=== PATIENT | male | born 1980 | race African-American/Black ===

== ENCOUNTER 2018-10-27 02:59 | Inpatient (IN) ==
--- NOTE | 2018-10-27 03:16 | PROVIDER DOCUMENTATION ---
HPI-General Adult - General Chief Complaint: Chest Pain Stated Complaint: SOB, CHEST PAIN, PRIVATE PART SWELLING Time Seen by Provider: 10/27/18 03:10 Source: patient, old records Allergies/Adverse Reactions: Patient Allergies Allergy/AdvReac Type Severity Reaction Status Date / Time No Known Allergies Allergy Verified 10/23/18 02:02 Home Medications: Home Medication List Medication Instructions Recorded Confirmed Last Taken Type Pantoprazole [Protonix] 40 mg PO DAILY@0700 11/16/16 10/23/18 Unknown History Carvedilol [Coreg] 25 mg PO BID 05/31/17 10/27/18 Unknown History Atorvastatin Calcium 40 mg PO DAILY 10/16/18 10/27/18 Unknown History Cholecalciferol (Vitamin D3) 5,000 unit PO DAILY 10/16/18 10/23/18 Unknown History [Vitamin D3] Gabapentin 300 mg PO BID 10/16/18 10/23/18 Unknown History Hydralazine HCl 100 mg PO TID 10/16/18 10/27/18 Unknown History Lubiprostone [Amitiza] 24 mcg PO BID 10/16/18 10/27/18 Unknown History Naloxegol Oxalate [Movantik] 25 mg PO DAILY 10/16/18 10/23/18 Unknown History Sodium Bicarbonate 650 mg PO BID 10/16/18 10/27/18 Unknown History Amlodipine [Norvasc] 10 mg PO DAILY #30 tab 10/20/18 10/23/18 Unknown Rx Sitagliptin [Januvia] 50 mg PO DAILY #30 tab 10/20/18 10/23/18 Unknown Rx Sodium Zirconium Cyclosilicate 10 gm PO DAILY #30 powd.pack 10/20/18 10/23/18 Unknown Rx [Lokelma] Escitalopram [Lexapro] 10 mg PO QAM #30 tab 10/26/18 10/27/18 Unknown Rx Insulin Humulin 70/30 [Humulin 15 unit SUBQ QHS #1 insuln.pen 10/26/18 10/23/18 Unknown Rx 70/30] Insulin Humulin 70/30 [Humulin 30 unit SUBQ DAILY #1 insuln.pen 10/26/18 10/23/18 Unknown Rx 70/30] Isosorbide Dinitrate 20 mg PO TID #90 tab 10/26/18 Unknown Rx Nicotine Patch [Nicoderm Patch] 21 mg TD DAILY #30 patch.td24 10/26/18 Unknown Rx Torsemide 20 mg PO DAILY #30 tab 10/26/18 10/27/18 Unknown Rx Minoxidil 1 tab PO DAILY 10/27/18 10/27/18 Unknown History Naloxegol Oxalate [Movantik] 1 tab PO DIRECTED 10/27/18 10/27/18 Unknown History Sitagliptin [Januvia] 1 tab PO DAILY 10/27/18 10/27/18 Unknown History - History of Present Illness -Gen Adult Nature of Presenting Problems: 38 y/o M presents to the ED complaining of dyspnea and chest pain. States this began earlier tonight and feels like his CHF. Reports he has been compliant with his meds but feels like he "has been swelling up". No cough no fever. Chest pain achiness in left chest. Review of Systems - Adult - REVIEW OF SYSTEMS - ADULT Constitutional: reports: no symptoms reported Eyes: reports: no symptoms reported Ears, Nose, Mouth & Throat: reports: no symptoms reported Cardiovascular: reports: chest pain, edema Respiratory: reports: shortness of breath. denies: cough Gastrointestinal: reports: no symptoms reported Genitourinary: reports: no symptoms reported Musculoskeletal: reports: no symptoms reported Integumentary: reports: no symptoms reported Neurological: reports: no symptoms reported Psychiatric: reports: no symptoms reported Endocrine: reports: no symptoms reported Hematologic/Lymphatic: reports: no symptoms reported Allergic/Immunologic: reports: no symptoms reported All Other Systems: Reviewed and Negative Past History - Adult - PAST MEDICAL HISTORY-ADULT Review of Records: reports: Old Records Reviewed, Nursing Assessment Review, Medications Reviewed, Social history reviewed & non-contributory. Major Childhood Illnesses: reports: denies history Cardiovascular: reports: HTN, hyperlipidemia Respiratory: reports: denies history Gastrointestinal: reports: denies history Obstetrical/Gynecological: reports: denies history Genitourinary: reports: denies history Musculoskeletal: reports: denies history Neurological: reports: Seizures/Epilepsy Endocrine/Immune: reports: Diabetes Other Conditions: reports: other (neropathy) - PRIOR SURGERIES/PROCEDURES Surgical/Procedure History: reports: appendectomy - IMMUNIZATION STATUS Childhood Immunizations: See Nurse Assessment Flu Vaccine: See Nurse Assessment - FAMILY HISTORY Family History: diabetes Physical Exam-General - PHYSICAL EXAM-ADULT Initial Vital Signs Reviewed: Yes - CONSTITUTIONAL General Appearance: appears well, alert, no apparent distress - EYES Eyes: PERRL/EOMI, pink conjunctivae - HEAD, EARS, NOSE, MOUTH & THROAT HENMT: normocephalic/atraumatic, moist mucous membranes, normal ENT inspection - NECK Neck: non-tender, full range of motion, supple - RESPIRATORY Respiratory: chest non-tender, lungs clear, normal breath sounds - CARDIOVASCULAR Cardiovascular: normal peripheral pulses, regular rate, rhythm, no JVD, other (marked BL pedal edema) - GASTROINTESTINAL (ABDOMEN) Abdominal Exam: normal bowel sounds, non tender, soft - MUSCULOSKELETAL Back Exam: normal inspection, no CVA tenderness, no vertebral tenderness Extremity: normal range of motion, non-tender, pedal edema, swelling, other (deep diabetic foot ulcer to right plantar great toe with moderate surrouding erythrema) - SKIN Integumentary: normal color, normal turgor, warm/dry - NEUROLOGIC Neurologic: grossly normal, no motor/sensory deficits - PSYCHIATRIC Psych/Mental Status: normal mood/affect, normal thought content, normal thought process, oriented x 3 Progress - PLAN OF CARE/RESULTS Progress/Plan/Lab Results: Vital Signs - 8 hr 10/27/18 03:08 Temperature 99 F Pulse Rate 113 H Respiratory Rate 14 Blood Pressure 162/86 O2 Sat by Pulse Oximetry 98 Orders Category Date Time Status EKG [EKG] Stat Ther 10/27/18 03:15 Ordered chest pain, dyspnea, and edema. Will further evaluate for causes including but not limited to chf exacerbation, acs, arrythmia, pna, ptx Result Diagrams: 10/27/18 03:09 10/27/18 03:09 - REASSESSMENT Reassessment #1 Status: improving (chest pain improved. Elevated bnp, troponin, and glucose with anemia likely due to noncomplaince and chf exacerbation. no signs of DKA. Troponin elevation within pt's baseline. Treated with NTG paste, lasix, insulin, vanco and zosyn and will admit. Discussed case with Dr. Lawrence, hospitalist, who requests pt be admitted to the floor and will see him there.) - EKG 1 Time of EKG reading by physician:: 03:05 EKG Read and Signed by:: Luz Logan EKG Interpretation (*Must complete 3 of following elements*): Abnormal (Sinus Rhythm, rate 118, t-waves inversions anteriorly and laterally unchanged from prior 10/19/18) Departure - Departure Date of Disposition Decision: 10/27/18 Time of Disposition Decision: 04:29 DIAGNOSIS: Troponin level elevated, Type 2 diabetes mellitus with hyperglycemia, with long-term current use of insulin CHF exacerbation Qualifiers: Heart failure type: unspecified Qualified Code(s): I50.9 - Heart failure, unspecified Diabetes Qualifiers: Diabetes mellitus type: type 2 Diabetes mellitus chcf insulin use: unspecified rodent exterminator insulin use status Diabetes mellitus complication status: with skin complications Diabetes mellitus complication detail: with foot ulcer Qualified Code(s): E11.621 - Type 2 diabetes mellitus with foot ulcer Diabetic foot ulcer Qualifiers: Diabetic foot ulcer location: toe Diabetes mellitus type: type 2 Laterality: right Non-pressure ulcer stage: unspecified non-pressure ulcer stage Qualified Code(s): E11.621 - Type 2 diabetes mellitus with foot ulcer Anemia Qualifiers: Anemia type: unspecified type Qualified Code(s): D64.9 - Anemia, unspecified Disposition: ADMITTED INPATIENT 09 Certified Medical Emergency: Emergent Condition: Fair - Critical Care Note This patient required my direct & personal management of CC.: No Attestation - Physician/ DUANE Attestation Patient care was provided by Advanced Practice Provider:: No The physician spent face to face time with patient:: Yes Advanced Practice Provider documentation review:: Supervising physician onsite and consulted in the evaluation and care of this patient. The physician did have a face to face encounter with the patient.
[2018-10-27] MEDS ORDERED: ASPIRIN PO ONE (03:27)
[2018-10-27] MEDS ORDERED: NITROGLYCERIN TOP ONE (03:27)
[2018-10-27 03:37] LABS: BASO# 0.06 X1000 (0.0-0.2); BASO% 0.3 % (0.0-0.8); EOS# 0.08 X1000 (0.0-0.7); EOS% 0.5 % (0.0-10.0); HEMATOCRIT 22.3 % (42.0-52.0); HEMOGLOBIN 7.5 g/dL (14.0-18.0); IMM GRAN# 0.05 X1000 (0.0-0.04); IMM GRAN% 0.3 % (0.0-0.5); LYMPH# 1.63 X1000 (1.2-3.4); LYMPH% 9.2 % (20.5-51.1); MCH 27.6 PG (27-31); MCHC 33.6 g/dL (33-37); MONO# 1.11 X1000 (0.11-0.59); MONO% 6.3 % (1.7-9.3); MPV 10.4 FL (7.4-10.4); NEUT% 83.4 % (42.2-75.2); PLT 376 X1000 (130-400); RBC 2.72 XMIL (4.7-6.1); RDW 19.5 % (11.5-14.5); WBC 17.73 X1000 (4.8-10.8)
[2018-10-27] MEDS ORDERED: LASIX ONE (04:20)
[2018-10-27] MEDS ORDERED: LASIX IV ONE (04:20)
[2018-10-27] MEDS ORDERED: MORPHINE IV ONE (04:26)
[2018-10-27] MEDS ORDERED: HUMULIN R IV ONE (04:26)
[2018-10-27] MEDS ORDERED: VANCOMYCIN 1 GM/NS 1 GM/250 ML IVPB IV ONE (04:28)
[2018-10-27] MEDS ORDERED: ZOSYN 4.5 GM in NS 100 ML IV ONE (04:28)
[2018-10-27 04:36] LABS: AGAP 13; BUN 62 mg/dL (8-22); CALCIUM 8.3 mg/dL (8.8-10.2); CHLORIDE 96 mmol/L (98-107); COSMO 297; CREATININE 2.7 mg/dL (0.7-1.2); POTASSIUM 5.8 mmol/L (3.5-5.1); SODIUM 131 mmol/L (136-145); TCO2 22 mmol/L (25-35)
[2018-10-27 04:43] LABS: GLUCOSE 408 mg/dL (70-104)
[2018-10-27] MEDS ORDERED: ZOFRAN IV PRN (04:57)
[2018-10-27 05:04] LABS: IRON SATURATION 13 %; TIBC 205 ug/dL; TOTAL IRON 26 ug/dL (53-167); UNBOUND IRON 179 ug/dL (112-346)
--- NOTE | 2018-10-27 06:02 | EKG Report ---
Test Performed on : 10/27/2018 03:04:46 AM Test Reason : cp Blood Pressure : / mmHG Vent. Rate : 118 BPM Atrial Rate : 118 BPM P-R Int : 146 ms QRS Dur : 082 ms QT Int : 328 ms P-R-T Axes : 051 050 233 degrees QTc Int : 459 ms Sinus tachycardia. Possible Left atrial enlargement ST & T wave abnormality, consider inferolateral ischemia Abnormal ECG When compared with ECG of 23-OCT-2018 12:09, (Unconfirmed) No significant change was found Unconfirmed Result
--- NOTE | 2018-10-27 07:17 | Diag Imaging Result Doc PS360 ---
EXAM: CHEST-1 VIEW INDICATION: dyspnea TECHNIQUE: One view COMPARISON: 10/23/2018 FINDINGS: There is a nodule at the left lower lung zone that has been stable for over 2 years and is assumed to represent a granuloma. Inspiration is suboptimal. The lungs are grossly clear, otherwise. There is no discrete pleural fluid collection or pneumothorax. There is stable cardiomegaly. IMPRESSION: Low lung volumes and cardiomegaly but no definite acute chest pathology by plain radiograph. Electronically signed by Murphy Stern 10/27/2018 7:15 AM
[2018-10-27 08:10] LABS: HEMATOCRIT 23.9 % (42.0-52.0); MCH 27.4 PG (27-31); MCHC 33.5 g/dL (33-37); MCV 81.8 FL (81-99); MPV 9.6 FL (7.4-10.4); RBC 2.92 XMIL (4.7-6.1); RDW 19.6 % (11.5-14.5); WBC 18.16 X1000 (4.8-10.8)
[2018-10-27 08:14] LABS: HEMOGLOBIN A1C 11.6 % (4.8-6.0)
[2018-10-27 08:29] LABS: ALBUMIN 3.7 g/dL (3.5-5.0); CALCIUM 8.6 mg/dL (8.8-10.2); CREATININE 2.6 mg/dL (0.7-1.2); MAGNESIUM 2.2 mg/dL (1.5-2.7); TOTAL BILIRUBIN 0.3 mg/dL (0.20-1.00); TOTAL PROTEIN 7.5 g/dL (6.3-8.3)
[2018-10-27 08:36] LABS: POTASSIUM 5.9 mmol/L (3.5-5.1)
[2018-10-27] MEDS: LASIX IV SCH ×2 (08:58→21:19)
[2018-10-27] MEDS ORDERED: LOKELMA POWDER PACKET PO SCH ×2 (09:45→12:45)
--- NOTE | 2018-10-27 10:16 | Diag Imaging Result Doc PS360 ---
EXAM: FOOT COMPLETE RIGHT 10/27/2018 HISTORY: pain, edema,redness TECHNIQUE: Right foot three views COMMENT: There is soft tissue swelling over the dorsum of the foot. There are calcifications present in the dorsalis pedis artery. There is no evidence of periosteal reaction or erosion fracture or dislocation. IMPRESSION: Advanced atherosclerosis. No evidence of acute bony disease. Electronically signed by Jeremy Guaman 10/27/2018 10:13 AM
[2018-10-27 10:26] LABS: URINE SOURCE CLEAN CATCH
[2018-10-27 10:40] LABS: UR AMPHETAMINES QUAL NONE DETECTED (NONE DETECT); UR BARBITUATES QUAL NONE DETECTED (NONE DETECT); UR BENZODIAZEPIN QUAL NONE DETECTED (NONE DETECT); UR CANNABINOIDS QUAL PRESUMPTIVE POSITIVE (NONE DETECT); UR COCAINE QUAL NONE DETECTED (NONE DETECT); UR METHADONE QUAL NONE DETECTED (NONE DETECT); UR METHAMPHETAMINE QUAL NONE DETECTED (NONE DETECT); UR OPIATES QUAL PRESUMPTIVE POSITIVE (NONE DETECT); UR OXYCODONE QUAL NONE DETECTED (NONE DETECT); UR PCP QUAL NONE DETECTED (NONE DETECT); UR PROPOXYPHENE QUAL NONE DETECTED (NONE DETECT); UR TCA QUAL NONE DETECTED (NONE DETECT)
[2018-10-27 10:43] LABS: BILIRUBIN URINE NEGATIVE (NEGATIVE); BLOOD URINE 1+ (NEGATIVE); CLARITY CLEAR (CLEAR); COLOR YELLOW; KETONE URINE NEGATIVE (NEGATIVE); LEUKOCYTES URINE NEGATIVE (NEGATIVE); NITRITE URINE NEGATIVE (NEGATIVE); PROTEIN URINE 2+(100 mg/dL) mg/dL (NEGATIVE); UROBILINOGEN URINE NORMAL
[2018-10-27 10:59] LABS: URINE BACTERIA NEGATIVE /HFP; URINE CAST NONE SEEN /LPF; URINE CRYSTAL NONE SEEN /HPF; URINE EPITHELIAL CELLS <10 /HPF (<10); URINE WBC <10 /HPF (<10); URINE YEAST NONE SEEN /HPF
[2018-10-27] MEDS: HUMALOG (PARKWAY) SUBQ SCH ×3 (11:41→21:27)
[2018-10-27] MEDS: LOKELMA POWDER PACKET PO SCH (11:49)
[2018-10-27] MEDS ORDERED: ATIVAN PO PRN (12:44)
[2018-10-27] MEDS ORDERED: NORCO-10 PO PRN (12:46)
[2018-10-27] MEDS: ISORDIL PO SCH ×2 (13:26→21:20)
[2018-10-27] MEDS: NICODERM PATCH TD SCH (13:26)
[2018-10-27] MEDS: JANUVIA PO SCH (13:27)
[2018-10-27] MEDS: AMITIZA PO SCH ×2 (13:27→21:26)
[2018-10-27] MEDS: APRESOLINE PO SCH ×2 (13:27→21:20)
[2018-10-27 15:00] LABS: CK INDEX 1.9 (0.0-2.5); CK-MB 7.73 ng/mL (0.0-5.0)
--- NOTE | 2018-10-27 15:58 | HISTORY AND PHYSICAL ---
CHIEF COMPLAINT: My legs are swelling. I am having chest pain. HISTORY OF PRESENT ILLNESS: This is a 38-year-old gentleman who presents to the emergency room complaining of chest pain, shortness of breath and lower extremity edema. Mr. Campoverde has a history of diabetes type 2, chronic kidney disease stage 3, chronic anemia, chronic hyperkalemia, and diabetic foot ulcer to his right lower extremity. Mr. Campoverde has been hospitalized 3 times since October 16. He was hospitalized October 16 through the , then October 23 to and then returns today all for the same symptoms. He has had complained of intermittent achy chest pain throughout this time as well as dyspnea, lower extremity edema. He has been repeatedly asked about compliance with his medications throughout this time. He at some time states that he is compliant, others he stated that he is not taking Lasix because it does not work for him in fact on his October 23 admission he asked to be changed to torsemide stating that helped his sister. He wanted to try it. It was noted that on discharge from [facility] on the , the patient did not take any Lasix at home, stating that he got confused with his discharge instructions. We asked about his diet. He states his made his diet and mainly consist of ham, bologna and turkey that he does not watch his salt intake and he has no intention of starting. In the emergency room. He was given IV Lasix, but since admission he has refused. He has not measured his urine as he was instructed so we are unsure of response to this. At the time of my exam, Mr. Campovrede has been down to his car twice this today to get things out of his car after being told multiple times he does not need to leave the floor. He denies any chest pain or any shortness of breath. He is cooperative. He is noted to have bilateral lower extremity edema from about midthigh down, although this has improved from my assessment on his admission October 23. PAST MEDICAL HISTORY: 1. Diabetes mellitus type 2. 2. Diastolic heart failure. 3. Chronic kidney disease stage 3. 4. Chronic anemia. 5. Chronic hyperkalemia. 6. Hypertension. 7. Diabetic foot ulcer, which was followed by Dr. Olivares [facility]. PAST SURGICAL HISTORY: 1. Appendectomy. 2. Tonsillectomy. 3. 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 SOCIAL HISTORY: He lives with family members. He smokes about a pack a day. He does use daily marijuana. He denies alcohol use. ALLERGIES: No known drug allergies. HOME MEDICATIONS: A list will be obtained by the nurse nursing staff once verified review restart as appropriate. REVIEW OF SYSTEMS: Discussed with patient with pertinent positives stated in the HPI. He denied any syncope or dizziness, any palpitations, a productive cough, any fevers or chills, night sweats, any nausea, vomiting, diarrhea, constipation, black or bloody vomitus or stools, any hematuria, dysuria, frequency, urgency. PHYSICAL EXAMINATION: GENERAL: This is a 38-year-old gentleman who is walking down the carroll. He is in no distress. VITAL SIGNS: Blood pressure 180/80 with a heart rate of 112, respirations are 18, temperature is 97.9 degrees oral with room air saturation 100%. HEENT: Head is normocephalic, atraumatic. Mucous membranes are moist. NECK: Supple with no JVD. CARDIOVASCULAR: Regular rate and rhythm. S1 and S2 appreciated. He has bilateral lower extremity edema from just his thighs down. Calves are nontender bilateral peripheral pulses palpable x4 extremities. PULMONARY: Breath sounds are diminished throughout. Chest rises and falls symmetric with respiration. Chest wall is nontender to palpation gastrointestinal. GASTROINTESTINAL: Abdomen is soft, nontender, nondistended with bowel sounds in all 4 quadrants. GENITOURINARY: No CVA or suprapubic tenderness. NEUROLOGIC: He is alert oriented x3. SKIN: Warm and dry. LABS: WBC is 18 with hemoglobin 8, hematocrit 23.9, and platelets of 377,000. Sodium is 131, potassium 5.9, BUN 61, creatinine 2.6, glucose of 500. Hemoglobin A1c is 11.6. Troponin is 0.119. Urinalysis is essentially negative. In reviewing the patient's labs, troponin has been elevated since October 23. It was 0.09 at 2:30 in the morning on that admission. It did peak at 0.123 on October 24. On arrival to the emergency room at 3 a.m. on the , troponin was 0.132. Repeat troponin at 6 a.m. is 0.119. Stat troponin is now pending. Chest x-ray revealed low lung volumes and cardiomegaly, but no definite acute chest pathology. ASSESSMENT AND PLAN: 1. Elevated troponin. The patient was evaluated by cardiology and he was seen yesterday before discharge. It was felt he was in diastolic failure with nephrotic syndrome. He will continue his medications as per cardiology recommendations yesterday. 2. Diastolic heart failure. We will continue with diuresis. Continue the medication regimen from cardiology prior to discharge yesterday. We will attempt to keep an intake and output although the patient has been refusing to measure his urine. 3. Nephrotic syndrome. We will consult Nephrology. 4. Chronic kidney disease stage 3. This is stable. 5. Hyperkalemia. Potassium is 5.9 today, but in review, the patient's baseline potassium has been 5.5 to 5.8 site for the last 2 years. We will continue pad potassium binder Lokelma 20 mg p.o. daily and trend labs daily. Of course will hold any JUAQUIN or ARB inhibitors. 6. Chronic foot ulcers. Wound Care will be consulted. 7. Diabetes mellitus. We will start pattern blood glucose with sliding scale insulin. We will restart the 70/30, 30 units in the morning and 15 units at night. 8. Hypertension. Aware. 9. Anxiety. We will continue Lexapro started by cardiology. Plan discussed with Dr Lawrence. Further treatments pending hospital course. Dictated by OSMAN Mckeon for Kaden Lawrence MD cc: OSMAN Mckeon MD [facility], [place]
[2018-10-27] MEDS: HUMULIN 70/30 (PARKWAY) SUBQ SCH (16:25)
--- NOTE | 2018-10-27 16:42 | HISTORY AND PHYSICAL ---
ADDENDUM REPORT: Patient seen and examined by myself. Full note dictated and discussed with nurse practitioner. The patient apparently was in [facility] yesterday and discharged. Unsure of what transpired, but certainly Mr. Campoverde's description that the nurse simply walked up to and asked "where the F have you been" seems suspect. He currently is complaining of pain in his left calf that he notes starts in his left foot and left calf and radiates through his hip up his side and all way down to his left fingers. Discussed with him that although that may be his perception it certainly seems to be out of the ordinary for what typically would happen with referred pain. The patient then notes this has been going on for several years. Discussed with him that it is highly unlikely that something has been going on for several years will change within a few days in a hospital setting. He does have congestive heart failure with dependent edema including scrotal edema. We will continue him in the hospital on Lasix. Discussed with him that it is not an option for him to disappear while he has an IV in his arm. In fact, I myself had to come to his room 3 different times before he could be found. He notes that he was walking around upstairs. This again is highly suspect as he was nowhere to be found in any hallway upstairs. It is possible that he went into an unoccupied room and shut the door so he could not be found although again that would be inappropriate. I did discuss with patient that Soma, Ativan and pain pills are a dangerous combination and is not a combination that I write or continue. We will stop the Soma. cc: Kaden Lawrence MD
[2018-10-27] MEDS ORDERED: SOMA PO PRN (18:10)
[2018-10-27] MEDS ORDERED: MOVANTIK PO ONE (20:26)
[2018-10-27] MEDS: SODIUM BICARBONATE PO SCH (21:20)
[2018-10-27] MEDS: NEURONTIN PO SCH (21:20)
[2018-10-27] MEDS: COREG PO SCH (21:20)
[2018-10-27] MEDS: PERCOCET-5 PO PRN (21:20)
[2018-10-28] MEDS: PERCOCET-5 PO PRN ×2 (04:05→12:05)
[2018-10-28] MEDS: SODIUM BICARBONATE PO SCH ×3 (04:06→20:20)
[2018-10-28] MEDS: PROTONIX PO SCH ×2 (04:06→06:09)
[2018-10-28] MEDS: APRESOLINE PO SCH ×3 (06:08→20:21)
[2018-10-28] MEDS: ISORDIL PO SCH ×3 (06:08→20:20)
[2018-10-28] MEDS: HUMALOG (PARKWAY) SUBQ SCH ×4 (06:09→20:21)
[2018-10-28 06:23] LABS: HEMATOCRIT 20.2 % (42.0-52.0); HEMOGLOBIN 6.8 g/dL (14.0-18.0); MCH 27.5 PG (27-31); MCHC 33.7 g/dL (33-37); MCV 81.8 FL (81-99); MPV 10.3 FL (7.4-10.4); RBC 2.47 XMIL (4.7-6.1); RDW 19.1 % (11.5-14.5); WBC 15.56 X1000 (4.8-10.8)
[2018-10-28 06:36] LABS: ALBUMIN 3.3 g/dL (3.5-5.0); CALCIUM 8.3 mg/dL (8.8-10.2); CREATININE 2.5 mg/dL (0.7-1.2); PHOSPHORUS 5.4 mg/dL (2.7-4.5); POTASSIUM 5.4 mmol/L (3.5-5.1)
[2018-10-28] MEDS: COREG PO SCH ×2 (10:29→20:19)
[2018-10-28] MEDS: JANUVIA PO SCH (10:30)
[2018-10-28] MEDS: LASIX IV SCH ×3 (10:30→20:43)
[2018-10-28] MEDS: LEXAPRO PO SCH (10:30)
[2018-10-28] MEDS: VITAMIN D PO SCH (10:31)
[2018-10-28] MEDS: NICODERM PATCH TD SCH ×2 (10:31→20:44)
[2018-10-28] MEDS: NEURONTIN PO SCH ×2 (10:31→20:19)
[2018-10-28] MEDS: AMITIZA PO SCH ×2 (10:31→20:19)
[2018-10-28] MEDS: HUMULIN 70/30 (PARKWAY) SUBQ SCH ×2 (10:31→15:22)
[2018-10-28] MEDS: LOKELMA POWDER PACKET PO SCH (10:32)
[2018-10-28] MEDS ORDERED: NS 500 ML IV ONE (11:26)
[2018-10-28] MEDS: SOMA PO PRN (15:17)
[2018-10-28 17:43] LABS: HEMATOCRIT 24.7 % (42.0-52.0); HEMOGLOBIN 8.4 g/dL (14.0-18.0); MCH 27.9 PG (27-31); MCV 82.1 FL (81-99); MPV 9.3 FL (7.4-10.4); RBC 3.01 XMIL (4.7-6.1); RDW 18.6 % (11.5-14.5); WBC 13.99 X1000 (4.8-10.8)
[2018-10-28 18:05] LABS: ALBUMIN 3.6 g/dL (3.5-5.0); CALCIUM 8.6 mg/dL (8.8-10.2); CREATININE 2.2 mg/dL (0.7-1.2); POTASSIUM 5.3 mmol/L (3.5-5.1); TOTAL BILIRUBIN 0.6 mg/dL (0.20-1.00); TOTAL PROTEIN 7.1 g/dL (6.3-8.3)
--- NOTE | 2018-10-28 19:01 | PROGRESS NOTE ---
DATE: 10/28/2018 SUBJECTIVE: The patient has a multitude of chronic complaints. He still complains that his left foot, left leg, left hip, left side and left hand hurt. He still complains of scrotal swelling. He actually does admit that his lower extremity swelling is slightly improved. OBJECTIVE: Vital signs reviewed. Temperature 97.9 degrees, pulse 100 to 111, BP elevated at 174/82.General: The patient again is asking to increase his Percocet and his Soma, and he would like the addition of something that starts with an A (ends up being Ativan). HEENT: Normocephalic. Neck supple. Cardiovascular: Regular rate. Chest clear, nonlabored. No crackles. No wheezing. Abdomen soft, obese. Extremities: He has 3+ edema, but actually slightly improved from yesterday's exam. Neurologic: No focal changes. ASSESSMENT: 1. Purposeful medical noncompliance. 2. Chronic tobacco abuse. As expected, the patient was extremely angry earlier and threatening to leave the hospital if we did not let him move rooms, because he needed a shower that had a working fan. Of course, the fan issue had nothing to do with his shower. Once he moved rooms, there was an extensive odor of cigarette smoke coming from his room, billowing up out into the carroll and into the neighboring room. When confronted, Mr. Campoverde became angry, was yelling in the carroll, yelling at staff, yelling at the network security officer. 3. Hyperkalemia. Again discussed with the patient that despite his knowledge of diuretics, Aldactone would be contraindicated with hyperkalemia. 4. Chronic renal failure, stable. 5. Congestive heart failure with anasarca, slightly improved. We will continue to follow. 6. Anger outbursts. 7. Chronic pain. 8. Chronic anxiety. PLAN: We will continue the patient in the hospital as long as he abides by the rules of not abusing staff nor smoking in his room. We will not start him on Aldactone. His blood pressures are elevated. We will use hydralazine. Given his hyperkalemia, we will stay away from JUAQUIN and ARB. Blood sugars have been stable. The patient is extremely noncompliant with his diet, frequently disappears from the floor and comes back with a bag of potato chips, presumably from the vending machine. Discussed with the patient that despite his opinion that he has vocalized multiple times of Dr. Corona, it would be up to Dr. Corona or his primary care outpatient of choice to continue him on narcotics, as I would not be writing any narcotics for him on discharge to include Soma, Ativan and Percocet. We will continue to follow. cc: Kaden Lawrence MD
[2018-10-28] MEDS ORDERED: LIPITOR PO SCH (21:00)
[2018-10-29] MEDS: PERCOCET-5 PO PRN (00:18)
[2018-10-29] MEDS: SOMA PO PRN (00:18)
[2018-10-29] MEDS: APRESOLINE PO SCH ×2 (06:20→13:16)
[2018-10-29] MEDS: PROTONIX PO SCH (06:20)
[2018-10-29] MEDS: ISORDIL PO SCH ×2 (06:20→13:16)
[2018-10-29] MEDS: HUMALOG (PARKWAY) SUBQ SCH ×2 (06:41→11:33)
[2018-10-29 06:52] LABS: HEMATOCRIT 22.1 % (42.0-52.0); HEMOGLOBIN 7.2 g/dL (14.0-18.0); MCH 26.9 PG (27-31); MCHC 32.6 g/dL (33-37); MCV 82.5 FL (81-99); MPV 10.1 FL (7.4-10.4); RBC 2.68 XMIL (4.7-6.1); RDW 18.7 % (11.5-14.5); WBC 13.91 X1000 (4.8-10.8)
[2018-10-29 07:31] LABS: ALBUMIN 3.1 g/dL (3.5-5.0); CALCIUM 8.1 mg/dL (8.8-10.2); CREATININE 2.1 mg/dL (0.7-1.2); PHOSPHORUS 4.9 mg/dL (2.7-4.5); POTASSIUM 5.2 mmol/L (3.5-5.1)
[2018-10-29 07:32] LABS: ALBUMIN 3.1 g/dL (3.5-5.0); CALCIUM 8.2 mg/dL (8.8-10.2); CREATININE 2.1 mg/dL (0.7-1.2); MAGNESIUM 2.2 mg/dL (1.5-2.7); POTASSIUM 5.2 mmol/L (3.5-5.1); TOTAL BILIRUBIN 0.3 mg/dL (0.20-1.00); TOTAL PROTEIN 5.7 g/dL (6.3-8.3)
[2018-10-29 08:02] VITALS: BP 166/75
[2018-10-29] MEDS: LEXAPRO PO SCH (11:13)
[2018-10-29] MEDS: AMITIZA PO SCH (11:13)
[2018-10-29] MEDS: LASIX IV SCH (11:13)
[2018-10-29] MEDS: NEURONTIN PO SCH (11:13)
[2018-10-29] MEDS: LOKELMA POWDER PACKET PO SCH (11:14)
[2018-10-29] MEDS: VITAMIN D PO SCH (11:14)
[2018-10-29] MEDS: SODIUM BICARBONATE PO SCH (11:14)
[2018-10-29] MEDS: JANUVIA PO SCH (11:14)
[2018-10-29] MEDS: COREG PO SCH (11:14)
[2018-10-29] MEDS: HUMULIN 70/30 (PARKWAY) SUBQ SCH (11:20)
[2018-10-29] MEDS: NICODERM PATCH TD SCH (11:45)
--- NOTE | 2018-10-29 16:04 | DISCHARGE SUMMARY ---
ADMISSION DATE: 10/27/2018 DISCHARGE DATE: 10/29/2018 DISCHARGE DIAGNOSES: 1. Medical noncompliance. 2. Dietary noncompliance. 3. Diastolic heart failure. 4. Anasarca. 5. Chronic hyperkalemia. 6. Chronic anemia. 7. Chronic kidney disease, stage 3. 8. Hypertension. 9. Diabetic foot ulceration. Followed by the [facility]. 10. Chronic tobacco abuse. The patient became irate when he was asked to not smoke in his room. 11. Frequent, sometime severe anger outbursts. CONSULTATIONS: None. PROCEDURES: None. BRIEF HOSPITAL COURSE: The patient is a 38-year-old gentleman who presented to the hospital complaining of his leg swelling. He was placed on IV Lasix. Oddly enough patient was recently admitted to [facility] because he stated that his Lasix was not working, although he was not taking it. While in the hospital this time, he had a visible decrease in the swelling of his abdomen and bilateral lower extremities while on Lasix, so it certainly would appear that Lasix does work. The patient does have hyperkalemia. Therefore, Aldactone is not an option. He was not started on an JUAQUIN or an ARB as well due to his hyperkalemia. This remained stable at 5.2 to 5.3. The patient continued to be noncompliant with his diet during the hospital stay. In fact, he would frequently disappear from the floor for an hour or more and would often come back with a bag of potato chips in his hand. The patient had consistently complained about the staff, stating that they frequently refused to bring him his medications, stating, "They told me they did not have time for this shit, and I needed to get over it." Discussed with patient that this is incredibly highly unlikely, as he is the only individual who has had that complaint. On each day discussed with Mr. Campoverde that I will not increase his pain medicine or his Soma. Will not give him Ativan if he is taking pain medication and Soma. Discussed with him that I will not on an outpatient basis write for his pain medications, his Soma, or his Ativan. The patient states that he had severe left calf pain that has been present for over a year that radiates to his left side and all way down his left hand. On discharge, patient is sleeping comfortably when I arrived into his room, and then immediately upon awakening and realizing as I was standing there, began grabbing his left calf and moaning. He is in no current respiratory distress. DISPOSITION: Patient will be discharged home. Discussed with him that he can go back to his torsemide, and he can take 2 a day. We did write him a prescription for Soma for 7 days and [place] for 7 days. Discussed that I will not write any more than this and that will give him week to get back in with Dr. Corona. I did personally discuss with him that, if he yells or cusses at the staff, I will cancel his prescription for these 2 items. His troponin was minimally elevated. I expect this is due to his chronic disease as well as his chronic renal failure. I attempted to discuss with him dietary restrictions; however, he appeared quite disinterested in this discourse. COORDINATION TIME: 45 minutes was spent in total care. cc: Kaden Lawrence MD
== END 2018-10-29 13:36 | disposition home or self-care (01) | DRG 291 ==
LOC: P.ED 02:59 → P.MEDSURG 06:25 → P.ICU 10-28 15:43 → P.MEDSURG 10-28 15:44
PROVIDERS: ATTEND Family Medicine
CPT/HCPCS: 36415; 36430; 71010; 71045; 73630; 80048; 80053; 80069; 80104; 80301; 80305; 81001; 82550; 82553; 82728; 82948; 83036; 83540; 83550; 83735; 83880; 84443; 84466; 84484; 85025; 85027; 86850; 86900; 86901; 86920; 87040; 87088; 93005; 94761; 96365; 96375; 99285; A9270; G0431; G0434; G0477; J1815; J1940; J2270; J2543; J7040; P9016; XXXXX

== ENCOUNTER 2018-11-04 23:18 | Observation (INO) ==
[2018-11-04] MEDS ORDERED: ASPIRIN PO ONE (23:30)
[2018-11-05 00:05] LABS: HEMATOCRIT 22.2 % (42.0-52.0); HEMOGLOBIN 7.3 g/dL (14.0-18.0); MCH 28.1 PG (27-31); MCHC 32.9 g/dL (33-37); MCV 85.4 FL (81-99); MONO% 5.5 % (1.7-9.3); MPV 9.2 FL (7.4-10.4); NEUT% 89.8 % (42.2-75.2); PLT 402 X1000 (130-400); RDW 18.7 % (11.5-14.5); WBC 16.43 X1000 (4.8-10.8)
--- NOTE | 2018-11-05 00:05 | PROVIDER DOCUMENTATION ---
This chart was entered by Ruby Hernandez Scribe, acting as scribe for Jimmy Bradley MD. HPI-General Adult - General Chief Complaint: Chest Pain Stated Complaint: SOB, CHEST PAIN Time Seen by Provider: 11/04/18 23:25 Source: patient Allergies/Adverse Reactions: Patient Allergies Allergy/AdvReac Type Severity Reaction Status Date / Time No Known Allergies Allergy Verified 10/23/18 02:02 Home Medications: Home Medication List Medication Instructions Recorded Confirmed Last Taken Type Pantoprazole [Protonix] 40 mg PO DAILY@0700 11/16/16 10/27/18 Unknown History Carvedilol [Coreg] 25 mg PO BID 05/31/17 10/27/18 Unknown History Atorvastatin Calcium 40 mg PO DAILY 10/16/18 10/27/18 Unknown History Cholecalciferol (Vitamin D3) 5,000 unit PO DAILY 10/16/18 10/27/18 Unknown History [Vitamin D3] Gabapentin 300 mg PO BID 10/16/18 10/27/18 Unknown History Hydralazine HCl 100 mg PO TID 10/16/18 10/27/18 Unknown History Lubiprostone [Amitiza] 24 mcg PO BID 10/16/18 10/27/18 Unknown History Naloxegol Oxalate [Movantik] 25 mg PO DAILY 10/16/18 10/27/18 Unknown History Sodium Bicarbonate 650 mg PO BID 10/16/18 10/27/18 Unknown History Sitagliptin [Januvia] 50 mg PO DAILY #30 tab 10/20/18 10/27/18 Unknown Rx Sodium Zirconium Cyclosilicate 10 gm PO DAILY #30 powd.pack 10/20/18 10/27/18 Unknown Rx [Lokelma] Escitalopram [Lexapro] 10 mg PO QAM #30 tab 10/26/18 10/27/18 Unknown Rx Insulin Humulin 70/30 [Humulin 15 unit SUBQ QHS #1 insuln.pen 10/26/18 10/27/18 Unknown Rx 70/30] Insulin Humulin 70/30 [Humulin 30 unit SUBQ DAILY #1 insuln.pen 10/26/18 10/27/18 Unknown Rx 70/30] Isosorbide Dinitrate 20 mg PO TID #90 tab 10/26/18 10/27/18 Unknown Rx Nicotine Patch [Nicoderm Patch] 21 mg TD DAILY #30 patch.td24 10/26/18 10/27/18 Unknown Rx Torsemide 20 mg PO DAILY #30 tab 10/26/18 10/27/18 Unknown Rx Carisoprodol [Soma] 350 mg PO BID PRN PRN #14 tab 10/29/18 Unknown Rx Oxycodone/APAP 5 mg/325 mg 1 ea PO BID PRN PRN #20 tab 10/29/18 Unknown Rx [Percocet-5] - History of Present Illness -Gen Adult Nature of Presenting Problems: Pt is 38/m presenting to ED w/ c/o SOB, CP and painful swollen feet. Pt sts that he has had those sx for the last 3 months and has been in and out of drs. but cannot figure out the base cause. pt does have CHF and diabetes as well as renal failur. Pt is everyday smoker. Pt is currently rx [place] 10 for pain. Location of Pain/Injury: reports: chest, lower extremity Pain Radiation: reports: no radiation Quality of Pain: reports: aching Severity: reports: moderate Onset/Duration: reports: gradual Timing: reports: still present Context/Activities at Onset: reports: none Modifying Factors: improves with: nothing Associated Symptoms: reports: chest pain, shortness of breath. denies: diaphoresis, fever/chills, nausea Similar Symptoms Previously?: Yes Recently seen or treated by another doctor?: Yes Review of Systems - Adult - REVIEW OF SYSTEMS - ADULT Constitutional: reports: no symptoms reported Eyes: reports: no symptoms reported Ears, Nose, Mouth & Throat: reports: no symptoms reported Cardiovascular: reports: chest pain Respiratory: reports: shortness of breath. denies: cough, wheezing Gastrointestinal: reports: no symptoms reported. denies: nausea, vomiting Genitourinary: reports: no symptoms reported Musculoskeletal: reports: no symptoms reported Integumentary: reports: no symptoms reported Neurological: reports: no symptoms reported. denies: dizziness/vertigo, headache/migraines Psychiatric: reports: no symptoms reported Endocrine: reports: no symptoms reported Hematologic/Lymphatic: reports: no symptoms reported Allergic/Immunologic: reports: no symptoms reported Past History - Adult - PAST MEDICAL HISTORY-ADULT Review of Records: reports: Old Records Reviewed, Nursing Assessment Review, Med ications Reviewed, Social history reviewed & non-contributory. Major Childhood Illnesses: reports: denies history Cardiovascular: reports: HTN, hyperlipidemia Respiratory: reports: denies history Gastrointestinal: reports: denies history Obstetrical/Gynecological: reports: denies history Genitourinary: reports: denies history Musculoskeletal: reports: denies history Neurological: reports: Seizures/Epilepsy Endocrine/Immune: reports: Diabetes Other Conditions: reports: other (neropathy) - PRIOR SURGERIES/PROCEDURES Surgical/Procedure History: reports: appendectomy - IMMUNIZATION STATUS Childhood Immunizations: See Nurse Assessment Flu Vaccine: See Nurse Assessment - FAMILY HISTORY Family History: diabetes - SOCIAL HISTORY Smoking: cigarettes Provider spent 3-5 mins advising pt. on dangers of tobacco.: Discussed manners to quit use, and f/u contacts for add'l counseling. Substance Use: none/never Alcohol Use Frequency: never Living Situation: family Physical Exam-General - PHYSICAL EXAM-ADULT Initial Vital Signs Reviewed: Yes - CONSTITUTIONAL General Appearance: appears well, alert, mild distress - EYES Eyes: PERRL/EOMI, pink conjunctivae - HEAD, EARS, NOSE, MOUTH & THROAT HENMT: normocephalic/atraumatic, moist mucous membranes, normal ENT inspection, TMs normal, pharynx normal - NECK Neck: non-tender, full range of motion, supple, normal inspection - RESPIRATORY Respiratory: lungs clear - CARDIOVASCULAR Cardiovascular: regular rate, rhythm - GASTROINTESTINAL (ABDOMEN) Abdominal Exam: normal bowel sounds, no pulsatile mass, distended, tenderness. negative: guarding, rebound - MUSCULOSKELETAL Back Exam: normal inspection Extremity: normal range of motion, normal gait, swelling, other (pt has diabetic sore to R large toe and bilaterally edema in feet) - SKIN Integumentary: normal color, warm/dry - NEUROLOGIC Neurologic: grossly normal - PSYCHIATRIC Psych/Mental Status: normal mood/affect, normal thought content, normal thought process, oriented x 3 Progress - PLAN OF CARE/RESULTS Progress/Plan/Lab Results: Vital Signs - 8 hr 11/04/18 23:22 Temperature 98.2 F Pulse Rate 97 H Respiratory Rate 20 Blood Pressure 183/84 O2 Sat by Pulse Oximetry 90 L Orders Category Date Time Status Cardiac Monitoring DIRECTED Care 11/04/18 23:29 Active FSBS/Accucheck Result NOW Care 11/04/18 23:50 Active ABDOMEN FLAT/UPRIGHT [RAD] Stat Exams 11/04/18 23:52 Ordered CHEST-PORTABLE [RAD] Stat Exams 11/04/18 23:29 Ordered BNP [PRO B-NATRIURETIC PEPTIDE] Stat Lab 11/04/18 23:50 Uncollected CBC WITH ELECTRONIC DIFF [HEME] Stat Lab 11/04/18 23:28 Ordered CK PROFILE [SP CHEM] Stat Lab 11/04/18 23:27 Ordered CMP [COMPREHENSIVE METABOLIC PANEL] [CHEM] Stat Lab 11/04/18 23:54 Ordered D-DIMER [COAG] Stat Lab 11/04/18 23:28 Ordered TROPONIN T Stat Lab 11/04/18 23:27 Ordered Aspirin Med 11/04/18 23:30 Discontinued 324 mg PO NOW ONE EKG [EKG] Stat Ther 11/04/18 23:27 Ordered Result Diagrams: 11/04/18 23:52 11/04/18 23:52 - EKG 1 Time of EKG reading by physician:: 23:25 EKG Read and Signed by:: Jimmy Bradley EKG Interpretation (*Must complete 3 of following elements*): Abnormal (normal sinus rhythm, possible left T wave abnormality, consider lateral ischemia. Abnormal ECG) Rate: 99 Rhythm: sinus [place]: normal QRS: normal MD Interval: normal Departure - Departure Date of Disposition Decision: 11/05/18 Time of Disposition Decision: 02:54 DIAGNOSIS: Elevated d-dimer, Renal insufficiency, Elevated troponin, Chronic anemia Chest pain Qualifiers: Chest pain type: unspecified Qualified Code(s): R07.9 - Chest pain, unspecified Leukocytosis Qualifiers: Leukocytosis type: unspecified Qualified Code(s): D72.829 - Elevated white blood cell count, unspecified Chronic pain Qualifiers: Chronic pain type: other chronic pain Qualified Code(s): G89.29 - Other chronic pain Diabetic foot ulcer Qualifiers: Diabetic foot ulcer location: unspecified part of foot Diabetes mellitus type: type 2 Laterality: right Non-pressure ulcer stage: unspecified non-pressure ulcer stage Qualified Code(s): E11.621 - Type 2 diabetes mellitus with foot ulcer; L97.519 - Non-pressure chronic ulcer of other part of right foot with unspecified severity Acute exacerbation of CHF (congestive heart failure) Qualifiers: Heart failure type: unspecified Qualified Code(s): I50.9 - Heart failure, unspecified Disposition: ADMITTED INPATIENT 09 Certified Medical Emergency: Emergent Condition: Stable Referrals and Follow-Ups: None,PCP [Primary Care Provider] - - Critical Care Note This patient required my direct & personal management of CC.: No Attestation - Physician/ DUANE Attestation Patient care was provided by Advanced Practice Provider:: No The physician spent face to face time with patient:: Yes Advanced Practice Provider documentation review:: Supervising physician onsite and consulted in the evaluation and care of this patient. The physician did have a face to face encounter with the patient. This chart was documented by the indicated scribe, (Ruby Hernandez, Gina) and accurately reflects the services I performed and decisions made by me, Jimmy Bradley MD, as attested by the provider's signature.
[2018-11-05 00:06] LABS: BASO# 0.02 X1000 (0.0-0.2); BASO% 0.1 % (0.0-0.8); EOS# 0.02 X1000 (0.0-0.7); EOS% 0.1 % (0.0-10.0); IMM GRAN# 0.08 X1000 (0.0-0.04); IMM GRAN% 0.5 % (0.0-0.5); LYMPH# 0.66 X1000 (1.2-3.4); NEUT# 14.75 X1000 (1.4-6.5)
[2018-11-05 00:31] LABS: POTASSIUM 5.3 mmol/L (3.5-5.1)
[2018-11-05 00:32] LABS: ALBUMIN 3.6 g/dL (3.5-5.0); CALCIUM 8.3 mg/dL (8.8-10.2); CREATININE 2.4 mg/dL (0.7-1.2); TOTAL BILIRUBIN 0.5 mg/dL (0.20-1.00); TOTAL PROTEIN 6.8 g/dL (6.3-8.3)
[2018-11-05 00:40] LABS: CK INDEX 1.7 (0.0-2.5); CK-MB 7.72 ng/mL (0.0-5.0)
[2018-11-05] MEDS ORDERED: LOVENOX SUBQ ONE (01:47)
[2018-11-05] MEDS ORDERED: ROCEPHIN 1 GM in NS 50 ML IV ONE (01:50)
[2018-11-05] MEDS ORDERED: LASIX IV ONE (01:55)
[2018-11-05] MEDS ORDERED: HUMULIN R IV ONE (02:14)
[2018-11-05] MEDS ORDERED: KAYEXALATE PO ONE (02:15)
[2018-11-05] MEDS ORDERED: HUMULIN R (PARKWAY) ONE (02:23)
[2018-11-05 02:45] LABS: BILIRUBIN URINE NEGATIVE (NEGATIVE); BLOOD URINE TRACE (NEGATIVE); CLARITY CLEAR (CLEAR); COLOR YELLOW; KETONE URINE NEGATIVE (NEGATIVE); LEUKOCYTES URINE NEGATIVE (NEGATIVE); NITRITE URINE NEGATIVE (NEGATIVE); SP GRAVITY URINE 1.015; UROBILINOGEN URINE NORMAL
[2018-11-05 02:50] LABS: URINE BACTERIA 2+ /HFP; URINE CAST NONE SEEN /LPF; URINE CRYSTAL NONE SEEN /HPF; URINE EPITHELIAL CELLS <10 /HPF (<10); URINE SOURCE CLEAN CATCH; URINE WBC <10 /HPF (<10); URINE YEAST NONE SEEN /HPF
[2018-11-05 02:51] LABS: URINE RBC <10 /HPF (<10)
--- NOTE | 2018-11-05 03:52 | EKG Report ---
Test Performed on : 11/04/2018 11:25:06 PM Test Reason : cp Blood Pressure : / mmHG Vent. Rate : 099 BPM Atrial Rate : 099 BPM P-R Int : 152 ms QRS Dur : 084 ms QT Int : 346 ms P-R-T Axes : 052 046 153 degrees QTc Int : 444 ms Normal sinus rhythm. Possible Left atrial enlargement T wave abnormality, consider lateral ischemia Abnormal ECG When compared with ECG of 27-OCT-2018 03:04, (Unconfirmed) T wave inversion no longer evident in Inferior leads Unconfirmed Result
[2018-11-05] MEDS ORDERED: MORPHINE IV PRN (05:50)
--- NOTE | 2018-11-05 05:53 | Diag Imaging Result Doc PS360 ---
EXAM: CT THORAX/ABD/PELVIS W/O CON HISTORY: chest pain,abdominal pain TECHNIQUE: 1. CT chest without contrast 2. CT abdomen and pelvis without contrast COMPARISON: CT abdomen and pelvis from 10/16/[address] chest from 05/03/2017 FINDINGS: Chest: Interval development of a small right-sided pleural effusion measuring 13 mm posteriorly and inferiorly in the midline. Trace left pleural fluid. Marked cardiomegaly. This has progressed since the prior exam. No thoracic aortic aneurysm. There is vascular distention. Stable left lower lobe lung nodule. Atelectasis in the right lower lobe. No enlarged lymph nodes. Abdomen and pelvis: There are small stones or sludge within the gallbladder similar to the prior study. No abnormality to the liver, spleen, or pancreas identified on this noncontrasted exam. Normal adrenal glands. Severe atherosclerosis. No aortic aneurysm. Questionable renal stones versus renal calcifications. The appearance is similar to the prior study. No hydronephrosis. No bowel obstruction. Urinary bladder is distended and is normal. Small amount of free fluid in the paracolic gutters and pelvis. Prominent body wall edema. IMPRESSION: Chest: Congestive failure with worsening cardiomegaly, small effusions, pulmonary edema. Abdomen and pelvis: 1. Cholelithiasis. No change. 2. Body wall edema 3. Severe atherosclerosis 4. A preliminary report was given at 2:40 AM This exam was performed using automated exposure control, adjustment of mA or kV according to patient size, and/or use of iterative reconstruction technique. Electronically signed by Malik Davis 11/05/2018 5:50 AM
[2018-11-05 05:56] LABS: CREATININE 2.4 mg/dL (0.7-1.2); POTASSIUM 4.7 mmol/L (3.5-5.1)
[2018-11-05] MEDS ORDERED: HUMULIN R (PARKWAY) SUBQ SCH (07:00)
[2018-11-05] MEDS ORDERED: LEXAPRO PO SCH (09:00)
[2018-11-05 09:18] LABS: BASO# 0.04 X1000 (0.0-0.2); BASO% 0.2 % (0.0-0.8); EOS# 0.16 X1000 (0.0-0.7); HEMATOCRIT 22.4 % (42.0-52.0); HEMOGLOBIN 7.4 g/dL (14.0-18.0); IMM GRAN# 0.05 X1000 (0.0-0.04); IMM GRAN% 0.3 % (0.0-0.5); LYMPH# 1.76 X1000 (1.2-3.4); LYMPH% 10.5 % (20.5-51.1); MCH 28.1 PG (27-31); MCV 85.2 FL (81-99); MONO# 1.03 X1000 (0.11-0.59); MONO% 6.2 % (1.7-9.3); MPV 9.2 FL (7.4-10.4); NEUT# 13.67 X1000 (1.4-6.5); NEUT% 81.8 % (42.2-75.2); PLT 437 X1000 (130-400); RBC 2.63 XMIL (4.7-6.1); RDW 18.9 % (11.5-14.5); WBC 16.71 X1000 (4.8-10.8)
[2018-11-05 09:26] LABS: HEMOGLOBIN A1C 9.8 % (4.8-6.0)
[2018-11-05] MEDS: AMITIZA PO SCH ×2 (10:06→21:01)
[2018-11-05] MEDS: MOVANTIK PO SCH (10:06)
[2018-11-05] MEDS: SODIUM BICARBONATE PO SCH ×2 (10:06→21:01)
[2018-11-05] MEDS: ISORDIL PO SCH ×3 (10:07→18:41)
[2018-11-05] MEDS: LEXAPRO PO SCH (10:07)
[2018-11-05] MEDS: COREG PO SCH ×2 (10:07→21:01)
[2018-11-05] MEDS: JANUVIA PO SCH (10:07)
[2018-11-05] MEDS: APRESOLINE PO SCH ×3 (10:07→18:41)
[2018-11-05] MEDS: NEURONTIN PO SCH ×2 (10:08→21:01)
[2018-11-05] MEDS: NICODERM PATCH TD SCH (10:08)
[2018-11-05] MEDS: VITAMIN D PO SCH (11:35)
[2018-11-05] MEDS: MORPHINE IV PRN ×3 (11:35→22:27)
--- NOTE | 2018-11-05 12:18 | HISTORY AND PHYSICAL ---
PRIMARY CARE PROVIDER: None. CHIEF COMPLAINT: Left-sided swelling. HISTORY OF PRESENT ILLNESS: Mr. Campoverde is a 38-year-old male, well known to our service, who had 3 admissions alone in the month of October secondary to medical and dietary noncompliance, diastolic heart failure, hyperkalemia, anemia, chronic kidney disease stage 3, hypertension, bilateral diabetic foot ulcerations followed by [facility], chronic tobacco abuse, as well as frequent sometimes severe anger outbursts, who reported back to the ED complaining of shortness of breath and chest pain. Workup in the ED revealed congestive heart failure exacerbation. He was admitted to [facility], initiated on IV diuretics, and continued on his home medications. He is already demanding that his diet be changed from diabetic to regular. Given his diabetic history, we will keep him on an ADA diet. He currently states that he is feeling better. He is breathing better. He is not on supplemental O2. He just complains of worsening left-sided edema. Upon examination, he does have bilateral lower extremity edema up to the knees. He appears to have a chronically elevated D-dimer as well as troponin secondary to his stage 3 kidney disease. We will recheck an echocardiogram, as well as set him up for another V/Q scan. Continue to trend his troponins. Again, he is currently chest pain- free. Will continue with further treatment and management. REVIEW OF SYSTEMS: A 12-point review of systems was complete and negative, except for those mentioned in the HPI. PAST MEDICAL HISTORY: 1. Noncompliance with diet. 2. Noncompliance with medications. 3. Diabetes mellitus type 2. 4. Diastolic heart failure. 5. Chronic kidney disease stage 3. 6. Chronic anemia. 7. Chronic hyperkalemia. 8. Hypertension. 9. Bilateral diabetic foot ulcers, which have been followed by Dr. Olivares and the [facility]. PAST SURGICAL HISTORY: 1. Appendectomy. 2. Tonsillectomy. 3. Amputation of the third digit on his right hand. SOCIAL HISTORY: He lives with family members. He smokes a pack a day, as well as daily marijuana and alcohol use. ALLERGIES: No known drug allergies. HOME MEDICATIONS: 1. Soma 350 mg p.o. b.i.d. p.r.n. pain. 2. [place] 10/325 one each p.o. t.i.d. p.r.n. 3. Humalog 70/30, 15 units subcutaneously at bedtime, 30 units subcutaneously daily. 4. lokelemia 10 grams p.o. daily. 5. Torsemide 20 mg p.o. daily. 6. Atorvastatin calcium 40 mg p.o. daily. 7. Coreg 25 mg p.o. b.i.d. 8. Vitamin D3, 5000 units p.o. daily. 9. Lexapro 10 mg p.o. every a.m. 10. Gabapentin 300 mg p.o. b.i.d. 11. Hydralazine 100 mg p.o. t.i.d. 12. Isosorbide dinitrate 20 mg p.o. b.i.d. 13. Amitiza 24 mcg p.o. b.i.d. 14. Movantik 25 mg p.o. daily. 15. NicoDerm patch 21 mg TD daily. 16. Protonix 40 mg p.o. daily. 17. Quetiapine fumarate 100 mg p.o. at bedtime. 18. Januvia 50 mg p.o. daily. 19. Sodium bicarbonate 650 mg p.o. b.i.d. PHYSICAL EXAMINATION: VITAL SIGNS: Temperature is 98.3 degrees, heart rate 107, respirations 20, blood pressure 187/80, O2 is 94% on room air. GENERAL: Mr. Campoverde is a 38-year-old male who is sitting up on the side of the bed in no acute distress. When answering questions, he will only whisper. He will not speak in a normal tone. HEENT: Atraumatic, normocephalic. PERRL. NECK: Supple. Trachea midline. CARDIOVASCULAR: S1, S2 appreciated. No murmurs, gallops, rubs noted. RESPIRATORY: Lung sounds are clear bilaterally. Bilateral lower base crackles. GASTROINTESTINAL: Abdomen was soft, nontender, nondistended. Positive bowel sounds x4 quadrants. NEUROLOGIC: The patient was awake, alert, would only whisper. SKIN: Warm, dry, and intact. He does have bilateral great toe diabetic ulcers, as well as one to the lateral aspect. LOWER EXTREMITIES: With 2+ to 3+ pitting edema up to the knee. DIAGNOSTIC DATA: Chest, abdomen, and pelvis CT: Cholelithiasis, body wall edema, severe atherosclerosis, congestive heart failure, worsening cardiomegaly, small pleural effusions, and pulmonary edema. LABORATORY DATA: White count 16, hemoglobin and hematocrit 7.4 and 22, platelet count 437,000. D- dimer 2.12. Sodium 135, potassium 4.7, BUN 53, creatinine 2.4, blood glucose 282. Hemoglobin A1c 9.8. Troponin, first 0.132, second 0.118. AST 58, ALT 81, alkaline phosphatase 159. CK 464. Urinalysis with 3+ glucose, 2+ bacteria, 3+ protein. ASSESSMENT AND PLAN: 1. Acute on chronic diastolic heart failure. ProBNP was greater than 15,000. Will continue with intravenous diuresis. Consult Cardiology. (Dr. Sims has spoken with Dr. Roy via phone) Recheck an echocardiogram. There is issue or question of noncompliance with medications. He states he was not sent home on any, and he reports that he has been taking his home medications. 2. Elevated troponins, probably secondary to chronic kidney disease. We will continue to trend. He is currently not complaining of any chest pain. 3. Chronic kidney disease stage 3, stable. 4. Hyperkalemia, now resolved. 5. Uncontrolled diabetes mellitus. Hemoglobin A1c was 9.8. Will continue on diabetic diet, even though the patient requests a regular diet, and continue on sliding scale with pattern blood sugars. 6. Chronic kidney disease stage 3, appears to be at baseline. 7. Chronic bilateral foot ulcers, not currently oozing. Will consult Wound Care if necessary. 8. Hypertension. Continue home medications. 9. Anxiety. Will continue Lexapro. 10. Proteinuria. Aware. 11. Transaminitis secondary to acute diastolic heart failure. Will continue to trend. 12. Medical noncompliance. 13. Diabetic noncompliance. 14. Dietary noncompliance. Further recommendation to follow physician evaluation, laboratory and diagnostic data. Dictated by OSMAN Ramirez for Darwin Sapp MD Addendum: Patient seen and examined by myself. Agree with OSMAN note. It reflects my assessment and plan. Patient is being admitted to hospital for acute on chronic diastolic heart failure. The reason is his medical non compliance and his history of dietary indiscretion. In any case will reinforce the importance of taking his medications properly and follow a diet. Here he requested a regular diet but was informed he will get diabetic diet because of his diabetes. For me it is complete clear he does not take care of himself properly. Will be aggressive with diuretics and blood pressure medications and will monitor patient closely. cc: Darwin Sapp MD MTDD
[2018-11-05] MEDS: LASIX IV SCH (14:05)
[2018-11-05] MEDS: HUMALOG (PARKWAY) SUBQ SCH ×2 (16:55→21:01)
--- NOTE | 2018-11-05 16:55 | CARDIOLOGY CONSULTATION ---
DATE: 11/05/2018 CHIEF COMPLAINT ON PRESENTATION: Swelling and shortness of breath. HISTORY OF PRESENT ILLNESS: Mr. Campoverde is a 38-year-old, black male with a history of diabetes, hypertension, and chronic kidney disease. He presents with complaints of shortness of breath as well as swelling. The patient has recently been admitted to the hospital on multiple occasions, most recent on October 27, prior to that on October 23, and prior to that on October 16. There is a question of compliance with him as he is discharged on high doses of antihypertensive medications and represents on many occasions with markedly elevated blood pressure. In addition, there is a question about compliance with his diuretics. The patient is not compliant with his diet as he has been seen on multiple occasions eating foods directly against his heart failure and diabetic type diets. He has no chest pain complaints. PAST MEDICAL HISTORY: Significant for: 1. Diabetes with complications including chronic kidney disease, neuropathy, and bilateral diabetic foot ulcers. 2. Diastolic heart failure. 3. Nephrotic syndrome. 4. Chronic kidney disease. 5. Hypertension. 6. History of chronic hyperkalemia. SOCIAL HISTORY: Smokes a pack a day as well as using daily marijuana. Uses alcohol as well. FAMILY HISTORY: Significant for hypertension. REVIEW OF SYSTEMS: A 10 system review of systems is negative except for those things mentioned in the HPI. PHYSICAL EXAMINATION: Vital Signs: He is afebrile, heart rate 96. His blood pressure most recently was 135/68. Notably, his admitting blood pressure was 183/84. Notably, he gets admitted and initiated on his medications, and his blood pressure subsequently becomes 135/68. Thus, the concern for compliance. His Is and Os are limited at this point. We have a number of continent voids not measured. General: He is in no acute distress. HEENT: Oropharynx is moist. He has poor dentition. His eye examination shows pink conjunctivae and white sclerae. Neck: Examination shows no obvious thyromegaly or thyroid tenderness. Cardiovascular: He sounds to be in a regular rate and rhythm. I do not hear any obvious murmurs. He has 1+ bilateral lower extremity edema and warm and well perfused extremities. His chest examination is clear bilaterally. He has no increased work of breathing. Abdomen: Soft, nontender, nondistended. He has no obvious organomegaly. Skin Examination: Warm and dry throughout without any rashes. Diabetic foot ulcers are wrapped. Neurological: He is moving all extremities well. He has no lateralizing deficits. PERTINENT DATA: His chest CT shows cholelithiasis, body wall edema, severe atherosclerosis noted. He had an EKG that demonstrates sinus rhythm, mild nonspecific ST-T changes. That was reviewed by me and appeared to be relatively consistent from his previous EKG earlier this month. Lab Data: His white count is 16.7, hematocrit is 22, his platelet count is 437,000. His sodium is 135, potassium is 4.7, BUN 53, creatinine is 2.4. His troponin has been elevated at 0.155 most recently. Notably, every troponin that he has had checked since October 23 has been elevated and fairly flat. His proBNP is 17,516. His urinalysis had a marked amount of protein. Notably, he had urinalyses performed previously demonstrating roughly 8 g of urine per a 24 hour period. ASSESSMENT: Mr. Campoverde is a 38-year-old, black male with a history of poorly controlled diabetes as well as hypertension. He has a significant prolonged history of noncompliance. In addition, he has a history of diastolic heart failure and nephrotic syndrome. I agree with continuing medications. Unfortunately, his issues with hyperkalemia limit the ability to use of JUAQUIN inhibitors or ARBs. I would continue on ISDN and hydralazine as you have, as well as the intravenous diuretics and the beta blockers. Could consider addition of amlodipine in the future if necessary. I would not repeat an echocardiogram at this time, given the fact that he most recently had an echocardiogram performed on October 16 that demonstrated an ejection fraction of 55%. He had moderate left ventricular hypertrophy, suggestion of possibly severe aortic regurgitation. We can likely get him set up for an outpatient transesophageal echocardiogram to further evaluate this. However, given the patient's issues with compliance, he may not be an ultimate surgical candidate because of this. Notably, the patient has had a repetitive history of belligerence to the hospital staff. Please contact us if we can be of further assistance. He has a followup appointment with Dr. Christopher already arranged for November 08 at 10:15. cc: Christophe Roy MD
[2018-11-05 18:51] LABS: UR AMPHETAMINES QUAL NONE DETECTED (NONE DETECT); UR BARBITUATES QUAL NONE DETECTED (NONE DETECT); UR BENZODIAZEPIN QUAL NONE DETECTED (NONE DETECT); UR CANNABINOIDS QUAL PRESUMPTIVE POSITIVE (NONE DETECT); UR COCAINE QUAL NONE DETECTED (NONE DETECT); UR METHADONE QUAL NONE DETECTED (NONE DETECT); UR METHAMPHETAMINE QUAL NONE DETECTED (NONE DETECT); UR OPIATES QUAL PRESUMPTIVE POSITIVE (NONE DETECT); UR OXYCODONE QUAL NONE DETECTED (NONE DETECT); UR PCP QUAL NONE DETECTED (NONE DETECT); UR PROPOXYPHENE QUAL NONE DETECTED (NONE DETECT); UR TCA QUAL NONE DETECTED (NONE DETECT)
[2018-11-05] MEDS: SEROQUEL PO SCH (21:01)
[2018-11-05] MEDS: LIPITOR PO SCH (21:01)
[2018-11-06] MEDS: LASIX IV SCH ×3 (02:21→22:21)
[2018-11-06] MEDS: MORPHINE IV PRN ×5 (02:21→22:19)
[2018-11-06] MEDS ORDERED: AYR NASAL SPRAY NAS PRN (02:23)
[2018-11-06] MEDS: PROTONIX PO SCH ×2 (05:47→13:44)
[2018-11-06] MEDS: HUMALOG (PARKWAY) SUBQ SCH ×4 (06:12→22:21)
[2018-11-06 06:38] LABS: BASO# 0.07 X1000 (0.0-0.2); BASO% 0.5 % (0.0-0.8); EOS# 0.25 X1000 (0.0-0.7); EOS% 1.6 % (0.0-10.0); HEMATOCRIT 20.1 % (42.0-52.0); HEMOGLOBIN 6.6 g/dL (14.0-18.0); IMM GRAN# 0.04 X1000 (0.0-0.04); IMM GRAN% 0.3 % (0.0-0.5); LYMPH# 2.23 X1000 (1.2-3.4); LYMPH% 14.5 % (20.5-51.1); MCH 28.1 PG (27-31); MCHC 32.8 g/dL (33-37); MCV 85.5 FL (81-99); MONO# 1.26 X1000 (0.11-0.59); MONO% 8.2 % (1.7-9.3); MPV 9.7 FL (7.4-10.4); NEUT# 11.49 X1000 (1.4-6.5); NEUT% 74.9 % (42.2-75.2); PLT 431 X1000 (130-400); RBC 2.35 XMIL (4.7-6.1); RDW 18.9 % (11.5-14.5); WBC 15.34 X1000 (4.8-10.8)
[2018-11-06 06:47] LABS: ALBUMIN 2.7 g/dL (3.5-5.0); CALCIUM 7.6 mg/dL (8.8-10.2); CREATININE 2.2 mg/dL (0.7-1.2); POTASSIUM 4.7 mmol/L (3.5-5.1); TOTAL BILIRUBIN 0.3 mg/dL (0.20-1.00)
[2018-11-06] MEDS ORDERED: NS 500 ML IV ONE (06:52)
[2018-11-06] MEDS ORDERED: BENADRYL PO ONE (06:52)
--- NOTE | 2018-11-06 08:18 | Diag Imaging Result Doc PS360 ---
EXAM: CHEST-PORTABLE HISTORY: chf TECHNIQUE: Single view of the chest was performed portably. COMPARISON: 10/27/2018 FINDINGS: There is cardiomegaly. The pulmonary vasculature is not congested. No infiltrates or effusions are appreciated. No pneumothorax. IMPRESSION: Cardiomegaly. No acute cardiopulmonary abnormality is identified. Electronically signed by Nazia Dao 11/06/2018 8:16 AM
[2018-11-06] MEDS ORDERED: NORCO-10 PO PRN (08:37)
[2018-11-06] MEDS: SOMA PO PRN ×2 (09:50→22:20)
[2018-11-06] MEDS: VITAMIN D PO SCH (09:51)
[2018-11-06] MEDS: LEXAPRO PO SCH (09:52)
[2018-11-06] MEDS: ISORDIL PO SCH ×3 (09:52→16:45)
[2018-11-06] MEDS: APRESOLINE PO SCH ×3 (09:53→16:45)
[2018-11-06] MEDS: AMITIZA PO SCH ×2 (09:53→22:20)
[2018-11-06] MEDS: COREG PO SCH ×2 (09:53→22:20)
[2018-11-06] MEDS: NEURONTIN PO SCH ×2 (09:54→22:20)
[2018-11-06] MEDS: JANUVIA PO SCH (09:55)
[2018-11-06] MEDS: MOVANTIK PO SCH (09:55)
[2018-11-06] MEDS: NICODERM PATCH TD SCH (09:55)
[2018-11-06] MEDS: SODIUM BICARBONATE PO SCH ×2 (09:56→22:20)
--- NOTE | 2018-11-06 10:29 | Diag Imaging Result Doc PS360 ---
EXAM: LUNG SCAN / VQ HISTORY: sob,elevated d-dimer TECHNIQUE: 41.2 mCi inhaled DTPA. 5.8 mCi technetium 99m M AA iv COMPARISON: None. FINDINGS: There is cardiomegaly. There is air trapping at the bases. No perfusion abnormalities to suggest acute pulmonary embolism. No V/Q mismatches. IMPRESSION: No evidence for acute pulmonary embolism. Electronically signed by Nazia Dao 11/06/2018 10:27 AM
--- NOTE | 2018-11-06 19:34 | PROGRESS NOTE ---
DATE: 11/06/2018 SUBJECTIVE: The patient today is calm. He has no new complaints, however, he is still asking me as an outpatient. States that Lasix does not work, although he is losing weight and having better output on Lasix. PHYSICAL EXAMINATION: Vital Signs: Reviewed. Temperature 98.4 degrees, pulse 83, respiratory rate 20, blood pressure 153/72. General: Patient is awake, alert. He is in no current respiratory distress. He is sitting on the side of the bed with his legs hanging over the edge. HEENT: Normocephalic. Neck: Supple. Cardiovascular: Regular rate. Chest: Clear. Abdomen: Soft. Extremities: Moves all extremities. Neurologic: No changes. ASSESSMENT: 1. Diastolic congestive heart failure. We do not have accurate I Os as patient refuses to allow this to be performed. 2. Chronic pain. 3. Chronic anxiety. 4. Others. PLAN: We will continue patient in the hospital. We will continue to follow. Further orders as needed. We will increase his Lasix to 80 IV twice daily. He is does have some anemia of chronic disease. Hemoglobin and hematocrit 6 and 20. We will type, cross and transfuse. cc: Kaden Lawrence MD MTDD
[2018-11-06] MEDS: LIPITOR PO SCH (22:20)
[2018-11-06] MEDS: SEROQUEL PO SCH (22:20)
[2018-11-07] MEDS: MORPHINE IV PRN (03:59)
[2018-11-07 06:02] LABS: HEMATOCRIT 26.5 % (42.0-52.0); HEMOGLOBIN 8.8 g/dL (14.0-18.0); MCH 28.2 PG (27-31); MCHC 33.2 g/dL (33-37); MCV 84.9 FL (81-99); MPV 9.9 FL (7.4-10.4); RBC 3.12 XMIL (4.7-6.1); RDW 17.7 % (11.5-14.5); WBC 16.19 X1000 (4.8-10.8)
[2018-11-07] MEDS: HUMALOG (PARKWAY) SUBQ SCH (06:07)
[2018-11-07] MEDS: PROTONIX PO SCH (06:08)
[2018-11-07 06:18] LABS: POTASSIUM 5.3 mmol/L (3.5-5.1)
[2018-11-07 06:19] LABS: ALBUMIN 2.9 g/dL (3.5-5.0); CALCIUM 7.9 mg/dL (8.8-10.2); CREATININE 2.2 mg/dL (0.7-1.2); TOTAL BILIRUBIN 0.2 mg/dL (0.20-1.00); TOTAL PROTEIN 6.4 g/dL (6.3-8.3)
[2018-11-07] MEDS ORDERED: HUMULIN 70/30 (PARKWAY) SUBQ SCH ×2 (07:30→16:00)
[2018-11-07 08:02] VITALS: BP 191/87
--- NOTE | 2018-11-07 17:13 | DISCHARGE SUMMARY ---
ADMISSION DATE: 11/05/2018 DISCHARGE DATE: 11/07/2018 CONSULTATIONS: Cardiology consult with Dr. Christophe Roy. PERTINENT PROCEDURES: 1. Chest, abdomen and pelvis. Congestive heart failure with worsening cardiomegaly, small pleural effusions, pulmonary edema, cholelithiasis, body wall edema, severe atherosclerosis. 2. V/Q scan. No evidence for PE. 3. Final chest x-ray showed no acute cardiopulmonary abnormality. DISCHARGE DIAGNOSES: 1. Acute on chronic diastolic congestive heart failure. We were unable to obtain accurate I Os as the patient refuses to allow this to be performed. The patient does feel like he has had some improvement with increase of IV Lasix. However, he feels that oral Lasix does not do him any good, and he wants to remain on torsemide, which we have increased from 20 daily to 40 b.i.d. We have instructed him that he will need to strictly follow up with Dr. Corona to follow his kidney function and electrolytes. He has also been educated to be compliant with his medications as well as dietary restrictions. However, this was not a problem in the past. 2. Chronic pain syndrome. Continue home medication. 3. Hypokalemia, resolved. 4. Uncontrolled diabetes mellitus. Hemoglobin A1c was 9.8. The patient will need to continue on diabetic diet. He continued to request a regular diet. He was once again educated on the importance of controlling his diabetes as well as following his diet. 5. Chronic kidney disease stage 3, at baseline. 6. Chronic bilateral foot ulcers, [facility] by [facility]. 7. Hypertension. Continue home medications. 8. Anxiety. Continue Lexapro. 9. Proteinuria. Aware. 10. Transaminitis secondary to acute diastolic heart failure. 11. Medical noncompliance. 12. Dietary noncompliance. 13. Diabetic noncompliance. 14. Anemia required blood transfusions, now stable. 15. Tobacco use and abuse. Patient has been educated on smoking cessation as well as the means to quit. HOSPITAL COURSE: Briefly, Mr. Campoverde is a 38-year-old male well known to our service, who had 3 admissions alone in the month of October secondary to medical and dietary noncompliance, diastolic heart failure, hyperkalemia, anemia of chronic disease, CKD stage III, hypertension, bilateral foot ulcerations followed by the wound clinic, chronic tobacco abuse, as well as frequent sometimes severe anger outbursts, who reported to the ED complaining of shortness of breath and chest pain. Workup in the ED revealed congestive heart failure exacerbation. He was admitted and initiated on IV diuretics, continued on his home medications. The patient was placed on a diabetic diet which angered him. He was wanting a regular diet. He continued to walk the halls off the floor, go to his vehicle throughout his admission. He was not wearing any O2. He did have some anemia for which he received 2 units of PRBCs. He was diuresed appropriately and will be discharged home to follow up with Dr. Corona. We have escalated his torsemide from 20 daily to 40 daily. VITAL SIGNS: At time of discharge, temperature is 98.5 degrees, heart rate 99, respirations 14, blood pressure 191/87. O2 is 99% on room air. His hemoglobin and hematocrit had gone from 6 and 20 to 8 and 26. Current creatinine level is stable at 2.2. HOME MEDICATIONS: 1. Seroquel 100 mg p.o. at bedtime. 2. Amitiza 24 mcg p.o. b.i.d. 3. Lipitor 40 mg p.o. at bedtime. 4. Gabapentin 300 mg p.o. b.i.d. 5. Hydralazine 100 mg p.o. t.i.d. 6. Kiester 10 one each p.o. t.i.d. p.r.n. 7. Movantik 25 mg p.o. daily. 8. Protonix 40 mg p.o. daily. 9. Sodium bicarbonate 650 mg p.o. b.i.d. 10. Calcium D3 5000 units p.o. daily. 11. Humulin 70/30, 15 units subcutaneous at bedtime. 12. Humulin 70/30, 30 units subcutaneous daily. 13. Isosorbide dinitrate 20 mg p.o. t.i.d. 14. Januvia 50 mg p.o. daily. 15. Lexapro 10 mg p.o. q.a.m. 16. Lokelma 10 g p.o. daily. 17. Nicotine patch 21 mg TD daily. 18. Torsemide 40 mg p.o. b.i.d. This was increased from 20 p.o. daily. FOLLOWUP: Mr. Campoverde is being discharged back home with self care. He is to take all medications as prescribed. He has been educated to follow his medical compliance, dietary compliance, as well as tobacco cessation and the means to quit. He will return to the ED or call 911 for any worsening of symptoms. Dictated by OSMAN Ramirez for Kaden Lawrence MD cc: MD Jesus Braun MD [facility]
--- NOTE | 2018-11-09 10:36 | DISCHARGE SUMMARY ---
ADMISSION DATE: 11/05/2018 DISCHARGE DATE: 11/07/2018 Patient seen and examined by me. Full note dictated by and discussed with nurse practitioner. Patient will be discharged home. He unfortunately is an extremely noncompliant individual who is very manipulative. He frequently states the staff has been yelling and cussing at him, which seems highly unlikely. He notes that he follows his diet, and he does not understand when he continues to swell, although he has a half-empty bag of potato chips in his room. He states that he did not eat them. He has been seen by the staff on multiple different occasions going downstairs. He refuses to not go downstairs. Then, he comes back with food from the vending machine that is not on his healthy heart diet. We unfortunately were unable to get accurate intakes and outputs on Mr. Campoverde, as he continued to refuse to allow this to happen. He has known stage 3 kidney disease with frequent hospitalizations due to noncompliance. He has bilateral about diabetic foot ulcers, but does not care for these at home. He has hyperkalemia, preventing JUAQUIN and ARB as well as Aldactone treatment. We admitted him to the hospital, placed him on high Lasix at 80 mg twice daily. His legs are visibly smaller, although he states they have not changed at all. On discharge, patient is awake, alert. He is in a stable but poor chronic health status. Interestingly, each day, including on discharge twice, Mr. Campoverde asked me to write Soma for him. This appears to not be a home medication, as he notes that he is not sure if Dr. Corona will write it. I discussed with him that do not write Soma, and as I had told him previously on each hospital day, I would not write Soma for him on discharge. That will be something he will need to ask his primary care if they will do for him. We will discharge him home. We will start him back on Demadex, increase the dose to 40 mg daily. He certainly may need to increase to twice daily. He refuses to take Lasix at home because he does not think this will work. He did have some anemia during the hospital stay and he had to be transfused. cc: Kaden Lawrence MD
== END 2018-11-07 09:02 | disposition home or self-care (01) ==
LOC: P.MEDSURG 23:18 → P.ED 23:18 → SUATTDRO 11-05 05:36
PROVIDERS: ATTEND Family Medicine

== ENCOUNTER 2018-11-09 02:18 | Inpatient (IN) ==
[2018-11-09] MEDS ORDERED: ASPIRIN ONE (03:32)
[2018-11-09] MEDS ORDERED: ASPIRIN PO ONE (03:34)
[2018-11-09 03:42] LABS: BASO# 0.07 X1000 (0.0-0.2); BASO% 0.4 % (0.0-0.8); EOS# 0.27 X1000 (0.0-0.7); EOS% 1.4 % (0.0-10.0); HEMOGLOBIN 8.9 g/dL (14.0-18.0); IMM GRAN# 0.07 X1000 (0.0-0.04); IMM GRAN% 0.4 % (0.0-0.5); LYMPH% 7.2 % (20.5-51.1); MCH 28.3 PG (27-31); MCV 85.7 FL (81-99); MONO# 1.36 X1000 (0.11-0.59); MPV 9.8 FL (7.4-10.4); NEUT# 16.39 X1000 (1.4-6.5); NEUT% 83.6 % (42.2-75.2); PLT 495 X1000 (130-400); RBC 3.15 XMIL (4.7-6.1); RDW 18.4 % (11.5-14.5); WBC 19.56 X1000 (4.8-10.8)
[2018-11-09 03:51] LABS: INR 0.97; PTT 37.1 Seconds (22.3-41.8)
[2018-11-09 03:58] LABS: ALB/GLOB RATIO 1.2; ALBUMIN 3.4 g/dL (3.5-5.0); CALCIUM 8.7 mg/dL (8.8-10.2); CREATININE 1.9 mg/dL (0.7-1.2); POTASSIUM 4.6 mmol/L (3.5-5.1); TOTAL BILIRUBIN 0.28 mg/dL (0.20-1.00); TOTAL PROTEIN 6.3 g/dL (6.3-8.3)
[2018-11-09] MEDS ORDERED: ZOFRAN IV ONE (04:27)
[2018-11-09] MEDS ORDERED: DILAUDID IV ONE (04:27)
--- NOTE | 2018-11-09 04:37 | PROVIDER DOCUMENTATION ---
HPI-Chest Pain - General Chief Complaint: Chest Pain Stated Complaint: CHEST PAIN/SOB/ HISTORY OF HEART PAROBLEMS Time Seen by Provider: 11/09/18 02:20 Source: patient Allergies/Adverse Reactions: Patient Allergies Allergy/AdvReac Type Severity Reaction Status Date / Time No Known Allergies Allergy Verified 10/23/18 02:02 Home Medications: Home Medication List Medication Instructions Recorded Confirmed Last Taken Type Pantoprazole [Protonix] 40 mg PO DAILY@0700 11/16/16 11/05/18 Unknown History Carvedilol [Coreg] 25 mg PO BID 05/31/17 11/05/18 Unknown History Atorvastatin Calcium 40 mg PO DAILY 10/16/18 11/05/18 Unknown History Cholecalciferol (Vitamin D3) 5,000 unit PO DAILY 10/16/18 11/05/18 Unknown History [Vitamin D3] Gabapentin 300 mg PO BID 10/16/18 11/05/18 Unknown History Hydralazine HCl 100 mg PO TID 10/16/18 11/05/18 Unknown History Lubiprostone [Amitiza] 24 mcg PO BID 10/16/18 11/05/18 Unknown History Naloxegol Oxalate [Movantik] 25 mg PO DAILY 10/16/18 11/05/18 Unknown History Sodium Bicarbonate 650 mg PO BID 10/16/18 11/05/18 Unknown History Sitagliptin [Januvia] 50 mg PO DAILY #30 tab 10/20/18 11/05/18 Unknown Rx Sodium Zirconium Cyclosilicate 10 gm PO DAILY #30 powd.pack 10/20/18 11/05/18 Unknown Rx [Lokelma] Escitalopram [Lexapro] 10 mg PO QAM #30 tab 10/26/18 11/05/18 Unknown Rx Insulin Humulin 70/30 [Humulin 15 unit SUBQ QHS #1 insuln.pen 10/26/18 11/05/18 Unknown Rx 70/30] Insulin Humulin 70/30 [Humulin 30 unit SUBQ DAILY #1 insuln.pen 10/26/18 11/05/18 Unknown Rx 70/30] Isosorbide Dinitrate 20 mg PO TID #90 tab 10/26/18 11/05/18 Unknown Rx Nicotine Patch [Nicoderm Patch] 21 mg TD DAILY #30 patch.td24 10/26/18 11/05/18 Unknown Rx Hydrocodone/Acetaminophen 1 ea PO TID PRN 11/05/18 11/05/18 Unknown History [Hydrocodone-Acetamin 10-325 mg] Quetiapine Fumarate 100 mg PO QHS 11/05/18 11/05/18 Unknown History Torsemide 40 mg PO BID #120 tab 11/07/18 Unknown Rx - History of Present Illness-CP Nature of Presenting Problem: 38 y/o BM c/o lt sided chest pain that is chronic for the past 3 months but wor sened tonight. Pt also has hx of CHF and has worsening edema to his legs and scrotum that he also states are both chronic. Location: reports: other (Lt sided chest pain) Chest Pain Radiation: reports: no radiation Quality of Pain: reports: aching, sharp Severity in ED: moderate Onset/Duration: last night Timing: still present Context/Activities at Onset: reports: light activity Modifying Factors: improves with: nothing Associated Symptoms: reports: nausea, shortness of breath Nitro Today/Relief: no nitro taken today Aspirin Treatment Today: no aspirin today Similar Symptoms Previously?: Yes Recently Seen Here or By Another Healthcare Provider: Yes (pt recently admitted for similar complaint here) Review of Systems - Adult - REVIEW OF SYSTEMS - ADULT Constitutional: reports: no symptoms reported, see HPI Eyes: reports: no symptoms reported, see HPI Ears, Nose, Mouth & Throat: reports: no symptoms reported, see HPI Cardiovascular: reports: see HPI, chest pain Respiratory: reports: see HPI, shortness of breath Gastrointestinal: reports: no symptoms reported, see HPI Genitourinary: reports: no symptoms reported, see HPI Musculoskeletal: reports: no symptoms reported, see HPI Integumentary: reports: no symptoms reported, see HPI Neurological: reports: no symptoms reported, see HPI Psychiatric: reports: no symptoms reported, see HPI Endocrine: reports: no symptoms reported, see HPI Hematologic/Lymphatic: reports: no symptoms reported, see HPI Allergic/Immunologic: reports: no symptoms reported, see HPI All Other Systems: Reviewed and Negative Past History - Adult - PAST MEDICAL HISTORY-ADULT Review of Records: reports: Nursing Assessment Review, Medications Reviewed, Social history reviewed & non-contributory. Major Childhood Illnesses: reports: denies history Cardiovascular: reports: HTN, hyperlipidemia Respiratory: reports: denies history Gastrointestinal: reports: denies history Obstetrical/Gynecological: reports: denies history Genitourinary: reports: denies history Musculoskeletal: reports: denies history Neurological: reports: Seizures/Epilepsy Endocrine/Immune: reports: Diabetes Other Conditions: reports: other (neropathy) - PRIOR SURGERIES/PROCEDURES Surgical/Procedure History: reports: appendectomy - IMMUNIZATION STATUS Childhood Immunizations: See Nurse Assessment Flu Vaccine: See Nurse Assessment - FAMILY HISTORY Family History: diabetes Physical Exam-General - PHYSICAL EXAM-ADULT Initial Vital Signs Reviewed: Yes - CONSTITUTIONAL General Appearance: alert, no apparent distress, mild distress - EYES Eyes: PERRL/EOMI - HEAD, EARS, NOSE, MOUTH & THROAT HENMT: normocephalic/atraumatic, moist mucous membranes - NECK Neck: non-tender, full range of motion, supple, normal inspection - RESPIRATORY Respiratory: chest non-tender, lungs clear, normal breath sounds, no pleuratic chest pain, no respiratory distress, no accessory muscle use - CARDIOVASCULAR Cardiovascular: normal peripheral pulses, no edema, no gallop, no JVD, no murmur , tachycardia - GASTROINTESTINAL (ABDOMEN) Abdominal Exam: normal bowel sounds, non tender, soft, no organomegaly, no pulsatile mass - LYMPHATIC Lymphatic: no adenopathy - MUSCULOSKELETAL Back Exam: normal inspection, no CVA tenderness, no vertebral tenderness Extremity: normal range of motion, normal gait, swelling (+3 BLE), other (ulcers to great toes) - SKIN Integumentary: normal color - NEUROLOGIC Neurologic: medical logistics specialist II-XII nml as tested, grossly normal, no motor/sensory deficits - PSYCHIATRIC Psych/Mental Status: normal mood/affect, normal thought content, normal thought process, oriented x 3 - HEART Score HEART Score: History: Moderately Suspicious HEART Score: ECG: Non-Specific Repolarization Disturbance/LBBB/PM HEART Score: Age: < or = 45 Years HEART Score: Risk Factors for Atherosclerotic Disease: > or = 3 Risk Factors or History of Atherosclerotic Disease HEART Score: Troponin: 1-3x Normal Limit Total HEART Score:: 5 Progress - PLAN OF CARE/RESULTS Progress/Plan/Lab Results: Vital Signs - 8 hr 11/09/18 02:33 11/09/18 02:58 11/09/18 03:00 Temperature 99.1 F Pulse Rate 102 H 103 H Respiratory Rate 20 Blood Pressure 203/134 176/108 O2 Sat by Pulse Oximetry 99 94 L 94 L 11/09/18 03:01 11/09/18 03:02 11/09/18 03:10 Temperature Pulse Rate 107 H 106 H 103 H Respiratory Rate Blood Pressure 203/134 O2 Sat by Pulse Oximetry 94 L 94 L 11/09/18 03:20 11/09/18 03:23 11/09/18 03:30 Temperature Pulse Rate 102 H 100 H 99 H Respiratory Rate Blood Pressure 178/88 O2 Sat by Pulse Oximetry 92 L 92 L 93 L 11/09/18 03:40 11/09/18 03:50 11/09/18 04:00 Temperature Pulse Rate 101 H 98 H 96 H Respiratory Rate Blood Pressure O2 Sat by Pulse Oximetry 92 L 90 L 93 L 11/09/18 04:02 Temperature Pulse Rate 96 H Respiratory Rate Blood Pressure 177/88 O2 Sat by Pulse Oximetry 89 L Laboratory Results - last 24 hr 11/09/18 11/09/18 11/09/18 02:50 02:50 02:50 WBC 19.56 H RBC 3.15 L Hgb 8.9 L Hct 27.0 L MCV 85.7 MCH 28.3 MCHC 33.0 RDW Std Deviation 18.4 H Plt Count 495 H MPV 9.8 Immature Gran % (Auto) 0.4 Neut % (Auto) 83.6 H Lymph % (Auto) 7.2 L Clay % (Auto) 7.0 Eos % (Auto) 1.4 Baso % (Auto) 0.4 Immature Gran # (Auto) 0.07 H Neut # (Auto) 16.39 H Lymph # (Auto) 1.40 Clay # (Auto) 1.36 H Eos # (Auto) 0.27 Baso # (Auto) 0.07 PT INR PTT (Actin FS) D-Dimer, Quantitative Sodium 133 L Potassium 4.6 Chloride 98 Carbon Dioxide 21 L Anion Gap 14 BUN 42 H Creatinine 1.9 H Estimated GFR/1.73 m2 48 BUN/Creatinine Ratio 22 Glucose 380 H Calculated Osmolality 292 Calcium 8.7 L Total Bilirubin 0.28 AST 23 ALT 27 Alkaline Phosphatase 126 H Troponin T [id number]-Ajssnfqjmxi Pept 70135 H Total Protein 6.3 Albumin 3.4 L Globulin 2.9 Albumin/Globulin Ratio 1.2 Plasma Lactate Urine Source Urine Color Urine Turbidity Urine pH Ur Specific [place] Urine Protein Ur Glucose (Stick) Ur Ketones (Stick) Urine Blood Urine Nitrite Urine Bilirubin Urobilinogen Dipstick Urine Leukocytes Urine WBC (Auto) Urine RBC (Auto) U Epithel Cells (Auto) Urine Bacteria (Auto) 11/09/18 11/09/18 11/09/18 02:50 02:50 02:50 WBC RBC Hgb Hct MCV MCH MCHC RDW Std Deviation Plt Count MPV Immature Gran % (Auto) Neut % (Auto) Lymph % (Auto) Clay % (Auto) Eos % (Auto) Baso % (Auto) Immature Gran # (Auto) Neut # (Auto) Lymph # (Auto) Clay # (Auto) Eos # (Auto) Baso # (Auto) PT 13.0 INR 0.97 PTT (Actin FS) 37.1 D-Dimer, Quantitative 2.08 H Sodium Potassium Chloride Carbon Dioxide Anion Gap BUN Creatinine Estimated GFR/1.73 m2 BUN/Creatinine Ratio Glucose Calculated Osmolality Calcium Total Bilirubin AST ALT Alkaline Phosphatase Troponin T 0.117 H Gka-[id number]-Ixdphcuidjm Pept Total Protein Albumin Globulin Albumin/Globulin Ratio Plasma Lactate Urine Source Urine Color Urine Turbidity Urine pH Ur Specific [place] Urine Protein Ur Glucose (Stick) Ur Ketones (Stick) Urine Blood Urine Nitrite Urine Bilirubin Urobilinogen Dipstick Urine Leukocytes Urine WBC (Auto) Urine RBC (Auto) U Epithel Cells (Auto) Urine Bacteria (Auto) 11/09/18 11/09/18 02:50 04:00 WBC RBC Hgb Hct MCV MCH MCHC RDW Std Deviation Plt Count MPV Immature Gran % (Auto) Neut % (Auto) Lymph % (Auto) Clay % (Auto) Eos % (Auto) Baso % (Auto) Immature Gran # (Auto) Neut # (Auto) Lymph # (Auto) Clay # (Auto) Eos # (Auto) Baso # (Auto) PT INR PTT (Actin FS) D-Dimer, Quantitative Sodium Potassium Chloride Carbon Dioxide Anion Gap BUN Creatinine Estimated GFR/1.73 m2 BUN/Creatinine Ratio Glucose Calculated Osmolality Calcium Total Bilirubin AST ALT Alkaline Phosphatase Troponin T Ujb-N-Iyntertpgie Pept Total Protein Albumin Globulin Albumin/Globulin Ratio Plasma Lactate 0.7 Urine Source CLEAN CATCH Urine Color STRAW Urine Turbidity CLEAR Urine pH 6.0 Ur Specific [place] 1.006 Urine Protein 200 A Ur Glucose (Stick) 300 A Ur Ketones (Stick) NEGATIVE Urine Blood TRACE A Urine Nitrite NEGATIVE Urine Bilirubin NEGATIVE Urobilinogen Dipstick NORMAL Urine Leukocytes NEGATIVE Urine WBC (Auto) <10 Urine RBC (Auto) <10 U Epithel Cells (Auto) <10 Urine Bacteria (Auto) NEGATIVE Orders Category Date Time Status CHEST-1 VIEW [RAD] Stat Exams 11/09/18 02:20 Completed BLOOD CULTURE [BLDCUL] Stat Lab 11/09/18 04:10 Results CBC WITH ELECTRONIC DIFF [HEME] Stat Lab 11/09/18 02:50 Completed COMPREHENSIVE METABOLIC PANEL [CHEM] Stat Lab 11/09/18 02:50 Completed D-DIMER [COAG] Stat Lab 11/09/18 02:50 Completed LACTATE, PLASMA [CHEM] Stat Lab 11/09/18 04:00 Completed PRO B-NATRIURETIC PEPTIDE Stat Lab 11/09/18 02:50 Completed PT [PROTIME WITH INR] [COAG] Stat Lab 11/09/18 02:50 Completed PTT [COAG] Stat Lab 11/09/18 02:50 Completed TROPONIN T Stat Lab 11/09/18 02:50 Completed UA [URINALYSIS W/POSS RFLX CULT] [URINALYSIS] Stat Lab 11/09/18 02:50 Completed 0.9% Sodium Chloride Inj [Ns] 1,000 ml Med 11/09/18 05:30 Active IV 125 mls/hr Aspirin Med 11/09/18 03:32 Discontinued 325 mg .ROUTE .STK-MED ONE Aspirin Med 11/09/18 03:34 Discontinued 325 mg PO NOW ONE Hydromorphone [Dilaudid] Med 11/09/18 04:27 Discontinued 1 mg IV NOW ONE Insulin Human Regular [Humulin R] Med 11/09/18 05:30 Discontinued 10 unit IV NOW ONE Ondansetron [Zofran] Med 11/09/18 04:27 Discontinued 4 mg IV NOW ONE EKG [EKG] Stat Ther 11/09/18 02:20 Draft Result Diagrams: 11/09/18 02:50 11/09/18 02:50 - EKG 1 Time of EKG reading by physician:: 02:37 EKG Read and Signed by:: Bakari Nieto EKG Interpretation (*Must complete 3 of following elements*): Abnormal Rate: 108 Rhythm: sinus tach QRS: normal ST Wave: non-specific ST changes Prior EKG Comparison: unchanged from prior - CONSULTS/PCP/HOSPITALIST Notification #1 *Consult/PCP/Hospitalist*: Dr Pond Time Discussed: 06:10 Consult Disposition: Will see in ED, Admit Departure - Departure Date of Disposition Decision: 11/09/18 Time of Disposition Decision: 06:10 DIAGNOSIS: Diabetes, HTN (hypertension), Acute exacerbation of CHF (congestive heart failure), Elevated troponin level, Leukocytosis, Renal insufficiency Disposition: ADMITTED INPATIENT 09 Certified Medical Emergency: Emergent Condition: Fair Referrals and Follow-Ups: Jesus Corona MD [Primary Care Provider] - - Critical Care Note This patient required my direct & personal management of CC.: No Attestation - Physician/ DUANE Attestation Patient care was provided by Advanced Practice Provider:: No The physician spent face to face time with patient:: Yes Advanced Practice Provider documentation review:: Supervising physician onsite and consulted in the evaluation and care of this patient. The physician did have a face to face encounter with the patient.
--- NOTE | 2018-11-09 04:45 | EKG Report ---
Test Performed on : 11/09/2018 02:37:24 AM Test Reason : cp Blood Pressure : / mmHG Vent. Rate : 108 BPM Atrial Rate : 108 BPM P-R Int : 140 ms QRS Dur : 092 ms QT Int : 342 ms P-R-T Axes : 069 061 155 degrees QTc Int : 458 ms Sinus tachycardia. Left ventricular hypertrophy with repolarization abnormality Abnormal ECG When compared with ECG of 04-NOV-2018 23:25, (Unconfirmed) No significant change was found Unconfirmed Result
[2018-11-09 05:28] LABS: URINE SOURCE CLEAN CATCH
[2018-11-09] MEDS ORDERED: HUMULIN R IV ONE (05:30)
[2018-11-09] MEDS ORDERED: NS 1,000 ML IV ONE (05:30)
[2018-11-09 05:36] LABS: BILIRUBIN URINE NEGATIVE (NEGATIVE); BLOOD URINE TRACE (NEGATIVE); COLOR STRAW; GLUCOSE URINE 300 mg/dL (NEGATIVE); KETONE URINE NEGATIVE (NEGATIVE); LEUKOCYTES URINE NEGATIVE (NEGATIVE); NITRITE URINE NEGATIVE (NEGATIVE); PROTEIN URINE 200 mg/dL (NEGATIVE); SP GRAVITY URINE 1.006; TURBIDITY URINE CLEAR (CLEAR); UROBILINOGEN URINE NORMAL (NORMAL)
[2018-11-09 05:38] LABS: UR EPITHELIAL CELLS <10 /HPF (<10); URINE BACTERIA NEGATIVE /HPF; URINE RBC <10 /HPF (<10); URINE WBC <10 /HPF (<10)
--- NOTE | 2018-11-09 06:10 | Diag Imaging Result Doc PS360 ---
EXAM: CHEST-1 VIEW HISTORY: cp TECHNIQUE: Chest single view COMPARISON: 11/06/2018. FINDINGS: The lungs are well expanded. The heart is mildly enlarged. The vessels are not distended. There are no infiltrates. No effusion identified. IMPRESSION: Mild cardiomegaly Electronically signed by Malik Davis 11/09/2018 6:07 AM
[2018-11-09 08:50] LABS: UR AMPHETAMINES QUAL NONE DETECTED (NONE DETECT); UR BARBITUATES QUAL NONE DETECTED (NONE DETECT); UR BENZODIAZEPIN QUAL NONE DETECTED (NONE DETECT); UR CANNABINOIDS QUAL PRESUMPTIVE POSITIVE (NONE DETECT); UR COCAINE QUAL NONE DETECTED (NONE DETECT); UR METHADONE QUAL NONE DETECTED (NONE DETECT); UR OPIATES QUAL NONE DETECTED (NONE DETECT); UR OXYCODONE QUAL PRESUMPTIVE POSITIVE (NONE DETECT); UR PCP QUAL NONE DETECTED (NONE DETECT)
[2018-11-09] MEDS ORDERED: NEURONTIN PO ONE (10:26)
[2018-11-09] MEDS ORDERED: NORCO-10 PO ONE (10:26)
[2018-11-09] MEDS ORDERED: NORVASC PO ONE (10:27)
[2018-11-09] MEDS ORDERED: ISORDIL PO ONE (10:27)
[2018-11-09 11:20] LABS: CK INDEX 1.4 (0.0-2.5); CK-MB 6.72 ng/mL (0.0-5.0)
[2018-11-09] MEDS ORDERED: ZOFRAN IV PRN (13:22)
[2018-11-09 14:14] LABS: BASO# 0.07 X1000 (0.0-0.2); BASO% 0.4 % (0.0-0.8); EOS# 0.22 X1000 (0.0-0.7); EOS% 1.2 % (0.0-10.0); HEMATOCRIT 25.9 % (42.0-52.0); HEMOGLOBIN 8.5 g/dL (14.0-18.0); LYMPH# 1.08 X1000 (1.2-3.4); LYMPH% 5.9 % (20.5-51.1); MCH 29.3 PG (27-31); MCHC 32.8 g/dL (33-37); MCV 89.3 FL (81-99); MONO# 1.02 X1000 (0.11-0.59); MONO% 5.5 % (1.7-9.3); MPV 9.3 FL (7.4-10.4); NEUT# 16.04 X1000 (1.4-6.5); PLT 441 X1000 (130-400); RDW 18.5 % (11.5-14.5); WBC 18.43 X1000 (4.8-10.8)
[2018-11-09 14:16] LABS: ALB/GLOB RATIO 0.9; ALBUMIN 3.1 g/dL (3.5-5.0); CALCIUM 8.4 mg/dL (8.8-10.2); CREATININE 1.9 mg/dL (0.7-1.2); POTASSIUM 4.9 mmol/L (3.5-5.1); TOTAL BILIRUBIN 0.34 mg/dL (0.20-1.00); TOTAL PROTEIN 6.5 g/dL (6.3-8.3)
[2018-11-09] MEDS: LASIX IV SCH (14:19)
[2018-11-09] MEDS ORDERED: NORCO-10 PO PRN (14:55)
[2018-11-09] MEDS ORDERED: ZOSYN 3.375 GM in NS 50 ML IV SCH (15:00)
[2018-11-09] MEDS ORDERED: VANCOMYCIN IV PER PHARMACY MISC SCH (15:00)
[2018-11-09] MEDS ORDERED: NICODERM PATCH TD SCH (15:30)
[2018-11-09] MEDS: HUMALOG SUBQ SCH ×3 (16:45→23:15)
[2018-11-09] MEDS ORDERED: APRESOLINE PO SCH (17:00)
[2018-11-09] MEDS ORDERED: ISORDIL PO SCH (17:00)
[2018-11-09] MEDS ORDERED: VANCOMYCIN 2,200 MG in NS 500 ML IV ONE (17:00)
[2018-11-09] MEDS: ISORDIL PO SCH (18:02)
[2018-11-09] MEDS: ZYVOX PO SCH (18:02)
[2018-11-09] MEDS: NORCO-10 PO SCH (18:03)
[2018-11-09 18:05] LABS: CK INDEX 1.6 (0.0-2.5); CK-MB 7.37 ng/mL (0.0-5.0)
--- NOTE | 2018-11-09 18:31 | HISTORY AND PHYSICAL ---
CHIEF COMPLAINT: Chest pain, lower extremity edema. HISTORY OF PRESENT ILLNESS: This is a 38-year-old male with a history of diabetes mellitus, chronic kidney disease stage 3, diastolic heart failure, and persistent ulcer to his right great toe. He presents to the emergency room as the ninth visit in 10 weeks. He is complaining of chest pain and shortness of breath, as well as lower extremity edema and sore on his right great toe. The patient states that the chest pain is chronic, that it has not changed and that has been present for about 2 years, but over the last 3 months it has not changed. It is intermittent. It is at the left side just below the clavicle. He describes it as a sharp pain that comes with light activity and lifting, pushing, pulling. It does resolve with sitting still. He also complains of an ulcer to the plantar side of his right great toe that has been present for quite some time. He has been evaluated in the hospital by the wound care nurses, although after a plan is set up in the past he has refused dressing changes and treatment, stating that it hurt. As a matter of fact, on his admission on 10/27, he at one time demanded that Dr. Olivares be called so that he could "cut whatever he needed to out of (his) toe so it wouldn't hurt." The patient has been noncompliant with wound care. He has not followed up on an outpatient basis. He does state that when he goes to see Dr. Corona, his primary care physician, he has not mentioned this to him as he "just don't think about when (he) is in the office." He denied any fevers or chills, any palpitations, any increasing shortness of breath or productive cough. PAST MEDICAL HISTORY: 1. Diabetes mellitus type 2. 2. Diastolic heart failure. 3. Chronic kidney disease stage 3. 4. Chronic anemia. 5. Chronic hyperkalemia. 6. Hypertension. 7. Diabetic foot ulcer, right great toe. 8. EF of 55%. PAST SURGICAL HISTORY: Appendectomy, tonsillectomy, amputation of the 3rd digit on his right hand. SOCIAL HISTORY: He smokes about a pack a day. He dips tobacco. He uses marijuana daily. He denies alcohol use. He is not forthcoming about where he lives at this time. ALLERGIES: No known drug allergies. HOME MEDICATIONS: A list will be obtained by the nursing staff, and once verified we will review and restart as appropriate. REVIEW OF SYSTEMS: Discussed with the patient, with pertinent positives stated in HPI. He denies any syncope, any dizziness, any increasing shortness of breath, productive cough, fever, chills, any night sweats, any nausea, vomiting, diarrhea, constipation, any black or bloody vomitus or stools, any hematuria, dysuria, frequency or urgency. PHYSICAL EXAMINATION: VITAL SIGNS: Blood pressure is 150/80 with a heart rate of 96, respirations are 20, temperature is 98.4 degrees with O2 saturations being 96% to 98% on room air. HEENT: Head is normocephalic, atraumatic. Mucous membranes are moist. NECK: Supple, with no JVD. Trachea is midline. CARDIOVASCULAR: Regular rate and rhythm. S1, S2 appreciated. No murmur. He does have bilateral lower extremity edema, pretibial and pedal. Calves are nontender bilaterally with peripheral pulses palpable x4 extremities. PULMONARY: Breath sounds are clear. No increased work of breathing noted. Chest rises and falls symmetric with respiration. GASTROINTESTINAL: Abdomen is soft, nontender, nondistended. Bowel sounds in all 4 quadrants. GENITOURINARY: He has no CVA nor suprapubic tenderness. NEUROLOGIC: He is alert and oriented x3. Cranial nerves 2-12 grossly intact. SKIN: Warm and dry. He does have an open ulcerated area to the plantar side of his right great toe, with a foul odor noted. LABORATORY DATA: WBC is 19.5 with hemoglobin 8.9, hematocrit 27, and platelets of 495,000. Sodium is 133, potassium 4.6, BUN 42, creatinine 1.9 with a glucose of 380. ProBNP is 10,568. Troponin is 0.117. Lactate is 0.7. Blood sugars are in the 330 to 380 range. Urinalysis is essentially negative. Urine drug screen is presumptive positive for oxycodone and cannabinoids. DIAGNOSTIC DATA: Chest x-ray reveals mild cardiomegaly with no infiltrates. ASSESSMENT AND PLAN: 1. Left-sided chest pain. This appears pleuritic in nature. Consistently it can be reproducible with palpation, as well with pushing and pulling. It does disappear when he sits still and takes shallow breaths. We will continue to trend his troponins. He will be placed on telemetry. We will get an electrocardiogram in the morning. 2. Hypertension. We will identify his home medications and continue these as appropriate. 3. Elevated troponin. This is chronic. The patient was evaluated by Cardiology as well as Nephrology on 10/24 and 10/26, and it was felt that the troponin was secondary to nephrotic syndrome. We will consult Dr. Cee. We will continue his home medications as were adjusted by Cardiology on his 10/2018 admit. 4. Diastolic heart failure. Continue with Lasix 40 mg intravenously q.12. We will attempt to monitor strict intake and output, but if the patient refuses we will have daily weights. 5. Chronic kidney disease stage 3. This is stable. 6. Hyperkalemia. Potassium is within normal limits. We will trend daily. Due to the patient's chronic hyperkalemia, he is not on an angiotensin-converting enzyme inhibitor or angiotensin receptor osiris. 7. Diabetes mellitus type 2. We will pattern blood glucose with sliding scale insulin. 8. For gastrointestinal prophylaxis we will use Protonix. Further treatments pending hospital course. Plan was discussed with Dr. Diane. Patient seen and examined by me face to face, all the laboratory, vitals signs and images were reviewed, patient came to the Emergency Department due to chest pain, which is reproducible, but he does have signs of fluid overload, and he also has a diabetic foot ulcer that looks infected, as per the patient he has been having some wound care, has lower extremity swelling 3+ and basically anasarca, some shortness of breath, we will start with diuretics, antibiotics, panculture, wound care, has heart failure, diastolic, and chronic kidney disease, I agree with the rest of the [employer]'s assessment and plan, Stefano Zuniga MD. Dictated by OSMAN Mckeon for Stefano Lanier MD cc: OSMAN Mckeon MD [facility]
[2018-11-09] MEDS ORDERED: NEURONTIN PO SCH (21:00)
[2018-11-09] MEDS ORDERED: COREG PO SCH (21:00)
[2018-11-09] MEDS ORDERED: SEROQUEL PO SCH (21:00)
[2018-11-09 23:09] LABS: CK INDEX 1.6 (0.0-2.5); CK-MB 7.39 ng/mL (0.0-5.0)
[2018-11-09] MEDS: SEROQUEL PO SCH (23:15)
[2018-11-09] MEDS: LIPITOR PO SCH (23:15)
[2018-11-09] MEDS: MORPHINE IV PRN (23:15)
[2018-11-09] MEDS: ZOSYN 2.25 GM in NS 50 ML IV SCH (23:16)
[2018-11-09] MEDS: NEURONTIN PO SCH (23:22)
[2018-11-10] MEDS: LASIX IV SCH ×2 (02:36→14:00)
[2018-11-10] MEDS: ZOSYN 2.25 GM in NS 50 ML IV SCH ×4 (02:40→21:04)
[2018-11-10] MEDS: MORPHINE IV PRN ×6 (02:46→21:01)
[2018-11-10] MEDS: ZYVOX PO SCH ×2 (03:22→16:08)
[2018-11-10] MEDS: HUMALOG SUBQ SCH ×4 (06:34→22:54)
[2018-11-10] MEDS: PROTONIX PO SCH (06:35)
[2018-11-10] MEDS ORDERED: PROTONIX PO SCH (07:00)
[2018-11-10 07:04] LABS: BASO# 0.06 X1000 (0.0-0.2); BASO% 0.4 % (0.0-0.8); EOS# 0.26 X1000 (0.0-0.7); EOS% 1.9 % (0.0-10.0); HEMATOCRIT 25.6 % (42.0-52.0); HEMOGLOBIN 8.4 g/dL (14.0-18.0); IMM GRAN# 0.02 X1000 (0.0-0.04); IMM GRAN% 0.1 % (0.0-0.5); LYMPH# 1.65 X1000 (1.2-3.4); LYMPH% 11.8 % (20.5-51.1); MCH 28.7 PG (27-31); MCHC 32.8 g/dL (33-37); MCV 87.4 FL (81-99); MONO# 0.95 X1000 (0.11-0.59); MONO% 6.8 % (1.7-9.3); MPV 9.2 FL (7.4-10.4); NEUT# 11.05 X1000 (1.4-6.5); PLT 421 X1000 (130-400); RBC 2.93 XMIL (4.7-6.1); RDW 18.2 % (11.5-14.5); WBC 13.99 X1000 (4.8-10.8)
--- NOTE | 2018-11-10 07:12 | EKG Report ---
Test Performed on : 11/10/2018 06:43:31 AM Test Reason : chest pain Blood Pressure : / mmHG Vent. Rate : 088 BPM Atrial Rate : 088 BPM P-R Int : 154 ms QRS Dur : 090 ms QT Int : 384 ms P-R-T Axes : 052 059 080 degrees QTc Int : 464 ms Normal sinus rhythm. Possible Left atrial enlargement Nonspecific T wave abnormality Prolonged QT Abnormal ECG When compared with ECG of 09-NOV-2018 02:37, (Unconfirmed) No significant change was found Confirmed by Fili Lake MD ([id number]) on 11/12/2018 9:32:52 PM
[2018-11-10 07:23] LABS: CALCIUM 8.4 mg/dL (8.8-10.2); CREATININE 2.4 mg/dL (0.7-1.2); POTASSIUM 5.5 mmol/L (3.5-5.1)
[2018-11-10] MEDS ORDERED: MOVANTIK PO SCH (09:00)
[2018-11-10] MEDS ORDERED: VITAMIN D PO SCH (09:00)
[2018-11-10] MEDS ORDERED: LIPITOR PO SCH (09:00)
[2018-11-10] MEDS ORDERED: NORVASC PO SCH (09:00)
[2018-11-10] MEDS ORDERED: LEXAPRO PO SCH (09:00)
[2018-11-10] MEDS: NORCO-10 PO SCH ×3 (09:58→16:09)
[2018-11-10] MEDS: NEURONTIN PO SCH ×2 (10:00→21:05)
[2018-11-10] MEDS: NORVASC PO SCH (10:00)
[2018-11-10] MEDS: JANUVIA PO SCH (10:01)
[2018-11-10] MEDS: LEXAPRO PO SCH (10:01)
[2018-11-10] MEDS: ISORDIL PO SCH ×3 (10:01→16:09)
--- NOTE | 2018-11-10 15:21 | PROGRESS NOTE ---
DATE: 11/10/2018 SUBJECTIVE: This patient is still complaining of lower extremity pain, especially at the level of the right big toe. He does have 2 to 3+ lower extremity edema. No clubbing. He has an ulcer on that toe and microbiology showed gram-positive cocci. He has been placed already on Zyvox. Possible MRSA. OBJECTIVE: Vital Signs: Temperature 97.7 degrees, pulse 93, respiratory rate 20, blood pressure 171/77, oxygen saturation 100% on room air. HEENT: Head normocephalic. No trauma. PERRLA. Neck: Supple. No JVD. No masses. Central trachea. Chest: Clear to auscultation. Some crepitus at the bases and rales. Abdomen: Soft, nontender, nondistended. No hepatosplenomegaly. Extremities: He does have an old ulcer at the level of the big toe with a positive culture that showed gram-positive cocci, it has a strong odor and is painful to palpation, lower extremity edema. Neurological: Alert and oriented x3. No focal deficits. LABORATORY DATA: WBC 13.9, hemoglobin 8.4, hematocrit 25.6, platelets 421,000. Sodium 135, potassium 5.5, chloride 102, bicarbonate 19, BUN 49, creatinine 2.4, glucose 284, calcium 8.4. ASSESSMENT AND PLAN: 1. Left-sided chest pain, it can be reproducible with palpation, probably is related to costochondritis. Troponins chronically elevated but stable. No new EKG changes. I do not think this patient has an acute coronary seen syndrome at this moment. He had recently a stress test done. 2. Hypertension. Continue with same management. 3. Elevated troponins. This is chronic. 4. Diastolic heart failure. Continue with Lasix IV twice a day. I instructed the patient to do in-and-outs and not throw away the urine. 5. Chronic kidney disease stage 3, stable. 6. Hyperkalemia. I will monitor for now. 7. Type 2 diabetes. Continue pattern of blood sugar and sliding scale insulin. 8. Gastrointestinal prophylaxis with Protonix. 9. Deep vein thrombosis prophylaxis. He will be placed on heparin twice a day, renally dosed. 10. Right foot ulcer at the level of the big toe plantar area with a positive culture that showed Methicillin-resistant Staphylococcus aureus. Continue with Zyvox. Continue with antibiotics. Wound Care on board. 11. Drug abuse. This patient has been tested positive for marijuana and oxycodone. cc: Stefano Lanier MD
[2018-11-10] MEDS ORDERED: VANCOMYCIN 1,600 MG in NS 250 ML IV SCH (17:00)
[2018-11-10] MEDS: HEPARIN SUBQ SCH (21:00)
[2018-11-10] MEDS: LIPITOR PO SCH (21:04)
[2018-11-10] MEDS: SEROQUEL PO SCH (21:05)
[2018-11-11] MEDS: MORPHINE IV PRN ×5 (01:21→19:38)
[2018-11-11] MEDS: LASIX IV SCH (01:21)
[2018-11-11] MEDS: ZOSYN 2.25 GM in NS 50 ML IV SCH ×2 (01:22→02:56)
[2018-11-11] MEDS: ZYVOX PO SCH ×3 (02:54→15:07)
[2018-11-11 06:29] LABS: BASO# 0.08 X1000 (0.0-0.2); BASO% 0.5 % (0.0-0.8); EOS# 0.34 X1000 (0.0-0.7); EOS% 2.3 % (0.0-10.0); HEMATOCRIT 25.3 % (42.0-52.0); HEMOGLOBIN 8.3 g/dL (14.0-18.0); IMM GRAN# 0.04 X1000 (0.0-0.04); IMM GRAN% 0.3 % (0.0-0.5); LYMPH# 1.71 X1000 (1.2-3.4); LYMPH% 11.7 % (20.5-51.1); MCH 28.7 PG (27-31); MCHC 32.8 g/dL (33-37); MCV 87.5 FL (81-99); MONO# 0.88 X1000 (0.11-0.59); MPV 9.5 FL (7.4-10.4); NEUT# 11.57 X1000 (1.4-6.5); NEUT% 79.2 % (42.2-75.2); PLT 442 X1000 (130-400); RBC 2.89 XMIL (4.7-6.1); RDW 18.2 % (11.5-14.5); WBC 14.62 X1000 (4.8-10.8)
[2018-11-11] MEDS: HUMALOG SUBQ SCH ×4 (06:55→21:38)
[2018-11-11] MEDS: PROTONIX PO SCH (06:56)
[2018-11-11 07:16] LABS: CALCIUM 8.1 mg/dL (8.8-10.2); CREATININE 2.1 mg/dL (0.7-1.2); POTASSIUM 5.7 mmol/L (3.5-5.1)
[2018-11-11] MEDS ORDERED: ALBUTEROL 0.5% INH CONC FOR HYPERKALEMIA INH ONE (09:01)
[2018-11-11] MEDS: NEURONTIN PO SCH ×2 (09:46→21:35)
[2018-11-11] MEDS: NORVASC PO SCH (09:47)
[2018-11-11] MEDS: JANUVIA PO SCH (09:47)
[2018-11-11] MEDS: HEPARIN SUBQ SCH ×2 (09:48→21:36)
[2018-11-11] MEDS: LEXAPRO PO SCH (09:49)
--- NOTE | 2018-11-11 09:57 | PROGRESS NOTE ---
DATE: 11/11/2018 SUBJECTIVE: This patient is sleepy, but arousable. He is still complaining of lower extremity pain, 2+ to 3+ lower extremity edema. His urine output is around 1.3 liters, even though he has been getting Lasix. BUN and creatinine at baseline. Glucose level increased, so we will put him back on his home medication, and also I will start this patient on Lokelma due to his hyperkalemia. OBJECTIVE: Vital Signs: Temperature 97.5 degrees, pulse 96, respiratory rate 20, blood pressure 171/77, oxygen saturation 100% on room air. HEENT: Head normocephalic, no trauma. PERRLA. Neck: Supple. No JVD. No masses. Central trachea. Chest: Clear to auscultation. Some crepitus at the bases and rales. Abdomen: Soft, nontender, nondistended. No hepatosplenomegaly. Extremities: He does have an ulcer at the level of the big toe with a positive culture that showed MRSA, painful to palpation plantar area, lower extremity edema 2+ to 3+. Neurological examination: Alert and oriented x3. At this moment he is sleepy, but arousable. LABORATORY: WBC 14.6, hemoglobin 8.3, hematocrit 25.3, platelets 442. Sodium 137, potassium 5.7, chloride 103, bicarbonate 20. BUN 47, creatinine 2.1, glucose 350, calcium 8.1. ASSESSMENT AND PLAN: 1. Left-sided chest pain, basically resolved, likely musculoskeletal type of pain. 2. Hypertension. I added carvedilol and hydralazine, which were listed on his home medications. 3. Elevated troponins, this is chronic. 4. Diastolic heart failure. Continue with the same management. He is getting intravenous Lasix twice a day. We will continue to monitor the ins and outs. 5. Chronic kidney disease stage III, stable. No changes at this moment. 6. Hyperkalemia. I will add Lokelma to his medications, and I will give him some albuterol, and he will receive insulin in the morning. 7. Type 2 diabetes. Continue pattern of blood sugar and sliding scale insulin. I added insulin to schedule to his medications. 8. Gastrointestinal prophylaxis with Protonix. 9. Deep vein thrombosis prophylaxis with heparin twice a day, renally dosed. 10. Right foot ulcer with the level of the big toe plantar area with a positive culture that showed methicillin-resistant Staphylococcus aureus. Continue with Zyvox and Wound Care. Probably I will get Infectious Disease Department to evaluate this patient. 11. Drug abuse. This patient has been tested positive for marijuana and oxycodone. He has been highly advised against drug use. I will continue with daily cessation education. cc: Stefano Lanier MD
[2018-11-11] MEDS: ISORDIL PO SCH ×3 (09:58→21:35)
[2018-11-11] MEDS: COREG PO SCH ×2 (09:58→21:36)
[2018-11-11] MEDS: APRESOLINE PO SCH ×3 (09:58→21:36)
[2018-11-11] MEDS: NORCO-10 PO SCH ×3 (10:00→21:36)
[2018-11-11] MEDS: NOVOLOG MIX 70/30 SUBQ SCH ×2 (10:12→18:12)
[2018-11-11] MEDS: AMITIZA PO SCH ×2 (10:13→21:35)
[2018-11-11] MEDS: SODIUM BICARBONATE PO SCH ×2 (10:16→21:36)
[2018-11-11] MEDS ORDERED: LOKELMA POWDER PACKET PO SCH (11:00)
[2018-11-11] MEDS ORDERED: APRESOLINE PO SCH (13:00)
[2018-11-11] MEDS ORDERED: INSULIN PEN NEEDLES ONE (13:40)
[2018-11-11] MEDS: LIPITOR PO SCH (21:36)
[2018-11-11] MEDS: SEROQUEL PO SCH (21:36)
[2018-11-12] MEDS: MORPHINE IV PRN ×5 (00:34→19:04)
[2018-11-12] MEDS: ZYVOX PO SCH ×2 (04:15→15:39)
[2018-11-12 06:35] LABS: BASO# 0.08 X1000 (0.0-0.2); BASO% 0.6 % (0.0-0.8); EOS# 0.32 X1000 (0.0-0.7); EOS% 2.3 % (0.0-10.0); HEMATOCRIT 25.9 % (42.0-52.0); HEMOGLOBIN 8.3 g/dL (14.0-18.0); IMM GRAN# 0.04 X1000 (0.0-0.04); IMM GRAN% 0.3 % (0.0-0.5); LYMPH# 1.84 X1000 (1.2-3.4); LYMPH% 13.5 % (20.5-51.1); MCH 28.3 PG (27-31); MCV 88.4 FL (81-99); MONO% 7.3 % (1.7-9.3); MPV 9.4 FL (7.4-10.4); NEUT# 10.39 X1000 (1.4-6.5); PLT 416 X1000 (130-400); RBC 2.93 XMIL (4.7-6.1); RDW 18.1 % (11.5-14.5); WBC 13.67 X1000 (4.8-10.8)
[2018-11-12 06:42] LABS: HEMOGLOBIN A1C 8.5 % (4.8-6.0)
[2018-11-12] MEDS: PROTONIX PO SCH (07:10)
[2018-11-12] MEDS: NOVOLOG MIX 70/30 SUBQ SCH ×2 (07:10→17:13)
[2018-11-12] MEDS: HUMALOG SUBQ SCH ×4 (07:11→21:14)
[2018-11-12 07:38] LABS: CALCIUM 8.5 mg/dL (8.8-10.2)
[2018-11-12 07:42] LABS: POTASSIUM 6.5 mmol/L (3.5-5.1)
[2018-11-12] MEDS ORDERED: ALBUTEROL 0.5% INH CONC FOR HYPERKALEMIA INH ONE ×2 (07:50→16:52)
[2018-11-12] MEDS ORDERED: CALCIUM GLUCONATE 4.65 MEQ in NS 50 ML IV ONE ×2 (07:50→16:44)
[2018-11-12] MEDS: NORCO-10 PO SCH ×3 (08:04→20:50)
[2018-11-12] MEDS: LASIX IV SCH ×2 (08:05→20:50)
[2018-11-12] MEDS: NORVASC PO SCH (08:12)
[2018-11-12] MEDS: ISORDIL PO SCH ×3 (08:12→20:55)
[2018-11-12] MEDS: JANUVIA PO SCH (08:12)
[2018-11-12] MEDS: SODIUM BICARBONATE PO SCH ×2 (08:13→20:54)
[2018-11-12] MEDS: AMITIZA PO SCH ×2 (08:13→20:55)
[2018-11-12] MEDS: COREG PO SCH ×2 (08:13→20:55)
[2018-11-12] MEDS: NEURONTIN PO SCH ×2 (08:13→20:55)
[2018-11-12] MEDS: APRESOLINE PO SCH ×3 (08:14→20:50)
[2018-11-12] MEDS: LEXAPRO PO SCH (08:14)
[2018-11-12] MEDS: HEPARIN SUBQ SCH ×2 (08:14→20:49)
[2018-11-12] MEDS: LOKELMA POWDER PACKET PO SCH ×2 (08:24→12:19)
[2018-11-12] MEDS: HUMULIN R IV ONE ×2 (09:01→17:05)
[2018-11-12] MEDS: D50W SYRINGE IV ONE ×2 (09:10→17:04)
--- NOTE | 2018-11-12 13:25 | PROGRESS NOTE ---
DATE: 11/12/2018 SUBJECTIVE: This patient is completely awake and oriented x3. He is still complaining of lower extremity pain especially on the right side. He has 2 to 3+ lower extremity edema. Adequate urine output. I have placed this patient back on Lasix. He had an episode of hypoglycemia, so I will decrease the dose of the 70/30. OBJECTIVE: Vital Signs: Temperature 97.7 degrees, pulse 89, respiratory rate 20, blood pressure 143/72, oxygen saturation 98 on room air. HEENT: Head normocephalic, no trauma. PERRLA. Neck: Supple. No JVD. No masses. Central trachea. Chest: Clear to auscultation. Some crepitus at the bases and rales. Abdomen: Soft, nontender, nondistended. No hepatosplenomegaly. Extremities: He does have an ulcer at the level of the big toe plantar area, positive culture that showed MRSA. Also, he has lower extremity edema 2 to 3+. Neurological: The patient is alert he is oriented x3. LABORATORY: WBC 13.6, hemoglobin 8.3, hematocrit 25.9, platelets 416,000. Sodium 136, potassium 6.5, chloride 106, bicarbonate 19, BUN 43, creatinine 20, glucose 267, calcium 8.5. ASSESSMENT AND PLAN: 1. Left-sided chest pain, basically resolved, likely musculoskeletal type of pain. 2. Hypertension continue with same management. 3. Elevated troponin, this is chronic. 4. Diastolic heart failure. Continue with same management, continue with IV Lasix twice a day. We will monitor in and outs. 5. Chronic kidney disease stage 3, stable. No changes at this moment. 6. Hyperkalemia. He has been treated today. I will continue with Lokelma, but I will increase the dose to 20 mg, which has been recommended before by nephrology department. 7. Type 2 diabetes. He had an episode of hypoglycemia. Will decrease the dose of the 70/30 in the morning from 30 units to 20, I will could continue to monitor this patient closely. 8. Gastrointestinal prophylaxis with Protonix. 9. Deep vein thrombosis prophylaxis with heparin twice a day due to his kidney dysfunction. 10. Right foot ulcer at the level of the toe, plantar area, positive culture that showed Methicillin resistant staphylococcus aureus. Hopefully tomorrow will discuss the case with Dr. Scales which is the infectious disease doctor to see how we can help this patient with antibiotics. 11. Drug abuse this patient has been tested positive for marijuana and oxycodone. He has been highly advised against drug use. I will continue with daily cessation education. cc: Stefano Lanier MD
[2018-11-12] MEDS: SOMA PO SCH ×2 (13:44→17:24)
[2018-11-12 15:03] LABS: CREATININE 2.6 mg/dL (0.7-1.2)
[2018-11-12] MEDS ORDERED: HUMULIN R IV ONE (16:39)
[2018-11-12] MEDS ORDERED: D50W SYRINGE IV ONE (16:42)
[2018-11-12] MEDS ORDERED: LOKELMA POWDER PACKET PO ONE (17:37)
[2018-11-12] MEDS: LIPITOR PO SCH (20:50)
[2018-11-12] MEDS: SEROQUEL PO SCH (20:55)
[2018-11-13] MEDS: MORPHINE IV PRN ×5 (00:20→23:12)
[2018-11-13] MEDS: SOMA PO SCH ×4 (00:20→21:19)
[2018-11-13] MEDS: ZYVOX PO SCH (03:25)
[2018-11-13 06:17] LABS: CALCIUM 8.9 mg/dL (8.8-10.2); CREATININE 2.7 mg/dL (0.7-1.2); POTASSIUM 5.9 mmol/L (3.5-5.1)
[2018-11-13 06:20] LABS: BASO# 0.07 X1000 (0.0-0.2); BASO% 0.5 % (0.0-0.8); EOS# 0.33 X1000 (0.0-0.7); EOS% 2.5 % (0.0-10.0); HEMATOCRIT 25.7 % (42.0-52.0); IMM GRAN# 0.02 X1000 (0.0-0.04); IMM GRAN% 0.1 % (0.0-0.5); LYMPH# 1.58 X1000 (1.2-3.4); LYMPH% 11.8 % (20.5-51.1); MCH 27.9 PG (27-31); MCHC 31.1 g/dL (33-37); MCV 89.5 FL (81-99); MONO# 1.06 X1000 (0.11-0.59); MONO% 7.9 % (1.7-9.3); MPV 9.6 FL (7.4-10.4); NEUT# 10.31 X1000 (1.4-6.5); NEUT% 77.2 % (42.2-75.2); PLT 424 X1000 (130-400); RBC 2.87 XMIL (4.7-6.1); RDW 18.1 % (11.5-14.5); WBC 13.37 X1000 (4.8-10.8)
[2018-11-13] MEDS: HUMALOG SUBQ SCH ×5 (06:38→21:29)
[2018-11-13] MEDS: PROTONIX PO SCH ×2 (06:42→06:44)
[2018-11-13] MEDS ORDERED: NOVOLOG MIX 70/30 SUBQ SCH (07:00)
[2018-11-13 08:56] LABS: HEMATOCRIT 25.6 % (42.0-52.0); MCH 28.1 PG (27-31); MCHC 31.3 g/dL (33-37); MCV 89.8 FL (81-99); MPV 9.4 FL (7.4-10.4); RBC 2.85 XMIL (4.7-6.1); RDW 18.2 % (11.5-14.5); WBC 13.58 X1000 (4.8-10.8)
[2018-11-13 09:29] LABS: ALBUMIN 3.1 g/dL (3.5-5.0); CALCIUM 8.8 mg/dL (8.8-10.2); PHOSPHORUS 6.7 mg/dL (2.7-4.5); POTASSIUM 6.2 mmol/L (3.5-5.1)
[2018-11-13] MEDS: NEURONTIN PO SCH ×2 (09:52→21:18)
[2018-11-13] MEDS: LASIX IV SCH ×2 (09:52→18:11)
[2018-11-13] MEDS: COREG PO SCH ×2 (09:52→21:18)
[2018-11-13] MEDS: SODIUM BICARBONATE PO SCH ×2 (09:52→21:18)
[2018-11-13] MEDS: ISORDIL PO SCH ×3 (09:54→21:17)
[2018-11-13] MEDS: APRESOLINE PO SCH ×3 (09:54→21:18)
[2018-11-13] MEDS: JANUVIA PO SCH (09:54)
[2018-11-13] MEDS: AMITIZA PO SCH ×2 (09:55→21:18)
[2018-11-13] MEDS: NORVASC PO SCH (09:55)
[2018-11-13] MEDS: NORCO-10 PO SCH ×4 (09:55→21:19)
[2018-11-13] MEDS: LEXAPRO PO SCH (09:55)
[2018-11-13] MEDS: HEPARIN SUBQ SCH ×2 (09:56→21:18)
--- NOTE | 2018-11-13 09:58 | Diag Imaging Result Doc PS360 ---
EXAM: US RENAL 2 (RETROPER) COMPLETE HISTORY: decreased renal function TECHNIQUE: Renal ultrasound COMPARISON: CT from 11/05/2018 FINDINGS: The right kidney measures 12.1 x 6.6 x 6.4 cm. Mild increased renal echotexture. No hydronephrosis. Small renal cyst. The stone seen on the recent CT are more difficult to identify on the ultrasound. The urinary bladder is moderately distended and appears normal. The left kidney measures 12.5 x 5.8 x 6.1 cm. Increased renal echotexture. No hydronephrosis. Small renal cyst. The stone seen on recent CT are difficult to appreciate on the ultrasound. IMPRESSION: Increased renal echotexture which can be seen with medical renal disease. Electronically signed by Malik Davis 11/13/2018 9:55 AM
[2018-11-13] MEDS ORDERED: HUMULIN R IV ONE (10:10)
[2018-11-13] MEDS ORDERED: D50W SYRINGE IV ONE (10:10)
[2018-11-13] MEDS ORDERED: CALCIUM GLUCONATE 4.65 MEQ in NS 50 ML IV ONE (10:10)
[2018-11-13] MEDS ORDERED: ALBUTEROL 0.5% INH CONC FOR HYPERKALEMIA INH ONE (10:11)
[2018-11-13] MEDS ORDERED: LOKELMA POWDER PACKET PO SCH ×2 (10:15→13:00)
[2018-11-13] MEDS ORDERED: LOKELMA POWDER PACKET PO ONE (10:30)
--- NOTE | 2018-11-13 11:02 | Diag Imaging Result Doc PS360 ---
EXAM: FOOT 2 VIEWS RIGHT HISTORY: R great toe osteomyelitis TECHNIQUE: Right foot two views. A complete series was not ordered. COMPARISON: 10/27/2018 FINDINGS: No fracture. No dislocation. No periosteal reaction. No bone erosions. IMPRESSION: No plain film evidence of osteomyelitis. An MRI is recommended if clinical suspicion persist. Electronically signed by Malik Davis 11/13/2018 11:00 AM
--- NOTE | 2018-11-13 11:48 | NEPHROLOGY CONSULTATION ---
DATE: 11/13/2018 REASON FOR ADMISSION: Lower extremity edema. REASON FOR CONSULTATION: Chronic kidney disease stage 3, hyperkalemia. CONSULTING PHYSICIAN: Dr. Diane. HISTORY OF PRESENT ILLNESS: This is a 38-year-old gentleman who we met earlier in the year secondary to acute on chronic kidney disease related to obstructive uropathy. The patient had treatment for that in October. He had a baseline creatinine of 1.5 to 2. He has not followed up with his appointments with us in the office. On this admission, he came into the hospital secondary to chest pain, shortness of breath, lower extremity edema, and worsening area on his right great toe. The patient apparently has had some significant noncompliance with treatment plan, and he is asking if he can be referred to Dr. [facility] [place]. When I see him, he is eating breakfast. He denies any nausea, vomiting. Denies any current shortness of breath. Just continues with lower extremity edema. His creatinine today glen to 2.7. PAST MEDICAL HISTORY: Chronic kidney disease stage 3 with a baseline creatinine of 1.5 to 2, diabetes type 2, diastolic heart failure, chronic anemia, chronic hyperkalemia on Lokelma, hypertension, diabetic foot ulcer, CHF with ejection fraction of 55%. PAST SURGICAL HISTORY: Appendectomy, tonsillectomy, amputation. FAMILY HISTORY: Noncontributory. SOCIAL HISTORY: Continues to smoke and use marijuana. Denies ETOH. ALLERGIES: No known drug allergies. HOME MEDICATIONS: Protonix, Coreg, vitamin D3, gabapentin, Amitiza, sodium bicarbonate, atorvastatin, hydralazine, Movantik, Lokelma, Januvia, Lexapro, NicoDerm, isosorbide, hydrocodone/acetaminophen, Klonopin, torsemide, amlodipine, and insulin. REVIEW OF SYSTEMS: Pertinent positives are noted above in the HPI. Primarily, lower extremity edema. PHYSICAL EXAMINATION: Vital Signs: Temperature 98.2 degrees, pulse 97, respiratory rate 18, blood pressure 160/91. Intake 1.8 L. Output 1.4 L urine voided. General: This is a chronically ill-appearing, middle-aged gentleman, sitting up on the side of the bed. He is awake and alert. He does not appear in acute distress. HEENT: Normocephalic, atraumatic. His oral mucosa is moist. Dentition poor. KEON. Conjunctivae pale. Neck: Supple. There is no JVD noted. Cardiovascular: Regular rate and rhythm. There is no murmur. Pulmonary: He is clear bilaterally. He has no increased work of breathing. Abdomen: Soft with positive bowel sounds. : Again, voiding. Extremities: He has 2+ lower extremity edema that extends up to the thighs. Integumentary: Skin is warm and dry. He has an ulcerated area to the right great toe. Dressing intact. Neurologic: Grossly nonfocal. LABORATORY DATA: WBC of 13.3, hemoglobin 8. Sodium 137, potassium 5.9, CO2 of 22, creatinine 2.7 (1.9). IMAGING: Renal ultrasound with no hydronephrosis. ASSESSMENT AND PLAN: 1. Acute on chronic kidney disease. He has had a modest increase in his creatinine overnight. He does not have indications for dialysis at this time. Continue to wait for his urine studies to come back. Further orders to follow. 2. Electrolytes and acid-base balance. He continues on Lokelma. CO2 is acceptable. 3. Fluid volume. He is on Lasix 40 mg every 12 hours. Marked volume overload. Titrate lasix. rg Dictated by OSMAN Mcbride for Victorino cOonnor MD Face to face encounter, data reviewed, discussed with Jeremy Arias on 11/13/18. I agree with the above assessment and plan of care. juan ramon cc: Victorino Oconnor MD [facility]
--- NOTE | 2018-11-13 11:55 | INFECTIOUS DISEASE CONSULT REP ---
DATE: 11/13/2018 CONCLUSION: The patient has an infected right great toe. A culture from the toe has grown methicillin-resistant Staph aureus. RECOMMENDATIONS: I have discontinued Zyvox, and placed the patient instead on doxycycline. I have ordered an x-ray of the right foot, and a triple phase bone scan of the right foot, and under each study, I put to rule out osteomyelitis of the right great toe. I have also put in a consult for Dr. Olivares, who sees the patient [facility]. PRESENT ILLNESS: The patient tells me that approximately 3 months ago, he developed progressive swelling of the right great toe, associated with a plantar wound in the toe. The patient has not had fever or chills, and he is not complaining of pain in the foot. LABORATORY DATA: Laboratory studies thus far show a CBC with a white count of 13,580, hemoglobin 8, and platelet count 422,000. Creatinine is 3. GFR is 28. The patient's culture from the foot grew methicillin-resistant Staph aureus. The patient's drug screen was positive for oxycodone and marijuana. Renal ultrasound showed medical renal disease. PAST MEDICAL HISTORY/REVIEW OF SYSTEMS: Eyes and Ears: He denies trouble hearing or seeing. Neck: No stiffness. Respiratory: The patient tells me that for the past 2 months, he has been short of breath. Cardiovascular: The patient, as mentioned above, has been short of breath in the past 2 months. He has also had, in the past 2 months, swelling of his legs and scrotum. GI: No nausea, vomiting, or diarrhea. : No dysuria or flank pain. Neurologic: No seizures. No loss of motor or sensory function. PREVIOUS HOSPITALIZATIONS AND OPERATIONS: The patient has had an appendectomy, and he told me he has had numerous skin cysts removed. MEDICAL DISEASES: Positive for diabetes mellitus, hypertension, end-stage renal disease, congestive heart failure, seizure disorder, hyperlipidemia, and gastroesophageal reflux disease. INFECTIOUS DISEASE HISTORY: Negative for pneumonia and UTI. FAMILY HISTORY: Positive for diabetes mellitus, hypertension, and congestive heart failure. SOCIAL HISTORY: [place] He is single. He lives alone. The patient has no pets at home. He is disabled. He smokes cigarettes. He does not drink alcoholic beverages or abuse drugs. DRUG ALLERGIES: The patient has no drug allergies. HOME MEDICATIONS: Include the following: Amlodipine, atorvastatin, Coreg, Lexapro, gabapentin, hydralazine, hydrocodone, insulin, Isordil, Amitiza, Movantik, nicotine patch, Protonix, quetiapine, Januvia, Lokelma, and torsemide. PHYSICAL EXAMINATION: Vital Signs: Temperature is 98.2 degrees, pulse 97, respirations 18, blood pressure is 160/91. The patient weighs 194 pounds. General: This is an obese, young male, who is in no acute distress. HEENT: He can hear my spoken words and see near objects. Neck: No meningismus. Lungs: Clear to auscultation. Cardiovascular: Heart rate is regular. Extremities: The patient has bilateral leg edema. The patient's right great toe is swollen. It has a plantar ulcer with some seropurulent drainage, but no odor. Neurologic: The patient is alert. He can move his extremities. There is no tremor. His sensation is intact to touch. His memory as regarding his medical history appears to be intact. Thank you for the consult. cc: Yasir Scales MD [facility]
[2018-11-13] MEDS: DOXYCYCLINE PO SCH (12:53)
--- NOTE | 2018-11-13 14:51 | PROGRESS NOTE ---
DATE: 11/13/2018 SUBJECTIVE: The patient seems to be feeling a little bit better. He is still complaining of lower extremity pain. He still has lower extremity edema. Positive balance. He is tolerating p.o. Infectious Disease Department and Nephrology Department has been consulted. OBJECTIVE: Vital Signs: Temperature 98.5, pulse 94, respiratory rate 18, blood pressure 150/72, oxygen saturation 93 on room air. HEENT: Head normocephalic, no trauma. PERRLA. Neck: Supple. No JVD. No masses. Central trachea. Chest: Clear to auscultation. Some crepitus at the bases and rales. Abdomen: Soft, nontender, nondistended. No hepatosplenomegaly. Extremities: He does have an ulcer at the level of the big toe plantar area, positive culture that showed MRSA. Also, lower extremity 2+ to 3+ edema. Neurological: Alert and oriented x3. No focal deficit. LABORATORY: WBC 13.5, hemoglobin 8, hematocrit 25.6, platelets 442,000. Sodium 137, potassium 6.2, chloride 106, bicarbonate 19, BUN 47, creatinine 3, glucose 146, calcium 9.8. ASSESSMENT AND PLAN: 1. Left-sided chest pain, resolved. 2. Hypertension, continue with same management. 3. Elevated troponin, this is chronic. 4. Diastolic heart failure with exacerbation. Continue with same management. He is on intravenous Lasix twice a day. Nephrology Department has been consulted due to his chronic kidney disease. 5. Chronic kidney disease stage 3. Continue with same management. Will follow the recommendations of Nephrology Department. 6. Hyperkalemia. He has been treated today again. It was 6.2. I will start this patient on Lokelma three times a day. 7. Type 2 diabetes. Continue with same treatment. 8. Gastroesophageal reflux disease. Continue with Protonix. 9. Deep vein thrombosis prophylaxis with heparin twice a day due to his kidney dysfunction. 10. Right foot ulcer at the level of the toe, plantar area with positive culture that showed Methicillin resistant staphylococcus aureus. Infectious Disease Department on board. Will continue to follow his recommendations. 11. Drug abuse. This patient has been tested positive for marijuana and oxycodone. He has been highly advised against drug use. I will continue with daily cessation education. cc: Stefano Lanier MD
--- NOTE | 2018-11-13 15:16 | Diag Imaging Result Doc PS360 ---
3 PHASE BONE SCAN - 11/13/2018 INDICATION: R great toe osteomyelitis TECHNIQUE: Three phase bone scan of the feet. 24.7 mCi of MDP was administered. COMPARISON: 06/02/2017, 11/13/2018 FINDINGS: There is report of suspected infection of the right great toe. There is normal perfusion of both feet. There is increased blood pool phase activity of the right great toe. There is only minimal delayed phase uptake at the right great toe. There is greater delayed phase activity throughout the mid tarsal joints bilaterally. There is also delayed phase uptake of the left great toe. IMPRESSION: Inflammation of the right great toe soft tissues. Abnormal uptake of the right great toe is equivocal, and not very likely to represent osteomyelitis. Electronically signed by Joseph Lawrence 11/13/2018 3:13 PM
[2018-11-13] MEDS: NOVOLOG MIX 70/30 SUBQ SCH (15:55)
[2018-11-13] MEDS ORDERED: SANTYL OINT TOP ONE (17:03)
--- NOTE | 2018-11-13 17:33 | GENERAL SURGERY PROGRESS NOTE ---
DATE: 11/13/2018 SUBJECTIVE: I was asked to see the patient today for evaluation of his right great toe ulcer, which I have been following for some time. The patient reports that he was having pain in his toe. He has not made it to [facility] for new diabetic shoes nor has he obtained the Medihoney gel that I prescribed to him. Imaging today, including a right foot x-ray and bone scan, do not demonstrate osteomyelitis of the great toe or foot. PHYSICAL EXAMINATION: Vital Signs: Temperature 97.9 degrees, pulse 86, respirations 16, blood pressure 138/72. General: He is alert oriented x4. No acute distress. Extremities: He has bilateral lower extremity edema, 2+ pitting. The right great toe has a plantar ulcer, which appears to be clean with some surrounding callus. There is no gross pus, erythema, or fluctuance. There is no exposed bone. DIAGNOSTIC STUDIES: White blood cell count 60263 potassium 6.2, BUN 47, creatinine 3.90. Imaging as described above in HPI. ASSESSMENT AND PLAN: 1. A 38-year-old male with diabetic foot ulcer, which is chronic and not significantly changed since I saw him in my office 2 weeks ago. I do not detect any acute infection on physical exam or on his imaging. 2. His original complaint when presenting to the ER included chest pain and lower extremity edema. He apparently is in heart failure, and worsening kidney disease. For his toe, I recommend Santyl ointment to be applied daily and elevating his feet. We will follow along. cc: Osmin Olivares MD
[2018-11-13] MEDS: LOKELMA POWDER PACKET PO SCH (18:10)
[2018-11-13] MEDS: LIPITOR PO SCH (21:18)
[2018-11-13] MEDS: SEROQUEL PO SCH (21:18)
[2018-11-14 00:21] LABS: URINE SOURCE CLEAN CATCH
[2018-11-14 00:44] LABS: BILIRUBIN URINE NEGATIVE (NEGATIVE); BLOOD URINE NEGATIVE (NEGATIVE); COLOR YELLOW; GLUCOSE URINE 70 mg/dL (NEGATIVE); KETONE URINE NEGATIVE (NEGATIVE); LEUKOCYTES URINE NEGATIVE (NEGATIVE); NITRITE URINE NEGATIVE (NEGATIVE); PROTEIN URINE 100 mg/dL (NEGATIVE); SP GRAVITY URINE 1.008; TURBIDITY URINE CLEAR (CLEAR); UROBILINOGEN URINE NORMAL (NORMAL)
[2018-11-14 00:45] LABS: UR EPITHELIAL CELLS <10 /HPF (<10); URINE BACTERIA NEGATIVE /HPF; URINE RBC <10 /HPF (<10); URINE WBC <10 /HPF (<10)
[2018-11-14] MEDS: DOXYCYCLINE PO SCH (02:29)
[2018-11-14 03:24] LABS: UR CREAT RANDOM 42.3 mg/dL (14-26)
[2018-11-14] MEDS: LASIX IV SCH (05:49)
[2018-11-14] MEDS: PROTONIX PO SCH ×2 (05:50→06:46)
[2018-11-14] MEDS: MORPHINE IV PRN ×2 (05:50→09:58)
[2018-11-14 06:21] LABS: HEMATOCRIT 24.9 % (42.0-52.0); HEMOGLOBIN 7.8 g/dL (14.0-18.0); MCH 28.6 PG (27-31); MCHC 31.3 g/dL (33-37); MCV 91.2 FL (81-99); MPV 9.3 FL (7.4-10.4); POTASSIUM 5.7 mmol/L (3.5-5.1); RBC 2.73 XMIL (4.7-6.1); RDW 17.7 % (11.5-14.5); WBC 12.94 X1000 (4.8-10.8)
[2018-11-14 06:22] LABS: ALBUMIN 3.1 g/dL (3.5-5.0); CALCIUM 8.7 mg/dL (8.8-10.2); CREATININE 2.8 mg/dL (0.7-1.2); PHOSPHORUS 6.5 mg/dL (2.7-4.5)
[2018-11-14] MEDS: HUMALOG SUBQ SCH (07:40)
[2018-11-14 07:50] VITALS: BP 166/75
[2018-11-14] MEDS: SODIUM BICARBONATE PO SCH (08:33)
[2018-11-14] MEDS: COREG PO SCH (08:33)
[2018-11-14] MEDS: NEURONTIN PO SCH (08:33)
[2018-11-14] MEDS: APRESOLINE PO SCH (08:33)
[2018-11-14] MEDS: JANUVIA PO SCH (08:33)
[2018-11-14] MEDS: AMITIZA PO SCH (08:33)
[2018-11-14] MEDS: LEXAPRO PO SCH (08:33)
[2018-11-14] MEDS: SOMA PO SCH (08:34)
[2018-11-14] MEDS: NORCO-10 PO SCH (08:34)
[2018-11-14] MEDS: HEPARIN SUBQ SCH (08:35)
[2018-11-14] MEDS ORDERED: SANTYL OINT TOP SCH (09:00)
--- NOTE | 2018-11-14 09:05 | NEPHROLOGY PROGRESS NOTE ---
DATE: 11/14/2018 SUBJECTIVE: Patient resting in bed. He is sweating profusely. He states that he has had night sweats for some time. OBJECTIVE: Vital Signs: Temperature 98.1 degrees, pulse 104, respiratory rate 20, blood pressure 160/61. Intake 820 mL; output 600 mL. General: This is a middle-aged gentleman resting in bed. He does not appear in acute distress, although he is quite diaphoretic. HEENT: Normocephalic, atraumatic. KEON. Neck: Supple without JVD. Cardiovascular: Regular rate and rhythm. He has no murmur. Pulmonary: He is clear bilaterally. He has no increased work of breathing. Abdomen: Soft, with positive bowel sounds. : Voiding. Extremities: With 2+ edema that extends up to the hips. Integumentary: Skin is warm and dry. LAB DATA: Hemoglobin 7.8, sodium 138, potassium 5.7, CO2 of 23, creatinine 2.8. ASSESSMENT AND PLAN: 1. Acute on chronic kidney disease. Renal function with no significant change overnight. We did increase his Lasix yesterday. He is making modest urine. Unclear if we are capturing all of his output as there are some voids that are not being measured. His weight on the standing scale is up 5 pounds from yesterday. We are placing him on a 1 L fluid restriction. We have discussed with him the importance of intake in relationship to his overall edema and improvement thereof. 2. Night sweats. The patient did have a chest x-ray. When he came into the hospital, there was no mention of abnormality found. We will defer to Primary for further workup. The patient states that his night sweats have been there for months. Dictated by OSMAN Mcbride for Victorino Oconnor MD Face to face encounter, data reviewed, discussed with Jeremy Arias on 11/14/18. I agree with the above assessment and plan of care. cc: Victorino Oconnor MD [facility]
--- NOTE | 2018-11-14 09:56 | PROGRESS NOTE ---
DATE: 11/14/2018 SUBJECTIVE: This is a 38-year-old male. He was sleeping sound, did not arouse even with examining his foot and listening to his lungs and his heart. He has a history of diabetes mellitus type 2, chronic kidney disease stage 3, diastolic heart failure, persistent ulcer in the right great toe. He came to the emergency room, was the ninth visit in 10 weeks, complaining of chest pain, shortness of breath, lower extremity edema, sore in his right great toe. He was having left-sided chest pain. PAST MEDICAL HISTORY: 1. Diabetes mellitus type 2. 2. Diastolic heart failure. 3. Chronic kidney disease stage 3. 4. Chronic anemia. 5. Chronic hyperkalemia. 6. Hypertension. 7. Diabetic foot ulcer, right great toe. 8. Ejection fraction 55%. PAST SURGICAL HISTORY: Status post appendectomy, tonsillectomy, amputation of the third digit on the right hand. OBJECTIVE: General: Today, he sleeping sound. Vital Signs: Temp 98.4 degrees, pulse 94, respirations 22, blood pressure 166/75. HEENT: Pupils are equal and round. Lungs: Clear in all lung alvarado. Cardiovascular: Regular rhythm and rate without murmur or S3. Abdomen: Soft. Skin: Warm and dry. Urine output is 1000 mL. ASSESSMENT AND PLAN: A 38-year-old with diabetic foot ulcer, chronic and not significantly changed. Dr. Olivares has seen him in the office 2 weeks ago. I do not detect any acute infection. Original complaint in the emergency room was chest pain and lower extremity edema. He has some diastolic dysfunction, underlying kidney disease. Dr. Oconnor, tmr teacher, is following acute on chronic kidney disease. Renal function with no significant change. We did increase his Lasix. Not sure that we are capturing all of his output. He apparently has lost about 5 pounds so far. I am placing him on a 1 liter fluid restriction. His serum creatinine is 2.8, came down from 3.0. Looks like he had 2.0 back on 11/12/2018. Creatinine came down to 2.0 two days ago, and it is back up to 2.[address] Scales is following infected right great toe. Culture is growing methicillin-resistant Staphylococcus aureus, so he is on Zyvox and doxycycline, and he is going to get an x-ray of the right foot and triple phase bone scan of the right foot to rule out osteoarthritis of the big toe. Bone scan showed inflammation in the right great toe. Soft tissue abnormal uptake of the right great toe is equivocal and not likely to represent osteomyelitis. His x-ray of his foot showed no plain film evidence of osteomyelitis. REVIEW OF ORDERS: He is on Lipitor 40 mg at bedtime, Seroquel 100 mg at bedtime, heparin 5000 units subcutaneously every 12 hours, Norvasc 10 mg a day, Soma 350 mg t.i.d., Coreg 25 mg b.i.d., doxycycline 100 mg p.o. every 12 hours, Lexapro 10 mg every a.m., Lasix 80 mg IV every 12 hours, Neurontin 300 mg b.i.d., Apresoline 100 mg p.o. which he is taking 3 times a day, and he is getting his [place] 10 mg which he is getting that 3 times a day as well. Blood sugars appear well controlled. He is getting 70/30 at 20 units daily, isosorbide dinitrate 20 mg p.o., I think that is 3 times a day, Amitiza 24 mcg p.o. b.i.d., Protonix 40 mg a day, Januvia 50 mg a day, sodium bicarbonate 650 mg p.o. b.i.d., calcium gluconate, he got one dose. cc: Rudi Fairchild MD
[2018-11-14] MEDS: NORVASC PO SCH (09:58)
[2018-11-14] MEDS: LOKELMA POWDER PACKET PO SCH (09:59)
[2018-11-14] MEDS: ISORDIL PO SCH (10:00)
--- NOTE | 2018-11-14 10:38 | DISCHARGE SUMMARY ---
ADMISSION DATE: 11/09/2018 DISCHARGE DATE: 11/14/2018 HISTORY OF PRESENT ILLNESS: This is a 38-year-old male with a history of diabetes mellitus type 2, chronic kidney disease stage 3, diastolic heart failure, persistent ulcer in his right great toe. Presented to the emergency room. This is the 9th visit in 10 weeks by report. He was complaining of chest pain, shortness of breath, as well as lower extremity edema, and a sore on the right great toe. The patient states that he has had chest pain and it is chronic. That has not changed and it has been present for 2 years but over the last 3 months, it has not changed. It is intermittent. It is on the right side just below his clavicle. Described as a sharp pain that comes from light activity, lifting, pushing, pulling. It does resolve with sitting still. He complains of an ulcer on the plantar side of his right great toe that has been present for quite some time. He has been evaluated in the hospital and by wound care, although after set up of a plan in the past, he refused dressing changes and treatment, stating that it hurt. As a matter of fact, admission on 10/27/2018, at that time demanded Dr. Olivares be called so that he could cut whatever needed to be cut out of his toe so it would not hurt. The patient has been noncompliant with wound care. He has not followed up with outpatient basis. He sees Dr. Corona as a primary care physician. PAST MEDICAL HISTORY: 1. Diabetes mellitus type 2. 2. Diastolic heart failure. 3. Chronic kidney disease stage 3. 4. Chronic anemia. 5. Chronic hyperkalemia. 6. Hypertension. 7. Diabetic foot ulcer on the right great toe. 8. Ejection fraction has been recorded 55%. ADMISSION DIAGNOSIS: Left-sided chest pain which is chronic, unchanged, appeared to be a little pleuritic in nature and felt to be musculoskeletal. HOSPITAL COURSE: Cardiology was consulted. They reported as well history of noncompliance. Put him back on his medications. They recounted that he was admitted in the hospital on multiple occasions, most recently October 27; prior to that, October 23 and then October 16. Question of his compliance at discharge. He is on high doses of antihypertensive medication and diuretics. He has a significant prolonged history of noncompliance. In addition, he has a history of diastolic heart failure, nephrotic syndrome. Continue his medication. His issues are with hyperkalemia so this limits his ability to use JUAQUIN inhibitors or ARBs. He will continue ISDN and hydralazine, and his diuretics and beta blockers. Could consider addition of amlodipine in the future and then plan to repeat an echocardiogram in the future as well. He had an echocardiogram October 16 that demonstrated an ejection fraction of 55%. He had moderate left ventricular hypertrophy suggested and possible severe aortic regurgitation. We can likely get him set up for outpatient transesophageal echocardiogram to further evaluate this. However, the patient has issues with compliance. He may not be a surgical candidate. The patient has repetitive history of belligerence to the hospital staff which was been reported. The patient's toe was evaluated. Nephrology saw him. He has acute on chronic kidney disease. He has had a modest increase in creatinine during this hospitalization. Continue to wait for urine studies to come back. His acid base balance looked acceptable and fluid balance looked acceptable. We will continue his Lasix, placing him on a 1 L fluid restriction. He has had some night sweats. Chest x-ray was unremarkable. Dr. Olivares has seen him as an outpatient and followed. No significant change since he saw him in the office. Bone scan and an x-ray did not reveal any osteoarthritis. We will continue to have him apply some Santyl to the wound and he wants to go home. DISCHARGE MEDICATIONS: Amlodipine 10 mg a day, Lipitor 40 mg a day, Soma 350 p.o. t.i.d., Coreg 25 mg b.i.d., doxycycline 100 mg p.o. b.i.d., Lexapro 10 mg p.o. q.a.m., Lasix which we will give him 80 mg and he will take p.o. twice a day, Neurontin 300 mg b.i.d., Apresoline 100 mg 3 times a day, NovoLog 70/30 with 15 units which I believe he gets that before dinner and then he gets 20 mg before breakfast, Isordil 20 mg 3 times a day, Amitiza 24 mcg b.i.d., Protonix 40 mg a day, Seroquel 100 mg at bedtime, Januvia 50 mg daily, sodium bicarbonate 650 mg b.i.d., and then he takes Lokelma powder 10 mg t.i.d. He will follow up with Dr. Olivares in the office. Encourage continued topical wound care, applying Santyl every day. cc: Rudi Fairchild MD
--- NOTE | 2018-11-14 10:51 | INFECTIOUS DISEASE PROGRESS NO ---
DATE: 11/14/2018 PRESENT ILLNESS: The patient has a methicillin-resistant Staph aureus infection of his right great toe. The x-ray does not show any evidence of osteomyelitis and the bone scan does not show any definite evidence of osteomyelitis either. I am not going to be able to do an MRI because the patient has renal failure. MEDICATIONS: The patient is getting doxycycline. Also, the patient is having local treatment of the wound. PHYSICAL EXAMINATION: Vital Signs: Temperature is 98.4 degrees, pulse 94, respirations 22, blood pressure 166/75. General: This is an obese, young male. He is in no acute distress. Head, eyes, ears, nose, and throat: He can hear my spoken words and see near objects. He does not have any white patches on his tongue. Neck: No pain with moving his neck. Lungs: Clear to auscultation. Cardiovascular: Heart rate is regular. Abdomen: Soft and nontender. Extremities: Patient has bilateral leg edema. The patient's right great toe is swollen and it has got a plantar ulcer that has beefy red tissue in it. Neurologic: Patient is alert. He can move his extremities. There is no tremor. LAB AND X-RAY: The x-ray of the patient's right foot shows no osteomyelitis and the bone scan does not show any definite osteomyelitis either. LAB AND RADIOLOGY: The patient's bone x-rays and the patient's bone scan is as mentioned above. [place] [address], hemoglobin 7.8, and platelet count 394,000. Creatinine is 2.8, GFR is 31. The patient's toe wound grew methicillin- resistant Staph aureus. ASSESSMENT AND PLAN: The patient will clean his wound with soap and water and then put Santyl in that and then dress his foot with a large Band-Aid. This is the instructions of treatment of the patient's ulcer on his right great toe. The patient also will be getting p.o. doxycycline. I have sent prescriptions for the doxycycline and the Santyl ointment to his pharmacy. The orders have been sent electronically to his pharmacy. Dr. Olivares also will be following up with the patient in the wound clinic. Dr. Olivares has seen the patient and he recommends putting on Santyl ointment. What I have ordered is for the patient to wash his toe with soap and water and dry it and then put Santyl ointment in the wound and then cover that with a large Band-Aid. I have given the patient an appointment to come back to my office in [address] Olivares also is going to be following the patient at the wound clinic. The patient also will be going home on doxycycline 100 mg p.o. every 12 hours in addition to the local care of the wound with Santyl and dressing change. Some of the side effects of doxycycline including rash, diarrhea and avoiding sunlight have been explained to the patient. He agrees with the treatment. COMORBIDITIES: He is diabetic. He also has end-stage renal disease and congestive heart failure. He often is noncompliant with his treatments. The patient also has hyperlipidemia. cc: Yasir Scales MD MTDD
--- NOTE | 2018-11-14 11:54 | Diag Imaging Result Doc PS360 ---
HIP 1 VIEW RIGHT - 11/14/2018 INDICATION: FALL ON RIGHT HIP TECHNIQUE: COMPARISON: None FINDINGS: A single limited view was performed. Portable technique was used and detail is somewhat poor. No obvious fracture or dislocation. IMPRESSION: No obvious fracture or dislocation. Electronically signed by Joseph Lawrence 11/14/2018 11:52 AM
--- NOTE | 2018-11-14 12:11 | Diag Imaging Result Doc PS360 ---
EXAM: SHOULDER 1 VIEW RIGHT 11/14/2018 HISTORY: fell TECHNIQUE: Right shoulder AP only COMMENT: There is no definite evidence of fracture or dislocation. There is some degenerative change in the acromioclavicular joint. IMPRESSION: No evidence of acute disease. Electronically signed by Jeremy Guaman 11/14/2018 12:09 PM
--- NOTE | 2018-11-14 12:11 | Diag Imaging Result Doc PS360 ---
EXAM: COCCYX/SACRUM 11/14/2018 HISTORY: fell TECHNIQUE: Coccyx and sacrum three views COMMENT: There is some degenerative change between the sacrum and the first coccygeal segment. There is no evidence of acute fracture or dislocation. IMPRESSION: No evidence of acute bony disease. Electronically signed by Jeremy Guaman 11/14/2018 12:08 PM
== END 2018-11-14 12:46 | disposition home or self-care (01) | DRG 291 ==
LOC: ED 02:18 → SUATTDRO 14:38 → 4N 14:38
PROVIDERS: ATTEND Emergency Medicine

== ENCOUNTER 2019-04-09 02:15 | Inpatient (IN) ==
--- NOTE | 2019-04-09 03:56 | EKG Report ---
Test Performed on : 04/09/2019 03:51:08 AM Test Reason : arm pain Blood Pressure : / mmHG Vent. Rate : 083 BPM Atrial Rate : 083 BPM P-R Int : 170 ms QRS Dur : 102 ms QT Int : 390 ms P-R-T Axes : 063 064 023 degrees QTc Int : 458 ms Normal sinus rhythm. Possible Left atrial enlargement Left ventricular hypertrophy Abnormal ECG When compared with ECG of 18-NOV-2018 23:51, Nonspecific T wave abnormality now evident in Inferior leads Nonspecific T wave abnormality no longer evident in Lateral leads Unconfirmed Result
[2019-04-09] MEDS ORDERED: TORADOL IM ONE (04:23)
--- NOTE | 2019-04-09 04:39 | PROVIDER DOCUMENTATION ---
HPI-General Adult - General Chief Complaint: Generalized Pain Stated Complaint: PAIN/LEFT SIDE Time Seen by Provider: 04/09/19 02:34 Source: patient Allergies/Adverse Reactions: Patient Allergies Allergy/AdvReac Type Severity Reaction Status Date / Time No Known Allergies Allergy Verified 12/07/18 20:12 Home Medications: Home Medication List Medication Instructions Recorded Confirmed Last Taken Type Cholecalciferol (Vitamin D3) 5,000 unit PO DAILY 10/16/18 11/09/18 11/08/18 History [Vitamin D3] Gabapentin 300 mg PO BID 10/16/18 11/09/18 11/08/18 History Lubiprostone [Amitiza] 24 mcg PO BID 10/16/18 11/09/18 11/08/18 History Sodium Bicarbonate 650 mg PO BID 10/16/18 11/09/18 11/08/18 History Sitagliptin [Januvia] 50 mg PO DAILY #30 tab 10/20/18 11/09/18 11/08/18 Rx Escitalopram [Lexapro] 10 mg PO QAM #30 tab 10/26/18 11/09/18 11/08/18 Rx Hydrocodone/Acetaminophen 1 ea PO TID 11/05/18 11/09/18 Unknown History [Hydrocodone-Acetamin 10-325 mg] Quetiapine Fumarate 100 mg PO QHS 11/05/18 11/09/18 11/08/18 History Amlodipine Besylate 10 mg PO DAILY #30 tab 11/14/18 Unknown Rx Atorvastatin Calcium 40 mg PO HS #30 tab 11/14/18 Unknown Rx Carvedilol [Coreg] 25 mg PO BID #60 tab 11/14/18 Unknown Rx Collagenase Clostridium Oint 1 applicatn TOP DAILY #3 oint 11/14/18 Unknown Rx [Santyl Oint] Furosemide [Lasix] 80 mg PO BID 30 Days #60 tab 11/14/18 Unknown Rx Hydralazine HCl 100 mg PO TID #90 tab 11/14/18 Unknown Rx Insulin Humulin 70/30 [Humulin 20 unit SUBQ AC #1 insuln.pen 11/14/18 Unknown R x 70/30] Isosorbide Dinitrate 20 mg PO TID #90 tab 11/14/18 Unknown Rx Doxycycline 100 mg PO BID #14 tab 12/07/18 Unknown Rx Ibuprofen [Motrin] 800 mg PO Q8H PRN PRN #20 tab 12/07/18 Unknown Rx - History of Present Illness -Gen Adult Nature of Presenting Problems: Patient is a 38 year old black male with history of elevated troponins/d-dimer , and chronic anemia who presents with agitation and 10/10 left sided pain for past 3 days. Patient is uncooperative to questioning and continually swearing at staff. Review of Systems - Adult - REVIEW OF SYSTEMS - ADULT Constitutional: reports: no symptoms reported Eyes: reports: no symptoms reported Ears, Nose, Mouth & Throat: reports: no symptoms reported Cardiovascular: reports: see HPI Respiratory: reports: no symptoms reported Gastrointestinal: reports: no symptoms reported Genitourinary: reports: no symptoms reported Musculoskeletal: reports: see HPI (left arm and leg from tip to his left toe to his left hand) Integumentary: reports: no symptoms reported Neurological: reports: no symptoms reported Psychiatric: reports: anxiety Past History - Adult - PAST MEDICAL HISTORY-ADULT Review of Records: reports: Old Records Reviewed, Nursing Assessment Review, Medications Reviewed, Social history reviewed & non-contributory. Major Childhood Illnesses: reports: denies history Cardiovascular: reports: HTN, hyperlipidemia Respiratory: reports: denies history Gastrointestinal: reports: denies history Obstetrical/Gynecological: reports: denies history Genitourinary: reports: denies history Musculoskeletal: reports: denies history Neurological: reports: Seizures/Epilepsy Psychiatric: reports: denies history Endocrine/Immune: reports: Diabetes Other Conditions: reports: other (neuropathy) - PRIOR SURGERIES/PROCEDURES Surgical/Procedure History: reports: appendectomy - IMMUNIZATION STATUS Childhood Immunizations: See Nurse Assessment Flu Vaccine: See Nurse Assessment - FAMILY HISTORY Family History: diabetes - SOCIAL HISTORY Smoking: other (refuses to answer) Substance Use: other (refuses to answer) Living Situation: other (refuses to answer) Physical Exam-General - CONSTITUTIONAL General Appearance: alert, other (agitated,nondiaphoretic) - EYES Eyes: other (clear) - HEAD, EARS, NOSE, MOUTH & THROAT HENMT: moist mucous membranes, normal ENT inspection - NECK Neck: supple - RESPIRATORY Respiratory: lungs clear - CARDIOVASCULAR Cardiovascular: regular rate, rhythm - GASTROINTESTINAL (ABDOMEN) Abdominal Exam: non tender, soft - MUSCULOSKELETAL Back Exam: normal inspection Extremity: tenderness (left leg and arm without deformities, no homans or cords) - SKIN Integumentary: normal color, normal turgor - NEUROLOGIC Neurologic: grossly normal - PSYCHIATRIC Psych/Mental Status: anxious Progress - PLAN OF CARE/RESULTS Progress/Plan/Lab Results: Vital Signs - 8 hr 04/09/19 03:16 Pulse Rate 87 Respiratory Rate 18 Blood Pressure 159/81 O2 Sat by Pulse Oximetry 99 Orders Category Date Time Status Cardiac Monitoring DIRECTED Care 04/09/19 02:34 Active Saline Loc NOW Care 04/09/19 04:03 Active CBC WITH ELECTRONIC DIFF [HEME] Stat Lab 04/09/19 04:02 Ordered CK PROFILE [SP CHEM] Stat Lab 04/09/19 04:03 Ordered CMP [COMPREHENSIVE METABOLIC PANEL] [CHEM] Stat Lab 04/09/19 04:30 Ordered D-DIMER [COAG] Stat Lab 04/09/19 04:02 Ordered TROPONIN T Stat Lab 04/09/19 04:03 Ordered Ketorolac [Toradol] Med 04/09/19 04:23 Discontinued 60 mg IM NOW ONE EKG [EKG] Stat Ther 04/09/19 03:36 Draft Result Diagrams: 04/09/19 04:37 04/09/19 16:18 - REASSESSMENT Reassessment #1 Time Reassessed: 05:25 Status: unchanged Reassessment Comment: patient is agitated threatening to shoot staff, calling physician a queer - EKG 1 Time of EKG reading by physician:: 03:52 EKG Read and Signed by:: Jimmy Bradley Rate: 83 Rhythm: NSR QRS: LVH Comments: no STEMI 2 Time of EKG reading by physician:: 05:28 EKG Read and Signed by:: Jimmy Bradley Rate: 87 Rhythm: NSR [place]: normal QRS: LVH Comments: no STEMI - XRAY 1 XRAY Study: Chest XRAY Interpretation: cardiomegaly, NAD - CONSULTS/PCP/HOSPITALIST Notification #1 *Consult/PCP/Hospitalist*: Dr Perez Time Discussed: 08:59 Consult Disposition: Admit (ageed to admit patient and he will consult Dr Oden) - CHANGE OF SHIFT REPORT (ED Provider) 1 Report Given and Care Transferred to:: Dr. Dia Time of Transfer: 07:00 Items Pending: Labs, Ultrasound Results, Physician Consult/Arrival (transfer to ICU at [facility]) Departure - Departure Date of Disposition Decision: 04/09/19 Time of Disposition Decision: 08:59 DIAGNOSIS: Hyperkalemia, Elevated d-dimer, Left-sided chest pain, Left leg pain, Left arm pain Uncontrolled diabetes mellitus Qualifiers: Diabetes mellitus type: type 2 Glycemic state: with hyperglycemia Qualified Code(s): E11.65 - Type 2 diabetes mellitus with hyperglycemia Disposition: ADMITTED INPATIENT 09 Certified Medical Emergency: Emergent Condition: Stable - Critical Care Note This patient required my direct & personal management of CC.: Yes Total Time (mins): 185 Critical Care Statement: This patient required my direct personal management to treat or rule out processes, the absence of which, could potentiallly result in sudden, clinically significant life or limb threatening deterioration. Attestation - Physician/ DUANE Attestation Patient care was provided by Advanced Practice Provider:: No The physician spent face to face time with patient:: Yes Advanced Practice Provider documentation review:: Supervising physician onsite and consulted in the evaluation and care of this patient. The physician did have a face to face encounter with the patient.
[2019-04-09 04:51] LABS: BASO# 0.04 X1000 (0.0-0.2)
[2019-04-09 04:52] LABS: BASO% 0.3 % (0.0-0.8); EOS# 0.12 X1000 (0.0-0.7); EOS% 0.8 % (0.0-10.0); HEMATOCRIT 22.5 % (42.0-52.0); HEMOGLOBIN 7.1 g/dL (14.0-18.0); IMM GRAN# 0.02 X1000 (0.0-0.04); IMM GRAN% 0.1 % (0.0-0.5); LYMPH# 1.39 X1000 (1.2-3.4); LYMPH% 9.2 % (20.5-51.1); MCH 24.1 PG (27-31); MCHC 31.6 g/dL (33-37); MCV 76.3 FL (81-99); MONO# 0.74 X1000 (0.11-0.59); MONO% 4.9 % (1.7-9.3); MPV 9.5 FL (7.4-10.4); NEUT# 12.85 X1000 (1.4-6.5); NEUT% 84.7 % (42.2-75.2); PLT 401 X1000 (130-400); RBC 2.95 XMIL (4.7-6.1); RDW 19.9 % (11.5-14.5); WBC 15.16 X1000 (4.8-10.8)
[2019-04-09] MEDS ORDERED: ASPIRIN PO ONE ×2 (05:13→05:14)
[2019-04-09] MEDS ORDERED: MORPHINE IV ONE (05:26)
[2019-04-09 05:47] LABS: ALBUMIN 3.1 g/dL (3.5-5.0); CALCIUM 8.3 mg/dL (8.8-10.2); POTASSIUM 7.6 mmol/L (3.5-5.1); TOTAL BILIRUBIN 0.2 mg/dL (0.20-1.00); TOTAL PROTEIN 6.7 g/dL (6.3-8.3)
[2019-04-09] MEDS ORDERED: HUMULIN R IV ONE (05:47)
[2019-04-09] MEDS ORDERED: SODIUM BICARBONATE 8.4% IV PUSH ONE ×3 (05:48→17:15)
[2019-04-09] MEDS ORDERED: CALCIUM CHLORIDE 1 GM in NS 100 ML IV ONE (05:48)
[2019-04-09] MEDS ORDERED: NS 1,000 ML IV ONE (05:49)
[2019-04-09 06:02] LABS: CK-MB 9.33 ng/mL (0.0-5.0)
[2019-04-09] MEDS ORDERED: ZOSYN 3.375 GM in NS 50 ML IV ONE (06:05)
[2019-04-09 07:16] LABS: CALCIUM 8.9 mg/dL (8.8-10.2); POTASSIUM 5.3 mmol/L (3.5-5.1)
--- NOTE | 2019-04-09 07:39 | Diag Imaging Result Doc PS360 ---
EXAM: CHEST-1 VIEW HISTORY: left cp TECHNIQUE: Single view COMPARISON: 12/07/2018 FINDINGS: The lungs are well expanded. The heart is enlarged. The vessels are not distended. There are mild increased interstitial markings in the lung bases. No effusion identified. IMPRESSION: Cardiomegaly. Scarring versus tiny infiltrates in the lung bases. Electronically signed by Malik Davis 04/09/2019 7:36 AM
--- NOTE | 2019-04-09 08:33 | EKG Report ---
Test Performed on : 04/09/2019 05:27:36 AM Test Reason : ER Blood Pressure : / mmHG Vent. Rate : 087 BPM Atrial Rate : 087 BPM P-R Int : 164 ms QRS Dur : 100 ms QT Int : 388 ms P-R-T Axes : 060 042 034 degrees QTc Int : 466 ms Normal sinus rhythm. Voltage criteria for left ventricular hypertrophy Abnormal ECG When compared with ECG of 09-APR-2019 03:51, (Unconfirmed) No significant change was found Unconfirmed Result
--- NOTE | 2019-04-09 08:41 | Vascular Study Report ---
EXAM: Venous U/S Left Leg HISTORY: leg pain, elevated d-dimer TECHNIQUE: Arita scale, color Doppler, and duplex evaluation was performed. Standard protocol. COMPARISON: None. FINDINGS: The deep veins of the left lower extremity demonstrate appropriate compressibility and augmentation. No intraluminal thrombus is visualized. There is no evidence for DVT. The superficial veins appear patent. IMPRESSION: No evidence for deep venous thrombosis left lower extremity. Electronically signed by Nazia Dao 04/09/2019 8:39 AM
--- NOTE | 2019-04-09 08:43 | Vascular Study Report ---
EXAM: Venous U/S Left Arm HISTORY: left arm pain, elevated d-dimer TECHNIQUE: Routine FINDINGS: EXAM: Venous U/S Left Arm HISTORY: left arm pain, elevated d-dimer TECHNIQUE: Arita scale, color Doppler, and duplex evaluation was performed. Standard protocol. COMPARISON: None. FINDINGS: The deep veins of the left upper extremity demonstrate appropriate compressibility and augmentation. No intraluminal thrombus is visualized. There is no evidence for DVT. The superficial veins appear patent. IMPRESSION: No evidence for deep venous thrombosis left lower extremity. Electronically signed by Nazia Dao 04/09/2019 8:41 AM
[2019-04-09 08:54] LABS: UR AMPHETAMINES QUAL NONE DETECTED (NONE DETECT); UR BARBITUATES QUAL NONE DETECTED (NONE DETECT)
[2019-04-09 08:55] LABS: UR BENZODIAZEPIN QUAL NONE DETECTED (NONE DETECT); UR CANNABINOIDS QUAL PRESUMPTIVE POSITIVE (NONE DETECT); UR COCAINE QUAL NONE DETECTED (NONE DETECT); UR METHADONE QUAL NONE DETECTED (NONE DETECT); UR METHAMPHETAMINE QUAL NONE DETECTED (NONE DETECT); UR OPIATES QUAL PRESUMPTIVE POSITIVE (NONE DETECT); UR OXYCODONE QUAL NONE DETECTED (NONE DETECT); UR PCP QUAL NONE DETECTED (NONE DETECT); UR PROPOXYPHENE QUAL NONE DETECTED (NONE DETECT); UR TCA QUAL NONE DETECTED (NONE DETECT)
[2019-04-09] MEDS: MORPHINE IV ONE ×2 (09:02→09:15)
[2019-04-09 10:48] LABS: ALBUMIN 3.2 g/dL (3.5-5.0); CALCIUM 9.3 mg/dL (8.8-10.2); CREATININE 1.9 mg/dL (0.7-1.2); PHOSPHORUS 3.9 mg/dL (2.7-4.5); POTASSIUM 6.2 mmol/L (3.5-5.1)
[2019-04-09] MEDS ORDERED: LOKELMA POWDER PACKET PO SCH (11:15)
[2019-04-09] MEDS: LOKELMA POWDER PACKET PO SCH ×2 (11:30→21:23)
[2019-04-09] MEDS ORDERED: ZOFRAN IV PRN (13:38)
[2019-04-09] MEDS: HUMALOG (PARKWAY) SUBQ SCH ×2 (16:31→22:05)
[2019-04-09] MEDS: APRESOLINE PO SCH ×2 (16:31→21:22)
[2019-04-09] MEDS ORDERED: BENADRYL IV ONE (16:51)
[2019-04-09] MEDS ORDERED: LASIX IV ONE (16:51)
[2019-04-09] MEDS ORDERED: NS 500 ML IV ONE (16:51)
[2019-04-09 16:52] LABS: ALBUMIN 3.2 g/dL (3.5-5.0); CALCIUM 8.6 mg/dL (8.8-10.2); CREATININE 1.9 mg/dL (0.7-1.2); PHOSPHORUS 4.3 mg/dL (2.7-4.5)
[2019-04-09 16:55] LABS: POTASSIUM 6.7 mmol/L (3.5-5.1)
[2019-04-09] MEDS ORDERED: CALCIUM GLUCONATE 2 GM in NS 100 ML IV ONE (16:56)
[2019-04-09] MEDS ORDERED: HUMULIN R (PARKWAY) IV ONE (16:56)
[2019-04-09] MEDS ORDERED: D50W SYRINGE IV ONE (16:56)
[2019-04-09] MEDS ORDERED: ALBUTEROL 0.5% INH CONC FOR HYPERKALEMIA INH ONE (16:59)
--- NOTE | 2019-04-09 17:03 | EKG Report ---
Test Performed on : 04/09/2019 5:01:10 PM Test Reason : CP, elevated ddimer Blood Pressure : / mmHG Vent. Rate : 088 BPM Atrial Rate : 088 BPM P-R Int : 166 ms QRS Dur : 082 ms QT Int : 380 ms P-R-T Axes : 059 052 038 degrees QTc Int : 459 ms Sinus rhythm. with premature atrial complexes. Possible Left atrial enlargement Borderline ECG When compared with ECG of 09-APR-2019 05:27, (Unconfirmed) premature atrial complexes. are now present Confirmed by Nikolas Allen MD ([id number]) on 04/12/2019 1:46:57 AM
[2019-04-09] MEDS: NORCO-10 PO PRN (17:52)
[2019-04-09] MEDS: SOMA PO SCH (17:52)
[2019-04-09] MEDS: SEROQUEL PO SCH (21:22)
--- NOTE | 2019-04-09 21:42 | HISTORY AND PHYSICAL ---
CHIEF COMPLAINT: Pain from his left fingertips down the left side of his body to his left toes. HISTORY OF PRESENT ILLNESS: This is a 38-year-old gentleman with a prior history of diabetes mellitus type 2, diastolic heart failure, chronic kidney disease stage 3, who presents to the emergency room complaining of pain that starts in his left fingertips runs up his arm, down his left side and goes down to his left toes. He states the pain is on his complete left side front and back, that if you draw a line straight down his body, the pain is on the left of the line. He has no pain on the right of the line. He states that this pain started 3 days ago. Everything makes it worse. The only thing that makes it better is more pain medicine. He would answer no further questions. He began to scream, holler and cursing at myself and the staff saying "I just need you to give me more pain medicine and quit bothering me with all that other shit." PAST MEDICAL HISTORY: Per the chart: 1. Diabetes mellitus type 2 with noncompliance. 2. Diastolic heart failure with an ejection fraction of 55% in October. 3. Medical noncompliance. 4. Chronic kidney disease stage 3. 5. Chronic anemia. 6. Chronic hyperkalemia. 7. Hypertension. 8. Chronic elevated troponins. 9. Chronically elevated D-dimer. PAST SURGICAL HISTORY: Appendectomy, tonsillectomy and amputation of 3rd digit on his right hand. SOCIAL HISTORY: He smokes about a pack a day. He dips tobacco. He uses marijuana daily. He denies alcohol use. He denies illicit drug use. He is not forthcoming about where he lives at this time. ALLERGIES: No known drug allergies. HOME MEDICATIONS: The patient states that he only takes his pain medicine, which is Verona. He will discuss no further medicines. We are attempting to find a pharmacy and get a list of his medicines. REVIEW OF SYSTEMS: Unable to obtain as the patient refuses to answer questions to myself nor did he answer questions to Dr. Perez nor the ER physician. FAMILY HISTORY: Positive for diabetes and hypertension. PHYSICAL EXAMINATION: VITAL SIGNS: Blood pressure is 170/94 with a heart rate of 80, respirations are 18, temperature is 97.6 degrees with room air saturations 98% to 99%. HEENT: Head is normocephalic, atraumatic. Mucous membranes are moist. NECK: Supple with trachea midline. No JVD. CARDIOVASCULAR: Regular rate and rhythm. S1 and S2 appreciated. He does have bilateral lower extremity edema pretibial and pedal. He will not allow pulses to be checked at this time. PULMONARY: Breath sounds are clear with no increased work of breathing noted. Chest rises and falls symmetric with respiration. GASTROINTESTINAL: Abdomen is soft, nondistended with bowel sounds in all 4 quadrants. NEUROLOGIC: He is alert and oriented. He is agitated, screaming and cursing at the staff. SKIN: Warm and dry. LABORATORY DATA: WBC is 15.1 with hemoglobin 7.1, hematocrit 22.5, and platelets 401,000. Sodium is 146, potassium 7.6, BUN 31, creatinine 2 with a glucose of 619. Troponin is 0.140. CPK is 960. Urine drug screen is presumptive positive for opiates and cannabinoids. IMAGIN. Chest x-ray reveals scarring versus tiny infiltrates in the lung bases. 2. Upper extremity Doppler left arm reveals no evidence for deep vein thrombosis. 3. Venous Doppler left leg reveals no evidence for deep venous thrombosis or lower extremity edema. 4. EKG reveals sinus rhythm at a rate of 88. ASSESSMENT: 1. Left-sided pain. 2. Leukocytosis. 3. Anemia. 4. Hyperkalemia. 5. Chronic kidney disease stage 3. 6. Hyperglycemia. 7. Elevated liver function tests. 8. Rhabdomyolysis. 9. Elevated troponin which is chronic. 10. Cannabinoid use and abuse. PLAN: The patient will be admitted to the hospital. He will be placed on telemetry with pattern blood glucose and sliding scale insulin. We will check strict input and output. He will be typed and crossed, and we will transfuse 1 unit of packed cells and then reassess. We will give Lasix with the transfusion. He will be placed on a diabetic diet. Potassium was treated in the emergency room loops with repeat potassium returning at 5.3. We will start Lokelma 100 mg p.o. q.8 hours. Recheck a potassium now and then in about 6 hours. We will trend his troponins as well as total CPK. We will consult Dr. Oconnor as well as Dr. Cee. We will check a CBC, a renal profile, a total CK in the morning. I reviewed his discharge medications from his 11/04/2018 admission. We will restart Soma 3 times a day as well as [place] and Seroquel at night as the patient is highly agitated, cursing and screaming at the staff. The patient was examined and plan was discussed with Dr. Perez. Further treatments pending hospital course. Dictated by OSMAN cMkeon for Turner Perez MD cc: OSMAN Mckeon MD
[2019-04-09] MEDS ORDERED: HALDOL IV PRN (21:56)
[2019-04-10] MEDS: SOMA PO SCH ×4 (02:14→22:26)
[2019-04-10] MEDS: APRESOLINE PO SCH ×3 (05:17→21:23)
[2019-04-10] MEDS: NORCO-10 PO PRN ×2 (05:18→12:41)
[2019-04-10] MEDS: LOKELMA POWDER PACKET PO SCH ×5 (05:52→18:31)
[2019-04-10] MEDS ORDERED: D50W SYRINGE IV ONE (06:20)
[2019-04-10] MEDS ORDERED: ALBUTEROL NEB INH ONE (06:20)
[2019-04-10] MEDS ORDERED: HUMULIN R (PARKWAY) IV ONE (06:20)
[2019-04-10] MEDS ORDERED: SOMA PO PRN (06:32)
[2019-04-10] MEDS ORDERED: ALBUTEROL 0.5% INH CONC FOR HYPERKALEMIA ONE (06:42)
[2019-04-10 07:07] LABS: HEMATOCRIT 26.4 % (42.0-52.0); HEMOGLOBIN 8.6 g/dL (14.0-18.0); MCH 24.8 PG (27-31); MCHC 32.6 g/dL (33-37); MCV 76.1 FL (81-99); MPV 10.6 FL (7.4-10.4); RBC 3.47 XMIL (4.7-6.1); RDW 19.6 % (11.5-14.5); WBC 16.83 X1000 (4.8-10.8)
[2019-04-10 07:23] LABS: ALBUMIN 2.7 g/dL (3.5-5.0); CALCIUM 8.6 mg/dL (8.8-10.2); PHOSPHORUS 4.5 mg/dL (2.7-4.5)
[2019-04-10 07:24] LABS: POTASSIUM 6.5 mmol/L (3.5-5.1)
[2019-04-10] MEDS: NORCO-10 PO SCH ×3 (08:02→21:24)
[2019-04-10] MEDS: ISORDIL PO SCH ×3 (08:02→21:24)
[2019-04-10] MEDS: LASIX PO SCH ×2 (08:02→21:24)
[2019-04-10] MEDS: HUMALOG (PARKWAY) SUBQ SCH ×4 (08:03→22:00)
[2019-04-10] MEDS: NEURONTIN PO SCH ×2 (08:03→21:24)
[2019-04-10] MEDS: HUMULIN 70/30 (PARKWAY) SUBQ SCH ×4 (09:25→17:31)
--- NOTE | 2019-04-10 13:32 | NEPHROLOGY CONSULTATION ---
DATE: 04/10/2019 REASON FOR CONSULTATION: Chronic kidney disease and hyperkalemia. HISTORY OF PRESENT ILLNESS: Mr. Campoverde is a 38-year-old, man. We have followed him in the past for diabetic nephropathy but it has been approximately 1 year since he was last seen in the office. He is at his baseline creatinine. He came to the hospital because of excruciating left-sided pain. He states at all his muscles and joints on the left side of his body are hurting but states that the left calf is probably the worst. He denies any falls, any loss of consciousness, any protracted immobilization. He does have ulcers on the feet. No shortness of breath. Chest discomfort. No nausea or vomiting. No specific abdominal pain. No melena. He relates that he has overall been constipated. and has had no bowel movement in the last 48 hours. No chills or fever, sweats or night sweats. PAST MEDICAL HISTORY: As above. He also has hypertension, diastolic heart failure. History of hyperkalemia. HOME MEDICATIONS: Include gabapentin, hydrocodone, isosorbide, Soma, insulin. ALLERGIES: None. SOCIAL HISTORY: Ongoing tobacco use and daily marijuana use. Uses narcotics. FAMILY HISTORY: Otherwise noncontributory. REVIEW OF SYSTEMS: Noncontributory. PHYSICAL EXAMINATION: Vital Signs: Blood pressure 180/82, heart rate 99, respirations 14, afebrile. General: He is a chronically ill-appearing, middle-aged man lying on his right side. Skin: Warm and dry. He has 2 dry ulcers on the plantar surface of the left foot. HEENT: Pupils are round conjunctivae are pink. Oropharynx not examined. Neck: Neck veins are not distended. Heart: Regular with S4. Lungs: Equal. No crackles or wheezes. Abdomen: Soft, nontender. Bowel sounds are present. Extremities: No edema, clubbing or cyanosis. He does have diffuse tenderness primarily in muscle beds on the left side. Joints are not swollen or warm. Some tenderness with articulation on the left side. Neurologic: Grossly nonfocal. IMPRESSION: 1. Chronic kidney disease. He is at his historical baseline. No further evaluation required at this time. 2. Hyperkalemia. I agree with Lokelma. I will give a dose of albuterol and insulin this morning and increase his Lokelma dose to 4 times a day until his potassium is controlled. 3. He does have anemia and so I will screen for gastrointestinal bleeding with Hemoccult stools. 4. CK was 900 so it may be that his myalgias and hyperkalemia related to a modest case of rhabdomyolysis. If this is true, he has not suffered any acute kidney injury. 5. Continue supportive care. cc: Victorino Oconnor MD
[2019-04-10 14:33] LABS: URINE SOURCE CLEAN CATCH
[2019-04-10 14:42] LABS: BILIRUBIN URINE NEGATIVE (NEGATIVE); BLOOD URINE NEGATIVE (NEGATIVE); COLOR STRAW; GLUCOSE URINE 1000 mg/dL (NEGATIVE); KETONE URINE NEGATIVE (NEGATIVE); LEUKOCYTES URINE NEGATIVE (NEGATIVE); NITRITE URINE NEGATIVE (NEGATIVE); PH URINE 6.5; PROTEIN URINE 200 mg/dL (NEGATIVE); TURBIDITY URINE CLEAR (CLEAR); UROBILINOGEN URINE NORMAL (NORMAL)
[2019-04-10 14:43] LABS: UR EPITHELIAL CELLS <10 /HPF (<10); URINE BACTERIA NEGATIVE /HPF; URINE RBC <10 /HPF (<10); URINE WBC <10 /HPF (<10)
[2019-04-10 15:23] LABS: UR CREAT RANDOM 30.1 mg/dL (14-26); UR PROT RANDOM 230.1 mg/dL
--- NOTE | 2019-04-10 21:02 | PROGRESS NOTE ---
DATE: 04/10/2019 SUBJECTIVE: Patient notes that he feels like crap. States his calf hurts. It has been hurting for 3 to 4 days. States that he accidentally unhooked his IV yesterday while he was getting a blood transfusion. PHYSICAL EXAM: Vital Signs: Temperature 97.9, pulse 99, BP 210/92 to 150/82. General: The patient is a most unpleasant male who unfortunately seems to somewhat enjoy yelling and threatening the staff. He does this quite frequently, as he had done on this last hospitalization. Staff has been instructed to not enter his room by themselves. HEENT: Normocephalic. Neck: Supple. Cardiovascular: Regular rate . Chest: Clear and nonlabored. Abdomen: Soft, nondistended. Extremities: He is noted to move all extremities. Oddly enough, his left calf pain which is extremely severe to the point that he has to yell and cuss at the staff did not seem to affect his ability to walk down the carroll by himself without any assistance. ASSESSMENT: 1. Anemia. Unsure how much of the blood transfusion he actually was able to get. I did discuss with that patient that it seems quite unusual that never once have I ever had another patient accidentally disconnect his IV while getting a blood transfusion to go to the restroom, and allow the blood to poor into the floor without intentionally calling the nurse to tell them what had happened. 2. Left calf pain. 3. Chronic kidney disease. 4. Hyperkalemia. 5. Hyponatremia. 6. Leukocytosis. 7. Intentional noncompliance. 8. Intentional aggression. 9. Chronic cannabinoid use. PLAN: We are going to continue him in the hospital. Dr. Oconnor is seeing him regarding his elevated potassium. Hopefully, this time Mr. Campoverde will be more compliant, although in the past, it has been our experience that after cussing at the staff for 3 or 4 days, he typically loses interest and leaves AMA. We are going to continue to follow. Hopefully, he will allow us to recheck his labs in the morning. cc: Kaden Lawrence MD
[2019-04-10] MEDS: SEROQUEL PO SCH (21:24)
[2019-04-11] MEDS: LOKELMA POWDER PACKET PO SCH ×2 (01:36→05:59)
--- NOTE | 2019-04-11 02:02 | CARDIOLOGY CONSULTATION ---
DATE: 04/10/2019 REQUESTING PHYSICIAN: The hospitalist. REASON FOR CONSULTATION: Positive troponin. 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 HISTORY: Mr. Campoverde presented to the emergency room at this time with complaints of left-sided pain that has been getting increasingly worse over the course of the past few weeks. The patient said that his pain has been going on really for over a year. The pain involves the entire left side of his body, he points mostly to his left lower extremity; however, he also has pain in the left upper extremity and in the entire left side of his trunk and abdomen. His pain is precipitated simply by touching him. This is a hyperpathia type of situation. In addition, they did the usual blood work, at the time of presentation, that showed that his CPK was elevated at 960 and gradually has decreased to 567. His troponins were also elevated at 0.140 and 0.150. His 12-lead EKG shows sinus rhythm with left atrial enlargement, premature atrial complexes and diffuse ST, T repolarization abnormality, probably with LVH. His initial chest x-ray shows cardiomegaly with tiny infiltrate in the lung base. PAST MEDICAL HISTORY: Really very extensive. He has diabetes mellitus for many years with end- organ damage. He has chronic kidney disease with persistent hyperkalemia. 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 I believe he has already been found to have nephrotic syndrome. His albumin level is 2.7 g%. He has had chronic iron deficiency anemia, hypertension, vitamin B12 deficiency. He has been diagnosed with sleep apnea also. PAST SURGICAL HISTORY: Includes appendectomy, tonsillectomy, finger surgery. He has a diabetic foot ulcer. On previous hospital admissions, we have been consulted because of elevation of troponins, which have been attributed mostly to his chronic kidney disease. He took a myocardial perfusion stress test at the time of admission in October, which showed a fixed defect, more than likely secondary to attenuation artifact. A myocardial perfusion stress test was done on 10/20/2018 that showed ejection fraction 43% with a low-grade fixed defect in the left ventricular apex, suggesting attenuation artifact. Echo done in October 2018 showed ejection fraction of 55% with moderate concentric LVH and markedly enlarged left atrium with questionable aortic dilatation, possibly of significant degree. FAMILY HISTORY: Positive for diabetes mellitus. SOCIAL HISTORY: He has been a smoker. ALLERGIES: Negative. HOME MEDICINES: At this time include insulin, Humulin 70/30, 25 units 3 times a day, hydrocodone- acetaminophen 3 times a day, gabapentin 300 twice a day, Soma 1 tablet twice a day, isosorbide dinitrate 20 mg 3 times a day. REVIEW OF SYSTEMS: Positive for the aforementioned chronic pain syndrome. PHYSICAL EXAM: General: The patient is tearful. Vital signs: His blood pressure 194/93, temperature 98.1 degrees, pulse 120, respirations 20. General Appearance: He is awake, alert, in no distress. He is slender, body mass index is 22.8. Chest: Clear to auscultation and percussion. Heart: Sounds regular and rhythmic. I do not hear a gallop or murmur. Abdomen: Shows no hepatomegaly. Extremities: Showed decreased pulses. No edema. Neurological: He has hyperpathia in the entire left side of his body, including the upper extremity, the left side of the thorax, abdomen and the left leg. Normal patch which on the right side does not elicit any discomfort; on the left side is interpreted as pain. Strength appears to be slightly decreased in the left lower extremity. BLOOD WORK: Sodium is 129, potassium 6.5, BUN 37, creatinine 2.0. Hemoglobin 8.6, white cell count 16,830. IMPRESSION: 1. Patient who presented to the hospital with pain in the entire left side of his body. 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 2. Chronic kidney dysfunction with renal acidosis, hyperkalemia, nephrotic syndrome. 3. Long-term insulin-dependent diabetes mellitus. 4. Coronary atherosclerosis of mild degree noted on CT of the chest. 5. Tobacco user. 6. Chronic anemia, iron deficiency. 7. Chronic elevation of troponin level, likely indicator of elevated filling pressures of the heart with CAD and chronic kidney disease. RECOMMENDATION: 1. At this time, I will suggest to obtain a brain MRI to define this patient's mid brain a little better, looking for lesions consistent with lacunar strokes. I will request an evaluation by a neurologist. He may be able to offer some kind of specific therapy for this condition. 2. Regarding the elevation of troponin. This has been noted for the past 4 months, since his admission in October, and probably represents chronic kidney disease with hypertension and a chronic state of elevation of the filling pressures of the heart. 3. At this point in time, I do not see any benefit in pursuing a follow-up myocardial perfusion stress test or invasive cardiac evaluation, particularly given his tenuous renal function. We will be glad to follow him at the office down the road. He normally sees Dr. Cee and his last office visit with Dr. Cee was 06/19/2018. cc: Vinod Tran MD [facility]
[2019-04-11] MEDS: NORCO-10 PO PRN (03:19)
[2019-04-11] MEDS: SOMA PO SCH (05:13)
[2019-04-11] MEDS: APRESOLINE PO SCH (05:13)
[2019-04-11 05:29] LABS: HEMATOCRIT 29.6 % (42.0-52.0); HEMOGLOBIN 9.2 g/dL (14.0-18.0); MCHC 31.1 g/dL (33-37); MCV 77.3 FL (81-99); MPV 10.2 FL (7.4-10.4); RBC 3.83 XMIL (4.7-6.1); RDW 20.4 % (11.5-14.5); WBC 19.61 X1000 (4.8-10.8)
[2019-04-11 06:17] LABS: AGAP 13; ALBUMIN 2.9 g/dL (3.5-5.0); ALKALINE PHOSPHATASE 191 U/L (32-122); BUN 43 mg/dL (8-22); CALCIUM 8.7 mg/dL (8.8-10.2); CHLORIDE 103 mmol/L (98-107); COSMO 294; CREATININE 2.2 mg/dL (0.7-1.2); ESTIMATED GFR 33; GLUCOSE 272 mg/dL (70-104); GOT 24 U/L (10-34); GPT 34 U/L (10-44); MAGNESIUM 2.1 mg/dL (1.5-2.7); POTASSIUM 5.1 mmol/L (3.5-5.1); SODIUM 137 mmol/L (136-145); TCO2 21 mmol/L (25-35); TOTAL BILIRUBIN < 0.15 mg/dL (0.20-1.00); TOTAL PROTEIN 7.3 g/dL (6.3-8.3)
[2019-04-11 06:44] VITALS: BP 177/69
[2019-04-11] MEDS: HUMALOG (PARKWAY) SUBQ SCH (07:17)
[2019-04-11] MEDS ORDERED: NORVASC PO SCH (09:00)
--- NOTE | 2019-04-12 08:31 | DISCHARGE SUMMARY ---
ADMISSION DATE: 04/09/2019 DISCHARGE DATE: 04/11/2019 DISCHARGE DIAGNOSES: 1. Hyperkalemia, resolved. 2. Leukocytosis, stable. 3. Hyponatremia, resolved. 4. Chronic kidney injury. 5. Diabetes with poor home control. 6. Hypertension with poor home control. 7. Chronic kidney disease stage 3. 8. Rhabdomyolysis, resolved. 9. Chronic cannabinoid use. 10. Chronic opiate use. 11. Chronically elevated troponin, to be followed up by Cardiology. 12. Left-sided pain. There was some question by the case management social worker that may have been confused, thinking that Mr. Campoverde needed an emergent MRI for a thalamic stroke. Actually, Mr. Campoverde has been complaining of this left-sided weakness, pain, numbness at least back through 10/24/2015, for which he had an MRI that was completely negative. Therefore, it would be unlikely that anything would have changed to cause the same numbness, pain, and weakness that he has had for 3-1/2 years. Therefore, this is obviously an outpatient diagnosis and can be followed up outpatient. He has also had lumbar spine MRIs. He has had upper extremity CT, cervical spine CT, arterial studies of his lower extremities, CTs of his lumbar spine as well in 08/2018. Again, it would be unlikely that a repeat MRI would find any new pathology. CONSULTATIONS: Cardiology, Nephrology due to his hyperkalemia. BRIEF HOSPITAL COURSE: The patient is a 38-year-old male who presented to the hospital again with pain from his left fingertips down to his left side and his left toes, stating that the only thing that makes it better is more pain medication. I personally dealt with Mr. Campoverde back in October for the same symptoms. Multiple times, on multiple different occasions, he told me that [place] and Soma would fix his left-sided pain, although he needed Soma 3 times a day, and [place] 4 to 5 times a day. The patient continues to smoke cigarettes as well as marijuana. We again discussed with him the perils of doing such. Upon evaluation, he was noted to have anemia at 7 and 22. As noted, the patient was given a transfusion, although he intentionally unhooked his IV, and allowed the blood to pool on the floor. He refused to call for assistance, and this was found upon routine check of him. He was also noted to have hyponatremia, which thankfully on discharge is better at 137, hyperkalemia at 6.7 (after treatment, it is currently better at 5.1), creatinine is stable at 2.2. He does have a chronically elevated troponin, and that has not really changed. On discharge, Mr. Campoverde's blood pressure is mildly elevated at 177. We did add [place] to his current regimen of hydralazine and Lasix. We will not use JUAQUIN or ARB due to his frequently elevated potassiums. DISPOSITION: The patient will be discharged home today. On multiple occasions throughout this hospitalization, as well as previous, documented multiple times by multiple different individuals, Mr. Campoverde has threatened several of the staff members. Again today, he threatened one of the nurses, stating "you don't want none of this shit." This frightened the nurse, and she left the room crying. Upon my entering the room to discuss with Mr. Campoverde that this is not an option, that we do not threaten people, he told me to "get the fuck out of here." I discussed with Mr. Campoverde just as I did previously that we will not write his [place] nor his Soma on discharge. At that point, Mr. Campoverde came towards me in a threatening manner, certainly making me prepare myself in a defensive posture for a physical confrontation. I discussed with Mr. Campoverde that this is not an option, that security was on the way, and he would be discharged. I discussed with Mr. Campoverde that Dr. Tran is a case management social worker, not a neurologist, and Dr. Tran may have been mislead, thinking that this left-sided pain was new onset, and did not realize that it had been going on since at least since 10/2015 as noted above, at which time he had a negative MRI. He has had negative CTs of his lumbar spine, cervical spine, and multiple previous workups. I discussed that he does not need further workup in the hospital regarding pain that started at least in 2016. States he can follow up outpatient with his primary care, and they can readdress an MRI as an outpatient versus a neurological referral. Discussed again, as noted above with Mr. Campoverde, that threatening staff, threatening myself, threatening security guards is not an option and will not be tolerated. Several staff members have felt physically threatened and felt fearful for their safety if they entered his room. Thankfully, Mr. Capmoverde is currently medically safe, stable, and can be discharged home with further outpatient workup. TIME SPENT: 45 minutes was spent in total care. cc: Kaden Lawrence MD
--- NOTE | 2019-04-12 12:12 | NEPHROLOGY PROGRESS NOTE ---
DATE: 04/11/2019 HISTORY OF PRESENT ILLNESS: Mr. Campoverde is lying in bed on his right side. Asleep but arousable. Still continues to complain of ongoing pain in the left leg, flank and arm. No shortness of breath. OBJECTIVE: Vital Signs: Blood pressure 177/69, heart rate 113, respirations 20. Afebrile. General: No obvious distress. Skin: Warm and dry. Neck: Neck veins are not distended. Trachea is midline. Heart: Regular with S4. Lungs: Equal. No crackles. Abdomen: Soft, minimally tender. Bowel sounds are present. Extremities: No edema, clubbing or cyanosis. IMPRESSION: 1. Hyperkalemia improved with Lokelma. Stool Hemoccult has not been collected. Okay for discharge on low potassium diet. 2. Metabolic acidosis. Improved. 3. Chronic kidney disease stage 3B. Stable. cc: Victorino Oconnor MD
== END 2019-04-11 08:30 | disposition home or self-care (01) | DRG 92 ==
LOC: P.ED 02:15 → P.MEDSURG 12:23 → SUATTDRO 12:23
PROVIDERS: ATTEND Family Medicine

== ENCOUNTER 2019-04-16 18:26 | Inpatient (IN) ==
--- NOTE | 2019-04-16 18:48 | PROVIDER DOCUMENTATION ---
HPI-Chest Pain - General Stated Complaint: CHEST PAIN / BODY ACHE Time Seen by Provider: 04/16/19 18:40 Source: patient Allergies/Adverse Reactions: Patient Allergies Allergy/AdvReac Type Severity Reaction Status Date / Time No Known Allergies Allergy Verified 04/22/19 06:16 Home Medications: Home Medication List Medication Instructions Recorded Confirmed Last Taken Type Gabapentin 300 mg PO BID 10/16/18 04/21/19 11/08/18 History Isosorbide Dinitrate 20 mg PO TID #90 tab 11/14/18 04/21/19 Unknown Rx Carisoprodol [Soma] 1 tab PO BID PRN PRN 04/09/19 04/21/19 Unknown History Hydralazine [Apresoline] 100 mg PO Q8HR #90 tab 04/11/19 04/21/19 Unknown Rx Hydrocodone/APAP 10 mg/325 mg 1 ea PO Q8H PRN PRN tab 04/11/19 04/21/19 Unknown Rx [[place]-10] Quetiapine Fumarate [Seroquel] 100 mg PO QHS 04/17/19 04/21/19 Unknown History Carvedilol [Coreg] 12.5 mg PO BID #120 tab 04/19/19 04/21/19 Unknown Rx Hydrochlorothiazide 25 mg PO DAILY #120 tab 04/19/19 04/21/19 Unknown Rx Insulin Humulin 70/30 [Humulin 50 unit SUBQ QAM #1 insuln.pen 04/19/19 04/21/19 Unknown Rx 70/30] Insulin NPH Hum/Reg Insulin Hm 40 unit SQ QPM #1 insuln.pen 04/19/19 04/21/19 U nknown Rx [Humulin 70/30 Kwikpen] Sodium Bicarbonate 1,300 mg PO BID #120 tab 04/19/19 04/21/19 Unknown Rx Torsemide 20 mg PO DAILY #60 tab 04/19/19 04/21/19 Unknown Rx - History of Present Illness-CP Nature of Presenting Problem: 38 YO M pmh for HTN presents with acute onset of substernal non radiating CP x 2 days. With associated left calf pain and nausea. 10/10 on pain scale. Denies vomiting or blurry vision or having this type of CP before. on follow up, pt has been rude to the staff and not wanting his blood to be drawn. He was seen 6 days ago at [place] for the same symptoms. Location: reports: substernal Chest Pain Radiation: reports: no radiation Quality of Pain: reports: pressure, sharp Severity in ED: moderate Onset/Duration: 2 days ago Timing: still present, intermittent Context/Activities at Onset: reports: none Modifying Factors: improves with: nothing Associated Symptoms: reports: denies symptoms Nitro Today/Relief: no nitro taken today Aspirin Treatment Today: no aspirin today Prior Chest Pain/Cardiac Workup: reports: no prior chest pain Similar Symptoms Previously?: No Recently Seen Here or By Another Healthcare Provider: No Review of Systems - Adult - REVIEW OF SYSTEMS - ADULT Constitutional: denies: chills, fever Eyes: reports: no symptoms reported. denies: blurred vision, double vision Ears, Nose, Mouth & Throat: reports: no symptoms reported Cardiovascular: reports: see HPI, chest pain. denies: palpitations Respiratory: denies: cough Gastrointestinal: reports: abdominal pain, nausea. denies: vomiting Genitourinary: reports: no symptoms reported Musculoskeletal: reports: muscle aches (left calf pain) Integumentary: reports: no symptoms reported Neurological: reports: no symptoms reported. denies: numbness, syncope Psychiatric: reports: no symptoms reported Endocrine: reports: no symptoms reported Hematologic/Lymphatic: reports: no symptoms reported Past History - Adult - PAST MEDICAL HISTORY-ADULT Review of Records: reports: Old Records Reviewed Major Childhood Illnesses: reports: denies history Cardiovascular: reports: HTN, hyperlipidemia Respiratory: reports: denies history Gastrointestinal: reports: denies history Obstetrical/Gynecological: reports: denies history Genitourinary: reports: denies history Musculoskeletal: reports: denies history Neurological: reports: Seizures/Epilepsy Psychiatric: reports: denies history Endocrine/Immune: reports: Diabetes Other Conditions: reports: other (neuropathy) - PRIOR SURGERIES/PROCEDURES Surgical/Procedure History: reports: appendectomy - IMMUNIZATION STATUS Childhood Immunizations: See Nurse Assessment Flu Vaccine: See Nurse Assessment - FAMILY HISTORY Family History: diabetes - SOCIAL HISTORY Smoking: cigarettes Substance Use: denies Living Situation: alone Physical Exam-General - PHYSICAL EXAM-ADULT Initial Vital Signs Reviewed: Yes - CONSTITUTIONAL General Appearance: alert, no apparent distress, moderate distress (from pain) - EYES Eyes: PERRL/EOMI, pink conjunctivae - HEAD, EARS, NOSE, MOUTH & THROAT HENMT: normocephalic/atraumatic, other (dry mucous membranes) - NECK Neck: full range of motion, supple - RESPIRATORY Respiratory: chest non-tender, lungs clear, normal breath sounds, no pleuratic chest pain, no respiratory distress, no accessory muscle use - CARDIOVASCULAR Cardiovascular: tachycardia - GASTROINTESTINAL (ABDOMEN) Abdominal Exam: soft, tenderness (LLQ) - MUSCULOSKELETAL Back Exam: no CVA tenderness Extremity: normal inspection, calf tenderness, pedal edema, swelling, tenderness (left calf tenderness) - SKIN Integumentary: normal color, normal turgor, other (ulcer to great toes b/l) - NEUROLOGIC Neurologic: grossly normal - PSYCHIATRIC Psych/Mental Status: normal mood/affect, oriented x 3 Progress - PLAN OF CARE/RESULTS Progress/Plan/Lab Results: Orders Category Date Time Status Admit - [facility] Routine AdmDCTranf 04/17/19 03:14 Active Cardiac Monitoring DIRECTED Care 04/16/19 18:41 Completed Nursing- Obtain EKG ONCE Care 04/16/19 18:41 Completed Vital Signs Order Q 4-HR ASSESS Care 04/17/19 03:14 Completed Z-Document. for Tele Applied ORDERED Care 04/17/19 03:14 Completed Diabetic Diet Diet 04/17/19 03:15 Completed CHEST-2 VIEWS [RAD] Stat Exams 04/16/19 18:40 Completed A1C HGB W EST AVG GLUCOSE [CHEM] Stat Lab 04/17/19 03:03 Completed BASIC METABOLIC PANEL [CHEM] Timed Lab 04/17/19 05:25 Completed BLOOD CULTURE [BLDCUL] Stat Lab 04/17/19 01:43 Results CBC WITH DIFF [HEME] Routine Lab 04/17/19 05:25 Completed CBC WITH ELECTRONIC DIFF [HEME] Stat Lab 04/16/19 22:50 Completed CK PROFILE [SP CHEM] Timed Lab 04/17/19 05:25 Completed COMPREHENSIVE METABOLIC PANEL [CHEM] Stat Lab 04/16/19 22:50 Completed D-DIMER [COAG] Stat Lab 04/16/19 22:50 Completed INFLUENZA SCREEN A/B Stat Lab 04/16/19 22:50 Completed LACTATE, PLASMA [CHEM] Stat Lab 04/17/19 01:39 Completed PRO B-NATRIURETIC PEPTIDE Stat Lab 04/16/19 22:50 Completed PROTIME WITH INR [COAG] Stat Lab 04/16/19 22:50 Completed PTT [COAG] Stat Lab 04/16/19 22:50 Completed TROPONIN T HIGH SENSITIVITY Stat Lab 04/16/19 22:50 Completed TROPONIN T HIGH SENSITIVITY Timed Lab 04/17/19 05:25 Completed TSH Stat Lab 04/16/19 22:50 Completed URINALYSIS W/POSS RFLX CULT [URINALYSIS] Stat Lab 04/16/19 22:50 Completed URINE DRUG SCREEN Stat Lab 04/16/19 22:50 Completed Albuterol 0.5% INH Conc [Albuterol 0.5% INH Conc For Med 04/17/19 00:26 Discontinued Hyperkalemia] 25 mg INH NOW ONE Calcium Gluconate Med 04/17/19 00:35 Discontinued 1 gm IV PUSH NOW ONE Furosemide [Lasix] Med 04/17/19 02:06 Discontinued 40 mg IV NOW ONE Insulin Human Regular [Humulin R] Med 04/17/19 01:29 Discontinued 10 unit IV NOW ONE Insulin Lispro [Humalog] Med 04/17/19 00:25 Discontinued 10 units IV NOW ONE Linezolid 600 mg/D5w [Zyvox 600 mg/D5w] Med 04/17/19 01:15 Discontinued 600 mg in 300 ml IV Q12H Morphine Med 04/17/19 00:20 Discontinued 4 mg IV NOW ONE Piperacillin/Tazobactam [Zosyn] 2.25 gm Med 04/17/19 02:00 Discontinued 0.9% Sodium Chloride Inj [Ns] 50 ml IV Q6H Vancomycin 1 gm/Ns Med 04/17/19 00:36 Discontinued 1 gm in 250 ml IV NOW Aerosol Treatments Routine Oth 04/17/19 00:26 Completed Aerosol Treatments Stat Oth 04/17/19 00:26 Completed Oxygen Device Routine Oth 04/17/19 03:14 Completed Telemetry [OM.EQ] Routine Oth 04/17/19 03:14 Active EKG [EKG] Stat Ther 04/16/19 18:40 Draft Transfer/Admit Order [TRANSFER] Routine Transfer 04/17/19 01:51 Completed admitting for CHF exacerbation, hyperglycemia, renal insufficiency, hyperkalemia and diabetic ulcers. Result Diagrams: 04/19/19 06:03 04/19/19 06:03 - REASSESSMENT Reassessment #1 Time Reassessed: 22:48 Status: unchanged (pt would not allow for blood to be drawn. just got blood drawn now.) - EKG 2 Time of EKG reading by physician:: 18:45 EKG Read and Signed by:: Paulette Howell EKG Interpretation (*Must complete 3 of following elements*): Abnormal Rate: 104 Rhythm: sinus tach [place]: normal QRS: other (left atrial enlargement) CA Interval: normal ST Wave: normal - CONSULTS/PCP/HOSPITALIST Notification #1 *Consult/PCP/Hospitalist*: Dr. Arceo Time Discussed: 00:42 Consult Disposition: Will see in ED, Admit Departure - Departure Date of Disposition Decision: 04/17/19 Time of Disposition Decision: 00:19 DIAGNOSIS: CHF exacerbation, Chronic pain, Renal insufficiency, Left leg pain, Diabetic foot ulcers, Elevated troponin level Disposition: ADMITTED INPATIENT 09 Certified Medical Emergency: Emergent Condition: Stable - Critical Care Note This patient required my direct & personal management of CC.: No Attestation - Physician/ DUANE Attestation Patient care was provided by Advanced Practice Provider:: No The physician spent face to face time with patient:: Yes Advanced Practice Provider documentation review:: Supervising physician onsite and consulted in the evaluation and care of this patient. The physician did have a face to face encounter with the patient.
--- NOTE | 2019-04-16 19:41 | Diag Imaging Result Doc PS360 ---
CHEST-2 VIEWS - 04/16/2019 INDICATION: CP COMPARISON: 04/09/2019 FINDINGS: Stable cardiomegaly. There is mild pulmonary vascular congestion. There is some trace pulmonary edema in the costophrenic angle similar to prior. No large pleural effusion. IMPRESSION: Cardiomegaly. Trace pulmonary edema in the lung bases. Electronically signed by Joseph Lawrence 04/16/2019 7:39 PM
[2019-04-16 23:00] LABS: URINE SOURCE CLEAN CATCH
[2019-04-16 23:12] LABS: BILIRUBIN URINE NEGATIVE (NEGATIVE); BLOOD URINE SMALL (NEGATIVE); COLOR YELLOW; GLUCOSE URINE >1000 mg/dL (NEGATIVE); KETONE URINE NEGATIVE (NEGATIVE); LEUKOCYTES URINE NEGATIVE (NEGATIVE); NITRITE URINE NEGATIVE (NEGATIVE); PH URINE 6.5; PROTEIN URINE 300 mg/dL (NEGATIVE); SP GRAVITY URINE 1.018; TURBIDITY URINE CLEAR (CLEAR); UR EPITHELIAL CELLS <10 /HPF (<10); URINE BACTERIA NEGATIVE /HPF; URINE RBC 20-40 /HPF (<10); URINE WBC <10 /HPF (<10); UROBILINOGEN URINE NORMAL (NORMAL)
[2019-04-16 23:30] LABS: INR 1.08; PROTIME 14.2 Seconds (11.0-16.0)
[2019-04-16 23:31] LABS: PTT 42.5 Seconds (22.3-41.8)
[2019-04-16 23:40] LABS: BASO# 0.09 X1000 (0.0-0.2); BASO% 0.4 % (0.0-0.8); EOS# 0.02 X1000 (0.0-0.7); EOS% 0.1 % (0.0-10.0); HEMATOCRIT 25.8 % (42.0-52.0); HEMOGLOBIN 8.1 g/dL (14.0-18.0); IMM GRAN# 0.07 X1000 (0.0-0.04); IMM GRAN% 0.3 % (0.0-0.5); LYMPH# 1.46 X1000 (1.2-3.4); LYMPH% 6.7 % (20.5-51.1); MCH 25.2 PG (27-31); MCHC 31.4 g/dL (33-37); MCV 80.1 FL (81-99); MONO# 1.08 X1000 (0.11-0.59); MONO% 4.9 % (1.7-9.3); MPV 10.1 FL (7.4-10.4); NEUT# 19.11 X1000 (1.4-6.5); NEUT% 87.6 % (42.2-75.2); PLT 473 X1000 (130-400); RBC 3.22 XMIL (4.7-6.1); RDW 20.8 % (11.5-14.5); WBC 21.83 X1000 (4.8-10.8)
[2019-04-16 23:49] LABS: UR AMPHETAMINES QUAL NONE DETECTED (NONE DETECT); UR BARBITUATES QUAL NONE DETECTED (NONE DETECT); UR BENZODIAZEPIN QUAL NONE DETECTED (NONE DETECT); UR CANNABINOIDS QUAL PRESUMPTIVE POSITIVE (NONE DETECT); UR COCAINE QUAL NONE DETECTED (NONE DETECT); UR METHADONE QUAL NONE DETECTED (NONE DETECT); UR OPIATES QUAL PRESUMPTIVE POSITIVE (NONE DETECT); UR OXYCODONE QUAL NONE DETECTED (NONE DETECT); UR PCP QUAL NONE DETECTED (NONE DETECT)
[2019-04-17] MEDS ORDERED: MORPHINE IV ONE (00:20)
[2019-04-17 00:24] LABS: ALB/GLOB RATIO 0.8; ALBUMIN 2.8 g/dL (3.5-5.0); CALCIUM 8.4 mg/dL (8.8-10.2); CREATININE 2.4 mg/dL (0.7-1.2); TOTAL BILIRUBIN 0.3 mg/dL (0.20-1.00); TOTAL PROTEIN 6.3 g/dL (6.3-8.3)
[2019-04-17] MEDS ORDERED: HUMALOG IV ONE (00:25)
[2019-04-17] MEDS ORDERED: ALBUTEROL 0.5% INH CONC FOR HYPERKALEMIA INH ONE (00:26)
[2019-04-17] MEDS ORDERED: CALCIUM GLUCONATE IV PUSH ONE (00:35)
[2019-04-17] MEDS ORDERED: VANCOMYCIN 1 GM/NS 1 GM/250 ML IVPB IV ONE (00:36)
[2019-04-17 00:47] LABS: POTASSIUM 6.6 mmol/L (3.5-5.1)
[2019-04-17] MEDS ORDERED: HUMULIN R IV ONE (01:29)
[2019-04-17] MEDS: ZYVOX 600 MG/D5W 600 MG/300 ML IVPB IV SCH ×2 (02:05→13:28)
[2019-04-17] MEDS ORDERED: LASIX IV ONE (02:06)
[2019-04-17 03:49] LABS: HEMOGLOBIN A1C 14.3 % (4.8-6.0)
[2019-04-17] MEDS ORDERED: ZOFRAN IV PRN (04:22)
[2019-04-17] MEDS ORDERED: TYLENOL PO PRN (04:22)
[2019-04-17] MEDS ORDERED: NICODERM PATCH TD PRN (04:22)
[2019-04-17] MEDS: MORPHINE IV PRN ×5 (04:48→22:23)
--- NOTE | 2019-04-17 04:49 | EKG Report ---
Test Performed on : 04/16/2019 6:39:38 PM Test Reason : CHF,CP,Hyperkalemia Blood Pressure : / mmHG Vent. Rate : 104 BPM Atrial Rate : 104 BPM P-R Int : 152 ms QRS Dur : 080 ms QT Int : 342 ms P-R-T Axes : 056 061 053 degrees QTc Int : 449 ms Sinus tachycardia. Possible Left atrial enlargement Borderline ECG When compared with ECG of 09-APR-2019 17:01, premature atrial complexes. are no longer present Unconfirmed Result
[2019-04-17] MEDS: ZOSYN 2.25 GM in NS 50 ML IV SCH ×4 (04:54→21:46)
[2019-04-17 06:07] LABS: BASO# 0.08 X1000 (0.0-0.2); BASO% 0.4 % (0.0-0.8); EOS# 0.06 X1000 (0.0-0.7); EOS% 0.3 % (0.0-10.0); HEMATOCRIT 25.9 % (42.0-52.0); IMM GRAN# 0.13 X1000 (0.0-0.04); IMM GRAN% 0.6 % (0.0-0.5); LYMPH# 1.88 X1000 (1.2-3.4); LYMPH% 8.7 % (20.5-51.1); MCH 24.8 PG (27-31); MCHC 30.9 g/dL (33-37); MCV 80.2 FL (81-99); MONO# 1.53 X1000 (0.11-0.59); MONO% 7.1 % (1.7-9.3); MPV 10.3 FL (7.4-10.4); NEUT# 17.87 X1000 (1.4-6.5); NEUT% 82.9 % (42.2-75.2); PLT 503 X1000 (130-400); RBC 3.23 XMIL (4.7-6.1); RDW 20.8 % (11.5-14.5); WBC 21.55 X1000 (4.8-10.8)
[2019-04-17 06:36] LABS: CALCIUM 9.2 mg/dL (8.8-10.2); CREATININE 2.4 mg/dL (0.7-1.2); POTASSIUM 5.9 mmol/L (3.5-5.1)
[2019-04-17] MEDS ORDERED: HUMULIN R SUBQ ONE (06:49)
[2019-04-17] MEDS ORDERED: HUMULIN R SUBQ SCH (07:00)
[2019-04-17 07:03] LABS: CK-MB 6.46 ng/mL (0.0-5.0)
--- NOTE | 2019-04-17 07:19 | EKG Report ---
Test Performed on : 04/17/2019 07:06:21 AM Test Reason : CHF,CP,Hyperkalemia Blood Pressure : / mmHG Vent. Rate : 098 BPM Atrial Rate : 098 BPM P-R Int : 150 ms QRS Dur : 086 ms QT Int : 356 ms P-R-T Axes : 064 075 000 degrees QTc Int : 454 ms Normal sinus rhythm. Nonspecific ST abnormality Abnormal ECG When compared with ECG of 16-APR-2019 18:39, (Unconfirmed) Inverted T waves have replaced nonspecific T wave abnormality in Inferior leads Confirmed by Dwight AMOS, Shaun Otoole ([id number]) on 04/17/2019 6:15:30 PM
[2019-04-17 07:26] LABS: LYMPHS 4 % (21-51); MONO 2 % (1-9); SEGS 94 % (42-75)
--- NOTE | 2019-04-17 07:27 | Diag Imaging Result Doc PS360 ---
KUB ABDOMEN - 04/17/2019 INDICATION: Abdominal Pain COMPARISON: 10/27/2015 FINDINGS: There is a nonobstructive bowel gas pattern. No free air or abdominal calcifications. There are stable surgical clips projecting over the right lower quadrant. There is extensive calcified vascular disease of arteries in the pelvis and femoral canals. IMPRESSION: No acute disease. Electronically signed by Joseph Lawrence 04/17/2019 7:24 AM
[2019-04-17] MEDS ORDERED: KAYEXALATE PO ONE (07:34)
[2019-04-17 08:41] LABS: CK-MB 6.7 ng/mL (0.0-5.0)
[2019-04-17] MEDS: ISORDIL PO SCH ×3 (08:51→21:45)
[2019-04-17] MEDS: NORVASC PO SCH (08:51)
[2019-04-17] MEDS: NEURONTIN PO SCH ×2 (08:52→21:45)
[2019-04-17] MEDS: LANTUS INSULIN SUBQ SCH ×2 (08:52→21:52)
[2019-04-17] MEDS: HEPARIN SUBQ SCH ×2 (08:52→21:45)
--- NOTE | 2019-04-17 09:58 | Diag Imaging Result Doc PS360 ---
EXAM: LOWER LEG-LEFT HISTORY: LLE Pain/Swelling/Tenderness TECHNIQUE: Four views COMPARISON: None. FINDINGS: No fracture. No dislocation. No other bony abnormality. Prominent atherosclerosis. IMPRESSION: No bony abnormality. Electronically signed by Malik Davis 04/17/2019 9:55 AM
--- NOTE | 2019-04-17 10:09 | Diag Imaging Result Doc PS360 ---
FOOT COMPLETE LEFT - 04/17/2019 INDICATION: Left great toe wound TECHNIQUE: Three views COMPARISON: 05/30/2017 FINDINGS: There is minimal change in the deformity at the head of the proximal phalanx of the great toe. There is soft tissue swelling with a penetrating ulcer at the lateral plantar forefoot, lateral to the fifth metatarsal head. No bony erosions. There is severe vascular calcification indicating severe vascular disease. There is diffuse pedal edema. IMPRESSION: Soft tissue swelling with a penetrating ulcer at the undersurface of the forefoot at the fifth metacarpal head. No bony erosions. Electronically signed by Joseph Lawrence 04/17/2019 10:07 AM
--- NOTE | 2019-04-17 10:10 | Diag Imaging Result Doc PS360 ---
FOOT COMPLETE RIGHT - 04/17/2019 INDICATION: Right great toe wound TECHNIQUE: Three views COMPARISON: 02/08/2019 FINDINGS: There is severe pedal edema. There is significant vascular calcification of all the arteries of the ankle and foot. No soft tissue gas. No fractures or bony erosions. IMPRESSION: Nonspecific findings. Electronically signed by Joseph Lawrence 04/17/2019 10:08 AM
[2019-04-17] MEDS: HUMALOG SUBQ SCH ×3 (13:35→21:46)
[2019-04-17] MEDS: APRESOLINE PO SCH ×2 (13:36→21:45)
[2019-04-17] MEDS: HYDROCHLOROTHIAZIDE PO SCH (13:36)
--- NOTE | 2019-04-17 15:08 | GENERAL SURGERY CONSULTATION ---
DATE: 04/17/2019 REQUESTING PHYSICIAN: Hospitalist. REASON FOR CONSULTATION: Bilateral lower extremity wounds. HISTORY OF PRESENT ILLNESS: A 38-year-old gentleman with poorly-controlled diabetes, diastolic heart failure, chronic kidney disease, who has had issues with chest pain, but I had been seeing him previously for wounds on his right leg. He is poorly compliant as far as shoes and shoe inserts, but he had been doing his wound care instructions with Vashe wet-to-dry. We are mostly dealing with a right great toe plantar surface wound, which looks like it has improved, but he has developed new wounds on his left leg. I was asked to weigh an opinion. PAST MEDICAL HISTORY: Includes: 1. Diabetes mellitus type 2. 2. Diastolic heart failure with ejection fraction of 55%. 3. Medical noncompliance. 4. Chronic kidney disease. 5. Chronic anemia. 6. Chronic hyperkalemia. 7. Hypertension. 8. Chronically elevated troponins. 9. Chronically elevated D-dimer. PAST SURGICAL HISTORY: Appendectomy, tonsillectomy, amputation of previous digit. SOCIAL HISTORY: Current smoker. ALLERGIES: None. HOME MEDICATIONS: Reviewed and MAR reviewed. REVIEW OF SYSTEMS: A full 14 systems were reviewed and negative, except as specified in the HPI. FAMILY HISTORY: Reviewed with the patient and noncontributory. PHYSICAL EXAMINATION: Vital Signs: The patient is currently afebrile. His vital signs are stable. General: No acute distress. Resting. male. Looks stated age. HEENT: Normocephalic, atraumatic. Pupils equal, round, reactive to light. Mucous membranes moist. Oropharynx benign. Neck: Supple. Trachea midline. Cardiovascular: Regular rate and rhythm. Lungs: Grossly clear. Abdomen: Soft, nontender, nondistended. Extremities: Wound noted to the plantar aspect of the right foot at the great toe overall appears to be healing from when I previously saw it. New wounds noted to the lateral aspect of the left foot and on the great toe. These have good granulation tissue noted with beefy, red tissue. Vascular: All extremities perfused. Neurologic: Grossly intact, although somewhat decreased to the foot. Skin: Wounds as noted above. LABORATORY DATA: White blood cell count is 21. Remainder of labs were reviewed. ASSESSMENT AND PLAN: A 38-year-old gentleman with diabetic foot ulcers to bilateral lower extremities. Diabetic lower extremity foot ulcers. At this time, will continue local wound care with Vashe wet- to-dry. Will try to avoid any kind of surgical intervention, but will continue to monitor him. I do not think these wounds are contributing to his leukocytosis. Will follow. cc: Bo Holm MD
[2019-04-17] MEDS ORDERED: LASIX IV SCH (15:30)
--- NOTE | 2019-04-17 16:17 | Diag Imaging Result Doc PS360 ---
EXAM: MRI BRAIN W/O CONTRAST 04/17/2019 HISTORY: stroke TECHNIQUE: T1 sagittal, axial, axial T2, FLAIR, DWI and coronal gradient echo. COMMENT: The current study is compared with the previous examination of 10/24/2015. There is no evidence of mass effect, bleed, or abnormal extra-axial fluid collection. There is no evidence of restricted diffusion. There has been no significant change in the appearance of the brain since the previous study. IMPRESSION: No evidence of acute intracranial disease. Electronically signed by Jeremy Guaman 04/17/2019 4:15 PM
--- NOTE | 2019-04-17 19:11 | PROVIDER PROGRESS NOTE ---
Progress Note Chief complaint: My lower back is hurting, like I can feel my heartbeat in my kidneys. HPI: Mr. Campoverde is a 38-year-old -German male with a past medical history of diabetic nephropathy, hypertension, diastolic heart failure, and chronic hyperkalemia. He has a three day history of left-sided pain that starts in his back flank area and extends down to his left extremity. He describes the pain as stabbing in nature and also voices feelings of full pulsation in his kidneys. He denies shortness of breath, chest pain, nausea and vomiting, change in urine production, hematuria, or decrease in appetite. He was admitted in the hospital on 04/09/2019 with the same symptoms where he was treated for Hyperkalemia and diabetic nephropathy. No chills, fever, or night sweats. His admitting WBC count is 21.83, hemoglobin 8.1, potassium 6.6, and creatinine 2.4 which is historical baseline. Past medical history: chronic kidney disease stage III, diabetes mellitus type two with non-compliance, diastolic heart failure with ejection fraction 55%, chronic anemia, chronic hyperkalemia, hypertension, chronic elevated troponin, and chronically elevated D/timer. Past surgical history: appendectomy, tonsillectomy, and amputation of the third digit on his right hand. Social history: he smokes a pack a day and uses marijuana daily. He denies alcohol or illicit drug use. He lives at home. Allergies: no known drug allergies. Home medications: Amlodipine, Soma, gabapentin, hydralazine, [place] 10, insulin 70/30, isosorbide dinitrate. Review of systems: all pertinent positives listed in the above HPI. Physical exam: temperature 97.5, pulse 64, respirations 11, blood-pressure 98/57, 02 sat 92% on room air. General: -German male sitting up in bed in no acute distress HEENT: normocephalic, atraumatic, pupils equal and reactive. Mucous membranes are moist. Neck: Supple, JVD appreciated with no hepatojugular reflux Cardiovascular: S1S2, tachycardia rate and rhythm. Gallop appreciated. No murmur. Respiratory: lungs clear to auscultation anteriorly Abdomen: soft,nondistended, tender on left upper and lower quadrants. Bowel sounds active. : non inspected Extremities: 2+ pitting to BLE with tenderness to left lower extremity. Posterior Right great toe has a quarter size open area. Neurological: alert and oriented to person, place, and time. Labs: WBC 21.55, hemoglobin 8.0, hematocrit 25.9, platelet count 503, sodium 129, potassium 5.9, chloride 100, carbon dioxide 16, BUN 45, creatinine 2.4, glucose 512, creatine kinase 340, troponin T1 71. Imaging: chest x-ray impression cardiomegaly with Trace pulmonary edema in the lower lung bases, KUB impression no acute disease, complete right foot impression There are significant vascular calcification of the arteries. Left great toe wound impression soft tissue swelling with the penetrating also at the undersurface of the forefoot and the fifth metacarpal. Assessment and Plan: Chronic kidney disease. [id number] from diabetic nephropathy. He is at his baseline Creatinine. He has had recent renal imaging. rg Blood pressure. In target. Anemia. In goal. Fluid Volume. Expanded. Start HCTZ 25mg Hyperkalemia. Start lokelma and add low potassium diet. Non anion gap acidosis. Type IV RTA. Start sodium bicarbonate 1300mg BID. rg
[2019-04-17] MEDS: LOKELMA POWDER PACKET PO SCH (19:19)
[2019-04-17] MEDS: SODIUM BICARBONATE PO SCH (21:45)
[2019-04-17] MEDS: SEROQUEL PO SCH (21:45)
[2019-04-18] MEDS: ZOSYN 2.25 GM in NS 50 ML IV SCH ×5 (01:26→21:33)
[2019-04-18] MEDS: ZYVOX 600 MG/D5W 600 MG/300 ML IVPB IV SCH ×3 (01:26→12:44)
[2019-04-18] MEDS: LOKELMA POWDER PACKET PO SCH ×5 (01:28→22:27)
[2019-04-18] MEDS: MORPHINE IV PRN ×3 (02:51→11:51)
[2019-04-18] MEDS: APRESOLINE PO SCH ×4 (04:44→21:19)
[2019-04-18] MEDS: HUMALOG SUBQ SCH ×4 (06:22→21:40)
[2019-04-18 06:42] LABS: BASO% 0.5 % (0.0-0.8); EOS# 0.42 X1000 (0.0-0.7); HEMOGLOBIN 8.2 g/dL (14.0-18.0); IMM GRAN# 0.14 X1000 (0.0-0.04); IMM GRAN% 0.7 % (0.0-0.5); LYMPH# 2.09 X1000 (1.2-3.4); LYMPH% 10.1 % (20.5-51.1); MCH 25.2 PG (27-31); MCHC 31.5 g/dL (33-37); MCV 79.8 FL (81-99); MONO# 1.41 X1000 (0.11-0.59); MONO% 6.8 % (1.7-9.3); MPV 9.8 FL (7.4-10.4); NEUT# 16.48 X1000 (1.4-6.5); NEUT% 79.9 % (42.2-75.2); PLT 544 X1000 (130-400); RBC 3.26 XMIL (4.7-6.1); WBC 20.64 X1000 (4.8-10.8)
[2019-04-18 06:44] LABS: ALBUMIN 2.2 g/dL (3.5-5.0); CALCIUM 8.2 mg/dL (8.8-10.2); CREATININE 2.3 mg/dL (0.7-1.2); PHOSPHORUS 4.8 mg/dL (2.7-4.5)
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
[2019-04-18] MEDS: HEPARIN SUBQ SCH ×3 (07:41→21:20)
[2019-04-18] MEDS: HYDROCHLOROTHIAZIDE PO SCH ×2 (07:42→08:00)
[2019-04-18] MEDS: ISORDIL PO SCH ×4 (07:42→21:21)
[2019-04-18] MEDS: NORVASC PO SCH ×2 (07:42→08:00)
[2019-04-18] MEDS: NEURONTIN PO SCH ×3 (07:42→21:23)
[2019-04-18] MEDS: SODIUM BICARBONATE PO SCH ×3 (07:42→21:20)
[2019-04-18] MEDS: LANTUS INSULIN SUBQ SCH ×3 (07:46→21:34)
[2019-04-18] MEDS: LASIX IV SCH ×2 (08:07→21:20)
--- NOTE | 2019-04-18 10:26 | PROGRESS NOTE ---
DATE: 04/18/2019 SUBJECTIVE: This patient is sitting on the bed. He is complaining of left-sided numbness and weakness and also abdominal pain, mostly on the left side as well. He is tolerating p.o. and apparently yesterday he was agitated and he was refusing some treatment and trying to eat whatever he wanted. He seems to be a little bit more cooperative today. I did not see this patient yesterday. This patient has diabetes and it looks like he has been having problems for a very long time. His hemoglobin A1c is really high at 14.3. His blood sugar initially was around 472 with hyperkalemia at 6.6. Today the potassium level is 5 and the glucose level is better but still elevated at 270. He has a positive urine toxicology with cannabinoids and opiates. As per the patient he takes his medications as prescribed at home, which I doubt. Apparently his primary care doctor stopped insulin 70/30 and put him on Januvia as a single a agent, which I doubt. On the other hand, he has a diastolic heart failure with an ejection fraction of 55% on an echocardiogram done on October 2018, history of medical noncompliance, CKD, already evaluated by Nephrology Department, chronic anemia, chronic hyperkalemia, hypertension, chronic elevation of the troponin and chronic chronically elevated D-dimer, gastroparesis. PHYSICAL EXAMINATION: Temperature 98.9 degrees, pulse 107, respiratory rate 16, blood pressure 186/91, oxygen saturation 100% on room air. HEENT: Head normocephalic no new trauma PERRLA. Neck supple, some JVD central trachea. Chest: Decreased breath sounds globally with prolonged expiratory phase. Some crepitus at the bases. Cardiovascular: RRR. Extremities: 2 to 3+ pitting edema at the level of the lower extremities, no clubbing, no cyanosis. 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 I feel his strength is equal bilaterally. I do not see any facial deviation. In the lower extremities probably he has some weakness on the left side but I am not quite sure. LABORATORY: WBC 20.6, hemoglobin 8.2, hematocrit 26, platelets 544,000. Sodium 132, potassium 5, chloride 103, bicarbonate 19, BUN 40, creatinine 2.3, glucose 271, calcium 8.2, phosphorus 4.8, albumin 2.2. ASSESSMENT AND PLAN: 1. Chronic kidney disease with hyperkalemia, this is better, continue with same management. Nephrology Department already evaluated this patient. We will continue with Lasix IV. 2. The patient is complaining of left-sided weakness and numbness. I do believe he has severe peripheral neuropathy and this can be related to that. MRI has been done and did not show any acute problem. Neurology Department has been consulted. Let us see what they recommend. 3. Congestive heart failure. He has been apparently always having fluid overload, and he is complaining of some orthopnea as well, continue with Lasix for now. 4. Hyperkalemia, resolved. 5. Uncontrolled diabetes. Hemoglobin A1c is 14.3. He denies being noncompliant with his medications, but when I asked him what kind of medications he see on he names medication that they are not even listed on his home medications, apparently most of then are have been changed a few days ago by his primary care doctor. I will continue with same management for now. Blood sugar seems to be a little bit better. 6. Diabetic foot ulcers, followed by Dr. Holm. Continue antibiotics. 7. Leukocytosis, this is chronic. Continue with antibiotics. I do not see any strong source of infection. 8. Generalized pain, mostly left lower extremity pain, continue to monitor. This patient has severe peripheral neuropathy. 9. Agitation. He seems to be a bit better today. We will monitor. 10. Severe peripheral neuropathy, continue with gabapentin. 11. Hypertension. I do not think this patient is taking his medications as prescribed. Continue with Norvasc, hydralazine, isosorbide dinitrate as well. 12. Tobacco abuse. This patient has been highly advised against tobacco use. I will continue with daily cessation education. 13. Chronic anemia, likely due to chronic disease. Aware. 14. I am not sure why this patient's leukocyte count is elevated but it has been chronically elevated. He has some wounds at the level of the lower extremities. Dr. Holm already evaluated this patient and he states that he does not believe the elevation of the leukocyte count is related to this, I had a large conversation with this patient about medical noncompliance. I do not think he is taking his medications as prescribed since he does not even know what kind of medication is he on. We will continue to monitor. I do believe this patient can be discharged in the next 24 to 48 hours with p.o. treatment and follow up with his primary care doctor. cc: Stefano Lanier MD
--- NOTE | 2019-04-18 16:10 | PROVIDER PROGRESS NOTE ---
Progress Note Subjective: Voices feeling swollen. Objective: temperature 97.8, pulse 101, respirations 8, blood pressure 161/72, 02 sat 100% on room air General: -[place] male sitting up in bed in no acute distress HEENT: normocephalic, atraumatic, pupils equal and reactive. Mucous membranes are moist. Neck: Supple, JVD appreciated with no hepatojugular reflux Cardiovascular: S1S2, tachycardia rate and rhythm. Gallop appreciated. No murmur. Respiratory: lungs clear to auscultation anteriorly Abdomen: soft, protuberance, nontender. Bowel sounds present. : non inspected Extremities: 2+ pitting to BLE with tenderness to left lower extremity. Posterior Right great toe has a quarter size open area. Neurological: alert and oriented to person, place, and time. Labs: WBC 20.64, hemoglobin 8.2, hematocrit 26.0, platelet count 544, sodium 132, potassium 5.0, chloride 103, carbon dioxide 19, BUN 40, creatinine 2.3, intake 761, output 800 with 3 unmeasured voids. Impression: Chronic kidney disease 3b-4 secondary to diabetic nephropathy. Creatinine stable and at baseline. Adequate urine output. Continue to monitor. Blood pressure. Slightly above target. Adding a diuretic and will observe. Anemia. Low, does not meet transfusion criteria. Fluid Volume. Expanded. Add lasix 40mg q12. Non anion gap acidosis, type IV RTA. Improved. Electrolytes. Stable. Remains on lokelma. Medication review. Morphine, encourage taper of gabapentin.
[2019-04-18] MEDS: DILAUDID IV PRN ×2 (16:11→21:30)
[2019-04-18] MEDS: SEROQUEL PO SCH (21:21)
[2019-04-19] MEDS: ZOSYN 2.25 GM in NS 50 ML IV SCH ×2 (02:32→08:23)
[2019-04-19] MEDS: ZYVOX 600 MG/D5W 600 MG/300 ML IVPB IV SCH (02:32)
[2019-04-19] MEDS: DILAUDID IV PRN ×2 (02:38→08:50)
[2019-04-19] MEDS: APRESOLINE PO SCH (04:48)
[2019-04-19] MEDS: HUMALOG SUBQ SCH ×2 (06:05→12:20)
[2019-04-19 07:14] LABS: BASO# 0.11 X1000 (0.0-0.2); BASO% 0.5 % (0.0-0.8); EOS# 0.32 X1000 (0.0-0.7); EOS% 1.6 % (0.0-10.0); HEMATOCRIT 26.6 % (42.0-52.0); HEMOGLOBIN 8.2 g/dL (14.0-18.0); IMM GRAN# 0.19 X1000 (0.0-0.04); IMM GRAN% 0.9 % (0.0-0.5); LYMPH# 2.16 X1000 (1.2-3.4); LYMPH% 10.8 % (20.5-51.1); MCHC 30.8 g/dL (33-37); MCV 81.1 FL (81-99); MPV 9.9 FL (7.4-10.4); NEUT# 15.67 X1000 (1.4-6.5); NEUT% 78.2 % (42.2-75.2); PLT 627 X1000 (130-400); RBC 3.28 XMIL (4.7-6.1); WBC 20.05 X1000 (4.8-10.8)
[2019-04-19 07:36] LABS: ALBUMIN 2.5 g/dL (3.5-5.0); CALCIUM 8.4 mg/dL (8.8-10.2); CREATININE 2.8 mg/dL (0.7-1.2); POTASSIUM 5.3 mmol/L (3.5-5.1)
[2019-04-19 07:56] LABS: LYMPHS 14 % (21-51); MONO 4 % (1-9); SEGS 82 % (42-75)
[2019-04-19 08:02] VITALS: BP 156/76
[2019-04-19] MEDS: LANTUS INSULIN SUBQ SCH (08:22)
[2019-04-19] MEDS: LOKELMA POWDER PACKET PO SCH (08:24)
[2019-04-19] MEDS: SODIUM BICARBONATE PO SCH (08:25)
[2019-04-19] MEDS: NEURONTIN PO SCH (08:25)
[2019-04-19] MEDS: LASIX IV SCH (08:26)
[2019-04-19] MEDS: NORVASC PO SCH (08:26)
[2019-04-19] MEDS: HYDROCHLOROTHIAZIDE PO SCH (08:26)
[2019-04-19] MEDS: ISORDIL PO SCH (08:26)
[2019-04-19] MEDS: HEPARIN SUBQ SCH (08:26)
--- NOTE | 2019-04-19 10:47 | GENERAL SURGERY PROGRESS NOTE ---
DATE: 04/19/2019 Reviewed his wound. They overall look relatively stable. No active drainage. No signs of infection at this point. Will continue local wound care, and I will continue to follow and check periodically. cc: Bo Holm MD
--- NOTE | 2019-04-19 15:22 | CONSULTATION ---
DATE OF CONSULTATION: 04/19/2019 Mr. Campoverde is [id number] and he reports having some weakness on the left side of his body for the last few years. He initially reported sudden onset and later said onset was gradual. He reports that the symptoms have been present since the onset but have fluctuated significantly, some days much more prominent than others. He believes this interferes with gait but he does not report falls. He has not lost bowel or bladder control. He has not noticed vision disturbance, trouble chewing or swallowing. He is not aware of significant head or neck injury just before the onset of these symptoms. He has never had a diagnosed stroke. I believe he had seizures in childhood with no clear history of adulthood seizure. He has longstanding diabetes mellitus. He has had blood sugars in the 600s, down to the 100s, back to 500s and then back down to 100s over the last 10 days. Sodium has ranged from 128 initially to 131 recently over the last 10 days. BUN has been stable in the 30s-40s. WBC count is 20,000. Brain MRI without contrast shows nothing remarkable, minimal periventricular micro ischemic change, no significant changes compared to the 2016 scan. Home medications which might have [employer]ER[employer]ER effect include hydrocodone, carisoprodol, gabapentin, and quetiapine. His urine drug screen was positive for opiates and cannabis but negative for barbiturates which should be present with carisoprodol taken as directed. PHYSICAL EXAMINATION: On exam, he is awake and alert when vigorously stimulated and engaged in conversation. When not vigorously engaged in conversation, he seems quickly asleep and snoring. Speech is not dysarthric. Language function is intact. I did not test his cognitive function thoroughly. He is oriented. Head and neck are unremarkable. The remainder of the exam was limited by his inattention and possibly by his intentional inconsistent effort and intent to mislead. He regarded objects in his left visual field but did not count fingers in the left field. He counted fingers in the right field consistently. He reports diminished pinprick appreciation over the left side of his body including the foot, leg, trunk, hand, arm, neck, face, and scalp. He demonstrated good power when testing the right limbs. On testing the left limbs, he demonstrated good power when distracted but when testing a limb muscle individually, there was not consistent effort. He did well on [id number] testing bilaterally but was more slow and deliberate with the left. I do not find consistent limb tone asymmetry Plantar response is silent bilaterally. Reflexes are absent at the ankles bilaterally. I did not test his gait. IMPRESSION: 1. Subjective left-sided weakness over a period of 2 years. I do not find a definite explanation. The pattern of weakness reported is not typical of neurologic disease. 2. He does have some evidence of peripheral neuropathy, presumed diabetic neuropathy. This would not account for his complaint. 3. He has risk factors for cerebrovascular ischemic problems including diabetes mellitus and hypertension. He has had elevated triglycerides recorded in this computer system. Last total cholesterol a year ago was 122. He smokes cigarettes. I encouraged him to be aggressive with management of his blood sugar and blood pressure and to quit smoking. 4. Likely sleep apnea. I don't know if this has been addressed in the past. I do not have any urgent suggestion for workup from a Neurology standpoint. Since this has been going on for 2 years, I do not think we have to do anything urgently. I will be glad to see him in the office and consider EMG study electively. Thanks for asking Neurology to see Mr. Campoverde. cc: MD MARIO ALBERTO Arenas III
[2019-04-19] MEDS ORDERED: COREG PO SCH (21:00)
--- NOTE | 2019-04-20 19:28 | DISCHARGE SUMMARY ---
ADMISSION DATE: 04/17/2019 DISCHARGE DATE: 04/19/2019 CONSULTATION DURING THIS ADMISSION: 1. Nephrology was consulted. Patient was seen by Dr. Oconnor. 2. Surgery was also consulted. Patient was seen by Dr. Holm. 3. Neurology was consulted. Patient was seen by Dr. Borjas. INVASIVE PROCEDURES DONE DURING THIS ADMISSION: None. IMAGING STUDIES OF SIGNIFICANCE: 1. Chest x-ray initially showed cardiomegaly, trace pulmonary edema in the lung bases. 2. KUB showed no acute disease. 3. X-ray of the left foot showed penetrating ulcer at the undersurface of the forefoot at the 5th metacarpal head. No bony lesions. 4. The right lower extremity x-ray showed nonspecific findings, showed no fractures and no bony erosions. 5. Repeat lower extremity x-ray on the left showed no abnormality. 6. An MRI of the brain showed no evidence of acute intracranial disease. ADMISSION DIAGNOSES: 1. Acute on chronic kidney disease with hyperkalemia. 2. Congestive heart failure. 3. Hyperkalemia. 4. Diabetic foot wounds. 5. Left lower extremity pain. DIAGNOSES AT THE TIME OF DISCHARGE: 1. Fluid overload, most likely due to a combination of chronic kidney disease and congestive heart failure. 2. Chronic kidney disease 3B to 4 secondary to diabetic nephropathy. 3. Anemia due to chronic illness. 4. Subjective left-sided weakness over a period of 2 years. This was, however, not elicited on physical exams. MRI was completely negative. The patient was evaluated by Neurology. 5. Peripheral diabetic neuropathy. 6. Suspected obstructive sleep apnea. 7. Uncontrolled diabetes mellitus with presenting A1c of 14.3, most likely due to noncompliance. 8. Hypertension. 9. Chronic diabetic foot ulcers. Patient has been evaluated by surgery as well as Wound Care, and at this point, I do not think the wound is infected. They have advised to continue with local wound care. DISCHARGE MEDICATIONS: 1. Gabapentin 300 b.i.d. 2. Isordil 20 mg 3 times per day. 3. Insulin 70/30, 50 units in the morning and 40 units in the evening. 4. Hydralazine 100 mg p.o. q.8. 5. Quetiapine 100 mg p.o. at bedtime. 6. Hydrochlorothiazide 25 mg p.o. daily. 7. Sodium bicarbonate. 8. Carvedilol 12.5 b.i.d. 9. Torsemide 20 mg p.o. daily. PRESENTING COMPLAINT: Chest pain, left-sided weakness, extremity swelling. HISTORY OF PRESENTING COMPLAINT: Mr. Campoverde, a 38-year-old gentleman who had been discharged from [facility] recently, presented because symptoms were getting worse. He said he was having lower extremity edema, shortness of breath. On admission, he was evaluated, and a chest x-ray did show cardiomegaly and pulmonary edema. He was also found to be in volume overload. He was admitted to the medical floor to the [facility] for further medical care. HOSPITAL COURSE: Mr. Campoverde was admitted, was started on IV diuretic therapy and multiple providers were consulted including Nephrology, Cardiology, Surgery and Wound Care. During the hospital cause, Mr. Campoverde continues to make adequate urine output. He was tolerating about 100% of his meals, and he was progressively getting better from medical standpoint. His presenting potassium was 6.6. This was acutely treated. It came down to 5.0, and this morning it was 5.3. Mr. Campoverde's blood pressure has also been remarkably controlled. On presentation, it was 200/93. This morning it is 156/76. Mr. Campoverde also had an MRI because of subjective left lower extremity weakness; however, this was not elicited on physical exams. Neurology was consulted. He was seen by Dr. Borjas, who recommended to follow up with him on outpatient because of suspicion of severe peripheral neuropathy. This morning I have evaluated Mr. Campoverde. I think he is medically stable. Obviously, he still needs more care, which he needs to do most of it on his own. He seems to be remarkably noncompliant. His A1c was 14.3. I went over his medication, and we sustained a very lengthy conversation about compliance with medication and the need to follow up with his appointment with his outpatient providers. Mr. Campoverde unfortunately during his hospital stay had multiple confrontations with the nurses. Security had to be called on multiple occasions because he was very verbally abusive to the staff, which he has been advised against. I have advised Mr. Campoverde to follow up with Dr. Oconnor, Dr. Christopher and his primary care doctor, Dr. Corona. All the discharge instructions have been discussed with him, and he voiced understanding. Time spent for discharge is 38 minutes. cc: MD Tre Garcia MD Reginald D. Gladish, MD Eston G. Norwood III, MD Moses Awoniyi, MD MTDD
== END 2019-04-19 12:30 | disposition home or self-care (01) | DRG 291 ==
LOC: ED 18:26 → SUATTDRO 04-17 04:14 → 2N 04-17 04:14
PROVIDERS: ATTEND Internal Medicine

== ENCOUNTER 2019-04-21 19:41 | Inpatient (IN) ==
--- NOTE | 2019-04-21 20:24 | Diag Imaging Result Doc PS360 ---
EXAM: CHEST-2 VIEWS 04/21/2019 HISTORY: COUGH TECHNIQUE: PA and lateral chest COMMENT: There is cardiomegaly. There is some ill-defined opacity in the lung bases and increased interstitial markings. Compared to 04/16/2019 this is worse. IMPRESSION: Cardiomegaly and pulmonary edema. Electronically signed by Jeremy Guaman 04/21/2019 8:21 PM
[2019-04-21 21:57] LABS: BASO# 0.09 X1000 (0.0-0.2); BASO% 0.4 % (0.0-0.8); EOS# 0.28 X1000 (0.0-0.7); EOS% 1.2 % (0.0-10.0); HEMATOCRIT 24.2 % (42.0-52.0); HEMOGLOBIN 7.4 g/dL (14.0-18.0); IMM GRAN# 0.13 X1000 (0.0-0.04); IMM GRAN% 0.6 % (0.0-0.5); LYMPH# 1.48 X1000 (1.2-3.4); LYMPH% 6.3 % (20.5-51.1); MCH 24.7 PG (27-31); MCHC 30.6 g/dL (33-37); MCV 80.7 FL (81-99); MONO# 1.45 X1000 (0.11-0.59); MONO% 6.2 % (1.7-9.3); MPV 9.5 FL (7.4-10.4); NEUT# 20.05 X1000 (1.4-6.5); NEUT% 85.3 % (42.2-75.2); PLT 626 X1000 (130-400); RDW 21.1 % (11.5-14.5); WBC 23.48 X1000 (4.8-10.8)
[2019-04-21] MEDS ORDERED: ZOFRAN IV ONE (22:06)
[2019-04-21] MEDS ORDERED: LASIX IV ONE (22:06)
[2019-04-21] MEDS ORDERED: DILAUDID IV ONE (22:06)
[2019-04-21 22:09] LABS: INR 0.92; PROTIME 12.5 Seconds (11.0-16.0); PTT 29.3 Seconds (22.3-41.8)
[2019-04-21 22:32] LABS: ALB/GLOB RATIO 0.8; ALBUMIN 2.7 g/dL (3.5-5.0); CREATININE 2.2 mg/dL (0.7-1.2); TOTAL BILIRUBIN 0.15 mg/dL (0.20-1.00); TOTAL PROTEIN 6.3 g/dL (6.3-8.3)
[2019-04-21 22:52] LABS: CK INDEX 2.1 (0.0-2.5); CK-MB 8.62 ng/mL (0.0-5.0)
[2019-04-22 00:10] LABS: URINE SOURCE CLEAN CATCH
[2019-04-22 00:46] LABS: BILIRUBIN URINE NEGATIVE (NEGATIVE); BLOOD URINE TRACE (NEGATIVE); COLOR YELLOW; GLUCOSE URINE 500 mg/dL (NEGATIVE); KETONE URINE NEGATIVE (NEGATIVE); LEUKOCYTES URINE NEGATIVE (NEGATIVE); NITRITE URINE NEGATIVE (NEGATIVE); PH URINE 6.5; PROTEIN URINE 300 mg/dL (NEGATIVE); SP GRAVITY URINE 1.009; TURBIDITY URINE CLEAR (CLEAR); UR EPITHELIAL CELLS <10 /HPF (<10); URINE BACTERIA NEGATIVE /HPF; URINE RBC <10 /HPF (<10); URINE WBC <10 /HPF (<10); UROBILINOGEN URINE NORMAL (NORMAL)
[2019-04-22] MEDS ORDERED: CLINDAMYCIN IM ONE (01:20)
[2019-04-22] MEDS ORDERED: CLINDAMYCIN IV ONE (02:33)
[2019-04-22] MEDS ORDERED: CLINDAMYCIN 600 MG/D5W 600 MG/50 ML IVPB IV ONE (03:00)
[2019-04-22] MEDS ORDERED: KAYEXALATE PO ONE (03:10)
[2019-04-22] MEDS ORDERED: HUMULIN R IV ONE (03:10)
--- NOTE | 2019-04-22 03:16 | PROVIDER DOCUMENTATION ---
This chart was entered by Andie Stephens Scribe, acting as scribe for Bakari Nieto MD. HPI-General Adult - General Chief Complaint: SEPSIS ALERT - D Stated Complaint: SWELLING, FEET PAIN Time Seen by Provider: 04/21/19 21:12 Source: patient Allergies/Adverse Reactions: Patient Allergies Allergy/AdvReac Type Severity Reaction Status Date / Time No Known Allergies Allergy Verified 04/17/19 03:27 Home Medications: Home Medication List Medication Instructions Recorded Confirmed Last Taken Type Gabapentin 300 mg PO BID 10/16/18 04/21/19 11/08/18 History Isosorbide Dinitrate 20 mg PO TID #90 tab 11/14/18 04/21/19 Unknown Rx Carisoprodol [Soma] 1 tab PO BID PRN PRN 04/09/19 04/21/19 Unknown History Hydralazine [Apresoline] 100 mg PO Q8HR #90 tab 04/11/19 04/21/19 Unknown Rx Hydrocodone/APAP 10 mg/325 mg 1 ea PO Q8H PRN PRN tab 04/11/19 04/21/19 Unknown Rx [[place]-10] Quetiapine Fumarate [Seroquel] 100 mg PO QHS 04/17/19 04/21/19 Unknown History Carvedilol [Coreg] 12.5 mg PO BID #120 tab 04/19/19 04/21/19 Unknown Rx Hydrochlorothiazide 25 mg PO DAILY #120 tab 04/19/19 04/21/19 Unknown Rx Insulin Humulin 70/30 [Humulin 50 unit SUBQ QAM #1 insuln.pen 04/19/19 04/21/19 Unknown Rx 70/30] Insulin NPH Hum/Reg Insulin Hm 40 unit SQ QPM #1 insuln.pen 04/19/19 04/21/19 Unknown Rx [Humulin 70/30 Kwikpen] Sodium Bicarbonate 1,300 mg PO BID #120 tab 04/19/19 04/21/19 Unknown Rx Torsemide 20 mg PO DAILY #60 tab 04/19/19 04/21/19 Unknown Rx - History of Present Illness -Gen Adult Nature of Presenting Problems: pt is a 38 yr old male presenting with increased pain and edema to bilateral feet/lower legs. pt admitted for same 4 days ago, discharged 2 days ago. pt reports swelling and pain are worse. Location of Pain/Injury: reports: lower extremity (bilateral), feet (bilateral) Quality of Pain: reports: throbbing, tightness Severity: reports: severe Onset/Duration: reports: gradual Timing: reports: getting worse Context/Activities at Onset: reports: light activity Modifying Factors: improves with: movement (worsens pain) Associated Symptoms: reports: joint pain, trouble walking, other (edema). denies: chest pain, fever/chills, shortness of breath, sensory/motor loss Similar Symptoms Previously?: Yes Recently seen or treated by another doctor?: Yes Review of Systems - Adult - REVIEW OF SYSTEMS - ADULT Constitutional: reports: fatique. denies: fever Eyes: reports: no symptoms reported Ears, Nose, Mouth & Throat: reports: no symptoms reported Cardiovascular: reports: edema. denies: chest pain, palpitations, syncope Respiratory: denies: cough, shortness of breath Gastrointestinal: denies: abdominal pain, nausea, vomiting Genitourinary: reports: no symptoms reported Musculoskeletal: reports: no symptoms reported Integumentary: reports: no symptoms reported Neurological: denies: dizziness/vertigo, headache/migraines, syncope Psychiatric: reports: no symptoms reported Endocrine: reports: no symptoms reported Hematologic/Lymphatic: reports: no symptoms reported Allergic/Immunologic: reports: no symptoms reported All Other Systems: Reviewed and Negative Past History - Adult - PAST MEDICAL HISTORY-ADULT Review of Records: reports: Old Records Reviewed, Nursing Assessment Review, Medications Reviewed, Social history reviewed & non-contributory. Major Childhood Illnesses: reports: denies history Cardiovascular: reports: HTN, hyperlipidemia Respiratory: reports: denies history Gastrointestinal: reports: denies history Obstetrical/Gynecological: reports: denies history Genitourinary: reports: denies history Musculoskeletal: reports: denies history Neurological: reports: Seizures/Epilepsy Psychiatric: reports: denies history Endocrine/Immune: reports: Diabetes Other Conditions: reports: other (neuropathy) - PRIOR SURGERIES/PROCEDURES Surgical/Procedure History: reports: appendectomy - IMMUNIZATION STATUS Childhood Immunizations: See Nurse Assessment Flu Vaccine: See Nurse Assessment - FAMILY HISTORY Family History: diabetes - SOCIAL HISTORY Smoking: cigarettes Provider spent 3-5 mins advising pt. on dangers of tobacco.: Discussed manners to quit use, and f/u contacts for add'l counseling. Substance Use: denies Physical Exam-General - PHYSICAL EXAM-ADULT Initial Vital Signs Reviewed: Yes - CONSTITUTIONAL General Appearance: alert, no apparent distress, other (pt is very disrespectful, beligerent, verbally abusive, cursing at staff, screaming demands from his room.) - EYES Eyes: PERRL/EOMI - HEAD, EARS, NOSE, MOUTH & THROAT HENMT: normocephalic/atraumatic, moist mucous membranes, normal ENT inspection - NECK Neck: non-tender, full range of motion, supple, normal inspection - RESPIRATORY Respiratory: chest non-tender, lungs clear, normal breath sounds, no respiratory distress, no accessory muscle use - CARDIOVASCULAR Cardiovascular: normal peripheral pulses, tachycardia - GASTROINTESTINAL (ABDOMEN) Abdominal Exam: normal bowel sounds, non tender, soft - LYMPHATIC Lymphatic: no adenopathy - MUSCULOSKELETAL Extremity: pedal edema (bilateral lower legs), slow capillary refill, tenderness (bilateral feet/lower legs) - SKIN Integumentary: other (multiple diabetic ulcers bilateral feet, ulcerations plantar surface base of bilateral breat toes and ulcerations to left distal metacarpal) - NEUROLOGIC Neurologic: grossly normal, no motor/sensory deficits Progress - PLAN OF CARE/RESULTS Progress/Plan/Lab Results: Vital Signs - 8 hr 04/21/19 19:50 Temperature 98.8 F Pulse Rate 105 H Respiratory Rate 20 Blood Pressure 155/75 O2 Sat by Pulse Oximetry 96 Laboratory Results - last 24 hr 04/21/19 21:35 WBC 23.48 H RBC 3.00 L Hgb 7.4 L Hct 24.2 L MCV 80.7 L MCH 24.7 L MCHC 30.6 L RDW Std Deviation 21.1 H Plt Count 626 H MPV 9.5 Immature Gran % (Auto) 0.6 H Neut % (Auto) 85.3 H Lymph % (Auto) 6.3 L Lanier % (Auto) 6.2 Eos % (Auto) 1.2 Baso % (Auto) 0.4 Immature Gran # (Auto) 0.13 H Neut # (Auto) 20.05 H Lymph # (Auto) 1.48 Lanier # (Auto) 1.45 H Eos # (Auto) 0.28 Baso # (Auto) 0.09 Orders Category Date Time Status Cardiac Monitoring DIRECTED Care 04/21/19 21:55 Active IV Insertion ORDERED Care 04/21/19 21:55 Active Notify MD of + Sepsis Screen NOW Care 04/21/19 21:55 Active Notify Physician As Ordered Care 04/21/19 21:55 Active Saline Loc DIRECTED Care 04/21/19 19:54 Active NPO Diet 04/21/19 19:54 Active CHEST-2 VIEWS [RAD] Stat Exams 04/21/19 19:54 Completed AMYLASE [CHEM] Stat Lab 04/21/19 21:35 Received BLOOD CULTURE [BLDCUL] Stat Lab 04/21/19 21:35 Ordered CBC WITH ELECTRONIC DIFF [HEME] Stat Lab 04/21/19 21:35 Completed CK PROFILE [SP CHEM] Stat Lab 04/21/19 21:35 Received COMPREHENSIVE METABOLIC PANEL [CHEM] Stat Lab 04/21/19 21:35 Received LACTATE, PLASMA [CHEM] Q3H Lab 04/21/19 21:35 Received LACTATE, PLASMA [CHEM] Q3H Lab 04/22/19 01:00 Uncollected LACTATE, PLASMA [CHEM] Q3H Lab 04/22/19 04:00 Uncollected LIPASE [CHEM] Stat Lab 04/21/19 21:35 Received PROTIME WITH INR [COAG] Stat Lab 04/21/19 21:35 Received PTT [COAG] Stat Lab 04/21/19 21:35 Received ROUTINE CULTURE [RM] Stat Lab 04/21/19 21:55 Uncollected TROPONIN T HIGH SENSITIVITY Stat Lab 04/21/19 21:35 Received URINALYSIS W/POSS RFLX CULT [URINALYSIS] Stat Lab 04/21/19 19:54 Uncollected Oxygen Device Stat Oth 04/21/19 21:55 Active Result Diagrams: 04/21/19 21:35 04/21/19 21:35 - XRAY 1 XRAY Study: Chest Impression: Abnormal ( Signed EXAM: CHEST-2 VIEWS 04/21/2019 HISTORY: COUGH TECHNIQUE: PA and lateral chest COMMENT: There is cardiomegaly. There is some ill-defined opacity in the lung bases and increased interstitial markings. Compared to 04/16/2019 this is worse. IMPRESSION: Cardiomegaly and pulmonary edema. Electronically signed by Jeremy Guaman 04/21/2019 8:21 PM 04/21/192020 Interpreting Physician: Jeremy Guaman MD Dictated Date/Time: 04/21/192020 cc: Bakari Nieto MD; Jesus Corona MD) Departure - Departure Date of Disposition Decision: 04/22/19 Time of Disposition Decision: 03:07 DIAGNOSIS: CHF (congestive heart failure), HTN (hypertension), Diabetic foot ulcer, Elevated troponin level, Leukocytosis, Uncontrolled diabetes mellitus, Hyperkalemia, Anemia Disposition: ADMITTED INPATIENT 09 Certified Medical Emergency: Emergent Condition: Fair Referrals and Follow-Ups: Jesus Corona MD [Primary Care Provider] - - Critical Care Note This patient required my direct & personal management of CC.: No Attestation - Physician/ DUANE Attestation Patient care was provided by Advanced Practice Provider:: No The physician spent face to face time with patient:: Yes Advanced Practice Provider documentation review:: Supervising physician onsite and consulted in the evaluation and care of this patient. The physician did have a face to face encounter with the patient. This chart was documented by the indicated scribe, (Andie Stephens Scribe) and accurately reflects the services I performed and decisions made by me, Bakari Nieto MD, as attested by the provider's signature.
[2019-04-22] MEDS ORDERED: DILAUDID IV ONE (03:29)
[2019-04-22] MEDS: ZOSYN 3.375 GM in NS 50 ML IV SCH ×3 (06:00→21:59)
[2019-04-22] MEDS ORDERED: APRESOLINE PO SCH ×3 (06:15→08:00)
[2019-04-22] MEDS ORDERED: SOMA PO PRN (06:15)
[2019-04-22] MEDS ORDERED: SODIUM BICARBONATE 8.4% IV PUSH ONE (07:53)
[2019-04-22] MEDS ORDERED: CALCIUM CHLORIDE 2 GM in NS 100 ML IV ONE (07:53)
[2019-04-22] MEDS ORDERED: D50W SYRINGE IV ONE (07:54)
[2019-04-22] MEDS: HUMULIN R SUBQ SCH ×4 (08:21→21:59)
[2019-04-22] MEDS: MORPHINE IV PRN ×4 (08:22→20:29)
[2019-04-22] MEDS: APRESOLINE PO SCH ×2 (08:33→16:10)
--- NOTE | 2019-04-22 08:43 | HISTORY AND PHYSICAL ---
CHIEF COMPLAINT: Bilateral leg swelling. HISTORY OF PRESENT ILLNESS: Mr. Rishi Campoverde is a 38-year-old male who has a history of multiple medical conditions including diabetes mellitus, congestive heart failure, medical noncompliance, chronic kidney disease, anemia, chronic hyperkalemia, hypertension. He presents to the hospital because of bilateral leg swelling. He also describes having shortness of breath. At the time of presentation, x-ray of the chest showed evidence of cardiomegaly with evidence of pulmonary edema. His troponin levels were found to be elevated. Potassium level was found to be 6 and BUN/creatinine was found to be 36/2.2. The patient will be admitted now to the floor for further management. Also of note, his white count is about 23.48 thousand. PAST MEDICAL HISTORY: Notable for type 2 diabetes mellitus, diastolic heart failure, chronic kidney disease, anemia, hyperkalemia, hypertension, elevated troponins, gastroparesis. PAST SURGICAL HISTORY: Appendectomy, tonsillectomy, amputation of both digits on the right hand. SOCIAL HISTORY: The patient smokes cigarettes. The patient has a history of denial of indigestion of alcohol or drug use. FAMILY HISTORY: Positive for hypertension as well as diabetes. ALLERGIES: No known drug allergies. MEDICATIONS: Include the following: Gabapentin 300 mg p.o. twice a day, isosorbide dinitrate 20 mg p.o. 3 times a day, Soma 1 tablet twice a day p.r.n., hydralazine 100 mg p.o. q.8 hours, [place] 10/325 q.8 hours p.r.n., Seroquel 100 mg p.o. at bedtime, Coreg 25 mg p.o. twice a day, hydrochlorothiazide 25 mg p.o. daily, Humulin 70/30 with 50 units in the a.m. and 40 units in the p.m., sodium bicarb as directed, torsemide 20 mg p.o. daily. REVIEW OF SYSTEMS: Constitutional: No fever. MANAGER SURGERY: Has headaches. Eyes: No blurred vision. ENT: Some hearing loss in the left ear. Cardiovascular: He has chest pain. Respiratory: He has cough. GI: No nausea or vomiting. : No dysuria. Musculoskeletal: Has an ulcer on both feet. Hematology: No bleeding problems. Psychiatry: Has anxiety and depression. Endocrine: He has diabetes. No thyroid disease. PHYSICAL EXAMINATION: VITAL SIGNS: Temperature 98.8 degrees, pulse 105, respiratory rate is 20, blood pressure 155/75, oxygen saturation 96%. HEENT: Atraumatic, normocephalic. Eyes anicteric. Extraocular movements intact. No oral lesions noted. NECK: No lymphadenopathy or thyromegaly. CARDIOVASCULAR SYSTEM: S1, S2. RESPIRATORY SYSTEM: Has evidence of good air entry bilaterally. ABDOMEN: Soft, nontender. No masses felt. EXTREMITIES: Has 2 to 3+ edema in both lower extremities. Has ulcers on the plantar aspects of both feet. On the left foot, has an ulcer on the lateral aspect of the left foot just inferior to the left little toe. On the right foot, ulcer on the plantar aspect of the right great toe. CENTRAL NERVOUS SYSTEM: No obvious focal deficits noted. LABS: WBC 20.48, hematocrit is 24.2, with a platelet count of 626,000. Sodium 133, potassium 6.0, chloride is 103, bicarb is 18, BUN is 36, creatinine is 2.2. Troponin is 1.54. X-ray of the chest shows evidence of cardiomegaly with pulmonary edema. ASSESSMENT AND PLAN: 1. Acute diastolic heart failure. Maintain patient on diuretics. Monitor intakes and outputs as well as daily weights. 2. Elevated troponin. Place patient on telemetry. Follow up on serial cardiac enzymes. Consult with cardiology. 3. Diabetic foot ulcer. Obtain wound culture as well as blood cultures. Place patient on empiric antibiotics. Obtain MRI of both feet. 4. Diabetes mellitus. Maintain patient on sliding scale insulin. Monitor blood sugar levels. Check hemoglobin A1c level. Place patient on diabetic diet. 5. Hyperkalemia. Corrected using a combination of sodium bicarbonate and calcium gluconate as well as insulin with glucose and we will give a dose of Kayexalate. 6. Chronic kidney disease. Follow up on renal function. Avoid nephrotoxic agents. Consult with nephrology. 7. Hypertension. Optimize blood pressure control. 8. Leukocytosis, most likely secondary to infective process. Source of infection likely infected diabetic foot ulcers. Follow up on white count. Maintain patient on antibiotics. 9. Anemia. Check iron studies, B12, and folate level. 10. Deep vein thrombosis prophylaxis. Heparin. 11. Gastrointestinal prophylaxis. Proton pump inhibitor. cc: Eloy Arceo MD [facility]
[2019-04-22] MEDS ORDERED: DEMADEX PO SCH (09:00)
--- NOTE | 2019-04-22 09:45 | PROGRESS NOTE ---
DATE: 04/22/2019 SUBJECTIVE: Mr. Campoverde was admitted last night. He has been having trouble with his feet, both feet, both on the plantar aspects, the right arm at the first metatarsal pad and the left towards the 5th metatarsal pad. It looks like he had callus and he has kind of a full-thickness ulceration 2 to 3 cm. PAST MEDICAL HISTORY: 1. Diabetes mellitus type 2. 2. Been told he had diastolic congestive heart failure with a normal ejection fraction. 3. Chronic kidney disease. 4. Anemia. 5. Hyperkalemia. 6. Hypertension. 7. Elevated troponins. 8. Gastroparesis. SURGICAL HISTORY: He is status post appendectomy. He is status post tonsillectomy. 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 SOCIAL HISTORY: The patient smokes cigarettes. He does not drink any alcohol. No illicit drugs reported. He reports that his feet have been swollen. He has peripheral neuropathy. He does not have any feeling in his feet. He has noted the ulcers seem to be getting worse and that is why he came in the hospital. We did get wound cultures from the 1st digit of the right foot and lateral surface of the left foot. PHYSICAL EXAMINATION: Today, he is sitting up in the bed, eating breakfast. Remains afebrile, temperature 98.4 degrees, pulse 102, respirations 18, blood pressure 196/95. His last 3 blood pressures were 155/75, 200/102, 196/95. Pupils are equal and round. Lungs are clear in all lung alvarado. Cardiovascular Examination: Regular rhythm and rate without murmur or S3. Abdomen is soft. Skin is warm and dry. LABORATORY DATA: Blood sugar 227. White blood cell count is 23,480, hematocrit is 24, hemoglobin is 7.4, with an MCV of 80, platelet count 626,000. Sodium 133, potassium 6.0, chloride 103, bicarb was 18, BUN 36, creatinine 2.2. Troponin was 138. He has denied any chest pain. Urinalysis unremarkable. His chest x-ray on presentation, cardiomegaly and some pulmonary edema, some ill-defined opacity in lung bases, and increased interstitial markings, suspect pulmonary venous hypertension. ASSESSMENT AND PLAN: 1. Diabetic foot ulcers on both feet with underlying peripheral neuropathy from diabetes mellitus. We will check his sugars and try to get them under control. Topical care. General surgery I believe was consulted and see if it needs any debridement. 2. He has swelling in the lower extremities. This may be all from congestive heart failure with normal ejection fraction or diastolic dysfunction and chronic venous insufficiency. Looking back at his last echocardiogram, I do not think we have done when here in a while. He did have extremity venous study done back in early part of this month. There was no evidence for deep venous thrombosis in the left lower extremity at that time. He had a myocardial perfusion scan on 10/20/2018. The left ventricle was dilated. No evidence of ischemia. At that time, ejection fraction was about 43%. He had an echocardiogram in October of 2018. Moderate concentric left ventricular hypertrophy. Left ventricular systolic function at the lower limits of normal. I suspect a significant degree of aortic regurgitation. Suspect he has both diastolic and systolic dysfunction on the echocardiogram. We will try and diurese some fluid down. He takes torsemide 20 mg by mouth daily. He is on antibiotic. He was started on clindamycin and I may change this to Zyvox. We will give him a combination of Zyvox and ceftriaxone for right now. Note, he had some hyperkalemia on presentation and leukocytosis noted so we will repeat his electrolytes and follow those closely. cc: Rudi Fairchild MD
[2019-04-22] MEDS: ISORDIL PO SCH ×3 (10:08→21:58)
[2019-04-22] MEDS: SODIUM BICARBONATE PO SCH ×2 (10:08→21:58)
[2019-04-22] MEDS: ZYVOX PO SCH ×2 (10:08→21:59)
[2019-04-22] MEDS: NEURONTIN PO SCH (10:08)
[2019-04-22] MEDS: COREG PO SCH ×2 (10:09→21:58)
[2019-04-22] MEDS: HEPARIN SUBQ SCH ×2 (10:09→21:59)
[2019-04-22] MEDS: LASIX IV SCH ×2 (10:11→21:59)
[2019-04-22] MEDS ORDERED: ULTRAM PO PRN (12:41)
[2019-04-22] MEDS: LOKELMA POWDER PACKET PO SCH ×3 (13:13→17:54)
[2019-04-22] MEDS: NORCO-10 PO PRN ×3 (13:23→23:51)
--- NOTE | 2019-04-22 15:23 | GENERAL SURGERY CONSULTATION ---
DATE: 04/22/2019 REASON FOR CONSULTATION: Diabetic foot wound. HISTORY OF PRESENT ILLNESS: This is a 38-year-old gentleman with significant medical noncompliance. He has chronic kidney disease, poorly controlled hypertension and diabetes, tobacco use, and chronic foot wounds. He came to the emergency department for unclear reasons, mainly manifestations of these other medical issues. He was found to have electrolyte derangement with hyperkalemia, hyperglycemia, and diabetic foot ulceration. I was consulted for this. He denies any vascular procedures. Says they have been there for several weeks. Denies any fevers. MEDICAL HISTORY: As noted in his HPI with addition of diastolic heart failure, hyperkalemia, and gastroparesis. SURGICAL HISTORY: He has had an appendectomy, tonsillectomy, finger amputations bile bilaterally, but no vascular procedures. SOCIAL HISTORY: He does smoke. Denies any alcohol or drugs. FAMILY HISTORY: Hypertension and diabetes. REVIEW OF SYSTEMS: A 10-point review of systems was performed and was negative, otherwise as mentioned HPI. MEDICATION LIST: Reviewed. PHYSICAL EXAMINATION: Vital Signs: He is afebrile. Tachycardic in the low 100s. Blood pressures are consistently high 100s or even 200s. Oxygen saturation 97%. General: He is alert. In no acute distress. HEENT: No scleral icterus or cervical masses. Cardiovascular: Sinus tachycardia. Pulmonary: No increased work of breathing. Abdomen: Soft, nontender, nondistended. Integument: Warm and dry. Psychiatric: Appropriate affect. Neurologic: No gross deficits other than diminished sensation in his feet. Peripheral Vascular: His feet are warm. He has 2+ edema bilaterally. Musculoskeletal: There are plantar ulcers, one on the first metatarsal, one on the right and on the left fifth metatarsal. Lymphatic: No cervical adenopathy. LABORATORY DATA: White count 23, hematocrit 24, platelets 626,000. Creatinine is 2.2. Potassium was 6, down to 5.3. Glucose has been as high as 316. Lactate is normal. Lipase normal. Urinalysis was reviewed. IMAGING: He has not had x-rays of his feet. ASSESSMENT AND PLAN: This is a 38-year-old gentleman with diabetic foot ulcerations, multiple other medical issues. Ulcers are relatively clean. There is some fibrinous tissue. I do not see any purulence. I do not see exposed bone or necrosis. I am going to order him Santyl to the wound. I agree with the plan for MRI and plain film x-rays to rule out foreign body and bony changes. He will need offloading. Multiple factors against us as far as wound healing, but will start with local wound care. cc: Jory Jackson MD
[2019-04-22] MEDS: SEROQUEL PO SCH (21:59)
[2019-04-23] MEDS: APRESOLINE PO SCH ×3 (00:24→16:43)
[2019-04-23] MEDS: MORPHINE IV PRN ×6 (00:36→23:31)
[2019-04-23] MEDS: ZOSYN 3.375 GM in NS 50 ML IV SCH (04:57)
[2019-04-23] MEDS: PRILOSEC PO SCH ×2 (04:58→09:21)
[2019-04-23] MEDS: HUMULIN R SUBQ SCH ×4 (07:11→22:29)
[2019-04-23 08:13] LABS: IRON SATURATION 19 %; TIBC 170 ug/dL; TOTAL IRON 33 ug/dL (53-167); UNBOUND IRON 137 ug/dL (112-346)
[2019-04-23 08:14] LABS: ALBUMIN 2.4 g/dL (3.5-5.0); CALCIUM 8.5 mg/dL (8.8-10.2); CREATININE 2.7 mg/dL (0.7-1.2); PHOSPHORUS 5.6 mg/dL (2.7-4.5); POTASSIUM 5.9 mmol/L (3.5-5.1)
--- NOTE | 2019-04-23 08:46 | PROGRESS NOTE ---
DATE: 04/23/2019 SUBJECTIVE: Mr. Campoverde was sent down for CAT scan. He had requested more pain medicine yesterday evening so I let him stay on the morphine, and put him back on his [place]. He states that he takes a [place] 3 times a day. His doctor gives that to him. I asked about the pain. It is just a burning pain sometimes in his arm, and he is he is concerned about his swelling in his legs. He has he has some pedal edema in both legs that goes up to the thigh and 2 diabetic foot ulcers, which we are going to look at, clean and debride possibly. He has remained afebrile. Temperature 97,, and blood pressure 159/78. On nurse's notes, he has been pretty rude and disrespectful to the employees, and they have cautioned that they are going to call Security. Yesterday, he became very agitated and irate. He came out of his room in the hallway screaming "get my nurse right away now my medicine is due". I did come and talk to him. He I think had a better evening. General Surgery has evaluated, diabetic foot ulcerations. Multiple medical issues. Ulcers were relatively clean. There was some fibrinous tissue. I did not see any purulence. No sinus or exposed bony necrosis. We are going to order some Santal. I think he is getting an MRI this morning and plain films to rule out foreign body or bony changes. REVIEW OF ORDERS: He is on Seroquel 100 mg at bedtime, Zyvox 600 mg p.o. q.12, Coreg 12.5 mg p.o. b.i.d., and on Zosyn 3.375 g IV q.8. LABORATORY: White count on was 23,480, hematocrit 24, hemoglobin 7.4, and platelet count 626,000. Sodium 136, potassium 5.9, chloride 105, BUN 39, and creatinine 2.7. His creatinine was 2.2 when he came in so I think he has some chronic kidney disease. PAST MEDICAL HISTORY: Inclusive for diabetes mellitus type 2, diastolic heart failure, chronic kidney disease, anemia, hyperkalemia, hypertension, elevated troponins, and gastroparesis. We are following his sugars, and they are above, all close to 300. We will start him on some 70/30 Humulin. We will start with 8 units before breakfast and before supper. cc: MD MARIO ALBERTO Armendariz
[2019-04-23 08:51] LABS: FERRITIN 61 ng/mL (30-400)
[2019-04-23] MEDS: SODIUM BICARBONATE PO SCH ×2 (09:19→20:29)
[2019-04-23] MEDS: HEPARIN SUBQ SCH ×2 (09:20→20:29)
[2019-04-23] MEDS: NEURONTIN PO SCH ×3 (09:20→20:53)
[2019-04-23] MEDS: ZYVOX PO SCH ×2 (09:20→20:30)
[2019-04-23] MEDS: LASIX IV SCH ×2 (09:20→20:30)
[2019-04-23] MEDS: COREG PO SCH ×2 (09:21→20:30)
[2019-04-23] MEDS: ISORDIL PO SCH ×3 (09:21→20:30)
[2019-04-23] MEDS: SANTYL OINT TOP SCH (09:32)
[2019-04-23] MEDS: NORCO-10 PO PRN ×3 (11:07→20:53)
--- NOTE | 2019-04-23 11:12 | Diag Imaging Result Doc PS360 ---
EXAM: MRI LOW EXTREMITY W/O CON-LEFT INDICATION: r/o osteomyelitis left foot TECHNIQUE: COMPARISON: None. FINDINGS: There is soft tissue edema and ulceration at the lateral aspect of the foot overlying the fifth metatarsal and fifth proximal phalanx. There is questionable very slight increased signal associated with the proximal phalanx of the fifth toe on the sagittal STIR image. This probably represents mild or early osteomyelitis. No other osseous marrow edema is identified. There are extensive degenerative changes at the IP joint of the great toe. There is a small amount of joint fluid at the first MTP joint. The ligamentous and tendinous structures of the foot are grossly intact. IMPRESSION: Soft tissue edema and ulceration at the lateral aspect of the foot with questionable very subtle increased signal associated with the proximal phalanx of the fifth toe that probably represents mild or early osteomyelitis. Electronically signed by Murphy Stern 04/23/2019 11:09 AM
--- NOTE | 2019-04-23 11:17 | Diag Imaging Result Doc PS360 ---
EXAM: MRI LOW EXTREMITY W/O CON-RIGHT INDICATION: r/o osteomyelitis right foot TECHNIQUE: COMPARISON: None. FINDINGS: There is increased osseous marrow signal associated with the distal phalanx of the great toe on the sagittal STIR sequence suggesting osteomyelitis. No other abnormal marrow signal is appreciated. There is extensive soft tissue edema at the dorsum of the foot. The visualized tendinous and ligamentous structures of the foot are grossly intact. IMPRESSION: 1.Increased signal associated with the distal phalanx of the great toe indicating marrow edema and suggesting osteomyelitis. 2.Marked soft tissue edema at the dorsum of the foot. Electronically signed by Murphy Stern 04/23/2019 11:14 AM
--- NOTE | 2019-04-23 12:07 | NEPHROLOGY CONSULTATION ---
DATE: 04/23/2019 REASON FOR ADMISSION: Increased bilateral lower leg swelling with weakness and pain. REASON FOR CONSULTATION: Chronic kidney disease. CONSULTING PHYSICIAN: Dr. Arceo. HISTORY OF PRESENT ILLNESS: Mr. Campoverde is a 38-year-old male, who has been seen by our services on his previous admission on for chronic kidney disease and hyperkalemia. The patient is followed for diabetic nephropathy for approximately 1 year. Last seen in our office, his baseline creatinine is approximately 1.9 to 2.3. The patient presented to [facility] Emergency Department for bilateral lower extremity pain, increased swelling. He describes some increased work of breathing. At the time of presentation, chest x-ray showed evidence of cardiomegaly with evidence of pulmonary edema. Troponin levels were slightly elevated. His potassium was found to be 6, BUN of 36 with a creatinine of 2.2. The patient had a history of noncompliance with nonhealing diabetic foot ulcers in the past. At this time he denies any chest pain, no increased work of breathing, positive lower extremity swelling, positive pain to bilateral feet. No nausea, vomiting, no diarrhea. No fever or chills. PAST MEDICAL HISTORY: Diabetes mellitus type 2, diastolic heart failure, chronic kidney disease, anemia, hyperkalemia, hypertension, elevated troponins, gastroparesis, nonhealing diabetic foot wounds. Also noted for medical noncompliance. PAST SURGICAL HISTORY: Appendectomy, tonsillectomy, amputation of both digits on the right hand, with debridement of left foot. SOCIAL HISTORY: Patient denies cigarettes or illicit drug use, though it is noted he smokes cigarettes, which is ongoing, also with use of marijuana. Denial of ingestion of alcohol. FAMILY HISTORY: Positive for hypertension and diabetes. ALLERGIES: Listed as no known drug allergies. MEDICATIONS: Gabapentin, isosorbide, Soma, hydralazine, [place], Seroquel, Coreg, triamterene/hydrochlorothiazide, Humulin 70/30, sodium bicarbonate, and torsemide. He also receives [place]. PRIMARY CARE PHYSICIAN: Dr. Corona. REVIEW OF SYSTEMS: Review of systems times 10 with pertinent positives listed above in the HPI. PHYSICAL EXAMINATION: The patient's most recent vital signs: Temperature 98.6 degrees, blood pressure 159/78, heart rate 97, respirations 20. He is currently on room air. His last recorded saturation is 94% he has had 1480 in. He has not been recording any void. General: This is a 38- year-old male. He is resting quietly in bed. He appears chronically ill. He is in mild distress secondary to foot pain. HEENT: Normocephalic, atraumatic. Conjunctiva is pale. He has KEON. Mucous membranes are dry. Neck: Supple. Trachea midline. No evidence of JVD. Cardiovascular: Regular rate and rhythm. He has no murmur or gallop. Lungs: Clear to auscultation anteriorly. Equal excursion. Abdomen: Soft, nontender. Positive bowel sounds. Genitourinary: Not inspected. Requesting strict intake/output. Extremities: Has 2+ to 3+ lower extremity edema with ulcer on the plantar aspect of both feet. Ulcer also noted to his right great toe. Dressing is noted to the left foot. No drainage present. No odor present. Neurological: He is alert and oriented x3. Able to assist with exam. LABORATORY DATA: Sodium 136, potassium 5.9, chloride 105, CO2 20. BUN 39, creatinine 2.7, glucose 344. His anion gap is 11, his calcium is 8.5, phosphorus 5.6, albumin 2.4. Previous hemoglobin is 7.4. He has a total iron saturation of 19% with a ferritin of 61, a folate of 6.5. CULTURES: The patient had blood cultures, which are currently negative. Cultures of his left foot showing gram-positive cocci; right foot is still currently pending. ASSESSMENT AND PLAN: 1. Chronic kidney disease stage IV. Patient's BUN and creatinine are slightly elevated; BUN of 39 with a creatinine of 2.7. We have no adequate urine output. We will place him on a strict intake/output. We will continue to monitor and check urine electrolytes and a renal ultrasound. 2. Electrolytes. Patient has a potassium of 5.9. We will order 1 dose of Lokelma if this has not been addressed. Follow up with labs in the morning. 3. Electrolytes and acid-base balance. This is acceptable. 4. Anemia. This is low, but stable with iron deficiency present. We will defer to the primary care team for monitoring. No indications for transfusion. 5. Diabetic non healing wounds to bilateral feet. This is now being followed by Dr. Jackson and the primary care. The patient currently remains on Zyvox and Zosyn. We will renally dose his Zosyn today. I would like to thank you for allowing us to follow with this patient. Dictated by OSMAN Loyd for Victorino Oconnor MD cc: OSMAN Loyd MD [facility]
--- NOTE | 2019-04-23 13:40 | Diag Imaging Result Doc PS360 ---
US RENAL 2 (RETROPER) COMPLETE - 04/23/2019 INDICATION: decreased renal function TECHNIQUE: COMPARISON: 11/13/2018 FINDINGS: The background renal echotexture is somewhat hyperechoic bilaterally consistent with chronic medical renal disease. This appears grossly stable from prior. Renal sizes are normal. The right kidney measures 11.7 x 5.8 x 6.4 cm. The left kidney measures 11.6 x 4.9 x 5.4 cm. Cortex measures 13 mm on the right and 16 mm on the left. There is a 1 cm right renal cyst. There are a few scattered small left renal cysts measuring from 2.4 cm down to 6 mm. IMPRESSION: Bilateral hyperechoic kidneys compatible with chronic medical renal disease. Benign bilateral renal cysts. No acute abnormality. Electronically signed by Joseph Lawrence 04/23/2019 1:38 PM
[2019-04-23] MEDS: ZOSYN 2.25 GM in NS 50 ML IV SCH ×2 (13:58→20:30)
[2019-04-23] MEDS: LOKELMA POWDER PACKET PO SCH ×2 (13:59→15:59)
[2019-04-23] MEDS: SEROQUEL PO SCH (20:30)
--- NOTE | 2019-04-23 21:06 | GENERAL SURGERY PROGRESS NOTE ---
DATE: 04/23/2019 SUBJECTIVE: Overall about the same. No fevers. No tachycardia. Remains very hypertensive. Says his feet hurt. PHYSICAL EXAMINATION: His dressings are clean on his feet and toes appear well-perfused. There is bilateral edema. Potassium remains high at 5.9, creatinine is 2.7, glucose is high at 476. Hemoglobin A1c was 14. I reviewed his MRI, so MRI of the right foot shows signal of the distal phalanx of the great toe, suggesting osteomyelitis. It does show edema. In the left foot, there is soft tissue edema and ulceration of the lateral aspect of the foot. Subtle changes of the proximal phalanx of the 5th toe, probably represents early osteomyelitis. ASSESSMENT AND PLAN: This gentleman has multiple medical issues, noncompliance. He appears to have osteomyelitis related to the superficial ulceration of bilateral toes. I do not see purulence or necrosis. There is some fibrinous tissue. I think it would be reasonable to treat with long-term antibiotics and local wound care while we regulate his other medical issues. Very grim prognosis for healing of these wounds given his noncompliance and multiple medical issues, but will continue Santyl lavage. cc: Jory Jackson MD
[2019-04-23] MEDS: SOMA PO PRN (22:29)
[2019-04-24] MEDS: SANTYL OINT TOP SCH ×3 (01:26→12:27)
[2019-04-24] MEDS: APRESOLINE PO SCH ×3 (01:44→16:04)
[2019-04-24] MEDS: HUMULIN R SUBQ SCH ×5 (01:45→21:48)
[2019-04-24] MEDS: MORPHINE IV PRN ×5 (03:39→21:38)
[2019-04-24] MEDS: ZOSYN 2.25 GM in NS 50 ML IV SCH ×2 (05:43→12:26)
[2019-04-24] MEDS: PRILOSEC PO SCH ×2 (05:44→07:51)
[2019-04-24] MEDS ORDERED: INSULIN PEN NEEDLES ONE (05:47)
[2019-04-24] MEDS: NORCO-10 PO PRN ×4 (06:06→20:12)
[2019-04-24] MEDS: HUMULIN 70/30 SUBQ SCH (07:03)
[2019-04-24 07:22] LABS: HEMATOCRIT 21.2 % (42.0-52.0); HEMOGLOBIN 6.5 g/dL (14.0-18.0); MCH 25.6 PG (27-31); MCHC 30.7 g/dL (33-37); MCV 83.5 FL (81-99); MPV 9.2 FL (7.4-10.4); RBC 2.54 XMIL (4.7-6.1); RDW 21.1 % (11.5-14.5); WBC 17.26 X1000 (4.8-10.8)
[2019-04-24 07:43] LABS: ALBUMIN 2.5 g/dL (3.5-5.0); CALCIUM 8.3 mg/dL (8.8-10.2); CREATININE 2.9 mg/dL (0.7-1.2); PHOSPHORUS 5.7 mg/dL (2.7-4.5); POTASSIUM 5.7 mmol/L (3.5-5.1)
[2019-04-24] MEDS ORDERED: PNEUMOVAX 23 IM ONE (07:50)
[2019-04-24] MEDS ORDERED: FLU VACCINE IM ONE (07:51)
[2019-04-24] MEDS: LASIX IV SCH ×2 (08:25→10:05)
[2019-04-24] MEDS: ZYVOX PO SCH ×2 (10:03→20:11)
[2019-04-24] MEDS: COREG PO SCH ×2 (10:03→20:11)
[2019-04-24] MEDS: NEURONTIN PO SCH ×2 (10:03→20:10)
[2019-04-24] MEDS: HEPARIN SUBQ SCH ×2 (10:03→20:12)
[2019-04-24] MEDS: SODIUM BICARBONATE PO SCH ×2 (10:03→20:11)
[2019-04-24] MEDS: ISORDIL PO SCH ×3 (10:04→20:11)
[2019-04-24 11:26] LABS: UR CREAT RANDOM 36.7 mg/dL (14-26); UR PROT RANDOM 325.3 mg/dL
[2019-04-24] MEDS: LOKELMA POWDER PACKET PO SCH (12:26)
--- NOTE | 2019-04-24 13:17 | NEPHROLOGY PROGRESS NOTE ---
DATE: 04/24/2019 SUBJECTIVE: Mr. Campoverde is resting in bed. He is sitting at the foot of the bed with his feet elevated on pillows towards the head of the bed. He states that he is swelling. He is uncomfortable. He states that he has been getting up walking out of his room to smoke. He has also been getting up to go to the bathroom to void into the toilet non recorded. The patient states that he would like more medication to help with his swelling to his lower extremities. VITAL SIGNS: Temperature 98 degrees, blood pressure 180/87, heart rate 100, and respirations 19. He is on room air. Last recorded saturation 99%. He has had 1680 in. He has had 200+ out void with requested to keep strict I's and O's. LABORATORY DATA: Sodium 132, potassium 5.7, chloride 101, CO2 19, BUN 47, creatinine 2.9, and glucose 232. His anion gap is 12, calcium 8.3 phosphorus 5.7, and albumin 2.5. White count 17.26, hemoglobin 6.5, hematocrit 21.2, and platelet count 560,000. Left foot is showing gram positive cocci, Staphylococcus epidermis. Right foot has now also grown out gram-positive cocci. Culture pending. His A1c this morning is 14. OBJECTIVE: This is a 38-year-old male. He is sitting up in bed at the foot of the bed. Complains of discomfort secondary to lower extremity swelling.Skin: Warm and dry. HEENT: Normocephalic, atraumatic. Conjunctiva is pale and pink. He has KEON. Mucous membranes are dry. Neck: Supple. Trachea midline. He has no evidence of JVD. Cardiovascular: Regular rate and rhythm. No murmur or gallop that are appreciated. Lungs: Clear to auscultation bilaterally. Equal excursion on room air. Abdomen: Slightly distended more towards the hip region nonpitting. Genitourinary: Not inspected. Encourage patient to keep strict I's and O's with urinal even in the bathroom. Extremities: Continues with 1 to 2+ lower extremity edema. Left foot remains in a dressing. Right foot has an open wound on the right great toe. Neurological: Patient is alert and oriented x3. ASSESSMENT AND PLAN: 1. Chronic kidney disease stage 4. Patient's BUN and creatinine continue to rise with BUN of 47 with a creatinine of 2.9. We have requested patient to keep strict I's and O's. They did do a bladder scan secondary to low urine output documented. It had less than 140 mL after voiding this morning. No indications for intervention. 2. Electrolytes and acid-base balance. The patient had elevated potassium yesterday of 5.9. He responded to Lokelma, we will give 1 more dose today for potassium of 5.7. Continue to monitor. This may also be secondary to wounds. We will continue to monitor on a daily basis. 3. Acid-base balance is acceptable. Anion gap is close to 12. The patient continues to receive sodium bicarbonate. 4. Anemia. Hemoglobin down to 6.5. We will defer to the primary care team for transfusion. 5. Septicemia. The patient has white cell count of 17.26. He remains on Zyvox and Zosyn both renally dosed. 6. I would like to thank you for allowing us to follow with this patient. On my arrival he is crying uncontrollably stating that he was told by the physicians that he has kidney failure and 'infection in my bone in both feet', and that dialysis won't help. I encouraged him to think of their as designed to be motivational in controlling his diabetes, BP and smoking cessation. I will adjust his diuretics to HCTZ and torsemide per his request. rg Dictated by OSMAN Loyd for Victorino Oconnor MD Face to face encounter, data reviewed, discussed with Inessa Malin on 04/24/19. I agree with the above assessment and plan of care. juan ramon cc: OSMAN Loyd MD [facility]
[2019-04-24] MEDS: SOMA PO PRN ×2 (14:04→21:39)
[2019-04-24] MEDS ORDERED: NS 500 ML IV ONE (15:10)
--- NOTE | 2019-04-24 16:12 | PROGRESS NOTE ---
DATE: 04/24/2019 SUBJECTIVE: Today Mr. Campoverde refers to have some pains, especially on the left side. He is also extremely concerned about the fact that he is extremely volume overloaded. OBJECTIVELY: Current vitals: Blood pressure is 135/68, pulse of 93, respiration is 18, temperature 98.4 degrees. The patient is saturating 100% on room air.General: Mr. Campoverde is a 38-year-old gentleman. He is in bed, no distress. HEENT: Mucosa is pink and moist. Anicteric. Acyanotic. Neck: Supple. There is jugular venous distention. Chest: Air entry bilaterally with a few crackles in the posterior lung alvarado. Cardiovascular: Regular rate and rhythm. GI: Abdomen remarkably distended. There is a lot of subcutaneous edema on the abdominal wall anteriorly and laterally. Extremities: About 4+ pedal edema including the scrotum and the penis. The patient has ulceration to below the 1st big toe on the right and laterally to the 5th toe and the 3rd toe is on the left. PARTNER: The patient is awake, alert and oriented. I's and O's: Urine output has been 750. LABORATORY DATA: WBC 17.26, hemoglobin is 6.5, platelet count of 530,000. Chemistry is also reviewed. Potassium is down to 5.7, creatinine is 2.9. Folate is low. IMAGING STUDIES: Showed a chest x-ray, cardiomegaly and pulmonary edema. The lower extremity MRI on the right shows marrow edema suggestive of osteomyelitis on the distal phalanx on the right big toe. The left suggests probable mild or early osteomyelitis of the 5th phalanx. Ultrasound shows a bilateral hyperechoic kidneys compatible with medical renal disease. ASSESSMENT/PLAN: 1. Fluid overload presumably combination of progressively worsening renal failure and diastolic heart failure. 2. Chronic kidney disease stage IIIB to IV complicated with electrolyte abnormality including mild hyperkalemia and non gap metabolic acidosis. The patient is being seen by nephrology. 3. Uncontrolled diabetes mellitus with presenting A1c of 14.0. The patient is on insulin regimen. 4. Folate deficiency. This will be replaced. 5. Right big toe distal phalanx osteomyelitis and possible osteomyelitis on the 5th on the left. The patient is on antimicrobial therapy. Surgery is on board. The culture from both feet is showing an Methicillin resistant staphylococcus aureus. 6. Normocytic anemia with underlying iron deficiency. The patient hemoglobin is down to 6.5. We will give him a unit of packed red blood cell transfusion today. cc: Joe Monroe MD MTDD
[2019-04-24] MEDS: SEROQUEL PO SCH (20:11)
[2019-04-24] MEDS ORDERED: DEMADEX PO SCH (21:00)
[2019-04-25] MEDS: ZOSYN 2.25 GM in NS 50 ML IV SCH ×4 (00:16→22:28)
[2019-04-25] MEDS: APRESOLINE PO SCH ×3 (00:20→15:45)
[2019-04-25] MEDS: MORPHINE IV PRN ×6 (01:36→22:21)
[2019-04-25] MEDS: SANTYL OINT TOP SCH ×2 (04:00→10:33)
[2019-04-25] MEDS: HUMULIN R SUBQ SCH ×2 (06:34→10:33)
[2019-04-25] MEDS: HUMULIN 70/30 SUBQ SCH ×2 (06:34→10:51)
[2019-04-25] MEDS: PRILOSEC PO SCH (06:35)
[2019-04-25 07:03] LABS: HEMATOCRIT 24.8 % (42.0-52.0); HEMOGLOBIN 7.7 g/dL (14.0-18.0); MCH 26.4 PG (27-31); MCV 84.9 FL (81-99); MPV 9.4 FL (7.4-10.4); RBC 2.92 XMIL (4.7-6.1); RDW 20.6 % (11.5-14.5); WBC 15.8 X1000 (4.8-10.8)
[2019-04-25 07:52] LABS: ALBUMIN 2.6 g/dL (3.5-5.0); CALCIUM 8.5 mg/dL (8.8-10.2); CREATININE 2.8 mg/dL (0.7-1.2); PHOSPHORUS 5.5 mg/dL (2.7-4.5); POTASSIUM 5.6 mmol/L (3.5-5.1)
[2019-04-25] MEDS ORDERED: LASIX IV SCH (08:00)
[2019-04-25] MEDS: SODIUM BICARBONATE PO SCH ×2 (08:48→22:28)
[2019-04-25] MEDS: LASIX 200 MG in NS 25 ML IV SCH ×2 (08:48→22:25)
[2019-04-25] MEDS: SOMA PO PRN ×2 (08:49→22:24)
[2019-04-25] MEDS: HEPARIN SUBQ SCH ×2 (08:49→22:29)
[2019-04-25] MEDS: NORCO-10 PO PRN ×2 (08:49→15:46)
[2019-04-25] MEDS: HYDROCHLOROTHIAZIDE PO SCH (08:49)
[2019-04-25] MEDS: NEURONTIN PO SCH ×2 (08:50→22:24)
[2019-04-25] MEDS: ISORDIL PO SCH ×3 (08:50→22:29)
[2019-04-25] MEDS: ZYVOX PO SCH ×2 (08:50→22:28)
[2019-04-25] MEDS: COREG PO SCH ×2 (08:50→22:29)
[2019-04-25] MEDS: ALBUMIN 25% IV SCH (10:27)
[2019-04-25] MEDS ORDERED: INSULIN PEN NEEDLES ONE (10:40)
--- NOTE | 2019-04-25 14:23 | PROVIDER PROGRESS NOTE ---
Progress Note Subjective: He voices feeling full of fluid and is inquiring about sticking a needle in him to drain the fluid. Objective: temperature 98.6, pulse 114, respirations 18, blood pressure 201/87, 02 sat 97% on room air. General: -[place] male lying in bed in no acute distress HEENT: normocephalic, atraumatic, pupils equal and reactive. Mucous membranes are moist. Neck: Supple, 8cm JVD appreciated with no Hepatojugular reflux. Cardiovascular: S1S2, tachycardia rate and rhythm. Gallop appreciated. No murmur. Respiratory: lungs clear to auscultation anteriorly Abdomen: soft, distended, nontender. Bowel sounds present. : non inspected Extremities:3+ pitting to BLE with tenderness. Edema extends up to his axilla regions. Neurological: alert and oriented to person, place, and time. Labs: WBC 15.8, hemoglobin 7.7, hematocrit 24.8, platelet count 523, sodium 133, potassium 5.6, chloride 104, carbon dioxide 19, BUN 47, creatinine 2.8, phosphorus 5.5, albumin 2.6. Intake 780, output 2170. Impression: Chronic kidney disease stage 4. Creatinine and BUN stable today at 2.8 and 47. We will attempt 200mg IV lasix q12 hours, albumin x 3, and hydrochlorothiazide in attempt to diurese him. We may have to discuss urgent renal replacement therapy if we can not manage his fluid with medications. Blood pressure. Above target, this is most likely due to fluid volume overload. Medications adjusted. Anemia. Low, stable. He had a unit of PRBCs transfused yesterday. Fluid Volume. Expanded. Lasix and albumin ordered. Acid base balance. Stable. Electrolytes. Potassium 5.6. Lasix in place. Medication review. No change.
--- NOTE | 2019-04-25 18:14 | PROGRESS NOTE ---
DATE: 04/25/2019 SUBJECTIVE: This morning Mr. Campoverde refers to be doing well. He continues to have pains everywhere and continued to be remarkably swollen. Medications have been up titrated by Nephrology. Staff continue to remark that his eating from the cafeteria. OBJECTIVE: Vital signs: Blood pressure is 151/68, pulse of 98, respiration is 18, temperature is 98.4 degrees. The patient is saturating 100% on room air. General: Mr. Campoverde is a 38-year- old gentleman. He is in bed. He is not in any cardiopulmonary distress. HEENT: Mucosa is pink and moist. Anicteric. Acyanotic. Neck: There is positive JVD. Chest: Air entry is bilaterally reduced. There are crackles in the posterior lung alvarado. Cardiovascular: Regular rate and rhythm. There is questionable S3. GI: Abdomen is soft. It is remarkably distended. There is a lot of subcutaneous tissue both on the abdominal wall and the lateral abdominal wall. Extremities: About 4+ pedal edema including the scrotum and the penis. There is an ulceration below the first big toe on the right and the 5th and 3rd toes on the left. LICENSED SALES ASSISTANT: Patient is awake, alert, and oriented. INTAKE AND OUTPUT: Urine output was 2170. The patient is currently positive balance of 2049. LABORATORY DATA: Has also been reviewed. He is normocytic anemic with a hemoglobin of 7.7. That is improvement from yesterday. His chemistry is also reviewed, potassium is 5.6, creatinine is 2.8, glucose was 451 early this morning. It is down to 137. IMAGING: No recent imaging studies. MEDICATIONS: Have been reviewed. Patient has been started on albumin. He is also on 200 mg of Lasix every 12 hours, hydrochlorothiazide 25 mg daily. These are all changes that were done today by Nephrology. ASSESSMENT: 1. Fluid overload most likely due to combination of progressively worsening renal function and diastolic heart failure. The patient has been started on high dose of Lasix therapy. We will continue to follow. 2. Chronic kidney disease stage 3B to 4, complicated with hyperkalemia and mild non gap metabolic acidosis. 3. Severe uncontrolled diabetes mellitus. Presenting A1c of 14. The patient is on insulin regimen. I am told he is really not very compliant. Even in the hospital, he keeps going out and getting meals from the cafeteria. 4. Folate deficiency. Patient is on replacement. 5. Right big toe distal phalanx osteomyelitis and possible osteomyelitis on the left 5th toe. The patient is on antimicrobial therapy. Surgery is on board. Culture showing methicillin- resistant Staphylococcus aureus. 6. Normocytic anemia with underlying iron deficiency. Patient was transfused a unit of packed red blood cells. He might eventually need also iron infusion for replacement. We will, however, wait for his fluid overload to improve as well as his osteomyelitis. cc: Joe Monroe MD MTDD
[2019-04-25] MEDS ORDERED: HUMULIN 70/30 SUBQ SCH (21:00)
[2019-04-25] MEDS: SEROQUEL PO SCH (22:29)
[2019-04-26] MEDS: SANTYL OINT TOP SCH ×2 (00:25→09:53)
[2019-04-26] MEDS: HUMULIN R SUBQ SCH ×2 (00:25→06:57)
[2019-04-26] MEDS: APRESOLINE PO SCH ×2 (03:44→09:51)
[2019-04-26] MEDS: ZOSYN 2.25 GM in NS 50 ML IV SCH (04:24)
[2019-04-26] MEDS: MORPHINE IV PRN ×2 (04:24→09:13)
[2019-04-26] MEDS: NORCO-10 PO PRN (05:06)
[2019-04-26] MEDS: PRILOSEC PO SCH (06:57)
[2019-04-26 07:37] LABS: HEMOGLOBIN 6.7 g/dL (14.0-18.0); MCH 25.7 PG (27-31); MCHC 30.5 g/dL (33-37); MCV 84.3 FL (81-99); MPV 9.2 FL (7.4-10.4); RBC 2.61 XMIL (4.7-6.1); RDW 21.1 % (11.5-14.5); WBC 15.64 X1000 (4.8-10.8)
[2019-04-26 08:02] LABS: ALBUMIN 2.8 g/dL (3.5-5.0); CALCIUM 8.5 mg/dL (8.8-10.2); CREATININE 3.1 mg/dL (0.7-1.2); PHOSPHORUS 5.7 mg/dL (2.7-4.5); POTASSIUM 5.5 mmol/L (3.5-5.1)
[2019-04-26] MEDS ORDERED: NS 500 ML IV ONE (08:32)
[2019-04-26 08:51] LABS: RETIC% 3.08 % (0.8-2.1); RETIC-HE 29.4 PG (28.2-36.6)
[2019-04-26] MEDS ORDERED: LOKELMA POWDER PACKET PO SCH (09:00)
[2019-04-26] MEDS: ZYVOX PO SCH (09:50)
[2019-04-26] MEDS: HEPARIN SUBQ SCH (09:50)
[2019-04-26] MEDS: COREG PO SCH (09:50)
[2019-04-26] MEDS: SODIUM BICARBONATE PO SCH (09:51)
[2019-04-26] MEDS: SOMA PO PRN (09:52)
[2019-04-26] MEDS: LASIX 200 MG in NS 25 ML IV SCH (09:52)
[2019-04-26] MEDS: NEURONTIN PO SCH (09:52)
[2019-04-26] MEDS: HUMULIN 70/30 SUBQ SCH (09:52)
[2019-04-26] MEDS: HYDROCHLOROTHIAZIDE PO SCH (09:52)
[2019-04-26] MEDS: ISORDIL PO SCH (09:52)
[2019-04-26] MEDS: ALBUMIN 25% IV SCH (09:53)
[2019-04-26] MEDS ORDERED: MIRALAX PO SCH (10:15)
[2019-04-26 11:10] VITALS: BP 181/81
--- NOTE | 2019-04-26 16:17 | GASTROENTEROLOGY CONSULTATION ---
DATE: 04/26/2019 REASON FOR CONSULTATION: Severe anemia with fecal occult blood positive. HISTORY OF PRESENT ILLNESS: Mr. Campoverde is a 38-year-old male with the history of diabetes, congestive heart failure, noncompliance, chronic kidney disease, anemia, chronic hyperkalemia, hypertension. The patient presented to the hospital on Tuesday complaining of pain in the left side of his lower extremities and edema in his lower extremities. The patient complained of nausea but denied any vomiting. He also mentioned that a week before he noticed that his stools were dark and tarry. Complained of shortness of breath and chest pain rating it 10/10 with shooting pain. The patient has been in and out of the hospital many times. Patient was last discharged on 04/19. The patient is back in the hospital on 04/21/2019. The patient's chest x-ray on 04/21 had shown cardiomegaly and pulmonary edema. His lower extremity MRI on 04/21 showed soft tissue edema and ulcerations at the lateral aspects of the foot with questionable very subtle increase signal associated to the proximal phalanx of the 5th toe that probably represents mildly early osteomyelitis. The patient's renal ultrasound on 04/23 had shown bilateral hyperechoic kidney compatible with chronic medical renal disease, benign bilaterally renal cyst. No acute abnormality. The patient's hemoglobin on admission was 7.4 and 24.2. Today it is 6.7 and 22.0. The patient has so far received 1 unit of blood. PAST MEDICAL HISTORY: Diabetes type 2, diastolic heart failure, nonhealing diabetic foot wound, seizures, kidney disease, anemia, hyperkalemia, hypertension, elevated troponins, gastroparesis. PAST SURGICAL HISTORY: Appendectomy, tonsillectomy, amputation of both digits on the 3rd finger of the right hand, debridement of the left foot. FAMILY HISTORY: Positive for hypertension and diabetes. ALLERGIES: No known drug allergies. SOCIAL HISTORY: The patient is single, has 1 kid. He smokes 1 pack of cigarettes a day. He has denied having any alcohol or illicit drug use. HOME MEDICATIONS: Neurontin 300 mg twice a day. Isosorbide dinitrate to 20 mg 3 times a day. Soma 1 tablet 350 mg twice a day as needed. Hydralazine 100 mg p.o. every 8 hours. Hydrocodone/acetaminophen 10/325 mg 1 tablet every 8 hours as needed. Seroquel 100 mg p.o. at bedtime. Humulin 70/30 40 units subcutaneous p.m.. Hydrochlorothiazide 25 mg p.o. daily. Sodium bicarbonate 1300 mg p.o. twice a day. Coreg 12.5 mg p.o. twice a day. Torsemide 20 mg p.o. daily. Humulin 70/30, 50 units subcutaneous at a.m. REVIEW OF SYSTEM: As per HPI. Otherwise, 12 point review of system is negative. PHYSICAL EXAMINATION: Vital Signs: Temperature 97.6 degrees, pulse 103, respirations 18, blood pressure 181/81, oxygen saturation 98% on room air. The patient's weight is 202 pounds. BMI is 30.8 kg/m2. General: He is alert, oriented x3, in no acute distress. HEENT: Pale conjunctivae, no icterus. Neck: Supple. Lungs: Clear to auscultation. Cardiovascular: The patient is tachycardic. Abdomen: Soft, nontender, nondistended. Active bowel sounds heard in all 4 quadrants. Extremities: No clubbing no cyanosis. 2+ pitting edema in the lower extremities and ulcer on the left foot and right foot. Neurological: Alert x3. Nonfocal. Cranial nerves 2-12 grossly intact. LABORATORY DATA: WBC is 15.64, RBC 2.61, hemoglobin 6.7, hematocrit 22.0, platelet count is 495,000. Sodium 138, potassium 5.5, chloride 107 carbon dioxide 20, anion gap 10, BUN 50, creatinine 3.1, glucose 207, calcium 8.5, phosphorus 5.7, albumin is 2.8. Urinalysis on 04/22 had shown protein of 300, glucose of 500 and trace amount of blood. The patient's stool for occult blood was positive. Wound culture showed Staphylococcus epidermidis 1+ and Staphylococcus aureus, 1+. IMPRESSION AND PLAN: Anemia Positive Hemoccult Leukocytosis CKD Diabetes type II Abdominal pain PLAN: Mr. Campoverde is a 38-year-old male with a history of diabetes, congestive heart failure, hypertension, chronic kidney disease. GI has been consulted for his for his anemia. Patient's hemoglobin today 6.7 and 22.0. We had plans to do an EGD for him, but as per the nursing staff, the patient has argued with the physician and the nurses, cussing and being ill with every staff on the floor, demanding to be discharged. He was discharged, escorted by the c 13 catapult operator and security chief museum via wheelchair in a private vehicle. This plan was discussed with Dr. Oseguera. Thank you for your consult. Please call us for any further questions or concerns. Dictated by OSMAN Mattson for Bartolo Oseguera MD cc: Bartolo Oseguera MD I have seen and examined the patient myself and I agree with the above plan of care. Please call us with any further questions or concerns. MARIO ALBERTO
--- NOTE | 2019-04-26 19:28 | NEPHROLOGY PROGRESS NOTE ---
DATE: 04/26/2019 TIME SEEN: 0750. SUBJECTIVE: Mr. Campoverde is sitting on the side of the bed. He is eating his breakfast. States that he is trying to do better with his fluid intake, though he does state that he feels that he has gained another 20 pounds since his admission per bed weight. VITAL SIGNS: Temperature 98.4 degrees, blood pressure 156/80, heart rate 104, respirations 18. He is on room air. Last recorded saturation 98%. He has had 720 in and 1775 out to void. LABORATORY DATA: Sodium is 138, potassium is 5.5, chloride 107, CO2 21, BUN 50, creatinine 3.1, glucose is 207. His anion gap is 10, calcium 8.5, phosphorus 5.7, albumin 2.8. Previous white count 15.3 with a hemoglobin of 7.7. PHYSICAL EXAMINATION: General: This is a 38-year-old male. He is sitting on the side of the bed. He appears chronically ill in no acute distress. Skin: Warm and dry. HEENT: Normocephalic, atraumatic. Conjunctivae are pale. He has KEON. Mucous membranes are dry. Neck: Supple. Trachea midline. He has no evidence of JVD in the upright position. Cardiovascular: He is regular rate and rhythm. He has a positive gallop. No murmur. Lungs: Clear to auscultation bilaterally. Equal excursion. He is on room air. Abdomen: Slightly distended. Positive bowel sounds. Genitourinary: Not inspected. Extremities: Patient has 3+ pitting edema from the lower extremities up into the mid hip, abdominal region, up into his axilla area. We have placed him on a 1 L fluid restriction. Neurological: Alert and oriented x3. ASSESSMENT AND PLAN: 1. Chronic kidney disease stage 4. Marginal response to diuretics. I discussed possible need for LITERARY WRITER. 2. Electrolytes and acid-base balance: Mild hyperkalemia. This is acceptable. We will continue to monitor. May need further doses of Lokelma. 3. Anemia. Patient's hemoglobin is 7.7. Remains stable. 4. Diabetic feet with methicillin-resistant Staphylococcus aureus. Continues on vancomycin. He is tolerating this well. This is renally dosed. 5. Fluid volume overload. Again, we are diuresing patient with high-dose Lasix, albumin and hydrochlorothiazide. We will re-evaluate on a daily basis. I would like to thank you for allowing us to follow with this patient. Dictated by OSMAN Loyd for Victorino Oconnor MD Face to face encounter, data reviewed, discussed with with Inessa Malin on 04/26/19. I agree with the above assessment and plan of care. cc: OSMAN Loyd MD [facility]
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
== END 2019-04-26 14:20 | disposition home or self-care (01) | DRG 291 ==
LOC: ED 19:41 → EDIPHOLD 04-22 05:20 → SUATTDRO 04-22 05:20 → 4N 04-22 07:49
PROVIDERS: ATTEND Internal Medicine

== ENCOUNTER 2019-04-28 11:07 | Inpatient (IN) ==
[2019-04-28 12:34] LABS: ALLEN TEST NO; BLOOD TYPE ARTERIAL; HCO3-(ACT) 18.6 mmoll (20.0-26.0); METHB 0.6 % (0.0-1.5); O2(CT) 9.3 mL/dL (15.0-23.0); PCO2(98.6) 36 mmHg (35-45); PO2(98.6) 61 mmHg (60-100); SAMPLE BLOOD; SAO2 93.1 % (95.0-100.0); THB 7.5 g/dL (11.5-17.4)
[2019-04-28 12:37] LABS: O2HB 87.3 % (95.0-99.0)
[2019-04-28 12:38] LABS: MODALITY CANNULA
[2019-04-28 12:45] LABS: ACETONE SERUM NEGATIVE (NEGATIVE)
--- NOTE | 2019-04-28 12:49 | Diag Imaging Result Doc PS360 ---
CHEST-PORTABLE - 04/28/2019 INDICATION: ABD PAIN COMPARISON: 04/21/2019 FINDINGS: Stable cardiomegaly and pulmonary vascular congestion. Stable ill-defined hazy infiltrates/pulmonary edema in the lung bases. No large pleural effusion. IMPRESSION: Cardiomegaly and pulmonary edema. Electronically signed by Joseph Lawrence 04/28/2019 12:47 PM
[2019-04-28 12:53] LABS: ESTIMATED GFR 25
[2019-04-28 12:58] LABS: AGAP 12; ALB/GLOB RATIO 1.1; ALBUMIN 3.4 g/dL (3.5-5.0); ALKALINE PHOSPHATASE 278 U/L (32-122); BUN 62 mg/dL (8-22); CALCIUM 9.1 mg/dL (8.8-10.2); CHLORIDE 101 mmol/L (98-107); COSMO 287; CREATININE 3.3 mg/dL (0.7-1.2); GLUCOSE 225 mg/dL (70-104); GOT 29 U/L (10-34); GPT 37 U/L (10-44); POTASSIUM 5.9 mmol/L (3.5-5.1); SODIUM 131 mmol/L (136-145); TCO2 18 mmol/L (25-35); TOTAL BILIRUBIN 0.36 mg/dL (0.20-1.00); TOTAL PROTEIN 6.6 g/dL (6.3-8.3)
--- NOTE | 2019-04-28 13:14 | Diag Imaging Result Doc PS360 ---
CT ABDOMEN/PELVIS W/O CONTRAST - 04/28/2019 INDICATION: ABD DISTENTION, L ABP TENDER/PAIN COMPARISON: 11/05/2018 FINDINGS: There is cardiomegaly, interstitial pulmonary edema, and trace pleural effusions. There is extremely severe, diffuse body wall edema. There is a small amount of ascites. No evidence of free air. No other obvious abnormality. IMPRESSION: Congestive heart failure. Severe body wall edema. Small amount of ascites. This exam was performed using automated exposure control, adjustment of mA or kV according to patient size, and/or use of iterative reconstruction technique Electronically signed by Joseph Lawrence 04/28/2019 1:12 PM
[2019-04-28] MEDS ORDERED: ZOFRAN IV ONE (13:19)
[2019-04-28] MEDS ORDERED: MORPHINE IV ONE (13:19)
[2019-04-28] MEDS ORDERED: ASPIRIN PO ONE (13:21)
[2019-04-28] MEDS ORDERED: LASIX IV ONE (13:21)
--- NOTE | 2019-04-28 13:59 | EKG Report ---
Test Performed on : 04/28/2019 11:27:25 AM Test Reason : ABD PAIN Blood Pressure : / mmHG Vent. Rate : 106 BPM Atrial Rate : 106 BPM P-R Int : 156 ms QRS Dur : 080 ms QT Int : 338 ms P-R-T Axes : 056 070 039 degrees QTc Int : 448 ms Sinus tachycardia. Otherwise normal ECG When compared with ECG of 17-APR-2019 07:06, No significant change was found Unconfirmed Result
[2019-04-28 15:21] LABS: URINE SOURCE CLEAN CATCH
[2019-04-28 15:27] LABS: BILIRUBIN URINE NEGATIVE (NEGATIVE); BLOOD URINE SMALL (NEGATIVE); COLOR YELLOW; GLUCOSE URINE 300 mg/dL (NEGATIVE); KETONE URINE NEGATIVE (NEGATIVE); LEUKOCYTES URINE NEGATIVE (NEGATIVE); NITRITE URINE NEGATIVE (NEGATIVE); PH URINE 6.5; PROTEIN URINE 600 mg/dL (NEGATIVE); SP GRAVITY URINE 1.016; TURBIDITY URINE CLEAR (CLEAR); UR EPITHELIAL CELLS <10 /HPF (<10); URINE BACTERIA NEGATIVE /HPF; URINE WBC <10 /HPF (<10); UROBILINOGEN URINE NORMAL (NORMAL)
[2019-04-28 15:38] LABS: UR AMPHETAMINES QUAL NONE DETECTED (NONE DETECT); UR BARBITUATES QUAL NONE DETECTED (NONE DETECT); UR BENZODIAZEPIN QUAL NONE DETECTED (NONE DETECT); UR CANNABINOIDS QUAL PRESUMPTIVE POSITIVE (NONE DETECT); UR COCAINE QUAL NONE DETECTED (NONE DETECT); UR METHADONE QUAL NONE DETECTED (NONE DETECT); UR OPIATES QUAL PRESUMPTIVE POSITIVE (NONE DETECT); UR OXYCODONE QUAL NONE DETECTED (NONE DETECT); UR PCP QUAL NONE DETECTED (NONE DETECT)
--- NOTE | 2019-04-28 16:03 | PROVIDER DOCUMENTATION ---
This chart was entered by Catarina Stern Scribe, acting as scribe for Soy Mcfarlane MD. HPI-General Adult - General Chief Complaint: Edema Stated Complaint: SWELLING, SOB SIDE PAIN Time Seen by Provider: 04/28/19 11:40 Source: patient, RN/MD Allergies/Adverse Reactions: Patient Allergies Allergy/AdvReac Type Severity Reaction Status Date / Time No Known Allergies Allergy Verified 04/28/19 12:21 Home Medications: Home Medication List Medication Instructions Recorded Confirmed Last Taken Type Gabapentin 300 mg PO BID 10/16/18 04/28/19 11/08/18 History Isosorbide Dinitrate 20 mg PO TID #90 tab 11/14/18 04/28/19 Unknown Rx Hydralazine [Apresoline] 100 mg PO Q8HR #90 tab 04/11/19 04/28/19 Unknown Rx Hydrocodone/APAP 10 mg/325 mg 1 ea PO Q8H PRN PRN tab 04/11/19 04/28/19 Unknown Rx [[facility]-10] Quetiapine Fumarate [Seroquel] 100 mg PO QHS 04/17/19 04/28/19 Unknown History Carvedilol [Coreg] 12.5 mg PO BID #120 tab 04/19/19 04/28/19 Unknown Rx Hydrochlorothiazide 25 mg PO DAILY #120 tab 04/19/19 04/28/19 Unknown Rx Insulin Humulin 70/30 [Humulin 50 unit SUBQ QAM #1 insuln.pen 04/19/19 04/28/19 Unknown Rx 70/30] Insulin NPH Hum/Reg Insulin Hm 40 unit SQ QPM #1 insuln.pen 04/19/19 04/28/19 Unknown Rx [Humulin 70/30 Kwikpen] Sodium Bicarbonate 1,300 mg PO BID #120 tab 04/19/19 04/28/19 Unknown Rx Torsemide 20 mg PO DAILY #60 tab 04/19/19 04/28/19 Unknown Rx Ferrous Sulfate 325 mg PO BID #120 tab 04/26/19 04/28/19 Unknown Rx Linezolid [Zyvox] 600 mg PO Q12HR #14 tab 04/26/19 04/28/19 Unknown Rx Omeprazole [Prilosec] 20 mg PO BID #60 cap 04/26/19 04/28/19 Unknown Rx Polyethylene Glycol 3350 [Miralax] 17 gm PO BID #60 powder, packet 04/26/19 04/28/19 Unknown Rx Sodium Zirconium Powder Pkt 10 gm PO DAILY #30 packet 04/26/19 04/28/19 Unknown Rx [Lokelma Powder Packet] - History of Present Illness -Gen Adult Nature of Presenting Problems: pt is a 38 yobm c/o edema, low back, fatigue, chills, weakness, n/v, and abd pain worse on left side upoin waking this am. pt has hx of dm, htn and is noncompliant to taking fluid pill and insulin, sts is unsure what to take but is complaint to taking htn rx. pt was d/c last wk from hospital. pt has not checked fsbs. pt had BM normal relief captain. rn sts pt is an IV drug user. Dr. Rose is pt's pcp. Location of Pain/Injury: reports: abdomen, back Pain Radiation: reports: no radiation Severity: reports: mild Onset/Duration: reports: this morning Timing: reports: still present Context/Activities at Onset: reports: none Modifying Factors: improves with: nothing Associated Symptoms: reports: back/neck pain, fatigue, fever/chills (chills), nausea, vomiting, weakness, other (abd pain, edema) Recently seen or treated by another doctor?: Yes (d/c last week ) Review of Systems - Adult - REVIEW OF SYSTEMS - ADULT Constitutional: reports: see HPI, chills, fatique. denies: fever, night sweats Eyes: reports: no symptoms reported Ears, Nose, Mouth & Throat: reports: no symptoms reported Cardiovascular: reports: see HPI, edema. denies: heart murmur, irregular heart rate, orthopnea Respiratory: reports: no symptoms reported Gastrointestinal: reports: see HPI, abdominal pain, nausea, vomiting. denies: diarrhea, difficulty swallowing, rectal bleeding Genitourinary: reports: no symptoms reported Musculoskeletal: reports: see HPI, back pain, muscle weakness. denies: frequent leg cramps, joint pain Integumentary: reports: no symptoms reported Neurological: reports: no symptoms reported Psychiatric: reports: no symptoms reported Endocrine: reports: no symptoms reported Hematologic/Lymphatic: reports: no symptoms reported Allergic/Immunologic: reports: no symptoms reported All Other Systems: Reviewed and Negative Past History - Adult - PAST MEDICAL HISTORY-ADULT Review of Records: reports: Nursing Assessment Review, Medications Reviewed, Social history reviewed & non-contributory. Major Childhood Illnesses: reports: denies history Cardiovascular: reports: HTN, hyperlipidemia Respiratory: reports: denies history Gastrointestinal: reports: denies history Obstetrical/Gynecological: reports: denies history Genitourinary: reports: denies history Musculoskeletal: reports: denies history Neurological: reports: Seizures/Epilepsy Psychiatric: reports: denies history Endocrine/Immune: reports: Diabetes Other Conditions: reports: other (neuropathy) - PRIOR SURGERIES/PROCEDURES Surgical/Procedure History: reports: appendectomy - IMMUNIZATION STATUS Childhood Immunizations: See Nurse Assessment Flu Vaccine: See Nurse Assessment - FAMILY HISTORY Family History: diabetes - SOCIAL HISTORY Smoking: cigarettes, greater than 1 pack/day Provider spent 3-5 mins advising pt. on dangers of tobacco.: Discussed manners to quit use, and f/u contacts for add'l counseling. Substance Use: other (hx of IV drug use) Physical Exam-General - PHYSICAL EXAM-ADULT Initial Vital Signs Reviewed: Yes - CONSTITUTIONAL General Appearance: alert, mild distress. negative: lethargic, slow to respond, obtunded - EYES Eyes: PERRL/EOMI, other (bilat eyelids puffy) - HEAD, EARS, NOSE, MOUTH & THROAT HENMT: normocephalic/atraumatic, moist mucous membranes - NECK Neck: non-tender, full range of motion, supple, normal inspection - RESPIRATORY Respiratory: chest non-tender, lungs clear, normal breath sounds - CARDIOVASCULAR Cardiovascular: normal peripheral pulses, no edema, no gallop, no JVD, tachycardia, systolic murmur (3/6). negative: regular rate, rhythm, no murmur, bradycardia, diastolic murmur, irregularly irregular - GASTROINTESTINAL (ABDOMEN) Abdominal Exam: normal bowel sounds, no organomegaly, no pulsatile mass, diste nded (mild), tenderness (general abd tenderness, worse on left side than right). negative: non tender, soft - MUSCULOSKELETAL Back Exam: normal inspection Extremity: normal range of motion, non-tender, no calf tenderness, normal capillary refill, pelvis stable, swelling (bilat LE edema). negative: normal inspection - SKIN Integumentary: normal color, normal turgor, warm/dry - NEUROLOGIC Neurologic: grossly normal, no motor/sensory deficits - PSYCHIATRIC Psych/Mental Status: normal mood/affect, normal thought content, normal thought process, oriented x 3 Progress - PLAN OF CARE/RESULTS Progress/Plan/Lab Results: Vital Signs - 8 hr 04/28/19 11:13 Temperature 98.1 F Pulse Rate 112 H Respiratory Rate 22 Blood Pressure 194/83 O2 Sat by Pulse Oximetry 97 Laboratory Results - last 24 hr 04/28/19 12:01 POC Glucose 223 H Orders Category Date Time Status Cardiac Monitoring DIRECTED Care 04/28/19 12:02 Active Saline Loc NOW Care 04/28/19 12:03 Active NPO Diet 04/28/19 12:03 Active CHEST-PORTABLE [RAD] Stat Exams 04/28/19 12:[address] ABDOMEN/PELVIS W/O CONTRAST [CT] Stat Exams 04/28/19 12:04 Ordered ABG [RESP] Routine Lab 04/28/19 12:03 Ordered ACETONE SERUM [CHEM] Stat Lab 04/28/19 12:03 Ordered AMMONIA [CHEM] Stat Lab 04/28/19 12:03 Uncollected BLOOD CULTURE [BLDCUL] Stat Lab 04/28/19 12:03 Ordered COMPREHENSIVE METABOLIC PANEL [CHEM] Stat Lab 04/28/19 12:03 Ordered FREE T4 Stat Lab 04/28/19 12:03 Uncollected INFLUENZA SCREEN A/B Stat Lab 04/28/19 12:03 Uncollected LACTATE, PLASMA [CHEM] Stat Lab 04/28/19 12:03 Uncollected MAGNESIUM [CHEM] Stat Lab 04/28/19 12:03 Uncollected PRO B-NATRIURETIC PEPTIDE Stat Lab 04/28/19 12:03 Uncollected TROPONIN T HIGH SENSITIVITY Stat Lab 04/28/19 12:03 Uncollected URINALYSIS W/POSS RFLX CULT [URINALYSIS] Stat Lab 04/28/19 12:04 Uncollected URINE DRUG SCREEN Stat Lab 04/28/19 12:04 Uncollected EKG [EKG] Stat Ther 04/28/19 12:03 Ordered Result Diagrams: 04/28/19 12:10 - EKG 1 Time of EKG reading by physician:: 11:37 EKG Read and Signed by:: Soy Mcfarlane EKG Interpretation (*Must complete 3 of following elements*): Normal Rate: 106 Rhythm: [facility] [place]: normal QRS: normal OK Interval: normal ST Wave: normal - XRAY 1 XRAY Study: Chest Impression: Abnormal, See EMR Report (CHEST-PORTABLE - 04/28/2019 INDICATION: ABD PAIN COMPARISON: 04/21/2019 FINDINGS: Stable cardiomegaly and pulmonary vascular congestion. Stable ill-defined hazy infiltrates/pulmonary edema in the lung bases. No large pleural effusion. IMPRESSION: Cardiomegaly and pulmonary edema. Electronically signed by Joseph Lawrence 04/28/2019 12:47 PM 04/28/19 1247 Interpreting Physician: Joseph Lawrence MD Dictated Date/Time: 04/28/19 1246 cc: Soy Mcfarlane MD; Jesus Corona MD) - CONSULTS/PCP/HOSPITALIST Notification #1 *Consult/PCP/Hospitalist*: Nichelle Time Discussed: 15:26 Consult Disposition: Admit Departure - Departure Date of Disposition Decision: 04/28/19 Time of Disposition Decision: 15:58 DIAGNOSIS: Non-STEMI (non-ST elevated myocardial infarction), Hyperkalemia, Anasarca Hypothyroid Qualifiers: Hypothyroidism type: unspecified Qualified Code(s): E03.9 - Hypothyroidism, unspecified Fluid overload Qualifiers: Hypervolemia type: unspecified Qualified Code(s): E87.70 - Fluid overload, unspecified Pulmonary edema Qualifiers: Chronicity: acute Qualified Code(s): J81.0 - Acute pulmonary edema Disposition: ADMITTED INPATIENT 09 Certified Medical Emergency: Emergent Condition: Stable Referrals and Follow-Ups: Jesus Corona MD [Primary Care Provider] - - Critical Care Note This patient required my direct & personal management of CC.: No Attestation - Physician/ DUANE Attestation Patient care was provided by Advanced Practice Provider:: No The physician spent face to face time with patient:: Yes Advanced Practice Provider documentation review:: Supervising physician onsite and consulted in the evaluation and care of this patient. The physician did have a face to face encounter with the patient. This chart was documented by the indicated scribe, (Catarina Stern Scribe) and accurately reflects the services I performed and decisions made by me, Soy Mcfarlane MD, as attested by the provider's signature.
[2019-04-28] MEDS ORDERED: ZOFRAN IV PRN (16:04)
[2019-04-28] MEDS ORDERED: BUMEX IV SCH ×2 (16:06→18:00)
[2019-04-28] MEDS ORDERED: HYDROCHLOROTHIAZIDE PO SCH (16:15)
[2019-04-28] MEDS ORDERED: TYLENOL PO PRN (17:36)
[2019-04-28] MEDS: LOKELMA POWDER PACKET PO SCH (17:55)
[2019-04-28] MEDS: HEPARIN SUBQ SCH ×2 (17:55→23:35)
[2019-04-28] MEDS: ULTRAM PO PRN (18:22)
--- NOTE | 2019-04-28 20:30 | HISTORY AND PHYSICAL ---
CHIEF COMPLAINT: Edema, left side pain. HISTORY OF PRESENT ILLNESS: The patient is a 38-year-old male with history of nonischemic cardiomyopathy, diastolic heart failure, poorly controlled diabetes, CKD 3-4, gastroparesis and medical noncompliance. Recently discharged from here on the with volume overload and chronic foot ulcers. He reports that he has had continued dyspnea and reports left flank, chest wall, abdomen and back pain, essentially his whole left side. He states that he has been compliant with his medications at this time, but on review of his discharge medications versus what he says he is taking, he said he was taking Lasix 40 but he appears to have been discharged on torsemide 20, so I have my doubts as to his actual compliance at home. Initial workup was unremarkable for a cause of his pain. It appears to be a largely chronic complaint. Chest x-ray showed stable cardiomegaly and edema, but no acute process. No fracture, pneumonia or other issue. CT abdomen and pelvis again showed pretty significant body wall edema and small amount of ascites, but no acute abnormality. The patient denies fever or chills. Denied illicit drug use. Denied nausea, vomiting or diarrhea. REVIEW OF SYSTEMS: Twelve-point review of systems negative except as per interval history. ALLERGIES: No known drug allergies. PAST MEDICAL HISTORY: Diabetes, diastolic congestive heart failure, CKD 3-4, anemia of chronic disease, hypertension, diabetic neuropathy, diabetic foot ulcers, medical noncompliance, gastroparesis, chronic hyperkalemia, mild pulmonary hypertension. PAST SURGICAL HISTORY: Appendectomy, tonsillectomy, finger amputation x2. SOCIAL HISTORY: Tobacco use. The patient denies alcohol or illicit drug use. FAMILY HISTORY: Hypertension and diabetes in numerous family members. LABORATORY DATA: Sodium 131, potassium 5.9, bicarbonate 18, BUN 62, creatinine 3.3, glucose 225, alkaline phosphatase 278, bilirubin 0.36, AST 29, ALT 37. Troponin 211 up from previous 140 to 170. BNP 23,000, down from previous too high to calculate. Urinalysis with small amount of RBCs and glucose, otherwise unremarkable. UDS with opiates and cannabinoids. Of note, the patient was given morphine in the ER approximately 2 hours prior to his UDS being done. DIAGNOSTIC DATA: Chest x-ray with stable cardiomegaly and pulmonary vascular congestion. CT abdomen and pelvis with severe body wall edema, pulmonary edema, trace effusions, small amount of ascites. PHYSICAL EXAMINATION: VITAL SIGNS: T-max 98.1 degrees, pulse 112, respirations 22, blood pressure 194/83. O2 saturation 97% on room air. GENERAL: No acute distress. HEENT: Normocephalic, atraumatic. Some JVD noted. No cervical adenopathy. CARDIOVASCULAR: Slightly tachycardic but regular. PULMONARY: Some bibasilar crackles, otherwise clear to auscultation. ABDOMEN: Soft, nontender, nondistended. Bowel sounds positive. EXTREMITIES: Pitting edema 3+ bilaterally as well some chronic venous stasis changes. Multiple foot ulcers including left lateral foot, left 1st toe, right 1st toe and right lateral plantar surface. All of these ulcers are dry without drainage or erythema. No obvious sign of infection. Peripheral pulses significantly decreased but present. NEUROLOGIC: Cranial nerves grossly intact. No new focal deficits. PSYCHIATRIC: odd affect with intermittent verbal aggression but appears to be in his right mind. Awake, alert, oriented x3. Largely cooperative currently. ASSESSMENT AND PLAN: 1. Edema, likely mild [id number] diastolic congestive heart failure. The patient still with some volume overload, body wall edema and significant lower extremity edema. Likely a combination of diastolic heart failure and his slowly progressing kidney disease. Unclear whether the patient took any of his diuretics after previous discharge. BNP is down from his most recent but increased from most of the BNP he has had in the past. Chest x-ray with a little bit of edema that is about the same, but saturating well on room air. Volume overload appears largely limited to the periphery. We will diurese fairly aggressively with Bumex 1 intravenously b.i.d. and the hydrochlorothiazide that he is supposed to be on at home. We will see what his response to that is. If he responds briskly, then may be able to discharge home tomorrow. If not, then may have to be here for a bit. 2. Elevated troponin. Patient with chronically elevated troponin, but slightly higher today than what it has been in the past. Not really describing any chest pain. The pain he does describe is on his far left lateral chest, abdomen and back, not consistent with cardiac chest pain. Really only slightly elevated from what he has had in the recent past, so I strongly suspect this is not acute coronary syndrome and is strictly related to his kidney disease and chronic cardiomyopathy. We will keep on aspirin and trend troponin. If it trends up then may need cardiac evaluation, but if it is stable to improved then really no need for further workup at this time. 3. Chronic kidney disease stage 4 versus acute kidney injury on chronic kidney disease stage 3. The patient's creatinine is elevated a little bit above what it has been in the past. He looks to pad pretty steady progression of his kidney disease over the last 2- 3 years, though, so this may just be where he is now. We will monitor closely in the setting of aggressive diuresis, and if it is any worse tomorrow we will get Nephrology to see him. 4. Chronic hyperkalemia. The patient is supposed to be on Lokelma at home. We will go and put him back on that here. Potassium is only mildly elevated, so we will not pursue aggressive measures for that right now. 5. Non-gap acidosis. We will restart patient's home oral bicarbonate and monitor. 6. Diabetes mellitus. We will place on sliding scale insulin and his home 70/30 at slightly reduced dose and monitor closely. 7. Anemia of chronic disease, largely stable. Monitor. 8. Diabetic neuropathy and chronic diabetic foot ulcers. Numerous ulcers as above, but none of them look infected currently. Continue home gabapentin and monitor. He had recent evaluation for this with images and surgery consult, and it was thought that he did not need further workup at this time. 9. Diabetic gastroparesis. No GI complaints currently. We will monitor. 10. Hyponatremia, mild and not significantly different than previous. Monitor, but no need for acute intervention. 11. Medical noncompliance. Patient with long history of noncompliance. Not entirely clear if he was compliant after this most recent hospitalization or not, but will again stress the importance of compliance. 12. Tobacco abuse. The patient was educated on cessation. He did not appear to be amenable to extensive discussion of tobacco cessation at this time. 13. Left side pain. Suspect musculoskeletal issue. No pathology on chest x-ray or CT abdomen and pelvis aside from just generalized edema. Tylenol and tramadol available as needed. [facility]
[2019-04-28] MEDS ORDERED: SEROQUEL PO SCH (21:00)
[2019-04-28] MEDS ORDERED: HUMULIN 70/30 SUBQ SCH (21:00)
[2019-04-28] MEDS: SODIUM BICARBONATE PO SCH (21:28)
[2019-04-28] MEDS: COREG PO SCH (21:28)
[2019-04-28] MEDS: FERROUS SULFATE PO SCH (21:29)
[2019-04-28] MEDS: NEURONTIN PO SCH (21:29)
[2019-04-28] MEDS: APRESOLINE PO SCH (21:29)
[2019-04-28] MEDS: ISORDIL PO SCH (21:29)
[2019-04-28] MEDS: HUMALOG SUBQ SCH (21:30)
[2019-04-29] MEDS ORDERED: D50W SYRINGE IV ONE ×2 (02:35→02:36)
[2019-04-29] MEDS: HEPARIN SUBQ SCH ×2 (04:34→06:32)
[2019-04-29] MEDS: APRESOLINE PO SCH ×2 (04:34→12:54)
[2019-04-29 06:14] LABS: BASO# 0.06 X1000 (0.0-0.2); BASO% 0.5 % (0.0-0.8); EOS# 0.09 X1000 (0.0-0.7); EOS% 0.7 % (0.0-10.0); HEMATOCRIT 21.8 % (42.0-52.0); HEMOGLOBIN 6.7 g/dL (14.0-18.0); IMM GRAN# 0.02 X1000 (0.0-0.04); IMM GRAN% 0.2 % (0.0-0.5); LYMPH# 1.17 X1000 (1.2-3.4); LYMPH% 9.2 % (20.5-51.1); MCH 26.1 PG (27-31); MCHC 30.7 g/dL (33-37); MCV 84.8 FL (81-99); MONO# 0.74 X1000 (0.11-0.59); MONO% 5.8 % (1.7-9.3); MPV 9.5 FL (7.4-10.4); NEUT# 10.62 X1000 (1.4-6.5); NEUT% 83.6 % (42.2-75.2); PLT 463 X1000 (130-400); RBC 2.57 XMIL (4.7-6.1)
[2019-04-29] MEDS: HUMALOG SUBQ SCH ×2 (06:33→12:09)
[2019-04-29 06:56] LABS: CALCIUM 8.8 mg/dL (8.8-10.2); CREATININE 3.5 mg/dL (0.7-1.2); POTASSIUM 5.7 mmol/L (3.5-5.1)
[2019-04-29 07:05] LABS: EOS 2 % (1-10); LYMPHS 8 % (21-51); MONO 2 % (1-9); SEGS 82 % (42-75)
[2019-04-29] MEDS: ULTRAM PO PRN (08:20)
[2019-04-29] MEDS: SODIUM BICARBONATE PO SCH (08:20)
[2019-04-29] MEDS: LOKELMA POWDER PACKET PO SCH ×2 (08:20→12:54)
[2019-04-29] MEDS: FERROUS SULFATE PO SCH (08:21)
[2019-04-29] MEDS: NEURONTIN PO SCH (08:21)
[2019-04-29] MEDS: ISORDIL PO SCH (08:21)
[2019-04-29] MEDS: COREG PO SCH (08:21)
[2019-04-29] MEDS ORDERED: INSULIN PEN NEEDLES ONE (08:23)
[2019-04-29] MEDS ORDERED: HUMULIN 70/30 SUBQ SCH ×2 (09:00→16:00)
[2019-04-29] MEDS ORDERED: ASPIRIN PO SCH (09:00)
[2019-04-29] MEDS ORDERED: NS 500 ML ONE (09:32)
[2019-04-29] MEDS ORDERED: CARAFATE PO SCH (11:00)
[2019-04-29] MEDS ORDERED: REGLAN IV SCH (11:00)
[2019-04-29] MEDS ORDERED: NORCO-10 PO PRN (11:16)
[2019-04-29] MEDS ORDERED: CORDARONE IV ONE (12:22)
[2019-04-29] MEDS ORDERED: CORDARONE 360 MG/D5W 360 MG/200 ML IV.SOLN IV ONE (12:22)
[2019-04-29 12:46] VITALS: BP 144/86
--- NOTE | 2019-04-29 14:47 | CONSULTATION ---
DATE OF CONSULTATION: 04/29/2019 IMPRESSION: 1. Mild nonspecific elevation in troponin probably related to advanced renal dysfunction and congestive heart failure. 2. Chronic kidney disease stage 4 probably due to diabetic nephropathy with associated volume overload presently. 3. Hypertensive cardiovascular disease. Echocardiography October 2018 reported left ventricular ejection fraction 55% with moderate concentric left hypertrophy. Myocardial perfusion study 10/20/2018 suggested low-grade fixed defect in the apex left ventricle thought to be attenuation artifact. 4. Diabetes mellitus with associated gastroparesis and peripheral neuropathy. 5. Systolic murmur in right upper sternal border probably aortic. This has not been well documented in the past. It may possibly be new. 6. Medical noncompliance. 7. Chronic pain syndrome. Patient has been on oral narcotics chronically. 8. Chronic diabetic foot ulcers. 9. Chronic smoking history. 10. Somewhat pleuritic left flank discomfort of unclear etiology. 11. Polysubstance abuse with use of cannabis suggested by urine drug screen. RECOMMENDATIONS: 1. Echocardiography. 2. Repeat blood cultures. 3. Diuresis to remove volume. 4. Patient counseled at length regarding need for compliance with medical care and medical recommendations as well as with smoking cessation. HISTORY: This 38-year-old male with past history of diabetes mellitus with associated gastroparesis, diabetic peripheral neuropathy, chronic kidney disease related to diabetic nephropathy, hypertensive cardiovascular disease, chronic cigarette use, chronic pain disorder was admitted with complaints of progressive swelling and shortness of breath as well as left flank pain which is pleuritic. He manifests evidence of severe volume overload. Troponin was slightly elevated in nonspecific range. For this reason, Cardiology was consulted. He has history of noncompliance. It is not clear if he was taking his diuretic therapy since last hospitalization earlier this month. He denies any chest pain. Does report progressive swelling including scrotal edema and increased abdominal girth as well as shortness of breath. He had previous noninvasive cardiac evaluation in October 2018 which demonstrated the above results. PAST MEDICAL HISTORY: 1. Diabetes mellitus. 2. Chronic kidney disease stage 4. 3. Diabetic neuropathy. 4. Gastroparesis. 5. Diabetic foot ulcers. 6. Medical noncompliance. 7. Hypertensive cardiovascular disease with left hypertrophy. PAST SURGICAL HISTORY: Includes appendectomy, tonsillectomy and finger tip amputation due to trauma. ALLERGIES: No known drug allergies. MEDICATIONS PRIOR TO ADMISSION: As listed. SOCIAL HISTORY: He smokes cigarettes chronically. He denies smoking marijuana. He denies alcohol use or recreational drug use. FAMILY HISTORY: Positive for hypertension, diabetes mellitus. REVIEW OF SYSTEMS: Pulmonary: Noteworthy for dyspnea. Gastrointestinal: Noteworthy for recurrent nausea and vomiting and gastroparesis. Constitutional: Negative for fever but he believes he may have had some chills. Remainder of review of systems negative/noncontributory with 14 total systems reviewed. PHYSICAL EXAMINATION: General: This is a chronically ill-appearing adult male in no acute distress. Vital signs: Blood pressure 116/80, heart rate 78, oxygen saturation 98% on room air. HEENT: Extraocular movements appear intact. Mucous membranes are moist. Neck: Supple. Jugular venous distention suggests elevated central venous pressure. Chest: Auscultation of the chest reveals diminished breath sounds in the bases bilaterally. No rales could be appreciated. Cardiac Exam: Reveals a regular rate and rhythm with a grade 2/6 systolic murmur at the right upper sternal border and also heard at the apex. Gallop could not be appreciated. Abdomen: Distended. Bowel sounds audible. Extremities: Demonstrate 3+ pitting edema. Neurologic: Reveals to be alert and fully oriented. Speech is fluent. Moves all 4 extremities equally well. LABORATORY DATA: Includes a white blood cell count 12.7, hematocrit 21.8, hemoglobin 6.7, platelet count 463,000. Sodium 136, potassium 5.7, chloride 104, carbon dioxide 18, BUN 66, creatinine 3.5. Glucose 119. Initial troponin T 221 with followup troponin Ts at 211 and 203. Urine drug screen positive for opiates and cannabinoids. cc: Tre Christopher MD
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
[2019-04-29] MEDS ORDERED: CORDARONE 540 MG in D5W 289.2 ML IV ONE (18:22)
[2019-04-30] MEDS ORDERED: HUMULIN 70/30 SUBQ SCH (07:00)
[2019-04-30] MEDS ORDERED: NOVOLOG MIX 70/30 SUBQ SCH (07:00)
== END 2019-04-29 15:29 | disposition left against medical advice (07) | DRG 291 ==
LOC: ED 11:07 → 2N 11:07 → OBSVTOIN 17:02 → 1N 04-29 13:21
PROVIDERS: ATTEND Internal Medicine

== ENCOUNTER 2019-05-03 17:38 | Inpatient (IN) ==
--- NOTE | 2019-05-03 18:28 | Diag Imaging Result Doc PS360 ---
EXAM: CHEST-2 VIEWS - 05/03/2019 HISTORY: SOB/CP TECHNIQUE: Chest two views COMPARISON: 04/29/2019 FINDINGS: There is stable cardiomegaly. The previously identified left midlung nodule appears stable to decreased in size. There is right lower lung ill-defined infiltrate which is increased. There is a possible tiny right pleural effusion. There is no evidence of pneumothorax. IMPRESSION: Stable cardiomegaly. Ill-defined right lower lung infiltrate. Electronically signed by Chaka Amato 05/03/2019 6:25 PM
[2019-05-03 18:34] LABS: BASO# 0.15 X1000 (0.0-0.2); BASO% 0.7 % (0.0-0.8); EOS# 0.02 X1000 (0.0-0.7); EOS% 0.1 % (0.0-10.0); HEMOGLOBIN 7.3 g/dL (14.0-18.0); IMM GRAN# 0.19 X1000 (0.0-0.04); IMM GRAN% 0.9 % (0.0-0.5); LYMPH# 2.02 X1000 (1.2-3.4); LYMPH% 9.6 % (20.5-51.1); MCH 25.9 PG (27-31); MCHC 31.7 g/dL (33-37); MCV 81.6 FL (81-99); MONO# 1.51 X1000 (0.11-0.59); MONO% 7.2 % (1.7-9.3); MPV 9.5 FL (7.4-10.4); NEUT# 17.14 X1000 (1.4-6.5); NEUT% 81.5 % (42.2-75.2); PLT 469 X1000 (130-400); RBC 2.82 XMIL (4.7-6.1); RDW 21.4 % (11.5-14.5); WBC 21.03 X1000 (4.8-10.8)
[2019-05-03 18:37] LABS: INR 1.22; PROTIME 15.6 Seconds (11.0-16.0)
[2019-05-03 18:38] LABS: PTT 41.3 Seconds (22.3-41.8)
[2019-05-03 18:52] LABS: ALB/GLOB RATIO 0.9; ALBUMIN 3.2 g/dL (3.5-5.0); CALCIUM 8.8 mg/dL (8.8-10.2); CREATININE 3.4 mg/dL (0.7-1.2); POTASSIUM 5.2 mmol/L (3.5-5.1); TOTAL BILIRUBIN 0.47 mg/dL (0.20-1.00); TOTAL PROTEIN 6.6 g/dL (6.3-8.3)
[2019-05-03 19:09] LABS: CK INDEX 1.2 (0.0-2.5); CK-MB 9.65 ng/mL (0.0-5.0)
--- NOTE | 2019-05-03 20:43 | EKG Report ---
Test Performed on : 05/03/2019 6:15:15 PM Test Reason : SOB Blood Pressure : / mmHG Vent. Rate : 111 BPM Atrial Rate : 111 BPM P-R Int : 136 ms QRS Dur : 080 ms QT Int : 334 ms P-R-T Axes : 057 012 054 degrees QTc Int : 454 ms Sinus tachycardia. Possible Left atrial enlargement Borderline ECG When compared with ECG of 29-APR-2019 21:05, (Unconfirmed) No significant change was found Unconfirmed Result
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
[2019-05-03] MEDS ORDERED: LASIX IV ONE (22:09)
[2019-05-03] MEDS ORDERED: NITROGLYCERIN TOP ONE (22:09)
[2019-05-04 00:21] LABS: URINE SOURCE CLEAN CATCH
[2019-05-04 00:23] LABS: BILIRUBIN URINE NEGATIVE (NEGATIVE); BLOOD URINE SMALL (NEGATIVE); COLOR YELLOW; GLUCOSE URINE 300 mg/dL (NEGATIVE); KETONE URINE NEGATIVE (NEGATIVE); LEUKOCYTES URINE NEGATIVE (NEGATIVE); NITRITE URINE NEGATIVE (NEGATIVE); PH URINE 6.5; PROTEIN URINE 600 mg/dL (NEGATIVE); SP GRAVITY URINE 1.015; TURBIDITY URINE CLEAR (CLEAR); UROBILINOGEN URINE NORMAL (NORMAL)
[2019-05-04 00:24] LABS: UR EPITHELIAL CELLS <10 /HPF (<10); URINE BACTERIA NEGATIVE /HPF; URINE RBC <10 /HPF (<10); URINE WBC <10 /HPF (<10)
[2019-05-04] MEDS ORDERED: ZOSYN 3.375 GM in NS 50 ML IV SCH (00:24)
[2019-05-04] MEDS ORDERED: VANCOMYCIN IV PER PHARMACY MISC SCH (00:24)
[2019-05-04] MEDS ORDERED: DILAUDID IV ONE (00:44)
[2019-05-04 00:52] LABS: UR AMPHETAMINES QUAL NONE DETECTED (NONE DETECT); UR BARBITUATES QUAL NONE DETECTED (NONE DETECT); UR BENZODIAZEPIN QUAL NONE DETECTED (NONE DETECT); UR CANNABINOIDS QUAL PRESUMPTIVE POSITIVE (NONE DETECT); UR COCAINE QUAL NONE DETECTED (NONE DETECT); UR METHADONE QUAL NONE DETECTED (NONE DETECT); UR OPIATES QUAL PRESUMPTIVE POSITIVE (NONE DETECT); UR OXYCODONE QUAL NONE DETECTED (NONE DETECT); UR PCP QUAL NONE DETECTED (NONE DETECT)
[2019-05-04] MEDS: NORCO-10 PO PRN ×3 (00:54→21:07)
--- NOTE | 2019-05-04 01:03 | HISTORY AND PHYSICAL ---
PRIMARY CARE PHYSICIAN: Dr. Jesus Corona. CHIEF COMPLAINT: Shortness of breath and not feeling well. HISTORY OF PRESENTING ILLNESS: A 38-year-old male with a history of diabetes mellitus type 2, CHF, chronic kidney disease stage 4, who had presented to emergency department with several days history of having worsening shortness of breath. The patient states that he was having difficulty breathing and not feeling well. He states that he may had some fevers and chills earlier in the week. He was evaluated in the emergency department. He had imaging done which did show possible opacity in the right lower lobe. Due to his presenting symptoms, it was thought that he would need admission for further management. At the time of my examination, he denied any headache, nausea, vomiting, diarrhea, hemoptysis, melena, but complained of possible fever, chills and shortness of breath. PAST MEDICAL HISTORY: Includes diabetes mellitus type 2, CHF, chronic kidney disease stage 4. PAST SURGICAL HISTORY: Appendectomy, right 3rd partial amputation of his finger. ALLERGIES: No known drug allergies. CURRENT MEDICATIONS: Carvedilol 12.5 mg p.o. b.i.d., ferrous sulfate 325 mg p.o. b.i.d., gabapentin 300 mg p.o. b.i.d., hydralazine 100 mg p.o. q.8 hours, hydrochlorothiazide 25 mg p.o. daily, [place] 10 one p.o. q.8 hours, Humulin 70/30 of 50 units subcutaneous q.a.m., isosorbide dinitrate 20 mg p.o. t.i.d., Zyvox 600 mg p.o. q.12 hours, omeprazole 20 mg p.o. b.i.d., quetiapine 100 mg p.o. at bedtime, torsemide 20 mg p.o. daily. SOCIAL HISTORY: Ten pack years history of smoking. He denies any history of alcohol or illicit drug use. FAMILY HISTORY: Positive for coronary artery disease in mother. REVIEW OF SYSTEMS: Fourteen point review of systems is as listed in HPI. Other systems negative. PHYSICAL EXAMINATION: GENERAL: Cooperative, friendly male. He is resting more comfortably now. VITAL SIGNS: Temperature 98.1 degrees, pulse 119, respirations 20, blood pressure 206/94. HEENT: Atraumatic, normocephalic. Extraocular movements intact. PERRLA. NECK: No masses. CHEST: Rhonchi. CARDIOVASCULAR: Regular rate and rhythm. ABDOMEN: Soft. Positive bowel sounds. EXTREMITIES: Trace edema. There are also some bilateral plantar aspects of his great toe. GENITOURINARY: No bladder distention. SKIN: Warm. LABORATORIES AND STUDIES: Sodium 135, potassium 5.2, chloride 101, CO2 is 18, BUN is 81, creatinine is 3.4, glucose 213. Troponin is 202. ProBNP is 35,000. WBCs 21.03, hemoglobin 7.3, hematocrit 23.0, platelets 469,000. ASSESSMENT: This is a 38-year-old male with a history of diabetes mellitus type 2, congestive heart failure, chronic kidney disease stage 4, who had presented to emergency department with worsening shortness of breath for the past several days. He was evaluated in the emergency department and he had imaging done which did show possibility of pneumonia. Subsequently, he will require admission for further management. 1. Probable pneumonia. 2. Elevated troponin in setting of renal failure. 3. Chronic kidney disease stage IV. 4. Congestive heart failure. 5. Anemia, unspecified. 6. Diabetes mellitus type 2. 7. Bilateral ulcers on feet. PLAN: 1. We will admit patient to medical floor. 2. We will check blood cultures. Start patient on IV antibiotics. 3. We will trend troponins and consult Cardiology. 4. We will consult Nephrology for evaluation of renal function. 5. Continue with diuresis with Lasix. 6. We will monitor blood glucose. Put patient on sliding scale insulin regimen. 7. We will consult Wound Care to address his ulcers on his feet. 8. We will hold anticoagulation for now due to patient being anemic. 9. We will continue to follow, reassess and make further recommendation based on patient's clinical course. cc: Colin Pond MD
[2019-05-04] MEDS: HUMULIN R SUBQ SCH ×2 (02:12→06:05)
[2019-05-04] MEDS ORDERED: VANCOMYCIN IV ONE (03:00)
[2019-05-04] MEDS ORDERED: NS IV ONE (03:00)
[2019-05-04] MEDS ORDERED: MORPHINE IV ONE (05:05)
[2019-05-04] MEDS: APRESOLINE PO SCH ×3 (05:50→21:07)
[2019-05-04] MEDS: COREG PO SCH ×2 (08:30→21:07)
[2019-05-04] MEDS: NEURONTIN PO SCH ×2 (08:30→21:07)
[2019-05-04] MEDS: ISORDIL PO SCH ×3 (08:30→21:07)
[2019-05-04] MEDS: ZOSYN 2.25 GM in NS 50 ML IV SCH ×3 (08:32→21:06)
[2019-05-04] MEDS: LASIX IV SCH ×2 (09:16→21:07)
[2019-05-04] MEDS ORDERED: ZAROXOLYN PO ONE (09:41)
[2019-05-04] MEDS: MIRALAX PO SCH ×2 (10:36→21:17)
[2019-05-04] MEDS: LACTULOSE PO SCH ×2 (10:40→21:17)
[2019-05-04] MEDS: DULCOLAX PR SCH ×2 (10:41→21:17)
[2019-05-04] MEDS: MORPHINE IV PRN ×3 (10:41→23:19)
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
[2019-05-04] MEDS: HUMALOG SUBQ SCH ×3 (12:15→21:21)
[2019-05-04 13:20] LABS: CK INDEX 1.4 (0.0-2.5); CK-MB 9.45 ng/mL (0.0-5.0)
[2019-05-04] MEDS: MAALOX PLUS LIQUID PO PRN (14:39)
--- NOTE | 2019-05-04 16:16 | NEPHROLOGY CONSULTATION ---
DATE: 05/04/2019 REASON FOR ADMISSION: Shortness of breath, pneumonia and CHF. REASON FOR CONSULTATION: CKD stage 4. CONSULTING PHYSICIAN: Dr. Pond. HISTORY OF PRESENT ILLNESS: This is a 38-year-old gentleman who recently was discharged from the hospital with fluid volume management issues along with chronic kidney disease. At that time his creatinine was 3.7. He came into the emergency room last night after several days of worsening breathing, shortness of breath. Some subjective fever and chills. He had imaging which showed possible opacity in the right lower lobe. He was admitted for further workup and treatment. When I see him he is demanding that dialysis be initiated to "fix all of his problems." He is upset. He has a headache and states that his kidneys are "killing me." Labs on admission with a creatinine of 3.4. PAST MEDICAL HISTORY: Diabetes, CHF, CKD stage 4. SURGICAL HISTORY: Appendectomy, right partial 3rd amputation of a finger. ALLERGIES: None. HOME MEDICATIONS: Listed as carvedilol, ferrous sulfide, gabapentin, hydralazine, hydrochlorothiazide, [place], Humulin, isosorbide, Zyvox, omeprazole, quetiapine, torsemide. FAMILY HISTORY: Coronary artery disease. SOCIAL HISTORY: Continues to smoke. No ETOH or illicit drug use. REVIEW OF SYSTEMS: Swelling, shortness of breath,"kidney pain," headache. PHYSICAL EXAMINATION: Vital Signs: Temperature 97.6 degrees, pulse 95, respiratory rate 18, blood pressure 156/85. Intake 600 mL. Output 700 mL. General: This is a middle-aged gentleman sitting up on the side of the bed. He is awake and alert. He appears in mild distress secondary to pain. He complains mainly of a headache at this point. HEENT: Normocephalic, atraumatic. KEON. Conjunctivae are pink. Neck: Supple with trace JVD. Cardiovascular: Regular rate and rhythm. Pulmonary: Clear bilaterally. Abdomen: Soft, with positive bowel sounds. Slightly distended. : Voiding. Extremities: 1 to 2+ edema. Integumentary: Skin is warm and dry. Neurologic: Nonfocal. LAB DATA: Sodium 135, potassium 5.2, CO2 18, BUN 81, creatinine 3.4. Chest x-ray with right lower lobe infiltrate. Hemoglobin 7.3, WBC of 21. ASSESSMENT AND PLAN: 1. Chronic kidney disease stage 4. His renal function is stable from where he was at his last discharge. His current eGFR is 24%. Urine output is adequate. The patient is voiding unclear if everything has been measured. The patient does not meet criteria for dialysis at this time. I explained that to him. I explained that dialysis would not solve all of his problems. I explained that his renal function was stable from discharge and that currently the information we had was that his fluid volume intake and output were fairly equal. Patient is admitted with pneumonia and that can cause significant back pain. The patient denied that he had pneumonia or that was causing his problems. We will check labs again in the morning. We will continue to maximize his current medication regimen and re-evaluate. 2. Pneumonia. He is on Vancomycin and piperacillin tazobactam at appropriate dose for his renal function. No changes are made. 3. Electrolytes, acid-base balance. These are acceptable. 4. Anemia. This is somewhat chronic but we will defer to Primary to follow. 5. Fluid volumes. See above and continue with Lasix. Dictated by OSMAN Mcbride for Victorino Oconnor MD cc: Victorino Oconnor MD
[2019-05-04] MEDS: SANTYL OINT TOP SCH (17:56)
--- NOTE | 2019-05-04 18:14 | CONSULTATION ---
DATE OF CONSULTATION: 05/04/2019 IMPRESSION: 1. Mild nonspecific elevation in troponin, chronic in nature and probably related to advanced renal dysfunction and congestive heart failure. 2. The patient is currently admitted with dyspnea, productive cough, pleuritic chest pain and radiographic evidence of pneumonia, with significant leukocytosis. 3. Chronic kidney disease stage 4, probably due to diabetic nephropathy with associated volume overload presently. 4. Hypertensive cardiovascular disease. Last echocardiographic study 10/2018 reported moderate concentric left ventricular hypertrophy with left ventricular ejection fraction of 55%. Myocardial perfusion study 10/20/2018 suggested low-grade fixed defect in the apex, thought to be attenuation artifact. 5. Diabetes mellitus with associated gastroparesis and peripheral neuropathy. 6. Systolic murmur, right upper sternal border. Probably aortic. Multiple blood cultures obtained the last 3 days have been negative. 7. Medical noncompliance. 8. Chronic pain syndrome. 9. Chronic diabetic foot ulcers. 10. Chronic smoking history. 11. Polysubstance abuse with previous drug screen showing cannabis. HISTORY: This 38-year-old male with past history of chronic kidney disease stage 4, diabetes mellitus with associated gastroparesis, diabetic peripheral neuropathy, hypertensive cardiovascular disease, chronic cigarette use and chronic pain disorder was admitted with complaint of increasing shortness of breath, productive cough with brown sputum and recent fever. He has also had some pleuritic chest pain. He has been found to have radiographic evidence of pneumonia with right lower lung infiltrate. He also has significant leukocytosis. He has had significant increase in dyspnea but nothing that sounds like angina. He describes some sharp chest discomfort that is aggravated by deep breath or cough. Troponins were slightly elevated in nonspecific range, and for this reason Cardiology was consulted. It is noteworthy that he has had 2 admissions earlier this month, and on each occasion his troponins were slightly elevated in nonspecific range. PAST MEDICAL HISTORY: 1. Diabetes mellitus. 2. Chronic kidney disease stage 4. 3. Diabetic neuropathy. 4. Gastroparesis. 5. Diabetic foot ulcer. 6. Hypertensive cardiovascular disease with left ventricular hypertrophy. 7. Diabetic foot ulcers. 8. Medical noncompliance. PAST SURGICAL HISTORY: Includes appendectomy, tonsillectomy and finger tip amputation due to trauma. ALLERGIES: No known drug allergies. MEDICATIONS: Prior to admission as listed. SOCIAL HISTORY: He smokes cigarettes. He denies alcohol use. He denies smoking marijuana, although previous drug screens have demonstrated cannabis. FAMILY HISTORY: Positive for hypertension and diabetes mellitus. REVIEW OF SYSTEMS: Pulmonary noteworthy for dyspnea and cough productive of brown sputum. Gastrointestinal noteworthy for nausea, vomiting and gastroparesis.Constitutional: Negative for fever. Remainder of review of systems negative/noncontributory, with 14 total systems reviewed. PHYSICAL EXAMINATION: Physical exam reveals a chronically ill-appearing, adult -[place] male who appears older than stated age, in no distress on room air. Blood pressure 173/90, heart rate 89, oxygen saturation 100%.HEENT: Extraocular movements appear intact. Mucous membranes are moist. Neck is supple, with prominent jugular distention suggesting significantly elevated central venous pressure. Auscultation of the chest reveals a few crackles in the bases bilaterally. Cardiac exam reveals a regular rate and rhythm, with a grade 1/6 to 2/6 systolic murmur at the right upper sternal border. Also heard at the apex. No gallop could be appreciated. Abdomen is soft. Bowel sounds audible. Extremities demonstrate 3+ pitting edema. Neurologic exam reveals him to be alert and fully oriented. Speech is fluent. He moves all 4 extremities equally well. LABORATORY DATA: Includes a white blood cell count of 21.03, hematocrit 23.0, hemoglobin 7.3, platelet count 469,000. Pro time 15.6, INR 1.22, PTT 41.3. Sodium 135, potassium 5.2, chloride 101, carbon dioxide 18, BUN 81, creatinine 3.4. Estimated GFR 24. Glucose 213, AST 52, ALT 46. CPK 778 with CPK MB of 9.65 (CK index 1.2). Followup CPK 665. Initial troponin T high- sensitivity 172, with followup troponin T high-sensitivity 170. Urine drug screen positive for opiates and cannabis. DIAGNOSTIC DATA: Twelve-lead EKG demonstrates sinus tachycardia, left atrial abnormality and nonspecific T-wave abnormality. cc: Tre Christopher MD
[2019-05-04] MEDS: SEROQUEL PO SCH (21:07)
[2019-05-05] MEDS: ZOSYN 2.25 GM in NS 50 ML IV SCH ×4 (03:20→20:42)
[2019-05-05] MEDS: APRESOLINE PO SCH ×3 (05:28→20:41)
[2019-05-05] MEDS: MORPHINE IV PRN ×4 (05:28→23:55)
[2019-05-05] MEDS: HUMALOG SUBQ SCH ×4 (06:13→21:44)
[2019-05-05 06:23] LABS: BASO# 0.07 X1000 (0.0-0.2); BASO% 0.5 % (0.0-0.8); EOS# 0.18 X1000 (0.0-0.7); EOS% 1.2 % (0.0-10.0); HEMATOCRIT 24.2 % (42.0-52.0); HEMOGLOBIN 7.5 g/dL (14.0-18.0); IMM GRAN# 0.12 X1000 (0.0-0.04); IMM GRAN% 0.8 % (0.0-0.5); LYMPH# 2.26 X1000 (1.2-3.4); LYMPH% 14.9 % (20.5-51.1); MCH 25.7 PG (27-31); MCV 82.9 FL (81-99); MONO# 0.96 X1000 (0.11-0.59); MONO% 6.3 % (1.7-9.3); MPV 9.7 FL (7.4-10.4); NEUT# 11.53 X1000 (1.4-6.5); NEUT% 76.3 % (42.2-75.2); PLT 431 X1000 (130-400); RBC 2.92 XMIL (4.7-6.1); RDW 21.5 % (11.5-14.5); WBC 15.12 X1000 (4.8-10.8)
[2019-05-05 06:35] LABS: CALCIUM 7.8 mg/dL (8.8-10.2); CREATININE 3.3 mg/dL (0.7-1.2); POTASSIUM 4.7 mmol/L (3.5-5.1)
[2019-05-05 08:09] LABS: BANDS 2 % (0-1); EOS 1 % (1-10); LYMPHS 19 % (21-51); MONO 1 % (1-9); NRBC 1 % (0-0); SEGS 77 % (42-75)
[2019-05-05 08:10] LABS: ANISOCYTOSIS 3+; HYPOCHROM OCCASIONAL
[2019-05-05] MEDS: MIRALAX PO SCH ×2 (08:29→20:51)
[2019-05-05] MEDS: NEURONTIN PO SCH ×2 (08:32→20:42)
[2019-05-05] MEDS: FERROUS SULFATE PO SCH (08:33)
[2019-05-05] MEDS: ISORDIL PO SCH ×3 (08:33→20:41)
[2019-05-05] MEDS: COREG PO SCH ×2 (08:33→20:41)
[2019-05-05] MEDS: DULCOLAX PR SCH ×2 (08:33→20:51)
[2019-05-05] MEDS: LACTULOSE PO SCH ×2 (08:34→20:51)
[2019-05-05] MEDS: SANTYL OINT TOP SCH ×2 (08:34→08:35)
[2019-05-05] MEDS: LASIX IV SCH ×2 (11:23→20:41)
--- NOTE | 2019-05-05 13:01 | PROGRESS NOTE ---
DATE: 05/05/2019 INTERVAL HISTORY: No acute events overnight. Mr. Campoverde was noncooperative with the nursing staff and had an argument with the nursing and care provider staff at nighttime for which security had to be called in. In the morning time when I saw him, he was not in the room and he was in the bathroom and there was a smell of smoke coming out. I had to wait until 15 to 20 minutes to go in. I saw him sitting in the chair. When I ask him about how he was doing he started complaining about him not getting morphine in time. SUBJECTIVE: He denies any chest pain. He states his shortness of breath is better. He complains of cough, sputum culture yet to be collected. He states he is making a good amount of urine, though input and output is not charted appropriately. He states he may be peeing and flushing actually. VITALS: Temperature of 98.3 degrees, pulse 94, respiratory rate 12, blood pressure 179/86, saturating 100% on room air. PHYSICAL EXAMINATION: HEENT: Oral cavity is moist. Respiratory: He has decreased air entry, with inspiratory crackles in bilateral infrascapular region, more pronounced on the right. S1, S2 normal. No murmur or gallop. Abdomen: Distended. Soft. Generalized tenderness. Dull to percussion bilateral flanks. Extremities: He has extreme edema of bilateral lower extremities extending up to the thigh. He had multiple ulcers of the soles of the feet. Neurologic: He is alert and oriented x3. FLUID BALANCE: Input and output suggests positive 600 mL yesterday. DIAGNOSTIC DATA: Labs suggestive of improving leukocytosis of 15,000, normocytic anemia with hemoglobin of 7.5, platelets 431,000. Sodium of 131, potassium of 4.7. His carbon dioxide improved to 22. He has increasing BUN. Creatinine is stable at 3.3, blood glucose of 179. MICROBIOLOGY: No positive data. RADIOLOGY: No new imaging. ASSESSMENT AND PLAN: 1. Sepsis due to Right lower lobe pneumonia. Continue intravenous vancomycin and intravenous Zosyn. Follow up sputum culture results. His leukocytosis has been improving. 2. Acute on chronic heart failure with preserved ejection fraction due to medication and dietary noncompliance. Continue carvedilol, hydralazine, and isosorbide, and increase the frequency and dose of intravenous Lasix to 60 mg IV every 8 hours. 3. History of insulin-dependent diabetes mellitus and bilateral leg wounds due to diabetic peripheral neuropathy. Add insulin NPH 70/30 at low dose. Continue sliding scale insulin. Topical Santyl ointment for his wounds, and gabapentin for peripheral neuropathy. 4. Chronic pain disorder. Continue home [place] and intravenous morphine. I had a clear discussion with him about the fact that I would not increase either dose or frequency of morphine and my plan is to slowly taper it off in the next 24 to 48 hours as tolerated. 5. History of being noncooperative with medical care inside the hospital, leaving against medical advice, and on unacceptable violent behavior requiring security intervention. I again had a discussion with him about being compliant and cooperative with medical and provider staff. There were concerns that he may be smoking inside the bathroom. I will start him on nicotine patch. I had a detailed discussion with his sister yesterday about his behavior as well, and I discussed with the nurse that uncooperative and violent behavior towards care providers should not be tolerated and we would inform the security personnel to ensure our safety as and when required, and informed the same to the patient as well. 6. Disposition. Continue to monitor the patient with telemetry. Plan of care discussed with the patient and nursing team in detail. cc: Srinivas Espinoza MD MTDD
--- NOTE | 2019-05-05 14:47 | ECHO REPORT ---
ORDER DATE: 05/04/2019 INDICATION: Nonspecific troponin elevation. FINDINGS: 1. The right atrium appears enlarged at 4 cm. 2. Severe tricuspid regurgitation. RV systolic pressure of 58 suggesting pulmonary hypertension. 3. Normal RV size and systolic function. 4. There is at least moderate and possible severe pulmonic insufficiency. On some views, the pulmonic valves do not appear to be fully competent and there appears to be some prolapse of them. 5. The left atrium appears severely enlarged with a volume index of 43. 6. The mitral leaflets are thickened. There is mild mitral regurgitation. There appears to be mild mitral stenosis with a mean gradient of 4.4. 7. Normal LV size, end-diastolic dimension of 5.4. Moderate left ventricular hypertrophy with a posterior and interventricular septal wall thickness of 1.5 and 1.4 cm respectively. Borderline normal to normal LV systolic function with an estimated EF of 50 to 55 percent with normal wall motion. 8. Aortic valve opens well. There is no evidence of stenosis. There is moderate and possibly severe aortic insufficiency. The valve leaflets are trileaflet. 9. The aorta appears normal in visualized segments. 10. There is a small circumferential pericardial effusion with no evidence of tamponade physiology. 11. There is a dilated IVC with minimal collapse. cc: MD Tre Alcantara MD
[2019-05-05] MEDS: NICODERM PATCH TD SCH (15:35)
[2019-05-05] MEDS: HUMULIN 70/30 SUBQ SCH (16:09)
[2019-05-05] MEDS ORDERED: INSULIN PEN NEEDLES ONE (17:01)
--- NOTE | 2019-05-05 17:36 | CARDIOLOGY PROGRESS NOTE ---
DATE: 05/05/2019 SUBJECTIVE: Mr. Campoverde has complaints of lower extremity edema today as well as continued scrotal edema. PHYSICAL EXAMINATION: Vital Signs: He is afebrile. Heart rate 71, blood pressure 146/71. I's and O's appear to be negative although inaccurate due to a number of continent voids not measured. General: No acute distress. Cardiovascular: He sounds to be in a regular rate and rhythm. He has no obvious murmurs. He has no S3. Extremities: He has marked bilateral lower extremity edema of around 2 to 3+. Chest: Clear bilaterally. He has no increased work of breathing. Abdomen: Soft, nontender. PERTINENT DATA: Sodium 131, potassium 4.7. His BUN is 86. Creatinine is 3.3. ASSESSMENT: Mr. Campoverde is a 38-year-old male with chronic kidney disease, hypertensive cardiovascular disease and normal ejection fraction. PLAN: He will continue to diurese. The patient is extremely noncompliant with his hospital course as well as his outpatient course. Dr. Christopher will be back to see the patient on Tuesday. I have no acute cardiovascular recommendations. He is on diuretics. cc: Christophe Roy MD
--- NOTE | 2019-05-05 17:43 | EKG Report ---
Test Performed on : 05/05/2019 06:16:37 AM Test Reason : Follow up QTc. Thanks Blood Pressure : / mmHG Vent. Rate : 086 BPM Atrial Rate : 086 BPM P-R Int : 150 ms QRS Dur : 080 ms QT Int : 386 ms P-R-T Axes : 054 054 029 degrees QTc Int : 461 ms Normal sinus rhythm. Normal ECG Confirmed by Dwight AMOS, Shaun Otoole ([id number]) on 05/06/2019 9:24:58 AM
[2019-05-05] MEDS: SEROQUEL PO SCH (20:41)
[2019-05-05] MEDS: MAALOX PLUS LIQUID PO PRN (20:41)
[2019-05-05] MEDS: NORCO-10 PO PRN (21:01)
[2019-05-06] MEDS: ZOSYN 2.25 GM in NS 50 ML IV SCH ×4 (01:35→20:47)
[2019-05-06] MEDS ORDERED: VANCOMYCIN 1,600 MG in NS 250 ML IV SCH (03:00)
[2019-05-06] MEDS: LASIX IV SCH ×3 (03:43→20:49)
[2019-05-06] MEDS: NORCO-10 PO PRN ×4 (05:01→22:54)
[2019-05-06 05:40] LABS: BASO# 0.12 X1000 (0.0-0.2); BASO% 0.8 % (0.0-0.8); EOS# 0.23 X1000 (0.0-0.7); EOS% 1.4 % (0.0-10.0); HEMOGLOBIN 8.1 g/dL (14.0-18.0); IMM GRAN# 0.08 X1000 (0.0-0.04); IMM GRAN% 0.5 % (0.0-0.5); LYMPH# 2.35 X1000 (1.2-3.4); LYMPH% 14.8 % (20.5-51.1); MCH 25.1 PG (27-31); MCV 83.6 FL (81-99); MONO# 1.04 X1000 (0.11-0.59); MONO% 6.6 % (1.7-9.3); MPV 10.1 FL (7.4-10.4); NEUT# 12.05 X1000 (1.4-6.5); NEUT% 75.9 % (42.2-75.2); PLT 471 X1000 (130-400); RBC 3.23 XMIL (4.7-6.1); RDW 22.5 % (11.5-14.5); WBC 15.87 X1000 (4.8-10.8)
[2019-05-06 06:09] LABS: CALCIUM 8.2 mg/dL (8.8-10.2); CREATININE 3.2 mg/dL (0.7-1.2); MAGNESIUM 1.9 mg/dL (1.5-2.7)
[2019-05-06] MEDS: APRESOLINE PO SCH ×3 (06:11→20:50)
[2019-05-06] MEDS: HUMULIN 70/30 SUBQ SCH ×2 (06:12→17:08)
[2019-05-06] MEDS: HUMALOG SUBQ SCH ×5 (06:12→20:58)
[2019-05-06] MEDS: MORPHINE IV PRN ×3 (06:12→20:51)
[2019-05-06] MEDS ORDERED: INSULIN PEN NEEDLES ONE (08:43)
[2019-05-06] MEDS: MIRALAX PO SCH ×2 (08:54→20:54)
[2019-05-06] MEDS: LACTULOSE PO SCH ×2 (08:58→20:46)
[2019-05-06] MEDS: NEURONTIN PO SCH ×2 (08:58→20:50)
[2019-05-06] MEDS: DULCOLAX PR SCH ×2 (08:58→20:45)
[2019-05-06] MEDS: ISORDIL PO SCH ×3 (08:59→20:50)
[2019-05-06] MEDS: FERROUS SULFATE PO SCH (08:59)
[2019-05-06] MEDS: NICODERM PATCH TD SCH (08:59)
[2019-05-06] MEDS: COREG PO SCH ×2 (08:59→20:50)
--- NOTE | 2019-05-06 10:06 | NEPHROLOGY PROGRESS NOTE ---
DATE: 05/06/2019 SUBJECTIVE: Patient is sitting up on the side of the bed. No real complaints other than pain and lower extremity swelling. OBJECTIVE: Vital Signs: Temperature 97.8 degrees, pulse 63, respiratory rate 20, blood pressure 118/64. Intake 2.2 L. Output 3.1 L. Physical Examination: General: This is a chronically ill-appearing, middle-aged gentleman sitting up on the side of the bed. He is awake and alert. He does not appear in distress. HEENT: Normocephalic, atraumatic. Oral mucosa moist. Neck: Supple. Trace JVD. Cardiovascular: Regular, without murmur. Pulmonary: Continues with some crackles bilaterally. Abdomen: Soft. Positive bowel sounds. : Voiding. Extremities: He has 2+ edema. Integumentary: Skin is warm and dry. He has multiple ulcers noted to the feet that have been documented, currently dressed. Lab Data: BUN 77, creatinine 3.2. ASSESSMENT AND PLAN: 1. Chronic kidney disease stage 4, at baseline. His glomerular filtration rate is 26. The patient has fluid overload. He is in negative territory about a liter over the last 24 hours. BUN has continued to improve as well. He was 86 yesterday. BUN today is 77. 2. History of noncompliance with medical plan and aggressive behavior toward staff. Today, the patient has been calm and cooperative. Please see other notes for additional information from the other team. Dictated by OSMAN Mcbrdie for Victorino Oconnor MD cc: Victorino Oconnor MD
[2019-05-06] MEDS: MAALOX PLUS LIQUID PO PRN (11:00)
[2019-05-06] MEDS: SANTYL OINT TOP SCH (11:07)
[2019-05-06] MEDS: ZAROXOLYN PO SCH (14:29)
--- NOTE | 2019-05-06 14:58 | PROGRESS NOTE ---
DATE: 05/06/2019 INTERVAL HISTORY: I was informed that the patient was recently going inside his bathroom to smoke. He also one time, came out of his room and grabbed some food from someone else's food tray. SUBJECTIVE: Mr. Campoverde says he is still hurting all over. He complains that he is not getting his morphine and oral narcotic as prescribed. He denies chest pain. He is not feeling short of breath. He is still coughing with expectoration. I discussed with him about being cooperative with provider team, and when I confronted him, he becomes upset, and I had to calm him down. OBJECTIVE: Current Vital Signs: Temperature 97.9 degrees, pulse 102, respiratory rate 18, blood pressure 180/70, he is saturating 100% room air. General: Not in acute distress. HEENT: Oral cavity is moist. Lungs: Air entry bilaterally equal. He has decreased air entry with inspiratory crackles on the right infrascapular region. No wheeze or rhonchi. Cardiovascular: S1, S2 normal. Regular. No murmur, rub, or gallop. Abdomen: Distended, firm. He has generalized abdominal tenderness and dullness to percussion. He also has scrotal edema. He has bilateral lower extremity edema with ulceration of the plantar aspect of feet. Neurologic: He is alert and oriented x3. Input and output suggest 3.1 L urine output yesterday. I asked him about fluid restriction. He agrees to consider fluid restriction. LABORATORY DATA: Suggestive of WBC of 15,000, hemoglobin 8.1, platelets 471,000. His BUN is 77, creatinine 3.2, blood glucose 141. Magnesium is 1.9. MICROBIOLOGY: No positive microbiological data so far. IMAGING: Echocardiogram had ejection fraction of 50% to 55% with normal wall motion and normal left ventricle systolic function. He did have dilated IVC. ASSESSMENT AND PLAN: 1. Sepsis due to right lower lobe pneumonia. Continue intravenous vancomycin and Zosyn. Follow up final sputum culture, and repeat chest x-ray tomorrow. Monitor CBC. 2. Acute on chronic heart failure with preserved ejection fraction due to medication and dietary noncompliance. Continue carvedilol, hydralazine, isosorbide, and current dose of intravenous Lasix with oral metolazone. 3. Ascites. Differential includes ascites related to chronic kidney disease versus heart failure with preserved ejection fraction versus other etiologies. Abdomen and pelvis CT on 04/29/2019 had anasarca, ascites, without any definitive etiology. After discussion with Cardiology team, I will consider therapeutic paracentesis for comfort, as well as to rule out spontaneous bacterial peritonitis. 4. History of insulin-dependent diabetes mellitus and diabetic peripheral neuropathy with bilateral leg wounds. Continue NPH 70/30 at current dose and sliding scale insulin. Continue topical Santyl ointment for his wounds, and gabapentin for peripheral neuropathy. He would need outpatient surgery followup. 5. Chronic pain disorder. Continue home [place] and intravenous morphine and bisacodyl, along with MiraLAX for constipation, which appears to be resolving. 6. History of being noncooperative with medical care provider inside the hospital, leaving AGAINST MEDICAL ADVICE and unacceptably violent behavior, requiring multiple security interventions. I continued to public relations counselor him about being cooperative. Continue nicotine patch for smoking cessation. 7. Disposition. Continue to monitor the patient inside the hospital. Plan of care discussed with him. His questions have been satisfactorily answered. cc: Srinivas Espinoza MD
[2019-05-06] MEDS: SEROQUEL PO SCH (20:50)
[2019-05-07] MEDS: ZOSYN 2.25 GM in NS 50 ML IV SCH ×4 (01:17→20:39)
[2019-05-07] MEDS: LASIX IV SCH ×3 (05:07→23:45)
[2019-05-07] MEDS: APRESOLINE PO SCH ×3 (05:07→20:15)
[2019-05-07] MEDS: HUMALOG SUBQ SCH ×4 (06:16→20:13)
[2019-05-07] MEDS: HUMULIN 70/30 SUBQ SCH ×2 (06:17→16:42)
[2019-05-07 07:13] LABS: CALCIUM 7.8 mg/dL (8.8-10.2); CREATININE 3.2 mg/dL (0.7-1.2)
--- NOTE | 2019-05-07 07:54 | Diag Imaging Result Doc PS360 ---
EXAM: CHEST-2 VIEWS - 05/07/2019 HISTORY: Follow up right lung pneumonia TECHNIQUE: Chest two views COMPARISON: 05/03/2019 FINDINGS: Heart size appears mildly enlarged and mildly decreased compared to prior. There has been interval decrease in right lower lung infiltrate. There is a tiny right pleural effusion. The left midlung nodule appears stable. There are no other interval changes identified. IMPRESSION: Decrease in right lower lung infiltrate. Electronically signed by Chaka Amato 05/07/2019 7:51 AM
[2019-05-07] MEDS: ZAROXOLYN PO SCH (08:02)
[2019-05-07] MEDS: NEURONTIN PO SCH ×2 (08:02→20:14)
[2019-05-07] MEDS: MORPHINE IV PRN ×3 (08:03→20:22)
[2019-05-07] MEDS: ISORDIL PO SCH ×3 (08:03→20:15)
[2019-05-07] MEDS: FERROUS SULFATE PO SCH (08:03)
[2019-05-07] MEDS: NICODERM PATCH TD SCH (08:03)
[2019-05-07] MEDS: COREG PO SCH ×2 (08:03→20:15)
[2019-05-07] MEDS: DULCOLAX PR SCH (08:12)
[2019-05-07] MEDS: LACTULOSE PO SCH ×2 (08:13→20:14)
[2019-05-07] MEDS: MIRALAX PO SCH (08:22)
[2019-05-07] MEDS: NORCO-10 PO PRN ×2 (11:29→19:03)
--- NOTE | 2019-05-07 12:22 | PROGRESS NOTE ---
DATE: 05/07/2019 INTERVAL HISTORY: He had another episode of violent behavior and he was cursing the nursing staff and security had to be called in. I was also informed that one of the other patients on the floor was also scared when she heard the patient shouting. When I went there, the security personnel was right outside the room. The patient's brother was also standing right outside the room, and I introduced myself to the patient's brother. However, the patient opened his room's door and came screaming out saying that he did not want his health information to be released to anyone but his sister. SUBJECTIVE: Mr. Campoverde states that he is still coughing up brownish sputum. He is complaining about not getting enough food. He is complaining that people were blaming him for smoking, which he did not in reality. PHYSICAL EXAMINATION: Vital Signs: Temperature 98.1 degrees, pulse 100, respiratory rate 16, blood pressure 170/77 saturating 98% room air. General: On physical examination, not in acute distress. HEENT: Oral cavity is moist. Lungs: He has inspiratory crackles of bilateral infrascapular region. No wheezes. Cardiac: S1 and S2 normal. No murmur or gallop. Abdomen: Soft. There is generalized abdominal tenderness. He has dullness to percussion on both flanks. Genitourinary: Significant scrotal edema. Extremities: Significant bilateral lower extremity edema. Input and Output: Suggest -800 mL so far today. LABS: Suggestive of WBC of 15,000, hemoglobin 8.1, platelet 471,000. BUN of 74, creatinine 3.2. His blood glucose is 305. MICROBIOLOGY: Sputum culture growing gram-negative rods. IMAGING: Chest x-ray suggests decrease in the right lower lung infiltrate. ASSESSMENT AND PLAN: 1. Sepsis due to right lower lobe gram negative pneumonia, improving. Stop IV vancomycin and continue intravenous Zosyn. Follow up final sputum culture results. 2. Acute on chronic heart failure with preserved ejection fraction due to medication and dietary noncompliance. Continue carvedilol, hydralazine, isosorbide, and increase the dose of Lasix as per Nephrology's recommendation, as well as oral metolazone. 3. Ascites. This is likely related to chronic kidney disease versus heart failure with preserved ejection fraction versus other etiologies. Abdomen and pelvis CT on April 29 had anasarca, body wall edema and ascites without any definitive etiology. His abdominal tenderness is persistent. However, he has not had any fever since presentation and his WBC has been decreasing. My suspicion for spontaneous bacterial peritonitis is less at the moment. I will continue to monitor him. 4. History of insulin-dependent diabetes mellitus and diabetic peripheral neuropathy with bilateral leg and feet wound. Increase the dose of NPH 70/30, and continue sliding scale insulin. Continue on topical Santyl ointment for his wounds and gabapentin for peripheral neuropathy. 5. Chronic pain disorder. Continue home [place] and intravenous morphine as needed. Continue bisacodyl. Changed to lactulose for bowel regimen, as the patient states that seems to be working better for him. 6. History of being noncooperative with medical care providers inside the hospital, leaving AGAINST MEDICAL ADVICE and unacceptably violent behavior, requiring multiple security interventions. Differential includes psychotic disorder, acute manic episode, personality disorder vs others.Start as needed Haloperidol and consult psychiatry. I talked with the psychiatrist on the phone who would evaluate the patient tomorrow. 6. Others. The patient takes quetiapine at nighttime for sleep. He also states he sometimes feels anxious and quetiapine helps him. The definite history regarding his psychiatric illness is not available. 7. Disposition. I will continue to monitor the patient inside the hospital. I will also consider involving a psychiatrist in his care considering his unacceptable behavior to see if his psychosis is one of the contributing factors and if it would need any further treatment. cc: Srinivas Espinoza MD ADDENDUM: I went inside patient's room and he was in the bathroom. I could smell some smoke. I went again inside the room and he had finished his shower at that time. I asked him if I should come later, however, he insisted on talking to me. I requested him to be co-operative and respectful towards the nursing team and other care providers. However, he started shouting at me. He instead accused that the nurses had been shouting at him for no reason. I told him that everyone who had been involved in his care had been worried about his health issues and had wanted for him to get better. However, he shouted at me accusingly that I thought he was a 'liar'. He also threatened to file a lawsuit against me. I tried to calm him down and asked if I he had any concerns related to his health that I might address. Mr. Campoverde did not want to talk to me at that point. ADDENDUM: I was informed that misbehaved with one of the nurses and the police department had to be called in. MARIO ALBERTO
[2019-05-07] MEDS ORDERED: LASIX IV SCH (13:00)
[2019-05-07] MEDS: SANTYL OINT TOP SCH (14:44)
[2019-05-07] MEDS: HALDOL IV PRN ×2 (14:47→23:52)
--- NOTE | 2019-05-07 14:53 | PROVIDER PROGRESS NOTE ---
Progress Note Subjective: Pt is upset and feels he is not getting the treatment he needs. He is demanding double portions on his food tray and wants a diabetic diet instead of renal. Objective: temperature 98, pulse 100, respiration 16, blood pressure 172/77, 02 sat 98% on room air. General: -[place] male lying in bed in no acute distress HEENT: normocephalic, atraumatic, pupils equal and reactive. Mucous membranes are moist. Neck: Supple, 6cm JVD appreciated Cardiovascular: S1S2, tachycardia rate and rhythm. Gallop appreciated. No murmur. Respiratory: lungs clear to auscultation anteriorly Abdomen: soft, protuberance, nontender. Bowel sounds present. : non inspected Extremities:3+ pitting to BLE. Posterior Right foot dressing in place. Neurological: alert and oriented to person, place, and time. Labs: sodium 136, potassium 5.0, chloride 103, carbon dioxide 20, BUN 74, creatinine 3.2, intake 2798, output 2400. Impression: Chronic kidney disease stage 4 secondary to diabetic nephropathy. BUN slightly improved. Urine output adequate. He is non compliant and aggressive with staff. Discussed prognosis and options with patient. We will continue to try to manage his fluid volume overload with medications for now. Blood pressure and fluid volume. Above target. 1 liter fluid restrictions. We will order a large dose of lasix (200mg q8H) for today and monitor labs and vitals. Anemia. Low, does not meet transfusion criteria. Electrolytes and acid base balance. Stable. Nutrition. Changing diet to his preference with double portions and 1 L fluid restrictions per his request. Medication review. Zaroxolyn to start this afternoon.
[2019-05-07] MEDS ORDERED: DUONEB (A & A) INH PRN (18:52)
[2019-05-07] MEDS: SEROQUEL PO SCH (20:15)
[2019-05-07 21:10] LABS: CALCIUM 8.1 mg/dL (8.8-10.2); CREATININE 3.2 mg/dL (0.7-1.2); POTASSIUM 5.5 mmol/L (3.5-5.1)
[2019-05-08] MEDS: NORCO-10 PO PRN ×3 (02:19→21:25)
[2019-05-08] MEDS: ZOSYN 2.25 GM in NS 50 ML IV SCH ×4 (02:35→20:24)
[2019-05-08] MEDS: MORPHINE IV PRN ×4 (02:35→22:26)
[2019-05-08] MEDS: HUMALOG SUBQ SCH (02:48)
[2019-05-08 05:46] LABS: BASO# 0.07 X1000 (0.0-0.2); BASO% 0.5 % (0.0-0.8); EOS# 0.27 X1000 (0.0-0.7); EOS% 2.1 % (0.0-10.0); HEMATOCRIT 24.8 % (42.0-52.0); HEMOGLOBIN 7.6 g/dL (14.0-18.0); IMM GRAN# 0.11 X1000 (0.0-0.04); IMM GRAN% 0.8 % (0.0-0.5); LYMPH# 1.71 X1000 (1.2-3.4); LYMPH% 13.1 % (20.5-51.1); MCH 25.7 PG (27-31); MCHC 30.6 g/dL (33-37); MCV 83.8 FL (81-99); MONO# 0.83 X1000 (0.11-0.59); MONO% 6.3 % (1.7-9.3); MPV 9.7 FL (7.4-10.4); NEUT# 10.09 X1000 (1.4-6.5); NEUT% 77.2 % (42.2-75.2); PLT 422 X1000 (130-400); RBC 2.96 XMIL (4.7-6.1); RDW 22.3 % (11.5-14.5); WBC 13.08 X1000 (4.8-10.8)
[2019-05-08] MEDS: LASIX IV SCH ×3 (05:57→23:22)
[2019-05-08] MEDS: APRESOLINE PO SCH ×3 (05:57→20:25)
[2019-05-08] MEDS: HUMULIN 70/30 SUBQ SCH ×3 (06:00→20:24)
[2019-05-08 06:28] LABS: CALCIUM 8.3 mg/dL (8.8-10.2); CREATININE 3.3 mg/dL (0.7-1.2); MAGNESIUM 2.1 mg/dL (1.5-2.7); POTASSIUM 5.3 mmol/L (3.5-5.1)
[2019-05-08] MEDS: HUMULIN R SUBQ SCH ×5 (06:49→22:33)
[2019-05-08 07:18] LABS: ANISOCYTOSIS 1+; EOS 2 % (1-10); LYMPHS 16 % (21-51); MONO 7 % (1-9); NRBC 1 % (0-0); SEGS 75 % (42-75)
[2019-05-08] MEDS ORDERED: INSULIN PEN NEEDLES ONE (08:24)
--- NOTE | 2019-05-08 09:29 | Diag Imaging Result Doc PS360 ---
EXAM: XRAY HIP W/PELVIS BILAT 3-4VWS INDICATION: Rule out fracture TECHNIQUE: 5 views COMPARISON: 11/14/2018 FINDINGS: There is a chronic appearing corticated bony fragment at the anterior superior aspect of the acetabulum on the right. It can also be seen on the CT dated 05/03/2017. No other discrete fracture, dislocation, or significant intrinsic osseous lesion is appreciated. The hip joint spaces appear to be preserved. Surrounding soft tissues are unremarkable except for atherosclerotic calcification. IMPRESSION: No evidence of acute osseous abnormality. Electronically signed by Murphy Stern 05/08/2019 9:26 AM
[2019-05-08] MEDS: NEURONTIN PO SCH ×2 (09:54→20:24)
[2019-05-08] MEDS: ISORDIL PO SCH ×3 (09:54→20:25)
[2019-05-08] MEDS: ZAROXOLYN PO SCH (09:54)
[2019-05-08] MEDS: FERROUS SULFATE PO SCH (09:54)
[2019-05-08] MEDS: LACTULOSE PO SCH ×2 (09:54→22:31)
[2019-05-08] MEDS: COREG PO SCH ×2 (09:54→20:25)
[2019-05-08] MEDS: NICODERM PATCH TD SCH (09:55)
[2019-05-08] MEDS: SANTYL OINT TOP SCH (09:56)
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
[2019-05-08] MEDS: HALDOL PO SCH ×2 (14:49→21:26)
--- NOTE | 2019-05-08 16:17 | PROVIDER PROGRESS NOTE ---
Progress Note Subjective: He is complaining of left hip pain post fall, shortness of breath, and chronic pain. Objective: temperature 97.8, pulse 108, respirations 19, blood pressure 198/79, 02 sat 98% on room air. General: -[place] male lying in bed in no acute distress HEENT: normocephalic, atraumatic, pupils equal and reactive. Mucous membranes are moist. Neck: Supple, 6cm JVD appreciated Cardiovascular: S1S2, tachycardia rate and rhythm. Gallop appreciated. No murmur. Respiratory: lungs clear to auscultation anteriorly Abdomen: soft, protuberance, nontender. Bowel sounds present. : non inspected Extremities:3+ pitting to BLE that extends to his abdomen. Right and left foot dressing in place. Neurological: alert and oriented to person, place, and time. Labs: WBC 13.08, hemoglobin 7.6, hematocrit 24.8, platelet count for 22, sodium 131, potassium 5.3, chloride 97, carbon dioxide 20, BUN 78, creatinine 3.3, intake 1240, output 3275. Impression: Chronic kidney disease stage 4 secondary to diabetic nephropathy. BUN and Creatinine stable. Urine output increased with high dose lasix and zaroxolyn. He is not following 1L fluid restrictions. Continue to monitor. Blood pressure. Elevated. We will increase Coreg. Fluid volume. Above target. Encouraged 1 liter fluid restrictions. Urine output increased. Anemia. Low, does not meet transfusion criteria. Electrolytes and acid base balance. Stable. Nutrition. Adequate Medication review. No changes.
--- NOTE | 2019-05-08 18:49 | Diag Imaging Result Doc PS360 ---
EXAM: LUMBAR SPINE 2-VIEWS HISTORY: back pain s/p fall TECHNIQUE: Two views COMPARISON: 12/15/2012 FINDINGS: There is good alignment to the lumbar spine. No fracture. No subluxation. No degenerative bone spurring. Severe atherosclerosis. IMPRESSION: No acute bony injury. Electronically signed by Malik Davis 05/08/2019 6:47 PM
[2019-05-08] MEDS: HALDOL IV PRN (19:40)
--- NOTE | 2019-05-08 21:25 | PROGRESS NOTE ---
DATE: 05/08/2019 SUBJECTIVE: The patient was noted to be very tearful this afternoon. He states that he has been having a lot of back pain. He had imaging done this morning and this afternoon that was noted to be negative for fracture. OBJECTIVE: Vital Signs: Temperature 97.8 degrees, blood pressure 189/81, heart rate 105, respirations 16, O2 saturation is 99% on room air. Intake 1.2 L, output 3.2 L. General: This is a chronically ill-appearing, middle-aged male, lying in bed in no acute distress. Heart: S1, S2 normal. Tachycardic. Lungs: Clear to auscultation bilaterally. Mild expiratory wheezes bilaterally. Abdomen: Positive bowel sounds. Soft, nontender, nondistended. Extremities: Edema 3+. The patient also has an open wound on the left lateral aspect of the foot with a slight discharge. Neurologic: Alert and oriented x4, and tearful. LABORATORY AND DIAGNOSTIC DATA: White blood cell count 13, hemoglobin 7.6, hematocrit 24, platelets 422,000. Sodium 131, potassium 5.3, chloride 97, CO2 of 20, BUN 78, creatinine 3.3, glucose 490, calcium 8.3, magnesium 2.1. Lumbar spine x-ray: No acute bony injury. ASSESSMENT AND PLAN: 1. Volume overload. The patient is currently on dual diuretic therapy. Management as per the winch runner. The patient does have significant edema in his lower extremities. 2. Uncontrolled hypertension. We will defer to the winch runner regarding titration of the patient's antihypertensive regimen. 3. Right lower lobe pneumonia. Improved. The sputum culture grew out Klebsiella. We will continue on the current antibiotic regimen. 4. Chronic pain syndrome. The patient is on p.r.n. Simpson. 5. Poorly controlled insulin-dependent diabetes mellitus with neuropathy. We will increase the patient's 70/30 insulin to 30 units twice a day. We will also change sliding scale coverage to every 4 hours at moderate dosage. The patient has been eating a lot of fast food while hospitalized. He has been counseled about avoiding ordering fast food and to adhere to a diabetic diet. 6. Left foot wound. We will culture the wound, continue with antibiotic therapy and wound care. 7. Behavioral disturbance. The patient was seen by the psychiatrist who recommended scheduled Haldol and Prozac. These two new medications have been initiated. We will need to monitor the QTc interval while on Haldol. 8. Acute kidney injury on CKD. Stable. Management as per the winch runner. 9. Insomnia. Will start melatonin. cc: Alexandra Cruz MD MTDD
[2019-05-08] MEDS: MELATONIN PO SCH (21:26)
[2019-05-08] MEDS: PROZAC PO SCH (21:26)
[2019-05-09] MEDS: ZOSYN 2.25 GM in NS 50 ML IV SCH ×4 (02:41→20:01)
[2019-05-09] MEDS: HUMULIN R SUBQ SCH ×7 (02:42→23:48)
[2019-05-09] MEDS: HALDOL IV PRN (03:28)
[2019-05-09] MEDS: MORPHINE IV PRN ×3 (05:41→20:04)
[2019-05-09] MEDS: APRESOLINE PO SCH ×3 (05:41→20:01)
[2019-05-09] MEDS: LASIX IV SCH ×3 (05:54→23:47)
[2019-05-09] MEDS: NORCO-10 PO PRN (05:57)
--- NOTE | 2019-05-09 07:29 | EKG Report ---
Test Performed on : 05/09/2019 06:14:25 AM Test Reason : assess qtc Blood Pressure : / mmHG Vent. Rate : 094 BPM Atrial Rate : 094 BPM P-R Int : 168 ms QRS Dur : 088 ms QT Int : 372 ms P-R-T Axes : 075 093 -36 degrees QTc Int : 465 ms Normal sinus rhythm. Rightward axis T wave abnormality, consider inferior ischemia Abnormal ECG Confirmed by Fili Lake MD ([id number]) on 05/09/2019 12:15:58 PM
[2019-05-09] MEDS: ZAROXOLYN PO SCH (08:24)
[2019-05-09] MEDS: LACTULOSE PO SCH ×2 (08:24→20:04)
[2019-05-09] MEDS: FERROUS SULFATE PO SCH (08:24)
[2019-05-09] MEDS: COREG PO SCH ×2 (08:25→20:02)
[2019-05-09] MEDS: NEURONTIN PO SCH ×2 (08:25→20:02)
[2019-05-09] MEDS: HALDOL PO SCH ×2 (08:25→20:02)
[2019-05-09] MEDS: ISORDIL PO SCH ×3 (08:25→20:01)
[2019-05-09] MEDS: NICODERM PATCH TD SCH (08:26)
[2019-05-09] MEDS: HUMULIN 70/30 SUBQ SCH ×2 (08:26→20:03)
--- NOTE | 2019-05-09 08:58 | Diag Imaging Result Doc PS360 ---
EXAM: CHEST-2 VIEWS HISTORY: pulmonary edema TECHNIQUE: Two views COMPARISON: 05/07/2019 FINDINGS: The lungs are well expanded. The heart is enlarged. The vessels are mildly distended. There are no infiltrates. No pleural effusions. IMPRESSION: Cardiomegaly with mild vascular prominence. Electronically signed by Malik Davis 05/09/2019 8:55 AM
[2019-05-09] MEDS: ALBUMIN 25% IV SCH (10:02)
[2019-05-09] MEDS: PERCOCET-10 PO PRN ×2 (10:09→19:18)
[2019-05-09] MEDS ORDERED: NS 250 ML ONE (10:40)
--- NOTE | 2019-05-09 10:51 | NEPHROLOGY PROGRESS NOTE ---
DATE: 05/09/2019 Date Seen: 05/09/2019 Time Seen: 0640 SUBJECTIVE: Mr. Campoverde is sitting up in bed. States that he is having difficulty breathing. He has been anxious most of the night. OBJECTIVE: His most recent vital signs: Temperature 97.9 degrees, blood pressure 157/90, heart rate 95, respirations are 17. He is on room air. Last recorded saturation documented is 100%. He has had 1510 in, 1350 out. He is in a -2.2 L fluid balance next. LABORATORY DATA: These are currently pending. Previous sodium 131, potassium 5.3. Previous BUN 78 with a creatinine of 3.3. Hemoglobin of 7.6 yesterday. Blood cultures are negative. PHYSICAL EXAMINATION: General: This is a 38-year-old male. He is currently resting in bed. He is in moderate distress secondary to complaints of increased work of breathing. Previous saturation of 100% on room air documented. HEENT: Normocephalic, atraumatic conjunctiva is pale pink. He has PERRL. Mucous membranes are dry. Neck: Supple. Trachea midline. He has positive JVD in the upright position, greater than 6 mm. Cardiovascular: Regular rate and rhythm. He has a gallop that is appreciated. No murmur present. Lungs: Continues with faint rhonchi clear to the bases posterior. He remains on room air. Abdomen: Slightly distended, nontender. Positive bowel sounds. Genitourinary: Not inspected. He has adequate amount of urine documented. Extremities: Continues with 3+ pitting edema up into the mid abdominal area. He has dressings in place to bilateral feet. Neurological: He is alert and oriented x3. ASSESSMENT AND PLAN: 1. Chronic kidney disease stage 4. This is related to his diabetic nephropathy. BUN and creatinine have been stable. Urine output has increased. 2. Fluid volume overload. Patient is now currently continuing on Lasix 200 mg t.i.d., followed by metolazone 10 mg. He remains on a 1 L fluid restriction. We have encouraged him to continue and we will monitor. Add albumin. 3. Electrolytes these have been stable. These are currently pending this a.m. 4. Acid-base balance. This has been stable. 5. Anemia. This is low but stable. Does not meet current criteria for transfusion. I would like to thank you for allowing us to follow with this patient. Dictated by OSMAN Loyd for Victorino Oconnor MD Face to face encounter, data reviewed, discussed with Inessa Malin on 05/09/19. I agree with the above assessment and plan of care. cc: OSMAN Loyd MD [facility]
--- NOTE | 2019-05-09 11:25 | PROGRESS NOTE ---
DATE: 05/09/2019 SUBJECTIVE: The patient states that he is still having some lower back pain. He states that he did not sleep well last night. OBJECTIVE: Vital Signs: Temperature 98.2 degrees, blood pressure 169/95, heart rate 92, respirations 14, O2 saturation 99% on room air. Intake 1.5 L. Output 1.8 L. General: This is a chronically ill-appearing middle-aged male sitting at the edge of the bed, in no acute distress. Heart: S1, S2 normal. Regular rate and rhythm. Lungs: Diffuse expiratory wheezes with coarse breath sounds. Abdomen: Positive bowel sounds. Soft. Mildly distended. Extremities: 3+ edema bilaterally. The patient also has open ulceration on the left lateral aspect of the foot. Neurologic: The patient is alert and oriented x4. LABS: None. X-RAYS: Chest x-ray shows cardiomegaly. ASSESSMENT AND PLAN: 1. Severe volume overload. Continue with diuretic therapy as directed by the apparel pattern maker. The patient has also been advised to keep his legs elevated and to decrease his salt intake. 2. Uncontrolled hypertension. Continue on the current antihypertensive regimen. 3. Chronic pain syndrome. We will switch the patient to p.r.n. Percocet. 4. Right lower lobe infiltrate. The x-ray today is not showing an infiltrative process. We will check a procalcitonin and immunoglobulin level on the patient. Continue with antibiotic therapy. 5. Left foot wound. The wound culture is currently pending. We will continue with antibiotic therapy and wound care. 6. Poorly controlled insulin-dependent diabetes mellitus complicated by diabetic neuropathy. The patient has been counseled about proper diet and has been advised to avoid ordering out or fast food. We will continue on the current insulin regimen. 7. Acute kidney injury on chronic kidney disease. Unchanged. Management as per the apparel pattern maker. 8. Behavioral disturbance. Continue on Haldol and Prozac. 9. Insomnia. Continue on melatonin. 10. Deep vein thrombosis prophylaxis. Will start the patient on heparin. cc: Alexandra Cruz MD MTDD
[2019-05-09] MEDS: SANTYL OINT TOP SCH (11:38)
[2019-05-09] MEDS: HEPARIN SUBQ SCH ×2 (12:26→21:25)
[2019-05-09 13:09] LABS: ALBUMIN 3.1 g/dL (3.5-5.0); CALCIUM 8.6 mg/dL (8.8-10.2); CREATININE 3.3 mg/dL (0.7-1.2); PHOSPHORUS 5.2 mg/dL (2.7-4.5); POTASSIUM 5.2 mmol/L (3.5-5.1)
[2019-05-09] MEDS ORDERED: INSULIN PEN NEEDLES ONE (16:36)
[2019-05-09] MEDS: MELATONIN PO SCH (20:02)
[2019-05-09] MEDS: PROZAC PO SCH (20:02)
[2019-05-10] MEDS: ZOSYN 2.25 GM in NS 50 ML IV SCH ×4 (02:24→21:22)
[2019-05-10] MEDS: PERCOCET-10 PO PRN ×3 (02:24→10:14)
[2019-05-10] MEDS: HUMULIN R SUBQ SCH ×6 (02:24→21:32)
[2019-05-10] MEDS: MORPHINE IV PRN (05:10)
[2019-05-10] MEDS: APRESOLINE PO SCH ×3 (05:14→21:22)
[2019-05-10 05:23] LABS: BASO# 0.03 X1000 (0.0-0.2); BASO% 0.2 % (0.0-0.8); EOS# 0.35 X1000 (0.0-0.7); EOS% 2.7 % (0.0-10.0); HEMATOCRIT 24.9 % (42.0-52.0); HEMOGLOBIN 7.5 g/dL (14.0-18.0); IMM GRAN# 0.06 X1000 (0.0-0.04); IMM GRAN% 0.5 % (0.0-0.5); LYMPH# 1.03 X1000 (1.2-3.4); LYMPH% 7.9 % (20.5-51.1); MCH 25.5 PG (27-31); MCHC 30.1 g/dL (33-37); MCV 84.7 FL (81-99); MONO# 0.87 X1000 (0.11-0.59); MONO% 6.7 % (1.7-9.3); NEUT# 10.65 X1000 (1.4-6.5); PLT 444 X1000 (130-400); RBC 2.94 XMIL (4.7-6.1); WBC 12.99 X1000 (4.8-10.8)
[2019-05-10 05:39] LABS: ALBUMIN 3.4 g/dL (3.5-5.0); CALCIUM 8.9 mg/dL (8.8-10.2); CREATININE 3.4 mg/dL (0.7-1.2); MAGNESIUM 2.2 mg/dL (1.5-2.7); PHOSPHORUS 6.4 mg/dL (2.7-4.5); POTASSIUM 5.9 mmol/L (3.5-5.1)
[2019-05-10] MEDS: LASIX IV SCH ×2 (06:13→15:38)
--- NOTE | 2019-05-10 07:41 | EKG Report ---
Test Performed on : 05/10/2019 06:38:55 AM Test Reason : QT prolongation Blood Pressure : / mmHG Vent. Rate : 098 BPM Atrial Rate : 098 BPM P-R Int : 156 ms QRS Dur : 080 ms QT Int : 368 ms P-R-T Axes : 062 061 023 degrees QTc Int : 469 ms Normal sinus rhythm. Nonspecific T wave abnormality Prolonged QT Abnormal ECG Confirmed by Fili Lake MD ([id number]) on 05/10/2019 8:10:58 AM
[2019-05-10] MEDS ORDERED: D50W SYRINGE IV ONE (07:51)
[2019-05-10] MEDS ORDERED: HUMULIN R IV ONE (07:51)
[2019-05-10] MEDS ORDERED: ALBUTEROL 0.5% INH CONC FOR HYPERKALEMIA INH ONE (07:52)
[2019-05-10] MEDS: NEURONTIN PO SCH ×2 (08:54→21:22)
[2019-05-10] MEDS: ISORDIL PO SCH ×3 (08:54→21:21)
[2019-05-10] MEDS: LACTULOSE PO SCH ×2 (08:54→21:25)
[2019-05-10] MEDS: FERROUS SULFATE PO SCH (08:54)
[2019-05-10] MEDS: COREG PO SCH ×2 (08:54→21:22)
[2019-05-10] MEDS: HEPARIN SUBQ SCH ×3 (08:54→21:41)
[2019-05-10] MEDS: ZAROXOLYN PO SCH (08:54)
[2019-05-10] MEDS: HUMULIN 70/30 SUBQ SCH ×2 (08:55→21:31)
[2019-05-10] MEDS: NICODERM PATCH TD SCH (08:56)
[2019-05-10] MEDS ORDERED: HALDOL PO SCH (09:00)
[2019-05-10] MEDS: ALBUMIN 25% IV SCH (09:06)
[2019-05-10] MEDS: DILAUDID IV PRN ×3 (13:12→21:24)
[2019-05-10] MEDS: SANTYL OINT TOP SCH (13:21)
[2019-05-10] MEDS: LOKELMA POWDER PACKET PO SCH (17:49)
--- NOTE | 2019-05-10 19:50 | NEPHROLOGY PROGRESS NOTE ---
DATE: 05/10/2019 TIME SEEN: 06. SUBJECTIVE: Mr. Campoverde is resting in bed. He is actually lying prone. He is on room air, awakens easily. OBJECTIVE: Vital Signs: Temperature 97.5 degrees, blood pressure 166/80, heart rate 105, respirations 18. He is on room air last recorded saturation 100% .he has had 992 in. He has had 3600 out to void. LABS: Sodium 137, potassium 5.9, chloride 102, CO2 19, BUN 87, creatinine 3.4, glucose 211. His anion gap is 16, calcium is 8.9, phosphorus 6.4, albumin 3.4, magnesium 2.2. White count 12.99, hemoglobin 7.5, hematocrit 24.8 with a platelet count of 444,000. The patient has a wound stain positive for gram-negative rods. PHYSICAL EXAMINATION: General: This is a 38-year-old male who is resting quietly in bed. He appears chronically ill. He is in no acute distress this a.m. Skin: Warm and dry. HEENT: Normocephalic, atraumatic. Conjunctiva is pale pink. He has KEON. Mucous membranes are dry. Neck: Supple. Trachea midline. Positive JVD. Cardiovascular: Regular rate and rhythm. He has a gallop that is appreciated. No murmur is present. Lungs: Clear to auscultation anteriorly. Equal excursion. Continues on room air. Abdomen: Distended, nontender. Positive bowel sounds. Genitourinary: Not inspected. Patient has been voiding adequate amount. MUSCULOSKELETAL: Continues with 3+ pitting edema into the midabdominal upper chest wall area. Lower extremities continues with dressings to bilateral feet. Neurological: He is alert and oriented x3. ASSESSMENT AND PLAN: 1. Chronic kidney disease stage 4. Patient continues with diabetic nephropathy. BUN and creatinine have slowly risen more than likely secondary to continued Lasix of 200 mg 3 times a day IV. Follow with metolazone 10 mg now with albumin. He continues on a 1 L fluid restriction. We will continue the course. 2. Electrolytes and acid-base balance. The patient had a potassium of 5.9 this a.m. We have treated him with an amp of D50, insulin of 10 units and albuterol inhaler. We will evaluate his potassium later today. 3. Acid-base balance. This is stable. 4. Anemia. This has been low but stable. I would like to thank you for allowing us to follow with this patient. Dictated by OSMAN Loyd for Victorino Oconnor MD Face to face encounter, data reviewed, discussed with Inessa Malin on 05/10/19. I agree with the above assessment and plan of care. cc: OSMAN Loyd MD [facility]
[2019-05-10] MEDS: MELATONIN PO SCH (21:21)
[2019-05-10] MEDS: MAALOX PLUS LIQUID PO PRN (21:27)
[2019-05-11] MEDS: LOKELMA POWDER PACKET PO SCH ×3 (00:20→12:14)
[2019-05-11] MEDS: LASIX IV SCH ×3 (00:20→19:38)
[2019-05-11] MEDS: DILAUDID IV PRN ×3 (01:34→10:00)
[2019-05-11] MEDS: HUMULIN R SUBQ SCH ×6 (01:56→22:43)
--- NOTE | 2019-05-11 03:55 | PROGRESS NOTE ---
DATE: 05/10/2019 SUBJECTIVE: The patient was noted to be upset this morning due to some issues with receiving his pain medication. Adjustments were made and the patient is now in better spirits. He continues to complain of left-sided rib pain. OBJECTIVE: Vital Signs: Temperature 97.3 degrees, blood pressure 151/79, heart rate 96, respirations 19, O2 saturations 100% on room air, intake 992, output 3.6 L. General: This is a chronically ill-appearing elderly male sitting at the edge of the bed in no acute distress. Heart: S1, S2 normal. Regular rate and rhythm. Lungs: Diffuse expiratory wheezes with coarse breath sounds. Abdomen: Positive bowel sounds. Soft, mildly distended. Extremities: 3+ edema to the lower extremities. Neurologic: The patient is alert and oriented x4. LABS: White blood cell count 12, hemoglobin 7.5, hematocrit 24, platelets 444,000. Sodium 137, potassium 6, chloride 102, CO2 19, BUN 87, creatinine 3.4, glucose 211, albumin 3.4. ASSESSMENT AND PLAN: 1. Severe volume overload. Continue on the current diuretic regimen as directed by the sash repairer. 2. Pneumonia, secondary to Klebsiella pneumoniae. Continue on Zosyn. 3. Left foot wound. The wound culture is growing gram-negative rods. Continue on Zosyn and continue with wound care. 4. Chronic kidney disease stage 4. Aware. Management as per the sash repairer. 5. Metabolic acidosis. Stable. Continue to monitor closely. 6. Uncontrolled insulin-dependent diabetes mellitus. Continue on the current insulin regimen. 7. Hyperkalemia. The patient is receiving treatment. 8. Behavioral disturbance. The Haldol and Prozac have been discontinued because the patient has QT prolongation on his electrocardiogram. 9. Insomnia. Continue on melatonin. 10. Hypertension. Continue on the current antihypertensive regimen. 11. Left sided rib pain. Continue with p.r.n. pain medication. 12. Deep vein thrombosis prophylaxis. Continue on heparin. cc: Alexandra Cruz MD MTDD
[2019-05-11] MEDS: ZOSYN 2.25 GM in NS 50 ML IV SCH ×2 (04:45→12:19)
[2019-05-11 05:23] LABS: BASO# 0.06 X1000 (0.0-0.2); BASO% 0.5 % (0.0-0.8); EOS# 0.28 X1000 (0.0-0.7); EOS% 2.2 % (0.0-10.0); HEMATOCRIT 22.3 % (42.0-52.0); HEMOGLOBIN 6.6 g/dL (14.0-18.0); IMM GRAN# 0.09 X1000 (0.0-0.04); IMM GRAN% 0.7 % (0.0-0.5); LYMPH# 1.38 X1000 (1.2-3.4); LYMPH% 10.9 % (20.5-51.1); MCH 25.2 PG (27-31); MCHC 29.6 g/dL (33-37); MCV 85.1 FL (81-99); MONO# 1.06 X1000 (0.11-0.59); MONO% 8.3 % (1.7-9.3); MPV 9.8 FL (7.4-10.4); NEUT# 9.83 X1000 (1.4-6.5); NEUT% 77.4 % (42.2-75.2); PLT 417 X1000 (130-400); RBC 2.62 XMIL (4.7-6.1); RDW 22.9 % (11.5-14.5)
[2019-05-11 05:49] LABS: ALBUMIN 3.7 g/dL (3.5-5.0); CALCIUM 8.4 mg/dL (8.8-10.2); CREATININE 3.5 mg/dL (0.7-1.2); PHOSPHORUS 7.2 mg/dL (2.7-4.5); POTASSIUM 5.7 mmol/L (3.5-5.1)
[2019-05-11] MEDS: APRESOLINE PO SCH ×3 (05:52→21:14)
[2019-05-11 06:18] LABS: ANISOCYTOSIS 2+; BANDS 3 % (0-1); HYPOCHROM 1+; LYMPHS 15 % (21-51); MONO 7 % (1-9); SEGS 72 % (42-75)
--- NOTE | 2019-05-11 07:51 | EKG Report ---
Test Performed on : 05/11/2019 06:37:41 AM Test Reason : QT prolongation Blood Pressure : / mmHG Vent. Rate : 094 BPM Atrial Rate : 094 BPM P-R Int : 164 ms QRS Dur : 082 ms QT Int : 388 ms P-R-T Axes : 048 041 081 degrees QTc Int : 485 ms Normal sinus rhythm. Nonspecific T wave abnormality Prolonged QT Abnormal ECG Confirmed by Fili Lake MD ([id number]) on 05/11/2019 4:35:41 PM
[2019-05-11] MEDS: RISPERDAL PO SCH ×2 (08:18→21:19)
[2019-05-11] MEDS: NICODERM PATCH TD SCH (08:18)
[2019-05-11] MEDS: NEURONTIN PO SCH ×2 (08:18→21:00)
[2019-05-11] MEDS: ZAROXOLYN PO SCH (08:18)
[2019-05-11] MEDS: FERROUS SULFATE PO SCH (08:18)
[2019-05-11] MEDS: LACTULOSE PO SCH ×2 (08:19→21:14)
[2019-05-11] MEDS: HUMULIN 70/30 SUBQ SCH ×2 (08:19→21:15)
[2019-05-11] MEDS: ISORDIL PO SCH ×3 (08:19→21:14)
[2019-05-11] MEDS: COREG PO SCH ×2 (08:20→21:14)
[2019-05-11] MEDS: HEPARIN SUBQ SCH ×2 (08:20→21:14)
[2019-05-11] MEDS ORDERED: NS 500 ML IV ONE (09:35)
[2019-05-11] MEDS: ALBUMIN 25% IV SCH (09:49)
[2019-05-11] MEDS ORDERED: DILAUDID IV PRN (10:02)
--- NOTE | 2019-05-11 10:49 | Diag Imaging Result Doc PS360 ---
ABDOMEN FLAT/UPRIGHT - 05/11/2019 INDICATION: abdominal pain/nausea COMPARISON: 04/17/2019 FINDINGS: There is perhaps mild constipation. No bowel obstruction or free air. Stable surgical clips in the right lower quadrant. IMPRESSION: Mild constipation but otherwise no acute disease. Electronically signed by Joseph Lawrence 05/11/2019 10:47 AM
[2019-05-11] MEDS: SANTYL OINT TOP SCH (12:09)
--- NOTE | 2019-05-11 14:03 | Diag Imaging Result Doc PS360 ---
EXAM: FOOT 2 VIEWS RIGHT HISTORY: foot osteomyelitis TECHNIQUE: Two views COMPARISON: None. FINDINGS: No fracture. No dislocation. The bones are osteopenic. No bone erosions. IMPRESSION: No plain film evidence of osteomyelitis. If clinical suspicion persists an MRI is recommended. Electronically signed by Malik Davis 05/11/2019 2:01 PM
[2019-05-11] MEDS: MERREM 1 GM in NS 50 ML IV SCH (14:17)
--- NOTE | 2019-05-11 14:21 | Diag Imaging Result Doc PS360 ---
EXAM: FOOT 2 VIEWS LEFT 05/11/2019 HISTORY: osteomyelitis TECHNIQUE: Left foot two views COMMENT: There are arterial calcifications particularly in the posterior tibial artery. There are degenerative or post traumatic changes in the distal portion of the first proximal phalanx. There is some slight soft tissue swelling in the forefoot. No evidence of acute fracture dislocation or erosion is present otherwise. IMPRESSION: No evidence of acute bony abnormality. Electronically signed by Jeremy Guaman 05/11/2019 2:19 PM
[2019-05-11 14:41] LABS: IRON SATURATION 46 %; TIBC 226 ug/dL; TOTAL IRON 104 ug/dL (53-167); UNBOUND IRON 122 ug/dL (112-346)
--- NOTE | 2019-05-11 16:09 | PROGRESS NOTE ---
DATE: 05/11/2019 SUBJECTIVE: The patient was noted to be belligerent and abusive towards the nursing staff overnight, and security was called to intervene. This morning the patient is somewhat sleepy from receiving Dilaudid. He complains of abdominal pain. He has been having bowel movements every day. OBJECTIVE: Vital Signs: Temperature 97.9 degrees, blood pressure 119/84, heart rate 82, respirations 16, O2 saturations 100% on room air. General: This is a chronically ill-appearing elderly male lying in bed in no acute distress. Heart: S1, S2 normal. Lungs: Coarse breath sounds with rhonchi. Abdomen: Positive bowel sounds. Mildly distended. Extremities: 3+ edema bilaterally. The patient also has a ulceration on the left lateral foot. It is wrapped in a clean dry dressing. Neurologic: The patient is alert and oriented x3. LABS: White blood cell count 12, hemoglobin 6.6, hematocrit 22, platelets 417,000, sodium 136, potassium 5.7, chloride 101, CO2 20, BUN 91, creatinine 3.5, glucose 174, phosphorus 7.2, calcium 8.4, albumin 3.7. Abdominal x-ray shows mild constipation. ASSESSMENT AND PLAN: 1. Severe volume overload. Continue on the current diuretic regimen as directed by Dr. Oconnor. 2. Pneumonia secondary to Klebsiella pneumoniae. Continue with antibiotic therapy. We will also add bronchodilator therapy to be scheduled. 3. Left foot wound infection secondary to Enterobacter cloacae. The wound culture shows that the organism is resistant to the majority of the antibiotics available. We will consult with Dr. Scales for further treatment recommendations. Continue with wound care. 4. Chronic kidney disease stage 4. Aware. Continue with the current treatment. 5. Uncontrolled insulin-dependent diabetes mellitus. Continue on Humulin 70/30 + scheduled regular insulin. 6. Severe anemia. The patient has agreed to undergo a blood transfusion. We will also check iron studies prior to the transfusion. 7. Hyperkalemia. We will start the patient on Lokelma. 8. Metabolic acidosis. Unchanged. Monitor closely. 9. Behavioral disturbance. The patient continues to have outbursts where he is abusive and aggressive towards staff. His Haldol and Prozac were discontinued because they led to QT prolongation. After discussion with he has been started on Risperdal. We will monitor his response and titrate the dosage carefully. 10. Insomnia. Continue on melatonin. 11. Hypertension. Continue on the current treatment regimen. 12. Chronic pain. The patient is currently receiving prn Morphine. 13. Deep vein thrombosis prophylaxis. Continue on heparin. cc: Alexandra Cruz MD MTDD
[2019-05-11 16:21] LABS: FERRITIN 338 ng/mL (30-400)
[2019-05-11] MEDS: MORPHINE IV PRN ×2 (17:07→21:10)
--- NOTE | 2019-05-11 17:44 | NEPHROLOGY PROGRESS NOTE ---
DATE: 05/11/2019 SUBJECTIVE: He had another hard night with the staff. Apparently called the police again. Security has been called on multiple occasions. Currently he is sleeping in bed having just received a dose of Dilaudid. He will arouse and nod to me but dozes off quickly. He still complains of pain. OBJECTIVE: Vital Signs: Blood pressure 160/89, heart rate 94, respiration 18, afebrile. Intake and output are incomplete. General: No acute distress. Skin: Warm and dry. Neck: Neck veins are not appreciated. Heart: Regular with systolic murmur. No gallops. Lungs: Equal. Shallow. No crackles. Abdomen: Distended. Extremities: With 3+ edema. No clubbing or cyanosis. IMPRESSION: Chronic kidney disease stage 4 with nephrotic range proteinuria and volume overload. Modest hyperkalemia. Modest metabolic acidosis with anion gap of 15. He is receiving metolazone and furosemide at maximum doses. He has also received albumin and his albumin is corrected currently to 3.7. The albumin is complete now. We will continue these antibiotics as tolerated. Regarding his behavior, the psychiatry recommendation of Haldol had to be interrupted because of QTc prolongation. I discussed this with Dr. Cruz and we added Risperdal as this has less risk of QT prolongation. cc: Victorino Oconnor MD
--- NOTE | 2019-05-11 20:10 | INFECTIOUS DISEASE CONSULT REP ---
DATE: 05/11/2019 CONCLUSION: The patient initially did have pneumonia but based on his most recent chest x-ray, the pneumonia has cleared. The patient has bilateral foot infected ulcers. The organism isolated from the wound was a multiply drug-resistant Enterobacter. Patient also in the past 3 weeks has had diarrhea. RECOMMENDATIONS: I have discontinued Zosyn and have instead put the patient on meropenem. Some of the side effects of the antibiotic including rash, diarrhea and seizures have been explained to the patient who agrees with treatment. I have ordered stool for Clostridium difficile toxin and antigen. Also, I have ordered a stool culture. I ordered x-rays and a bone scan of the patient's feet. DISCUSSION: The patient says that in the past 3 weeks he has had swelling of his legs and shortness of breath. He also has bilateral foot ulcers which have been getting more painful and bigger. He also has noticed that he has had diarrhea. His studies thus far show a CBC with a white count of 12,700, hemoglobin 6.6, platelet count 417,000. Creatinine is 3.5. GFR is 24. Procalcitonin is 1.3, which means that the patient was very likely to have pneumonia. Sputum grew Klebsiella and a culture from the patient's foot ulcer grew a multiply drug- resistant Enterobacter. Latest chest x-ray shows no infiltrates. X-ray of the abdomen showed mild constipation. PAST MEDICAL HISTORY/REVIEW OF SYSTEMS: Eyes and ears: He denies having any trouble seeing or hearing. Neck: No stiffness. Respiratory: See present illness. Cardiac: See present illness. GI: See present illness. : No dysuria. The patient tells me he does not pass much urine at all. Bones, joints, muscles: See present illness. Neurologic: The patient has not had any seizures for years and he is not on any seizure medicine. PREVIOUS HOSPITALIZATIONS AND OPERATIONS: Patient denied having any. MEDICAL DISEASES: Positive for diabetes mellitus, hypertension, seizure disorder, congestive heart failure and chronic kidney disease. INFECTIOUS DISEASE HISTORY: Negative for pneumonia and UTI. FAMILY HISTORY: Positive for diabetes mellitus and myocardial infarction. SOCIAL HISTORY: [place] He is . He lives alone. He does not have any pets. He smokes cigarettes. He does not drink alcoholic beverages or use illicit drugs. ALLERGIES: He has no known drug allergies. HOME MEDICATIONS: Include Coreg, gabapentin, Apresoline, hydrochlorothiazide, hydrocodone, insulin, Isordil, omeprazole, Seroquel and torsemide. PHYSICAL EXAMINATION: Vital Signs: Temperature is 96.9 degrees, pulse 94, respirations 18, blood pressure is 160/89. The patient is 5 feet 7 inches tall, weighs 208 pounds. General: This is an obese, young male. He is in no acute distress. He is lethargic. Head, eyes, ears, nose, and throat: Most the time the patient is lying with his eyes closed. He does not have any drainage from his nose or ears. I did not see any white patches in his mouth. Neck: No meningismus. Lungs: Clear to auscultation. Cardiovascular: Heart rate is regular. Abdomen: Soft, nontender. Extremities: Both legs have plantar ulcers. Both legs are edematous. Neurologic: The patient is lethargic. He can move his extremities. There is no tremor. His memory as regarding his medical history was not complete. Thank you for the consult. cc: Yasir Scales MD [id number]
[2019-05-11] MEDS: MELATONIN PO SCH (21:14)
[2019-05-11] MEDS: MAALOX PLUS LIQUID PO PRN (22:14)
[2019-05-12] MEDS: LASIX IV SCH ×2 (00:31→10:08)
[2019-05-12] MEDS: MORPHINE IV PRN ×4 (01:11→22:41)
[2019-05-12] MEDS: HUMULIN R SUBQ SCH ×6 (01:16→22:49)
[2019-05-12] MEDS: MERREM 1 GM in NS 50 ML IV SCH ×2 (02:37→15:01)
[2019-05-12] MEDS: LOKELMA POWDER PACKET PO SCH ×2 (05:34→10:11)
[2019-05-12] MEDS: APRESOLINE PO SCH ×3 (05:34→22:40)
[2019-05-12 05:54] LABS: BASO# 0.05 X1000 (0.0-0.2); BASO% 0.5 % (0.0-0.8); EOS# 0.19 X1000 (0.0-0.7); EOS% 1.9 % (0.0-10.0); HEMATOCRIT 24.5 % (42.0-52.0); HEMOGLOBIN 7.6 g/dL (14.0-18.0); LYMPH# 1.48 X1000 (1.2-3.4); LYMPH% 14.4 % (20.5-51.1); MCV 83.9 FL (81-99); MONO# 1.11 X1000 (0.11-0.59); MONO% 10.8 % (1.7-9.3); MPV 9.9 FL (7.4-10.4); NEUT# 7.34 X1000 (1.4-6.5); NEUT% 71.4 % (42.2-75.2); PLT 414 X1000 (130-400); RBC 2.92 XMIL (4.7-6.1); RDW 21.3 % (11.5-14.5); WBC 10.27 X1000 (4.8-10.8)
[2019-05-12 06:46] LABS: ALBUMIN 3.8 g/dL (3.5-5.0); CALCIUM 8.7 mg/dL (8.8-10.2); PHOSPHORUS 8.4 mg/dL (2.7-4.5); POTASSIUM 5.9 mmol/L (3.5-5.1)
[2019-05-12 08:21] LABS: ANISOCYTOSIS OCCASIONAL; BANDS 1 % (0-1); EOS 4 % (1-10); HYPOCHROM OCCASIONAL; LYMPHS 12 % (21-51); MONO 5 % (1-9); NRBC 2 % (0-0); SEGS 78 % (42-75)
[2019-05-12] MEDS ORDERED: PERCOCET-10 PO PRN (08:21)
[2019-05-12] MEDS: ISORDIL PO SCH ×3 (10:05→22:41)
[2019-05-12] MEDS: PERCOCET-10 PO PRN ×2 (10:05→18:15)
[2019-05-12] MEDS: NEURONTIN PO SCH ×2 (10:06→22:40)
[2019-05-12] MEDS: ZAROXOLYN PO SCH (10:06)
[2019-05-12] MEDS: FERROUS SULFATE PO SCH (10:06)
[2019-05-12] MEDS: RISPERDAL PO SCH ×2 (10:06→22:40)
[2019-05-12] MEDS: HEPARIN SUBQ SCH ×2 (10:08→22:46)
[2019-05-12] MEDS: HUMULIN 70/30 SUBQ SCH ×3 (10:09→22:52)
[2019-05-12] MEDS: COREG PO SCH ×2 (10:09→22:40)
[2019-05-12] MEDS: LACTULOSE PO SCH ×2 (10:11→22:47)
[2019-05-12] MEDS: NICODERM PATCH TD SCH (10:11)
[2019-05-12] MEDS: DUONEB (A & A) INH SCH ×3 (10:19→22:00)
[2019-05-12] MEDS: SANTYL OINT TOP SCH (11:59)
[2019-05-12] MEDS ORDERED: ALBUTEROL 0.5% INH CONC FOR HYPERKALEMIA INH ONE (13:28)
[2019-05-12] MEDS ORDERED: HUMULIN R IV ONE (13:31)
[2019-05-12] MEDS ORDERED: D50W SYRINGE IV ONE (13:31)
[2019-05-12] MEDS: TESSALON PO SCH ×2 (13:32→18:14)
[2019-05-12 14:08] LABS: URINE SOURCE CATH
[2019-05-12] MEDS ORDERED: ZAROXOLYN PO SCH (14:15)
[2019-05-12 14:19] LABS: BILIRUBIN URINE NEGATIVE (NEGATIVE); BLOOD URINE NEGATIVE (NEGATIVE); CLARITY CLOUDY (CLEAR); COLOR YELLOW; GLUCOSE URINE 100 mg/dL (NEGATIVE); KETONE URINE NEGATIVE (NEGATIVE); LEUKOCYTES URINE NEGATIVE (NEGATIVE); NITRITE URINE NEGATIVE (NEGATIVE); PH URINE 5.5; PROTEIN URINE >=300 mg/dL (NEGATIVE); UROBILINOGEN URINE 0.2 EU/dL (0.2-1.0)
[2019-05-12 14:22] LABS: URINE EPITHELIAL CELLS <10 /HPF (<10); URINE RBC <10 /HPF (<10)
[2019-05-12 14:23] LABS: URINE BACTERIA 1+ /HFP; URINE CAST NONE SEEN /LPF; URINE CRYSTAL CA OXALATE PRESENT /HPF; URINE YEAST NONE SEEN /HPF
[2019-05-12 14:26] LABS: URINE SMALL ROUND CELLS TRANSITIONAL PRESENT
[2019-05-12] MEDS ORDERED: INSULIN PEN NEEDLES ONE (16:51)
--- NOTE | 2019-05-12 17:40 | Diag Imaging Result Doc PS360 ---
EXAM: HIP 1 VIEW LEFT HISTORY: FALL TECHNIQUE: Single view COMPARISON: 05/08/2019 FINDINGS: No fracture. No dislocation. IMPRESSION: No acute bony injury. Electronically signed by Malik Davis 05/12/2019 5:38 PM
--- NOTE | 2019-05-12 20:03 | PROGRESS NOTE ---
DATE: 05/12/2019 SUBJECTIVE: The patient states that he has not been urinating as much lately and complains of abdominal fullness. A bladder scan was done that revealed over 500 mL of urine in the bladder. OBJECTIVE: Vital signs: Temperature 97.1 degrees, blood pressure 181/87, heart rate 95, respirations 16, O2 saturation 100% on room air. Intake 460, output 1 L.General: This is a chronically ill-appearing elderly male, lying in bed in no acute distress. Heart: S1, S2 normal. Regular rate and rhythm. Lungs: Mild expiratory wheezes bilaterally. Abdomen: Positive bowel sounds, distended, nontender. Extremities: Edema 3+ in the lower extremities. The patient has dressings applied to both feet. Neurologic: The patient is alert and oriented x4. LABORATORY DATA: White blood cell count 10, hemoglobin 7.6, hematocrit 24, platelets 414,000. Sodium 136, potassium 5.9, chloride 101, CO2 is 19, BUN 100, creatinine 4, glucose 133. ASSESSMENT AND PLAN: 1. Severe volume overload with nephrotic-range proteinuria. The patient's urine output has decreased somewhat; however, the patient is retaining urine. We will have a Gatica catheter placed. Continue with diuretic therapy as directed by Dr. Oconnor. The patient is approaching the need for dialysis. discussed this with the patient this morning and he is thinking about it. 2. Pneumonia secondary to Klebsiella pneumoniae. The procalcitonin is elevated. The patient is currently on antibiotic therapy plus bronchodilator therapy. 3. Bilateral foot wound infection secondary to Enterobacter cloacae. The patient's antibiotics were adjusted by Dr. Scales. The patient is now on meropenem. Continue with wound care. 4. Chronic kidney disease stage 4. BUN and creatinine are rising; however, the patient is receiving high-dose diuretic therapy. Continue to monitor closely. 5. Persistent hyperkalemia. We will treat the elevated potassium. Continue Lokelma. 6. Uncontrolled insulin-dependent diabetes mellitus. Continue on Humulin 70/30 and sliding scale insulin. 7. Severe anemia. Improved. The hemoglobin and hematocrit are a little bit better today. The patient received 1 unit of packed red blood cells yesterday. 8. Metabolic acidosis. Unchanged. This is likely secondary to the patient's worsening renal function. Continue to monitor closely. 9. Behavioral disturbance. No acute events occurred overnight. We will continue with Risperdal. 10. Insomnia. Continue on melatonin. 11. Hypertension. Continue on the current antihypertensive regimen. 12. Chronic pain. We will alternate morphine and Percocet for pain control. 13. Deep vein thrombosis prophylaxis. Continue on heparin. cc: Alexandra Cruz MD MTDD
--- NOTE | 2019-05-12 22:37 | NEPHROLOGY PROGRESS NOTE ---
DATE: 05/12/2019 SUBJECTIVE: He is lying in bed. Complains of not being able to void. No shortness of breath. He is on room air. OBJECTIVE: Vital Signs: Blood pressure 181/87, heart rate 95, respirations 16, afebrile. Intake and output are incomplete. General: No acute distress. Skin is warm and dry. I am not able to appreciate his neck veins today. Heart: Regular with systolic murmur. No gallop. Lungs: Equal. No crackles. Abdomen: Soft, distended, nontender. Bowel sounds present. Extremities: With 3+ edema. Essentially no change. IMPRESSION: Chronic kidney disease stage 4 with overlying rise in creatinine secondary to diuretic therapy. Baseline creatinine was 1.9 back in early April. He has heavy proteinuria and hypoalbuminemia. Complicated by moderate hyperkalemia and metabolic acidosis. I counseled him today that we have used maximum doses of diuretic therapy and albumin without any improvement in his symptoms. The only pathway forward would be to change to oral diuretics and continue salt restriction and free water restriction. Alternatively, the only other treatment available would be dialysis. He considered this momentarily and opted for discharge home and to take oral diuretics. He is having some problems voiding and in-and-out catheter may address this symptom and send him home with [facility]. Discussed with Dr. Cruz. We will see him in the office. cc: Victorino Oconnor MD
[2019-05-12] MEDS: MELATONIN PO SCH (22:40)
[2019-05-13] MEDS: TESSALON PO SCH ×2 (00:22→08:30)
[2019-05-13] MEDS: MERREM 1 GM in NS 50 ML IV SCH ×2 (02:03→14:43)
[2019-05-13] MEDS: HUMULIN R SUBQ SCH ×6 (02:03→20:11)
[2019-05-13] MEDS: DUONEB (A & A) INH SCH ×5 (03:58→23:10)
[2019-05-13 06:22] LABS: CALCIUM 8.9 mg/dL (8.8-10.2); CREATININE 4.7 mg/dL (0.7-1.2); PHOSPHORUS 9.5 mg/dL (2.7-4.5); POTASSIUM 5.9 mmol/L (3.5-5.1)
[2019-05-13] MEDS: MORPHINE IV PRN (06:26)
[2019-05-13] MEDS: APRESOLINE PO SCH ×3 (06:26→20:10)
[2019-05-13 06:28] LABS: HEMATOCRIT 25.1 % (42.0-52.0); HEMOGLOBIN 7.5 g/dL (14.0-18.0); MCH 25.7 PG (27-31); MCHC 29.9 g/dL (33-37); MPV 10.2 FL (7.4-10.4); RBC 2.92 XMIL (4.7-6.1); RDW 21.8 % (11.5-14.5); WBC 14.51 X1000 (4.8-10.8)
--- NOTE | 2019-05-13 07:27 | Diag Imaging Result Doc PS360 ---
EXAM: CHEST-1 VIEW 05/13/2019 HISTORY: pneumonia TECHNIQUE: AP portable at 0644 COMMENT: There is slightly increased interstitial pulmonary edema compared to 05/09/2019. The inspiration is also less optimal. There is enlargement of the cardiac silhouette which may be due to cardiomegaly and/or pericardial effusion. IMPRESSION: Pulmonary edema and cardiomegaly. Electronically signed by Jeremy Guaman 05/13/2019 7:25 AM
[2019-05-13] MEDS: PERCOCET-10 PO PRN (08:27)
[2019-05-13] MEDS: COREG PO SCH ×2 (08:29→20:10)
[2019-05-13] MEDS: LACTULOSE PO SCH (08:30)
[2019-05-13] MEDS: FERROUS SULFATE PO SCH (08:30)
[2019-05-13] MEDS: HEPARIN SUBQ SCH ×2 (08:30→20:15)
[2019-05-13] MEDS: LOKELMA POWDER PACKET PO SCH (08:30)
[2019-05-13] MEDS: RISPERDAL PO SCH (08:30)
[2019-05-13] MEDS: ISORDIL PO SCH ×3 (08:30→20:10)
[2019-05-13] MEDS: NICODERM PATCH TD SCH (08:30)
[2019-05-13] MEDS: FLOMAX PO SCH (08:39)
[2019-05-13] MEDS: NEURONTIN PO SCH (08:40)
[2019-05-13] MEDS: HUMULIN 70/30 SUBQ SCH (08:45)
[2019-05-13] MEDS ORDERED: LASIX PO SCH (09:00)
[2019-05-13] MEDS ORDERED: ZYVOX PO SCH (09:00)
--- NOTE | 2019-05-13 10:17 | Diag Imaging Result Doc PS360 ---
EXAM: CT PELVIS W/O CONTRAST 05/13/2019 HISTORY: Leukocytosis, Elev Cr, Scrotal pain and swelling TECHNIQUE: This exam was performed using automated exposure control, adjustment of mA or kV according to patient size, and/or use of iterative reconstruction technique. COMMENT: The current study is compared with the previous examination of 04/29/2019. There is severe generalized anasarca. This was previously present. There is free fluid in the pelvis. There is subcutaneous edema in the penis and scrotum. The previous examination did not include as much of the scrotum as the current study, however the degree of subcutaneous edema generally has increased since the previous study. There is no evidence of soft tissue gas or focal abscess. The regional skeleton is stable in appearance. IMPRESSION: Anasarca and ascites. Electronically signed by Jeremy Guaman 05/13/2019 10:14 AM
--- NOTE | 2019-05-13 10:36 | EKG Report ---
Test Performed on : 05/13/2019 06:36:48 AM Test Reason : QT prolongation Blood Pressure : / mmHG Vent. Rate : 097 BPM Atrial Rate : 097 BPM P-R Int : 158 ms QRS Dur : 082 ms QT Int : 362 ms P-R-T Axes : 030 028 -03 degrees QTc Int : 459 ms Normal sinus rhythm. Possible Left atrial enlargement Borderline ECG Confirmed by Fili Lake MD ([id number]) on 05/14/2019 4:14:45 PM
[2019-05-13] MEDS: SANTYL OINT TOP SCH ×2 (11:48→12:00)
[2019-05-13 12:43] LABS: ALLEN TEST NO; BE -15.9 mmoll (-3.0-3.0); BLOOD TYPE ARTERIAL; HCO3-(ACT) 12.6 mmoll (20.0-26.0); METHB 0.5 % (0.0-1.5); O2(CT) 12.6 mL/dL (15.0-23.0); O2HB 97.4 % (95.0-99.0); PO2(98.6) 305 mmHg (60-100); SAMPLE BLOOD; THB 8.6 g/dL (11.5-17.4)
[2019-05-13] MEDS ORDERED: ATIVAN IV PRN (12:44)
[2019-05-13] MEDS ORDERED: DUONEB (A & A) INH PRN (12:44)
[2019-05-13] MEDS ORDERED: APRESOLINE IV PRN (12:44)
[2019-05-13 12:45] LABS: MODALITY RESUSC BAG
[2019-05-13 12:47] LABS: PCO2(98.6) 64 mmHg (35-45); pH(98.6) 6.98 (7.35-7.45)
--- NOTE | 2019-05-13 13:35 | Diag Imaging Result Doc PS360 ---
EXAM: CHEST-PORTABLE 05/13/2019 HISTORY: intubated code TECHNIQUE: Semiupright AP portable at 1317. COMMENT: There is an endotracheal tube with its tip slightly below the thoracic inlet and an NG tube with its tip in the stomach. There is enlargement of the cardiomediastinal silhouette which may be due to cardiomegaly and/or pericardial effusion. IMPRESSION: Cardiomegaly. Electronically signed by Jeremy Guaman 05/13/2019 1:33 PM
[2019-05-13] MEDS ORDERED: NS 2,000 ML MISC PRN (14:44)
--- NOTE | 2019-05-13 14:51 | Diag Imaging Result Doc PS360 ---
EXAM: CHEST-PORTABLE 05/13/2019 HISTORY: Right IJ placement TECHNIQUE: AP portable upright at 1440 COMMENT: There is an endotracheal tube with its tip just below the thoracic inlet and an NG tube which passes below the diaphragm. There is a right internal jugular large bore catheter with its tip in the right atrium. The cardiomediastinal silhouette is enlarged. There is no evidence of pneumothorax or pleural fluid collection. Compared to 2019 at 0644 the pulmonary edema which was present previously has improved. IMPRESSION: Improved pulmonary edema. Electronically signed by Jeremy Guaman 05/13/2019 2:49 PM
[2019-05-13 15:03] LABS: ALB/GLOB RATIO 1.3; ALBUMIN 3.2 g/dL (3.5-5.0); CALCIUM 8.8 mg/dL (8.8-10.2); TOTAL BILIRUBIN 0.42 mg/dL (0.20-1.00); TOTAL PROTEIN 5.7 g/dL (6.3-8.3)
--- NOTE | 2019-05-13 15:14 | INFECTIOUS DISEASE PROGRESS NO ---
DATE: 05/13/2019 PRESENT ILLNESS: The patient has bilateral infected foot ulcers. He also appears to be developing pneumonia. MEDICATIONS: The patient is receiving meropenem and this is day 2 of treatment with it. PHYSICAL EXAMINATION: Vital Signs: Temperature is 97.5 degrees, pulse 97, respirations 22, blood pressure 153/95. General: This is a chronically ill-appearing, young male. He is in no acute distress at this moment. Head/eyes/ears/nose/throat: He can hear my spoken words and see near objects. He talks with a deep voice. There are no white patches in his mouth. Neck: No pain with movement. Lungs: Clear to auscultation. Cardiovascular: Heart rate is regular. Abdomen: Soft and not tender, but it is very protuberant. Extremities: The patient has bilateral leg edema and bilateral plantar ulcers. There is there is a large dressing around both feet. The dressings are intact. Neurologic: The patient is able to walk and he can carry on a coherent conversation. LAB AND X-RAY: The patient's immunoglobulin levels are normal with an IgA of 374 and an IgG of 1444. The patient's procalcitonin is 1.3, which means the patient is very likely to have pneumonia. The creatinine is 4.7. GFR is 17. The patient's sputum grew Klebsiella and the patient's foot ulcer grew a multiply drug-resistant Enterobacter. Chest x-ray shows increase in the patient's pulmonary infiltrates. The patient has had x-rays of both feet and neither x-ray showed any evidence of osteomyelitis. Patient is scheduled for a triple phase bone scan, which is tentatively going to be done tomorrow. Patient's stool for Clostridium difficile toxin and antigen is negative at but the stool culture and the repeat urine culture are pending. The patient's stool culture is pending. ASSESSMENT AND PLAN: 1. As regarding the patient's foot ulcers, as mentioned above, he is scheduled for a triple phase bone scan. For now, I am going to continue his meropenem. 2. As regarding the patient's presumed pneumonia, even though the sputum grew Klebsiella, I am going to also add coverage with Zyvox in case the patient has a methicillin-resistant Staphylococcus aureus. I am going to add Zyvox to treat that, even though it did not grow in the sputum. The patient's immunoglobulin levels are normal and thus he does not require immunoglobulin infusions. 3. For now I am going to continue meropenem and as mentioned above, I have added Zyvox in case the patient has a methicillin-resistant Staphylococcus aureus causing the pneumonia along with Klebsiella, even though the methicillin-resistant Staphylococcus aureus did not grow in the patient's sputum. COMORBIDITIES: The patient has diabetes mellitus, congestive heart failure and end-stage renal disease. cc: Yasir Scales MD
[2019-05-13 15:49] LABS: URINE SOURCE CATH
[2019-05-13 15:55] LABS: UR EPITHELIAL CELLS <10 /HPF (<10); URINE BACTERIA NEGATIVE /HPF; URINE RBC TNTC /HPF (<10); URINE WBC TNTC /HPF (<10)
[2019-05-13 16:04] LABS: BILIRUBIN URINE NEGATIVE (NEGATIVE); BLOOD URINE LARGE (NEGATIVE); COLOR BROWN; GLUCOSE URINE TRACE mg/dL (NEGATIVE); KETONE URINE NEGATIVE (NEGATIVE); LEUKOCYTES URINE SMALL (NEGATIVE); NITRITE URINE NEGATIVE (NEGATIVE); PH URINE 6.5; PROTEIN URINE 600 mg/dL (NEGATIVE); SP GRAVITY URINE 1.017; TURBIDITY URINE TURBID (CLEAR); UROBILINOGEN URINE NORMAL (NORMAL)
[2019-05-13 16:07] LABS: HEMATOCRIT 17.3 % (42.0-52.0); MCHC 30.6 g/dL (33-37); MCV 88.3 FL (81-99); MPV 10.6 FL (7.4-10.4); RBC 1.96 XMIL (4.7-6.1); RDW 21.4 % (11.5-14.5); WBC 14.67 X1000 (4.8-10.8)
[2019-05-13 16:10] LABS: HEMOGLOBIN 5.3 g/dL (14.0-18.0)
[2019-05-13 16:12] LABS: POTASSIUM 6.1 mmol/L (3.5-5.1)
[2019-05-13] MEDS ORDERED: NS 500 ML IV ONE ×2 (16:14→16:25)
[2019-05-13] MEDS ORDERED: SODIUM CHLORIDE 0.9% INJ SCH (16:30)
--- NOTE | 2019-05-13 16:34 | EKG Report ---
Test Performed on : 05/13/2019 2:30:35 PM Test Reason : s/p cardiac arrest Blood Pressure : / mmHG Vent. Rate : 076 BPM Atrial Rate : 076 BPM P-R Int : 162 ms QRS Dur : 086 ms QT Int : 416 ms P-R-T Axes : 042 062 -01 degrees QTc Int : 468 ms Normal sinus rhythm. Abnormal QRS-T angle, consider primary T wave abnormality Abnormal ECG When compared with ECG of 13-MAY-2019 06:36, (Unconfirmed) No significant change was found Confirmed by Fili Lake MD ([id number]) on 05/14/2019 4:15:00 PM
[2019-05-13 16:41] LABS: ALLEN TEST YES; BLOOD TYPE ARTERIAL; HCO3-(ACT) 20.3 mmoll (20.0-26.0); METHB 0.6 % (0.0-1.5); O2(CT) 8.8 mL/dL (15.0-23.0); O2HB 97.3 % (95.0-99.0); PCO2(98.6) 38 mmHg (35-45); PO2(98.6) 264 mmHg (60-100); SAMPLE BLOOD; SAO2 98.7 % (95.0-100.0); SRATE 15 BPM; THB 5.9 g/dL (11.5-17.4); TVOL 550 mL; pH(98.6) 7.32 (7.35-7.45)
[2019-05-13 16:42] LABS: MODALITY VENTILATOR
--- NOTE | 2019-05-13 16:44 | ECHO REPORT ---
ORDER DATE: 05/13/2019 INTERPRETING PHYSICIAN: Dr. Naveen Cee. ECHOCARDIOGRAPHIC MEASUREMENTS: 1. Interventricular septum: 1.8 cm. 2. Left ventricular posterior wall: 1.4 cm. 3. Diastolic diameter: 5.4 cm. 4. Systolic diameter: 4.1 cm. SUMMARY OF THE 2-DIMENSIONAL IMAGING: Limited Echocardiogram report 1. Normal left ventricular cavity size. 2. Concentric left ventricular hypertrophy. 3. Estimated ejection fraction of 50%. 4. There is severe left ventricular hypertrophy. 5. Examination of the mitral valve revealed mitral valve leaflets were normal. There was severe focal, localized mitral annular calcification measuring 1.2 cm. In addition, there is calcification noted in the wall of the left atrium similar to previous studies. 6. Aortic valve leaflets were trileaflet. 7. Tricuspid valve was normal. 8. There is trace pericardial effusion. 9. Normal right ventricular cavity size and function. cc: Naveen Cee MD MTDD
[2019-05-13] MEDS ORDERED: NS 0 ML ONE (17:27)
--- NOTE | 2019-05-13 18:43 | CONSULTATION ---
DATE OF CONSULTATION: 05/13/2019 REASON FOR ADMISSION: Shortness of breath, pneumonia, CHF exacerbation, worsening chronic kidney disease. REASON FOR CONSULTATION: Worsening scrotal edema. HISTORY OF ILLNESS: Mr. Campoverde is a 38-year-old with history of type 2 diabetes, congestive heart failure, chronic kidney disease stage 4, neuropathy, gastroparesis, GERD, hypertension, diabetic foot ulcers and medication noncompliance who presents in consultation regarding worsening scrotal swelling and edema. The patient was admitted to the hospital on 05/03/2019 due to concern over pneumonia, COPD exacerbation, CHF exacerbation and worsening renal dysfunction. He has been seen multiple times by Nephrology due to CKD and had a creatinine of 3.7 on admission with previous creatinine surround 3.4. He has been followed in the hospital by Cardiology as well as Nephrology. Urology was consulted today as his renal function continues to worsen. He has been having worsening scrotal edema and swelling. He was having significant suprapubic pain and a catheter was placed yesterday, which caused the patient some discomfort. However, it was draining urine. The catheter was removed this morning as he was having worsening penile and scrotal edema, which was uncomfortable to him. The patient is slightly lethargic in the room. He had just received some pain medication per nursing. The patient's creatinine this morning was 4.7 with a white blood cell count of 14.5. Recent urinalysis showed no evidence of blood and had 10 to 20 leukocytes with a large amount of protein. PAST MEDICAL HISTORY: 1. Type 2 diabetes. 2. Congestive heart failure. 3. Chronic kidney disease, stage IV. 4. Diabetic Neuropathy 5. Gastroesophageal Reflux 6. Hypertension 7. Gastroparesis 8. Diabetic foot ulcers 9. History of medical noncompliance. PAST SURGICAL HISTORY: 1. Appendectomy. 2. Tonsillectomy 3. Right partial 3rd amputation of the finger. ALLERGIES: No known drug allergies. MEDICATIONS: Home medications include: 1. Coreg 12.5 mg p.o. b.i.d. 2. Ferrous sulfate 325 mg p.o. b.i.d. 3. Gabapentin 300 mg p.o. b.i.d. 4. Hydralazine 100 mg p.o. q.8 hours. 5. Hydrochlorothiazide 25 mg p.o. daily. 6. [place] 10/325 mg take 1 tab p.r.n. 7. Humulin 30/70, 50 units subq in the morning 8. NPH/irregular 70/30 with 40 units at nighttime. 9. Zyvox 600 mg p.o. q.12 hours. 10. Prilosec 20 mg b.i.d. 11. MiraLAX 17 mg b.i.d. 12. Seroquel 100 mg p.o. 13. Sodium bicarb 1300 mg p.o. b.i.d. 14. Torsemide 20 mg p.o. daily. 15. Isosorbide/dinitrate 20 mg p.o. t.i.d. SOCIAL HISTORY: The patient smokes. Denies alcohol or illicit drug use. FAMILY HISTORY: Denies family history of malignancy. REVIEW OF SYSTEMS: A 12 point review of systems performed with all pertinent positives and negatives in HPI. PHYSICAL EXAMINATION: Vital Signs: Temperature 97.5 degrees, heart rate 97, blood pressure 153/95, oxygen saturation 100% on 3 L nasal cannula. General: No acute distress. Resting comfortably in bed. Lethargic and difficult to arouse. HEENT: Normocephalic, atraumatic. Pupils equal, round, reactive to light. Poor dentition. Neck: Trachea midline. Cardiovascular: Regular rate. Abdomen: Soft, nontender. Evidence of abdominal ascites. : Suprapubic ascites and edema. The patient has penile and scrotal edema that appears to be fluid. No palpable crepitus, warmth, or erythema. I was able to palpate minimally the testicles due the degree of scrotal edema. No tenderness to palpation of the scrotum or penis. The patient has penile shaft edema with orthotopic meatus. No palpable intrascrotal fluid collections. Musculoskeletal: Evidence of 3+ pitting edema of both lower extremities to the thigh. Moving all extremities. He does have bilateral lower extremity dressings on both feet due to the diabetic foot ulcers. Neurologic: Slightly lethargic, but answers questions. LABS: White blood cell count 14.5, hemoglobin 7.6, hematocrit 25.1, platelets 403,000. Sodium 139, potassium 5.9, chloride 101, bicarb 21, BUN 107, creatinine 4.7, glucose 69, calcium 8.9, phosphorus 9.5. ASSESSMENT AND PLAN: Mr. Campoverde is a 38-year-old with congestive heart failure, gastroparesis, type 2 diabetes, medical noncompliance, stage 4 kidney disease, hypertension, diabetic foot ulcers, and diabetic nephropathy who presents in consultation regarding worsening penile and scrotal edema. The patient has anasarca and significant edema of both lower extremities. The patient's renal function has progressively worsened on multiple diuretics and vigorous diuresis with significant change this morning. Patient is exhibiting volume overload symptoms this morning, with worsening edema on physical exam. The patient has been followed by Nephrology and Cardiology for his chronic kidney disease and congestive heart failure, respectively. I think both of these could be leading to his scrotal and penile edema. Unless these improve, unlikely to resolve spontaneously. We will obtain a CT of the pelvis today to assess for Lorie's. I think this is low likelihood. The patient is at high risk for it just due to his underlying diabetes and chronic kidney disease and noncompliance with medications. The patient's white blood cell count did increase slightly today, but I think this is likely related to other health issues. On exam, there is no crepitus, warmth, or palpable mass within the scrotum. I think this is all just fluid. We are going to attempt to try the raise the scrotum to help with edema, but I think unless his kidney function improves or his heart failure improves, he may continue with scrotal edema. We will continue to monitor from a urologic standpoint. Please call with questions or concerns. cc: Joey Addison MD MTDD
[2019-05-13] MEDS ORDERED: NS 500 ML ONE (19:11)
--- NOTE | 2019-05-13 19:59 | NEPHROLOGY PROGRESS NOTE ---
DATE: 05/13/2019 SUBJECTIVE: The patient suffered sudden loss of cardiopulmonary function today. Reportedly asystolic on the monitor. Received CPR for approximately 15 minutes and was treated with epinephrine, sodium bicarbonate, calcium. Mandaen of sinus rhythm and blood pressure. He is now on the ventilator and unresponsive. OBJECTIVE: Vital signs: Blood pressure 123/67, heart rate 78, respirations 20. Intake 1.3 L. Output 1 L. General: Unresponsive. Conjunctivae are pink. Oropharynx is not examined. Neck veins are distended. PMI is not palpable. Regular rate and rhythm without gallops, murmurs present. Lungs: Equal. Coarse, no crackles. Abdomen: Distended, soft. Bowel sounds are not appreciated. No organomegaly. Extremities: 4+ edema. No clubbing or cyanosis. IMPRESSION: 1. Acute cardiopulmonary arrest. He is clinically volume overloaded but has not been hypoxic with this. In fact, the staff that saw him today prior to the event did not note any changes in his respiratory status. O2 saturation 100% on nasal cannula at noon today. More likely, he suffered an event related to aspiration perhaps related to narcotic use. He will be treated for sepsis, aspiration and we will dialyze him today to address his volume status and potassium. Last potassium was 5.9. This has been stable all week. cc: Victorino Oconnor MD
[2019-05-13] MEDS: D50W SYRINGE IV PRN ×2 (20:46→22:00)
--- NOTE | 2019-05-13 21:50 | OPERATIVE NOTE ---
PROCEDURE DATE: 05/13/2019 PREOPERATIVE DIAGNOSIS: Acute kidney injury status post cardiac arrest. POSTOP DIAGNOSIS: Acute kidney injury status post cardiac arrest. PROCEDURE: Insertion of ultrasound-guided Trialysis central venous catheter. SURGEON: Osmin Olivares MD GASKET WINDER: MEHREEN Lala. ESTIMATED BLOOD LOSS: 5 mL. COMPLICATIONS: None apparent. FINDINGS: The right internal jugular vein was dilated, compressible and patent without thrombus. TECHNIQUE: The patient was kept supine in his ICU bed. His right neck was prepped and draped in usual sterile fashion. Under ultrasound guidance, the right internal jugular vein was accessed with a needle and syringe drawing back dark nonpulsatile blood. He did appear to have significant elevated central venous pressure. The wire passed through the needle easily. The track was dilated. A Trialysis catheter was passed over the wire into the vein via the Seldinger technique. The wire was removed. All ports gilbert back blood easily and were flushed with saline. Sterile caps were applied. The catheter was anchored to the skin with nylon suture. A sterile dressing was applied. There were no apparent complications. cc: Osmin Olivares MD
[2019-05-13] MEDS: DIPRIVAN 1% 1,000 MG/100 ML BOTTLE IV SCH (21:59)
[2019-05-13] MEDS: ZYVOX 600 MG/D5W 600 MG/300 ML IVPB IV SCH (22:47)
--- NOTE | 2019-05-13 23:37 | CONSULTATION ---
DATE OF CONSULTATION: 05/13/2019 CHIEF COMPLAINT: Shortness of breath. HISTORY OF PRESENT ILLNESS: This is a 38-year-old male with a history of diabetes mellitus type 2, CHF and chronic kidney disease stage 4. He had a complaint of progressive shortness of breath and not feeling well when he presented to the emergency department several days ago. Chest x-ray report states reveals cardiomegaly with mild vascular prominence. That x-ray was done on 05/09/2019. Chest x-ray on 05/07/2019 revealed a right lower lung infiltrate. PAST MEDICAL HISTORY: Diabetes mellitus type 2, CHF, chronic kidney disease stage 4. PAST SURGICAL HISTORY: Appendectomy, right 3rd partial amputation of the finger. ALLERGIES: No known drug allergies. CURRENT MEDICATIONS: Please see medicine reconciliation list. SOCIAL HISTORY: Ten pack-year history of smoking. Denies alcohol or illicit drug use. FAMILY HISTORY: Coronary artery disease in the mother. REVIEW OF SYSTEMS: A 10-point review of systems was obtained and the pertinent is listed within the HPI, otherwise noncontributory. PHYSICAL EXAMINATION: General: Patient is resting in bed on mechanical ventilation. Vital Signs: Temperature 96.5, pulse rate 91, blood pressure 154/76, O2 saturation 100% per mechanical ventilation. General: Ill-appearing 38-year-old male on ventilatory support. HEENT: Normocephalic, atraumatic. Pupils equal and reactive. Mucous membranes moist. Neck: Supple. Cardiovascular: S1, S2. No murmur, gallops appreciated. Respiratory: Decreased entry with crackles bilaterally. Abdomen: Soft, protuberant, nontender. Bowel sounds present. Extremities: Three-plus pitting on the bilateral lower extremities which extends to his abdomen. Neurologic: He is sedated. LABORATORIES: White blood cells 14.67. Red blood cells 1.96. Hemoglobin 5.3. Hematocrit 17.3. PH 7.32. PCO2 of 38. PO2 of 264. HCO3 of 20.3. Potassium 6.1. Sodium 137. BUN 111. Creatinine 5.0. Calcium 9.5. AST 178. ALT 99. DIAGNOSTIC DATA: Pertinent information listed in HPI. ASSESSMENT AND PLAN: 1. Respiratory failure. He is receiving mechanical ventilation. We will continue to monitor and titrate settings per patient progress and clinical protocol. 2. Pneumonia. Continue antibiotics and bronchodilators as prescribed. 3. Metabolic acidosis and acute renal failure. He is having catheter placement to start dialysis. 4. Diabetes mellitus type 2. Continue to monitor with fingerstick blood sugars and sliding scale insulin. 5. Congestive heart failure. Cardiology following. He is on Lasix. 6. Chronic kidney disease stage 4. Dr. Oconnor following. TIME SPENT: [address] Ruff did management and [id number] evaluation. OSMAN Hood, did the scribing only. Thank you for the courtesy of this consult. Dictated by OSMAN Hood for Antoni Ruff MD cc: OSMAN Hood MD
[2019-05-14 00:58] LABS: HEMATOCRIT 21.8 % (42.0-52.0); HEMOGLOBIN 6.8 g/dL (14.0-18.0)
[2019-05-14] MEDS: DIPRIVAN 1% 1,000 MG/100 ML BOTTLE IV SCH ×4 (02:20→23:37)
[2019-05-14] MEDS: MERREM 1 GM in NS 50 ML IV SCH ×2 (02:40→14:59)
[2019-05-14] MEDS: DUONEB (A & A) INH SCH ×6 (03:30→23:12)
[2019-05-14] MEDS: APRESOLINE PO SCH ×3 (04:13→20:52)
--- NOTE | 2019-05-14 04:17 | PROGRESS NOTE ---
DATE: 05/13/2019 SUBJECTIVE: While performing wound care on the patient this afternoon the patient was noted to suddenly stop breathing and a code blue was called. CPR was immediately initiated, and ACLS protocol was initiated as well. The patient was initially noted to be in asystole, and after 15 minutes of resuscitation the patient was noted to have return of spontaneous circulation. The patient was then transferred immediately to the ICU. OBJECTIVE: Vital Signs: Temperature 97.4 degrees, blood pressure 138/79, heart rate 72, respirations 15, O2 saturation is 100% on the mechanical ventilator. General: This is a chronically ill-appearing male currently on the ventilator. Skin: The patient has wounds on both feet that are wrapped in clean dry dressing. The patient also has multiple healing lesions on his legs. Heart: S1, S2 normal. Regular rate and rhythm. Lungs: Coarse breath sounds bilaterally with crackles. Abdomen: Positive bowel sounds. Soft and distended. Extremities: 3+ edema in both the upper and lower extremeties. : Severe penile and scrotal edema. Neurologic: The patient is currently unresponsive. LABORATORY DATA: White blood cell count 14, hemoglobin 5.3, hematocrit 17, platelets 307,000. ABG: PH of 7.32, pCO2 of 38, PO2 of 264, bicarbonate 20. Sodium 137, potassium 6.1, chloride 100, CO2 of 22, BUN 111, creatinine 5, glucose 87, AST 178, ALT 99, alkaline phosphatase 373, CK 179, troponin 214. IMAGING: Chest x-ray shows pulmonary edema and cardiomegaly. Echocardiogram shows an EF of 50%, left ventricular hypertrophy. Trace pericardial effusion. Severe focal localized mitral annular calcification. Pelvic CT reveals anasarca and ascites. ASSESSMENT AND PLAN: 1. Acute hypoxemic respiratory failure. Pulmonary has been consulted for assistance with ventilator management. 2. Status post cardiac arrest. The etiology is unknown at this time. The echocardiogram is unremarkable. Cardiology has been consulted for further recommendations. 3. Bilateral lobe pneumonia. The original sputum culture grew out Klebsiella pneumonia, we will repeat the sputum cultures and blood cultures. Continue on meropenem. The patient has been switched to Zyvox by Dr. Scales. 4. Acute kidney injury on chronic kidney disease stage . The patient's BUN and creatinine have worsened. The patient will be started on dialysis today. The case was discussed with Dr. Oconnor. 5. Severe volume overload with anasarca in the setting of nephrotic range proteinuria. This will be managed by dialysis, which will be initiated today. 6. Severe anemia. We will transfuse 2 units of packed red blood cells today. 7. Persistent hyperkalemia. This will be addressed during dialysis. 8. Bilateral foot wound infection secondary to Enterobacter cloacae. Continue on broad-spectrum antibiotic therapy and wound care. Dr. Scales is following. 9. Uncontrolled insulin-dependent diabetes mellitus. We will hold the long- acting insulin and cover the patient with sliding scale insulin. We will monitor the blood sugars closely. 10. Metabolic acidosis. This will be addressed during dialysis. 11. Medical noncompliance. Aware. 12. Deep vein thrombosis prophylaxis. Continue on heparin. 13. Gastrointestinal prophylaxis. We will start the patient on IV Protonix. 14. Disposition. The patient is critically ill with a high risk of mortality. I updated the patient's family about the patient's medical condition and treatment plan. cc: Alexandra Cruz MD MTDD
[2019-05-14 05:16] LABS: ALLEN TEST YES; BE -4.4 mmoll (-3.0-3.0); BLOOD TYPE ARTERIAL; HCO3-(ACT) 21.5 mmoll (20.0-26.0); METHB 1.1 % (0.0-1.5); O2(CT) 11.4 mL/dL (15.0-23.0); O2HB 96.5 % (95.0-99.0); PCO2(98.6) 39 mmHg (35-45); PO2(98.6) 98 mmHg (60-100); SAMPLE BLOOD; SAO2 99.1 % (95.0-100.0); SRATE 15 BPM; THB 8.3 g/dL (11.5-17.4); TVOL 550 mL; pH(98.6) 7.34 (7.35-7.45)
[2019-05-14 05:18] LABS: MODALITY VENTILATOR
[2019-05-14] MEDS: D50W SYRINGE IV PRN (05:22)
[2019-05-14] MEDS: HUMULIN R SUBQ SCH ×4 (06:21→20:44)
[2019-05-14] MEDS: PROTONIX IV SCH (06:21)
[2019-05-14] MEDS ORDERED: NS 2,000 ML MISC PRN (07:00)
[2019-05-14 07:01] LABS: HEMATOCRIT 25.3 % (42.0-52.0); MCH 27.4 PG (27-31); MCHC 31.6 g/dL (33-37); MCV 86.6 FL (81-99); MPV 10.9 FL (7.4-10.4); RBC 2.92 XMIL (4.7-6.1); RDW 18.1 % (11.5-14.5); WBC 13.03 X1000 (4.8-10.8)
--- NOTE | 2019-05-14 07:22 | EKG Report ---
Test Performed on : 05/14/2019 07:01:10 AM Test Reason : follow up code Blood Pressure : / mmHG Vent. Rate : 084 BPM Atrial Rate : 084 BPM P-R Int : 156 ms QRS Dur : 078 ms QT Int : 394 ms P-R-T Axes : 062 074 028 degrees QTc Int : 465 ms Normal sinus rhythm. Possible Left atrial enlargement Borderline ECG When compared with ECG of 13-MAY-2019 14:30, (Unconfirmed) No significant change was found Confirmed by Fiil Lake MD ([id number]) on 05/14/2019 4:15:20 PM
--- NOTE | 2019-05-14 07:27 | Diag Imaging Result Doc PS360 ---
CT HEAD W/O CONTRAST - 05/14/2019 INDICATION: irregular/fixed pupils COMPARISON: 08/07/2018 FINDINGS: The ventricles and sulci are normal in size and contour. No intracranial mass or hemorrhage. The skull is intact. There is some fluid in both maxillary sinuses. There is a nasogastric tube in the right nasal passage. IMPRESSION: Negative exam. This exam was performed using automated exposure control, adjustment of mA or kV according to patient size, and/or use of iterative reconstruction technique Electronically signed by Joseph Lawrence 05/14/2019 7:25 AM
[2019-05-14 07:28] LABS: ALB/GLOB RATIO 0.9; ALBUMIN 2.8 g/dL (3.5-5.0); DIRECT BILIRUBIN 0.1 mg/dL (0.00-0.20); TOTAL BILIRUBIN 0.36 mg/dL (0.20-1.00); TOTAL PROTEIN 5.8 g/dL (6.3-8.3)
--- NOTE | 2019-05-14 07:31 | Diag Imaging Result Doc PS360 ---
CHEST-PORTABLE - 05/14/2019 INDICATION: pulmonary edema/pneumonia COMPARISON: 05/13/2019 FINDINGS: Support lines and tubes are stable. There is worsening infiltrate in the right lung base. Stable significant cardiomegaly. Stable retrocardiac opacification. Stable background interstitial pulmonary edema. There are probably small pleural effusions. IMPRESSION: Worsening nonspecific infiltrate in the right lung base. Electronically signed by Joseph Lawrence 05/14/2019 7:28 AM
[2019-05-14 07:42] LABS: ALBUMIN 2.9 g/dL (3.5-5.0); CALCIUM 8.5 mg/dL (8.8-10.2); CREATININE 3.3 mg/dL (0.7-1.2); PHOSPHORUS 6.7 mg/dL (2.7-4.5); POTASSIUM 4.4 mmol/L (3.5-5.1)
[2019-05-14] MEDS: FLOMAX PO SCH (08:30)
[2019-05-14] MEDS: COREG PO SCH ×2 (08:30→20:52)
[2019-05-14] MEDS: HEPARIN SUBQ SCH ×2 (08:30→20:52)
[2019-05-14] MEDS: ISORDIL PO SCH ×3 (08:30→20:52)
[2019-05-14] MEDS: SANTYL OINT TOP SCH (08:31)
--- NOTE | 2019-05-14 10:02 | INFECTIOUS DISEASE PROGRESS NO ---
DATE: 05/14/2019 PRESENT ILLNESS: Patient has bilateral infected foot ulcers and pneumonia. MEDICATIONS: This is day 3 of treatment with meropenem and day 1 of treatment with Zyvox, which was started yesterday. PHYSICAL EXAMINATION: Vital Signs: Temperature is 98 degrees, pulse 82, respirations 16, blood pressure is 155/84. General: This is a chronically ill-appearing young male. He is intubated and sedated. Head/eyes/ears/nose/throat: The patient has an orotracheal tube in place and a nasogastric tube in place. There is no drainage from the nose or ears. Neck: The patient has a right-sided jugular vein catheter in place. The site is not bleeding or purulent. Lungs: Clear to auscultation. Cardiovascular: Heart rate is regular. Abdomen: Soft and does not appear to be tender but it is very protuberant. Extremities: The patient has bilateral leg edema. He also has plantar ulcers which are infected. The one on the right great toe has pink tissue and no further purulent drainage. The one on the patient's left foot still is having purulent drainage. The other ulcers on the patient's feet are not deep and they are dry, and they have some eschars and some devitalized tissue. Neurologic: The patient is sedated. There is no tremor. LAB AND X-RAY: CBC shows a white count of 13,030, hemoglobin 6.8, platelet count 289,000. Blood gases show a pH of 7.34, pO2 of 98 and a pCO2 of 39. Alkaline phosphatase is 313. Cultures on the patient's blood, urine and sputum are pending. CT scan of the head was normal except for some small amount of fluid in the mastoid sinuses. Chest x-ray shows worsening of the right lower lobe infiltrate. The patient's stool culture shows no enteric pathogens. The patient's urine culture from yesterday is negative. The blood cultures are pending as is the sputum culture. ASSESSMENT AND PLAN: The patient has infected foot ulcers and pneumonia. My plan is to continue with meropenem and Zyvox. The patient was to have a triple phase bone scan, but this is not going to be possible since his condition has deteriorated and he is in the intensive care unit and on a ventilator. COMORBIDITIES: The patient has diabetes mellitus, congestive heart failure, and end-stage renal disease. cc: Yasir Scales MD
--- NOTE | 2019-05-14 10:08 | PROGRESS NOTE ---
DATE: 05/14/2019 SUBJECTIVE: The patient is currently sedated on propofol. No acute events noted overnight. OBJECTIVE: Vital Signs: Temperature 97.3 degrees, blood pressure 143/78, heart rate 84, respirations 21, and O2 saturations 100% on the mechanical ventilator. Intake 1.5 liters, output 4.2 liters via dialysis. General: This is a chronically ill-appearing male, currently sedated on the ventilator. Skin: The patient has multiple healing lesions on his lower extremities. HEENT: The patient has facial edema. The pupils were sluggish. Oral mucosa is moist. Trachea is midline. There is an endotracheal tube in place. Heart: S1 and S2 normal. Regular rate and rhythm. Lungs: Equal air entry bilaterally. No wheezing. No rales. Abdomen: Positive bowel sounds. Soft, mildly distended. Extremities: There is 3+ edema to the upper thighs. Extremities are warm to touch. Genitourinary: The patient has severe penile and scrotal edema. There is a bautista catheter in place. Neurologic: The patient is currently sedated. LABORATORIES: White blood cell count 13, hemoglobin 6.8, hematocrit 21, platelets 289,000. Sodium 140, potassium 4.4, chloride 104, CO2 of 21, BUN 61, creatinine 3.3, glucose 176, calcium 8.5, phosphorus 6.7, AST 69, ALT 72, alkaline phosphatase 313. Troponin 293. ABG, pH of 7.34, pCO2 of 39, PO2 of 98, bicarbonate 21. Head CT negative. Chest x-ray shows worsening infiltrate in the right lung base. ASSESSMENT AND PLAN: 1. Acute hypoxemic respiratory failure. Continue with ventilator management as directed by the prevention coordinator. 2. Status post cardiac arrest. The patient was noted to be in pulseless electrical activity. Likely the patient aspirated leading to the event. We will continue with supportive care. Cardiology is following. 3. Aspiration pneumonia. The original sputum culture grew out Klebsiella. Repeat sputum and blood cultures are currently pending. Continue on meropenem and Zyvox as directed by Dr. Scales. 4. Elevated troponin. Likely secondary to the cardiac arrest. Continue with supportive care. Cardiology is following. 5. Acute kidney injury on chronic kidney disease. The patient is scheduled to undergo SLED today. The patient is making urine. 6. Severe volume overload with anasarca in the setting of nephrotic range proteinuria. The patient underwent SLED yesterday at which time 4.2 liters of fluid was removed. The patient is scheduled for dialysis again today. Further management as per the chipper. 7. Severe anemia. The patient received 3 units of packed red blood cells yesterday. H/H is improved. 8. Poorly controlled insulin-dependent diabetes mellitus. Continue on sliding scale insulin. 9. Bilateral foot wound infection secondary to Enterobacter cloacae. Continue with broad spectrum antibiotics and wound care. Dr. Scales is following. 10. Medical noncompliance. Aware. 11. Metabolic acidosis. Stable. Continue to monitor closely for improvement. 12. Metabolic encephalopathy. At this time, the patient is currently sedated. Once the patient is off sedation, hopefully we will have a better idea of the patient's neurologic status. The head CT is negative. 13. Nutrition. The patient is NPO at this time. Will defer to regarding tube feed initiation. 14. Gastrointestinal prophylaxis. Continue on intravenous Protonix. 15. Deep vein thrombosis prophylaxis. Continue on heparin. 16. Disposition. The patient is critically ill with a high risk of mortality. I updated the patient's brother this morning at the bedside. All of his questions were answered. cc: Alexandra Cruz MD MTDD
[2019-05-14] MEDS: ZYVOX 600 MG/D5W 600 MG/300 ML IVPB IV SCH ×2 (11:55→23:37)
[2019-05-14 12:42] LABS: HEPATITIS PROFILE ACUTE SEE COMMENTS
--- NOTE | 2019-05-14 14:20 | PROVIDER PROGRESS NOTE ---
Progress Note Subjective: intubated and sedated. He is on propofol. Objective: temperature 97.3, pulse 79, respirations 20, blood pressure 128/72, O2 sat 100% On 40% FiO2 mechanical ventilation General: -[place] male lying in bed in no acute distress HEENT: normocephalic, atraumatic, pupils unequal and non reactive. Mucous membranes are moist. OG tube in place to LIS. Neck: Supple, 6cm JVD appreciated Cardiovascular: S1S2, regular rate and rhythm. No murmur or gallop. Respiratory: wheezing and rhonchi noted throughout all lung alvarado anteriorly Abdomen: soft, protuberance, nontender. Bowel sounds hypoactive. : non inspected, bautista in place with clear urine Extremities:3+ pitting to BLE. Open wounds to the base of the great toes on both feet. Neurological: intubated and sedated Labs: WBC 13.03, hemoglobin 6.8, hematocrit 21.8, platelet count 289, sodium 140, potassium 4.4, chloride 104, carbon dioxide 21, BUN 61, creatinine 3.3. In take 1585, output 5050. Impression: Stats post cardiac arrest likely due to aspiration. We will attempt slow low efficiency dialysis at bedside today for four hours. Blood pressure. Stable. Anemia. Low, 1 unit PRBCs orders. Fluid volume. Expanded. Attempting SLED today. Electrolytes and acid base balance. Stable. Nutrition. NPO Medication review. No changes
--- NOTE | 2019-05-14 18:17 | PROVIDER PROGRESS NOTE ---
Progress Note Dr. Ruff Progress Note/Pulmonary and or critical care We appreciated progress of care, Complications, change in diagnosis, and instructions to patient. Subjective: We note the level of consciousness, bed (chair) position, family presence (if any), level of lethargy, feeling of symptoms, and changes from baseline condition/symptom. The patient is intubated and sedated with Diprivan. There is no acute distress noted. He has no fever in last 24 hours. No family at the bedside. Objective: Vital Signs: We reviewed EMR current values for Pulse rate, Blood pressure, Pulse rate, respiratory rate and Pulse oximetry. Also noted other values and trends if present (e.g. I/O, CVP). T 96.7 (no fever in last 24 hours), ND 79, RR 18, BP 136/75 and SaO2 100% on AC 15, 40%, 550, 5. I/O -3465 ml Physical Examination: General: Intubated. Lying in bed with no acute distress noted. HEENT: Normocephalic. Trachea midline. ETT in place. Chest: Mechanically ventilated. Symmetrical excursion. Clear to auscultation bilaterally. CVS: Regular rate and rhythm with S1 and S2 appreciated. Abdomen: Soft. Protuberant. Edema. Hypoactive bowel sounds in all 4 quadrants noted. Extremities: BLE pitting edema 1+. No cyanosis. No clubbing. Neuro: Sedated. Labs and Radiology: Reviewed available labs and radiology values available at time of EMR review. Laboratory Results 05/11/19 05/13/19 05/13/19 04:56 17:23 18:20 WBC RBC Hgb Hct MCV MCH MCHC RDW Std Deviation Plt Count MPV PTT (Actin FS) Specimen Type Sample Site pH pCO2 pO2 HCO3 Base Excess Oxyhemoglobin ABG O2 Sat (Calculated) ABG O2 Saturation ABG Carboxyhemoglobin ABG Methemoglobin Rudi Test A-a O2 Difference Total Hemoglobin Lactate Blood Gas Modality Vent Mode Spontaneous Rate FiO2 % Tidal Volume PEEP Sodium Potassium Chloride Carbon Dioxide Anion Gap BUN Creatinine Estimated GFR/1.73 m2 BUN/Creatinine Ratio Glucose POC Glucose Calculated Osmolality Calcium Phosphorus Total Bilirubin Direct Bilirubin AST ALT Alkaline Phosphatase Creatine Kinase Troponin T High Sens Total Protein Albumin Globulin Albumin/Globulin Ratio Hepatitis Panel SEE COMMENTS Blood Type A POSITIVE A POSITIVE Antibody Screen NEGATIVE NEGATIVE Crossmatch See Detail See Detail 05/13/19 05/13/19 05/13/19 19:29 21:11 21:11 WBC RBC Hgb Hct MCV MCH MCHC RDW Std Deviation Plt Count MPV PTT (Actin FS) Specimen Type Sample Site pH pCO2 pO2 HCO3 Base Excess Oxyhemoglobin ABG O2 Sat (Calculated) ABG O2 Saturation ABG Carboxyhemoglobin ABG Methemoglobin Rudi Test A-a O2 Difference Total Hemoglobin Lactate Blood Gas Modality Vent Mode Spontaneous Rate FiO2 % Tidal Volume PEEP Sodium Potassium Chloride Carbon Dioxide Anion Gap BUN Creatinine Estimated GFR/1.73 m2 BUN/Creatinine Ratio Glucose POC Glucose 58 L Calculated Osmolality Calcium Phosphorus Total Bilirubin Direct Bilirubin AST ALT Alkaline Phosphatase Creatine Kinase 197 Troponin T High Sens 266 H* Total Protein Albumin Globulin Albumin/Globulin Ratio Hepatitis Panel Blood Type Antibody Screen Crossmatch 05/13/19 05/13/19 05/14/19 21:28 22:43 00:30 WBC RBC Hgb 6.8 L D Hct 21.8 L D MCV MCH MCHC RDW Std Deviation Plt Count MPV PTT (Actin FS) Specimen Type Sample Site pH pCO2 pO2 HCO3 Base Excess Oxyhemoglobin ABG O2 Sat (Calculated) ABG O2 Saturation ABG Carboxyhemoglobin ABG Methemoglobin Rudi Test A-a O2 Difference Total Hemoglobin Lactate Blood Gas Modality Vent Mode Spontaneous Rate FiO2 % Tidal Volume PEEP Sodium Potassium Chloride Carbon Dioxide Anion Gap BUN Creatinine Estimated GFR/1.73 m2 BUN/Creatinine Ratio Glucose POC Glucose 87 126 H Calculated Osmolality Calcium Phosphorus Total Bilirubin Direct Bilirubin AST ALT Alkaline Phosphatase Creatine Kinase Troponin T High Sens Total Protein Albumin Globulin Albumin/Globulin Ratio Hepatitis Panel Blood Type Antibody Screen Crossmatch 05/14/19 05/14/19 05/14/19 01:05 04:05 04:37 WBC RBC Hgb Hct MCV MCH MCHC RDW Std Deviation Plt Count MPV PTT (Actin FS) Specimen Type ARTERIAL Sample Site R RADIAL pH 7.34 L pCO2 39 pO2 98 HCO3 21.5 Base Excess -4.4 L Oxyhemoglobin 96.5 ABG O2 Sat (Calculated) 11.4 L ABG O2 Saturation 99.1 ABG Carboxyhemoglobin 1.50 ABG Methemoglobin 1.1 Rudi Test YES A-a O2 Difference 138.0 Total Hemoglobin 8.3 L Lactate 1.30 Blood Gas Modality VENTILATOR Vent Mode A/C Spontaneous Rate 15 FiO2 % 40.0 Tidal Volume 550 PEEP 5.0 Sodium Potassium Chloride Carbon Dioxide Anion Gap BUN Creatinine Estimated GFR/1.73 m2 BUN/Creatinine Ratio Glucose POC Glucose 117 H 91 Calculated Osmolality Calcium Phosphorus Total Bilirubin Direct Bilirubin AST ALT Alkaline Phosphatase Creatine Kinase Troponin T High Sens Total Protein Albumin Globulin Albumin/Globulin Ratio Hepatitis Panel Blood Type Antibody Screen Crossmatch 05/14/19 05/14/19 05/14/19 05:45 05:45 05:45 WBC 13.03 H RBC 2.92 L Hgb 8.0 L D Hct 25.3 L MCV 86.6 MCH 27.4 MCHC 31.6 L RDW Std Deviation 18.1 H Plt Count 289 MPV 10.9 H PTT (Actin FS) Specimen Type Sample Site pH pCO2 pO2 HCO3 Base Excess Oxyhemoglobin ABG O2 Sat (Calculated) ABG O2 Saturation ABG Carboxyhemoglobin ABG Methemoglobin Rudi Test A-a O2 Difference Total Hemoglobin Lactate Blood Gas Modality Vent Mode Spontaneous Rate FiO2 % Tidal Volume PEEP Sodium 140 Potassium 4.4 D Chloride 104 Carbon Dioxide 21 L Anion Gap 15 BUN 61 H Creatinine 3.3 H Estimated GFR/1.73 m2 25 BUN/Creatinine Ratio 18 Glucose 176 H D POC Glucose Calculated Osmolality 301 Calcium 8.5 L Phosphorus 6.7 H Total Bilirubin Direct Bilirubin AST ALT Alkaline Phosphatase Creatine Kinase 140 Troponin T High Sens Total Protein Albumin 2.9 L Globulin Albumin/Globulin Ratio Hepatitis Panel Blood Type Antibody Screen Crossmatch 05/14/19 05/14/19 05/14/19 05:45 05:45 06:20 WBC RBC Hgb Hct MCV MCH MCHC RDW Std Deviation Plt Count MPV PTT (Actin FS) Specimen Type Sample Site pH pCO2 pO2 HCO3 Base Excess Oxyhemoglobin ABG O2 Sat (Calculated) ABG O2 Saturation ABG Carboxyhemoglobin ABG Methemoglobin Rudi Test A-a O2 Difference Total Hemoglobin Lactate Blood Gas Modality Vent Mode Spontaneous Rate FiO2 % Tidal Volume PEEP Sodium Potassium Chloride Carbon Dioxide Anion Gap BUN Creatinine Estimated GFR/1.73 m2 BUN/Creatinine Ratio Glucose POC Glucose 124 H Calculated Osmolality Calcium Phosphorus Total Bilirubin 0.36 Direct Bilirubin 0.10 AST 69 H ALT 72 H Alkaline Phosphatase 313 H Creatine Kinase Troponin T High Sens 293 H* Total Protein 5.8 L Albumin 2.8 L Globulin 3.0 Albumin/Globulin Ratio 0.9 Hepatitis Panel Blood Type Antibody Screen Crossmatch 05/14/19 05/14/19 05/14/19 08:12 09:05 10:34 WBC RBC Hgb Hct MCV MCH MCHC RDW Std Deviation Plt Count MPV PTT (Actin FS) 36.2 Specimen Type Sample Site pH pCO2 pO2 HCO3 Base Excess Oxyhemoglobin ABG O2 Sat (Calculated) ABG O2 Saturation ABG Carboxyhemoglobin ABG Methemoglobin Rudi Test A-a O2 Difference Total Hemoglobin Lactate Blood Gas Modality Vent Mode Spontaneous Rate FiO2 % Tidal Volume PEEP Sodium Potassium Chloride Carbon Dioxide Anion Gap BUN Creatinine Estimated GFR/1.73 m2 BUN/Creatinine Ratio Glucose POC Glucose 118 H 123 H Calculated Osmolality Calcium Phosphorus Total Bilirubin Direct Bilirubin AST ALT Alkaline Phosphatase Creatine Kinase Troponin T High Sens Total Protein Albumin Globulin Albumin/Globulin Ratio Hepatitis Panel Blood Type Antibody Screen Crossmatch 05/14/19 15:32 WBC RBC Hgb Hct MCV MCH MCHC RDW Std Deviation Plt Count MPV PTT (Actin FS) Specimen Type Sample Site pH pCO2 pO2 HCO3 Base Excess Oxyhemoglobin ABG O2 Sat (Calculated) ABG O2 Saturation ABG Carboxyhemoglobin ABG Methemoglobin Rudi Test A-a O2 Difference Total Hemoglobin Lactate Blood Gas Modality Vent Mode Spontaneous Rate FiO2 % Tidal Volume PEEP Sodium Potassium Chloride Carbon Dioxide Anion Gap BUN Creatinine Estimated GFR/1.73 m2 BUN/Creatinine Ratio Glucose POC Glucose 145 H Calculated Osmolality Calcium Phosphorus Total Bilirubin Direct Bilirubin AST ALT Alkaline Phosphatase Creatine Kinase Troponin T High Sens Total Protein Albumin Globulin Albumin/Globulin Ratio Hepatitis Panel Blood Type Antibody Screen Crossmatch Assessment: Acute respiratory failure. Intubated on 05/13/19. S/P cardiopulmonary arrest on 05/13/19. Pneumonia. Sputum culture on 05/06/19 grew Klebsiella Pneumoniae. Bilateral infected foot ulcers secondary to Enterobacter Cloacae. Pulmonary edema, cardiomegaly and troponin T elevation with severe left ventricular hypertrophy with severe focal, localized mitral annular calcification measuring 1.2 cm and trace pericardial effusion. CKD stage 4 with severe volume overload, heavy proteinuria, hyperkalemia, and hypoalbuminemia. On SLED per Dr. Oconnor. Severe normocytic anemia. Anion gap metabolic acidosis. Prognosis is guarded. Plan: Continue current treatment and supportive care per admitting and other teams on the case. Ventilator settings checked and titrated to Patients needs per clinical protocols with closely monitoring. Sedation (Diprivan) titrated to the patients needs per clinical protocols with closely monitoring. Antibiotics, including Meropenem and Zyvox. Bronchodilators. Appropriate DVT and GI prophylaxis Input was appreciated from Admitting MD and other teams on the case. Evaluation time in minutes: 31 minutes.
--- NOTE | 2019-05-14 18:47 | PROGRESS NOTE ---
DATE: 05/14/2019 SUBJECTIVE: Patient continues on ventilator and sedated with propofol. He continues on ventilator with FiO2 of 40%. OBJECTIVE: Vital signs: Blood pressure 138/76, heart rate 76, oxygen saturation 100% on ventilator with FiO2 of 40%. Neck: Jugular distention cannot be appreciated. Chest: Clear to auscultation. Cardiac Exam: Reveals a regular rate and rhythm without appreciable murmur or gallop. Extremities: Demonstrate 3+ pitting edema. LABORATORY DATA: Includes a white blood cell count 13.03, hematocrit 21.8 hemoglobin 6.8, platelet count 289,000. Sodium 140, potassium 4.4, chloride 104, carbon dioxide 21, BUN 61, creatinine 3.3, glucose 176. IMPRESSIONS: 1. Status post cardiopulmonary arrest. 2. Respiratory failure. 3. Possible aspiration. 4. Chronic kidney disease with significant volume overload. 5. Anemia. 6. Poorly-controlled diabetes mellitus requiring insulin. 7. Bilateral foot wound infections. 8. Medical noncompliance. 9. Hypertensive cardiovascular disease. Follow up echocardiography demonstrates severe left ventricular hypertrophy and preserved left ventricular systolic function. Diastolic left ventricular dysfunction likely. RECOMMENDATIONS: 1. Supportive care with ventilator support. 2. Hemodialysis to remove volume. 3. Conservative cardiovascular management overall. cc: Tre Christopher MD
--- NOTE | 2019-05-14 21:08 | PROGRESS NOTE ---
DATE: 05/14/2019 SUBJECTIVE: The patient had a cardiac event yesterday and required cardiopulmonary resuscitation and was admitted to the ICU following this. The patient has been intubated and began on dialysis yesterday and continues that today. The patient continues to have scrotal edema, which seems to be stable. The patient has no erythema or warmth to the scrotum. The patient's renal function improved on dialysis with potassium of 4.4, creatinine 3.3, phosphorus is 6.7. OBJECTIVE: Vital signs: Temperature 96.9 degrees, heart rate 74, blood pressure 158/79, oxygen saturation 100% on intubation. General: Sedated and intubated. Respiratory: The patient is intubated on ventilator. Abdomen: Slightly decreased anasarca. Genitourinary: Urethral catheter in place draining clear yellow urine, decreased penile and scrotal edema. No tenderness on exam of the scrotum. No palpable fluctuance, erythema, crepitus or palpable lesions. There are two lesions seen on the scrotum that are normal pigmentation and are not ulcerative. This seems to be chronic and do not appear to be ulcerative areas. Extremities: Continued lower extremity edema to the thigh. LABORATORY DATA: White blood count 13.0, hemoglobin 6.8, hematocrit 21.8, platelets 289,000. Sodium 140, potassium 4.4, chloride 104, bicarbonate 21, BUN 61, creatinine 3.3, glucose 176, phosphorus 6.7. ASSESSMENT AND PLAN: Mr. Campoverde is a 38-year-old male with type 2 diabetes, congestive heart failure, chronic kidney disease, gastroesophageal reflux disease, hypertension, gastroparesis, diabetic foot ulcers, and history of medical noncompliance who presents in consultation regarding scrotal edema. The patient was volume overloaded and started on dialysis yesterday. Scrotal and penile edema seem to be slightly improved today but still present. The patient had a cardiac event yesterday. He was intubated and transitioned to ICU. The patient was started on dialysis and seems to have responded well with 4 L pulled off yesterday. The patient continues to be intubated with evidence of scrotal and penile edema on exam. Urethral catheter is in place draining clear yellow urine. From a urologic standpoint, no evidence of any Lorie gangrene on physical exam or CT of the pelvis yesterday. We will continue with scrotal elevation and support and optimization of cardiac and renal dysfunction. We will continue to monitor from a urologic standpoint. Please call with questions or concerns. cc: MD MARIO ALBERTO [place]
[2019-05-15] MEDS: DIPRIVAN 1% 1,000 MG/100 ML BOTTLE IV SCH ×9 (01:47→22:37)
[2019-05-15] MEDS: MERREM 1 GM in NS 50 ML IV SCH ×2 (02:43→18:43)
[2019-05-15] MEDS: DUONEB (A & A) INH SCH ×6 (03:16→23:50)
[2019-05-15 04:35] LABS: ALLEN TEST YES; BE -2.6 mmoll (-3.0-3.0); BLOOD TYPE ARTERIAL; HCO3-(ACT) 22.9 mmoll (20.0-26.0); O2(CT) 12.4 mL/dL (15.0-23.0); O2HB 95.9 % (95.0-99.0); PCO2(98.6) 34 mmHg (35-45); PO2(98.6) 84 mmHg (60-100); SAMPLE BLOOD; SAO2 98.6 % (95.0-100.0); SRATE 15 BPM; THB 9.1 g/dL (11.5-17.4); TVOL 550 mL; pH(98.6) 7.41 (7.35-7.45)
[2019-05-15] MEDS: APRESOLINE PO SCH ×3 (04:35→20:29)
[2019-05-15 04:36] LABS: MODALITY VENTILATOR
--- NOTE | 2019-05-15 06:41 | Diag Imaging Result Doc PS360 ---
CHEST-PORTABLE - 05/15/2019 INDICATION: pulmonary edema/pneumonia COMPARISON: 05/14/2019 FINDINGS: Support lines and tubes are stable and in good position. Stable significant cardiomegaly and pulmonary vascular congestion. There is been slight improvement in the hazy infiltrates in the lung bases bilaterally. IMPRESSION: Slight improvement in the bibasilar infiltrates. Electronically signed by Joseph Lawrence 05/15/2019 6:39 AM
[2019-05-15] MEDS ORDERED: NS 2,000 ML MISC PRN (06:44)
[2019-05-15 07:03] LABS: HEMATOCRIT 26.3 % (42.0-52.0); HEMOGLOBIN 8.4 g/dL (14.0-18.0); MCH 27.9 PG (27-31); MCHC 31.9 g/dL (33-37); MCV 87.4 FL (81-99); MPV 10.3 FL (7.4-10.4); RBC 3.01 XMIL (4.7-6.1); RDW 19.5 % (11.5-14.5); WBC 17.76 X1000 (4.8-10.8)
[2019-05-15] MEDS: HUMULIN R SUBQ SCH ×4 (07:09→21:36)
[2019-05-15] MEDS: PROTONIX IV SCH (07:12)
[2019-05-15 07:35] LABS: ALBUMIN 2.6 g/dL (3.5-5.0); CALCIUM 8.6 mg/dL (8.8-10.2); CREATININE 2.7 mg/dL (0.7-1.2); PHOSPHORUS 5.5 mg/dL (2.7-4.5); POTASSIUM 4.2 mmol/L (3.5-5.1)
[2019-05-15 07:37] LABS: ALB/GLOB RATIO 0.9; ALBUMIN 2.7 g/dL (3.5-5.0); DIRECT BILIRUBIN 0.1 mg/dL (0.00-0.20); TOTAL BILIRUBIN 0.25 mg/dL (0.20-1.00); TOTAL PROTEIN 5.7 g/dL (6.3-8.3)
[2019-05-15] MEDS: ISORDIL PO SCH ×3 (08:04→20:29)
[2019-05-15] MEDS: HEPARIN SUBQ SCH ×2 (08:05→20:29)
[2019-05-15] MEDS: FLOMAX PO SCH (08:05)
[2019-05-15] MEDS: COREG PO SCH ×2 (08:05→20:29)
--- NOTE | 2019-05-15 10:00 | PROGRESS NOTE ---
DATE: 05/15/2019 SUBJECTIVE: The patient remains in the ICU, intubated and underwent dialysis yesterday with SLED. Approximately 4 L was removed yesterday. Urethral catheter continues to drain with 800 mL in catheter bag. OBJECTIVE: Vital signs: Temperature 97.4 degrees, heart rate 76, blood pressure 128/70, oxygenation 100% on the ventilator. General: Sedated and intubated. Cardiovascular: Regular rate and rhythm. Abdomen: Soft, nontender, nondistended. No palpable masses. Decreased abdominal edema. Genitourinary: Urethral catheter in place draining clear yellow urine. Improvement in scrotal and penile edema. Nontender to palpation. No palpable lesion or no palpable fluid collections are seen within the scrotum, and both testicles palpated. There are 2 areas of skin change present which have been present since evaluation. These do not appear to be ulcerative areas but rather changes in overlying skin, likely chronic. These are well vascularized and appear to be not any eschars, but likely related to underlying diabetes. No crepitus, erythema or warmth is felt within the scrotum itself. Lower extremities: Decreased lower extremity edema. LABORATORY DATA: White blood cell count 17.6, hemoglobin 8.6, hematocrit 26.3, platelets 337,000. ASSESSMENT AND PLAN: Mr. Campoverde is a 38-year-old with type 2 diabetes, congestive heart failure, chronic kidney disease, gastroesophageal reflux disease, hypertension, gastroparesis, diabetic foot ulcers, and history of medical noncompliance, who presents in consultation regarding scrotal and penile edema. The patient had significant volume overload status and was initiated on dialysis over the weekend. I think his scrotal edema and penile edema have improved since then. He still has this present. The patient remains in the ICU with intubation due to pulmonary overload and cardiac event, 4 L of fluid been removed both yesterday and on Tuesday. On scrotal exam today, there is no evidence of Lorie gangrene and scrotal edema seems to be improving. Encourage scrotal elevation. The patient has 2 areas on the scrotum itself which I think are chronic. These do not appear to be eschar or necrotic in any way and they are normal skin color and well vascularized. No evidence of any crepitus, erythema or warmth within the scrotum. Continued care in the ICU. We will continue to monitor from a urologic standpoint. Please call with questions or concerns. cc: Joey Addison MD MTDKeyur
[2019-05-15] MEDS: ZYVOX 600 MG/D5W 600 MG/300 ML IVPB IV SCH ×2 (11:48→22:37)
--- NOTE | 2019-05-15 12:01 | PROGRESS NOTE ---
DATE: 05/15/2019 INTERVAL HISTORY: No acute events overnight. His vital signs are unremarkable. SUBJECTIVE: Mr. Campoverde is intubated and is currently at high dose of propofol and not answering questions. He also underwent CT scan head without contrast for his nonreacting pupil, which was unremarkable. PHYSICAL EXAMINATION: Vital Signs: Temperature of 96.8 degrees, pulse 76, respiratory rate 16, blood pressure 130/70, and he is saturating 100% on 30% of FiO2 mechanical ventilator. General: On physical examination, he does not appear in acute distress. He has anasarca. No pallor, cyanosis, clubbing, or icterus. He has endotracheal tube, urine catheter, and right-sided central venous catheter, likely for dialysis. Lungs: Air entry bilaterally equal. No wheeze, rhonchi, crackles except mild crackles in inframammary region. Cardiac: S1 and S2 normal. No murmur or gallop. Abdomen: Soft, distended, dull to percussion on the flanks, tympanic in the center. He has extreme edema of the scrotum and bilateral lower extremities. He is starting to becoming fidgety to painful stimuli. Input and output suggests -3.3 L so far today. LABORATORIES: Suggestive of WBC of 17,000, hemoglobin 8.4, platelets 337,000. A pH of 7.41, pCO2 of 34, PO2 of 84. He is on mechanical ventilator with 30% FiO2. Chemistry suggests a BUN of 42, creatinine 2.7. His bilirubin is normal. ALT is 50. He did have elevated troponin. Microbiology, no new data. IMAGING: Chest x-ray suggests slight improvement in bibasilar infiltrate. ASSESSMENT AND PLAN: 1. Status post cardiac arrest on 05/13/2019, likely thought to be related to aspiration event leading to respiratory failure. Continue mechanical ventilation as per pulmonology, intravenous propofol for sedation and intravenous morphine as needed, the frequency of which has been decreased. He is on pantoprazole for stress ulcer prophylaxis and heparin subcutaneously for deep venous thrombosis prophylaxis. 2. Bilateral lower lobe aspiration pneumonia with Klebsiella pneumoniae. Continue intravenous linezolid and intravenous meropenem as per Infectious Disease's recommendation, also for his foot wound infection with Enterobacter cloacae. 3. Congestive heart failure with preserved ejection fraction leading to elevated troponins after cardiac arrest with significant left ventricular hypertrophy. Continue carvedilol, hydralazine, isosorbide as per Cardiology team's recommendations. 4. Acute kidney injury on chronic kidney disease stage 4, likely due to uncontrolled hypertension, dietary and medication noncompliance. The patient has been started on dialysis. He is making about 600 to 800 mL of urine output every day. 5. Anemia of chronic disease, status post 4 units of packed red blood cell transfusion. His hemoglobin since then appears to have stabilized. There are no signs of overt bleeding at the moment. I will keep him on intravenous Protonix and keep a close eye over his CBC. 6. Poorly-controlled insulin dependent diabetes mellitus with diabetic neuropathy. Continue sliding scale insulin. We will start him on medication for diabetic peripheral neuropathy as appropriate, but I will be cautious, and he is on antibiotics for foot infection with Enterobacter cloacae as per Infectious Disease. 7. Intermittent episodes of agitation with delusion during hospital admission. He has had challenges with medical care. We will continue to address once he is extubated. 8. Disposition. Continue to monitor the patient in the intensive care unit. His condition is still critical. TIME SPENT: More than 30 minutes of critical care time was spent taking care of this patient. One of the patient's 6 brothers was at bedside. I explained to him about the patient's critical condition, need for mechanical ventilation, need for medication, medical compliance, and answered all of his questions. cc: Srinivas Espinoza MD MTDD
--- NOTE | 2019-05-15 12:40 | PROVIDER PROGRESS NOTE ---
Progress Note Subjective: intubated and sedated. He is on propofol. Objective: temperature 96.8, pulse 74, respirations 15, blood pressure 127/71, 02 sat 100% on 30% FiO2 mechanical ventilation. General: -[place] male lying in bed in no acute distress HEENT: normocephalic, atraumatic, pupils unequal and extremely sluggish. Mucous membranes are moist. OG tube in place to LIS. Neck: Supple, 8 cm JVD appreciated Cardiovascular: S1S2s4, regular rate and rhythm. Systolic murmur. No gallop. Respiratory: wheezing and rhonchi noted throughout all lung alvarado anteriorly Abdomen: soft, protuberance, nontender. Bowel sounds hypoactive. : non inspected, bautista in place with clear urine Extremities:3+ pitting to BLE. Open wounds to the base of the great toes on both feet. Neurological: intubated and sedated Labs: WBC 17.76, hemoglobin 8.4, hematocrit 26.3, sodium 134, potassium 4.2, chloride 99, carbon dioxide 19, BUN 42, creatinine 2.7, albumin 2.7. Trending troponins. Intake 1460, output 4800. Impression: Chronic kidney disease stage 5 with recent cardiac arrest. He had a 4L ultrafiltration yesterday with SLED. His Creatinine and BUN are Improved. We will attempt SLED again at bedside today for four hours with a 2-4L ultrafiltration attempt. Blood pressure. Stable. Anemia. PRBC transfusion yesterday. Stable hemoglobin today. Fluid volume. Expanded. Attempting SLED again today. Electrolytes and acid base balance. Stable. Nutrition. NPO Medication review. No changes
--- NOTE | 2019-05-15 15:52 | PROVIDER PROGRESS NOTE ---
Progress Note Dr. Ruff Progress Note/Pulmonary and or critical care Subjective: The patient is intubated and sedated with max Diprivan 80mcg/kg/min. He is lying in bed with no acute distress noted. RN at the bedside reports that patient has episodes of agitation at times. Weaning trials start today. Patient has been scheduled for SLED later today. No family at the bedside. Input was appreciated from Dr. Espinoza and other teams on the case. Objective: Vital Signs: T 96.8 (no fever in last 24 hours), AK 74, RR 15, BP 127/51 and SaO2 100% on AC 15, 30%, 550, 5. I/O -3340 ml Physical Examination: General: Intubated. Lying in bed with no acute distress noted. HEENT: Normocephalic. Trachea midline. ETT in place. Mucosa pink and moist Chest: Mechanically ventilated. Symmetrical excursion. End-inspiratory wheezing bilaterally noted. CVS: Regular rate and rhythm with S1 and S2 appreciated. Abdomen: Soft. Protuberant. Edema. Hypoactive bowel sounds in all 4 quadrants noted. Extremities: BLE and BUE pitting edema 1+. Bilateral great toe diabetic ulcer with right worse than left. No cyanosis. No clubbing. Neuro: Sedated. Unresponsive to verbal stimuli. Labs and Radiology: Laboratory Results 05/14/19 05/15/19 05/15/19 20:43 04:25 05:45 WBC RBC Hgb Hct MCV MCH MCHC RDW Std Deviation Plt Count MPV PTT (Actin FS) Specimen Type ARTERIAL Sample Site R RADIAL pH 7.41 pCO2 34 L pO2 84 HCO3 22.9 Base Excess -2.6 Oxyhemoglobin 95.9 ABG O2 Sat (Calculated) 12.4 L ABG O2 Saturation 98.6 ABG Carboxyhemoglobin 1.70 ABG Methemoglobin 1.0 Rudi Test YES A-a O2 Difference 87.0 Total Hemoglobin 9.1 L Lactate 1.00 Blood Gas Modality VENTILATOR Vent Mode A/C Spontaneous Rate 15 FiO2 % 30.0 Tidal Volume 550 PEEP 5.0 Sodium 134 L Potassium 4.2 Chloride 99 Carbon Dioxide 19 L Anion Gap 16 BUN 42 H Creatinine 2.7 H Estimated GFR/1.73 m2 32 BUN/Creatinine Ratio 16 Glucose 149 H POC Glucose 148 H Calculated Osmolality 282 Calcium 8.6 L Phosphorus 5.5 H Total Bilirubin Direct Bilirubin AST ALT Alkaline Phosphatase Total Protein Albumin 2.6 L Globulin Albumin/Globulin Ratio 05/15/19 05/15/19 05/15/19 05:45 05:45 05:45 WBC 17.76 H RBC 3.01 L Hgb 8.4 L Hct 26.3 L MCV 87.4 MCH 27.9 MCHC 31.9 L RDW Std Deviation 19.5 H Plt Count 337 MPV 10.3 PTT (Actin FS) 38.2 Specimen Type Sample Site pH pCO2 pO2 HCO3 Base Excess Oxyhemoglobin ABG O2 Sat (Calculated) ABG O2 Saturation ABG Carboxyhemoglobin ABG Methemoglobin Rudi Test A-a O2 Difference Total Hemoglobin Lactate Blood Gas Modality Vent Mode Spontaneous Rate FiO2 % Tidal Volume PEEP Sodium Potassium Chloride Carbon Dioxide Anion Gap BUN Creatinine Estimated GFR/1.73 m2 BUN/Creatinine Ratio Glucose POC Glucose Calculated Osmolality Calcium Phosphorus Total Bilirubin 0.25 Direct Bilirubin 0.10 AST 30 ALT 50 H Alkaline Phosphatase 290 H Total Protein 5.7 L Albumin 2.7 L Globulin 3.0 Albumin/Globulin Ratio 0.9 05/15/19 05/15/19 05:45 07:01 WBC RBC Hgb Hct MCV MCH MCHC RDW Std Deviation Plt Count MPV PTT (Actin FS) 37.2 Specimen Type Sample Site pH pCO2 pO2 HCO3 Base Excess Oxyhemoglobin ABG O2 Sat (Calculated) ABG O2 Saturation ABG Carboxyhemoglobin ABG Methemoglobin Rudi Test A-a O2 Difference Total Hemoglobin Lactate Blood Gas Modality Vent Mode Spontaneous Rate FiO2 % Tidal Volume PEEP Sodium Potassium Chloride Carbon Dioxide Anion Gap BUN Creatinine Estimated GFR/1.73 m2 BUN/Creatinine Ratio Glucose POC Glucose 189 H Calculated Osmolality Calcium Phosphorus Total Bilirubin Direct Bilirubin AST ALT Alkaline Phosphatase Total Protein Albumin Globulin Albumin/Globulin Ratio Assessment: Acute respiratory failure. Intubated on 05/13/19. S/P cardiopulmonary arrest on 05/13/19. Pneumonia. Sputum culture on 05/06/19 grew Klebsiella Pneumoniae. CXR this morning shows slight improvement in the bibasilar infiltrates. Bilateral infected foot ulcers secondary to Enterobacter Cloacae. Pulmonary edema, cardiomegaly and troponin T elevation with severe left ventricular hypertrophy with severe focal, localized mitral annular calcification measuring 1.2 cm and trace pericardial effusion per Echocardiogram on 05/14/19. CKD stage 4 with severe volume overload, heavy proteinuria, hyperkalemia, and hypoalbuminemia. On SLED per Dr. Oconnor. Severe normocytic anemia. S/P RBC transfusion of 4 units since admission. Anion gap metabolic acidosis and metabolic acidosis, compensated with respiratory alkalosis. Prognosis is guarded. Plan: Continue current treatment and supportive care per admitting and other teams on the case. Start weaning trials today. Ventilator settings checked and titrated to Patients needs per clinical protocols with closely monitoring. Sedation (Diprivan) titrated to the patients needs per clinical protocols with closely monitoring. Antibiotics, including Meropenem and Zyvox. Bronchodilators. Appropriate DVT and GI prophylaxis Evaluation time in minutes: 35 minutes.
--- NOTE | 2019-05-15 17:59 | INFECTIOUS DISEASE PROGRESS NO ---
DATE: 05/15/2019 PRESENT ILLNESS: The patient has pneumonia and bilateral infected foot ulcers. MEDICATIONS: This is day 4 of treatment with meropenem and day 2 of treatment with Zyvox. PHYSICAL EXAMINATION: Vital Signs: Temperature is 96.8 degrees, pulse 76, respirations 16, blood pressure 130/71. General: This is a chronically ill-appearing young male. He is intubated and sedated. Head/eyes/ears/nose/throat: The patient has an orotracheal tube and a nasogastric tube in place. There is no drainage from the nose or ears. Neck: The patient has a right jugular venous catheter in place. There is no stiffness in the neck. Lungs: Clear to auscultation. Cardiovascular: Heart rate is regular. Abdomen: Soft and nontender. Neurologic: The patient is obtunded. He did not respond to verbal stimuli. There is no tremor. Extremities: Both feet have large dressings around them. The dressings are intact. LAB AND X-RAY: The patient's chest x-ray shows improvement in the bibasilar infiltrates. CT scan of the head showed no abnormalities. CBC showed a white count that did increase to 17,760, hemoglobin 8.4 and platelet count 337,000. Blood gases show a pH of 7.41, a PO2 of 84, and a pCO2 of 34. The creatinine is 2.7. GFR is 32. Alkaline phosphatase is 290. Blood and urine cultures are negative. Sputum culture grew normal french. ASSESSMENT AND PLAN: Patient has pneumonia and infected bilateral foot ulcers. Even though the white blood cell count did increase I think the patient is doing better and since he has only been on the Zyvox and meropenem for a few days, I am going to stick with it and hopefully the white blood cell count will come down. COMORBIDITIES: Diabetes mellitus, congestive heart failure and end-stage renal disease. cc: Yasir Scales MD
[2019-05-16] MEDS: DIPRIVAN 1% 1,000 MG/100 ML BOTTLE IV SCH ×4 (00:57→08:52)
[2019-05-16] MEDS: DUONEB (A & A) INH SCH ×5 (03:42→20:42)
[2019-05-16 04:50] LABS: ALLEN TEST YES; BE -2.3 mmoll (-3.0-3.0); BLOOD TYPE ARTERIAL; HCO3-(ACT) 23.1 mmoll (20.0-26.0); METHB 1.1 % (0.0-1.5); O2(CT) 10.3 mL/dL (15.0-23.0); O2HB 95.9 % (95.0-99.0); PCO2(98.6) 37 mmHg (35-45); PO2(98.6) 88 mmHg (60-100); SAMPLE BLOOD; SAO2 98.3 % (95.0-100.0); SRATE 15 BPM; THB 7.5 g/dL (11.5-17.4); TVOL 550 mL; pH(98.6) 7.39 (7.35-7.45)
[2019-05-16 04:52] LABS: MODALITY VENTILATOR
[2019-05-16 05:48] LABS: HEMATOCRIT 26.4 % (42.0-52.0); HEMOGLOBIN 8.4 g/dL (14.0-18.0); MCH 28.4 PG (27-31); MCHC 31.8 g/dL (33-37); MCV 89.2 FL (81-99); MPV 10.4 FL (7.4-10.4); RBC 2.96 XMIL (4.7-6.1); RDW 19.8 % (11.5-14.5); WBC 14.96 X1000 (4.8-10.8)
[2019-05-16] MEDS ORDERED: HEPARIN IV PRN (05:59)
[2019-05-16] MEDS ORDERED: NS 2,000 ML MISC PRN (05:59)
[2019-05-16 06:03] LABS: ALBUMIN 2.7 g/dL (3.5-5.0); DIRECT BILIRUBIN 0.1 mg/dL (0.00-0.20); TOTAL BILIRUBIN 0.23 mg/dL (0.20-1.00); TOTAL PROTEIN 5.5 g/dL (6.3-8.3)
[2019-05-16 06:04] LABS: ALBUMIN 2.4 g/dL (3.5-5.0); CALCIUM 8.3 mg/dL (8.8-10.2); CREATININE 2.3 mg/dL (0.7-1.2); PHOSPHORUS 5.2 mg/dL (2.7-4.5); POTASSIUM 4.6 mmol/L (3.5-5.1)
[2019-05-16] MEDS: APRESOLINE PO SCH ×3 (06:25→20:26)
[2019-05-16] MEDS: PROTONIX IV SCH (06:45)
[2019-05-16] MEDS: HUMULIN R SUBQ SCH ×4 (06:47→20:31)
[2019-05-16] MEDS: MERREM 1 GM in NS 50 ML IV SCH ×2 (06:53→18:05)
--- NOTE | 2019-05-16 07:12 | Diag Imaging Result Doc PS360 ---
EXAM: CHEST-PORTABLE 05/16/2019 HISTORY: pulmonary edema/pneumonia TECHNIQUE: AP portable at 0509 COMMENT: There is an endotracheal tube with its tip slightly below the thoracic inlet and an NG tube which passes below the diaphragm. There is cardiomegaly. There is interstitial pulmonary edema. There has been slight worsening in the right base with obscuration of the lateral hemidiaphragm compared to 05/15/2019. The right internal jugular central venous catheter remains with its tip in the superior vena cava. IMPRESSION: Cardiomegaly and pulmonary edema. Electronically signed by Jeremy Guaman 05/16/2019 7:09 AM
--- NOTE | 2019-05-16 08:45 | PROGRESS NOTE ---
DATE: 05/16/2019 SUBJECTIVE: No acute events overnight. The patient seems to be doing well. He remains intubated on the ventilator, receiving dialysis. Catheter has been draining clear yellow urine with 500 cc recorded yesterday. The patient had 4 L of fluid removed yesterday. OBJECTIVE: Vital Signs: Temperature 98.1, heart rate 71, blood pressure 127/71, oxygen saturation 100% on ventilator. General: Sedated in no active distress. Respiratory: Remains on ventilator with no increased work of breathing. Abdomen: Soft, nontender. : No suprapubic tenderness. Decreased suprapubic edema. The scrotal and penile edema has improved with soft scrotum. Urethral catheter in place draining clear yellow urine. Several lesions are seen on the scrotum itself which appear to be chronic. No evidence of any erythema, warmth or crepitus within the scrotum. Extremities: Improved lower extremity edema. LABS: White blood cell count 14.9, hemoglobin 8.4, hematocrit 26.4, platelets 333,000, sodium 135, potassium 4.6, chloride 102, bicarb 20, BUN 27, creatinine 2.3, glucose 134, phosphorus 5.2, alkaline phosphatase 285. ASSESSMENT/PLAN: Mr. Campoverde is a 38-year-old with type 2 diabetes, gastroparesis, diabetic neuropathy, congestive heart failure, chronic kidney disease, gastroesophageal reflux, hypertension, diabetic foot ulcers, and history of medical noncompliance, who presents in consultation regarding scrotal and penile edema. This seems to have improved significantly overnight. Minimal swelling is seen today. The scrotum is quite soft. He still has some edema present, but much improved. Minimal penile edema is seen. Encouraged continued scrotal elevation. The patient has received dialysis on 3 separate days and seems to be improving. No evidence of Lorie's gangrene on exam today. No erythema, warmth, or crepitus on exam. He has several lesions on the scrotum which appeared to be inclusion type issues. These appeared to be well healed and not eschar. We will continue to monitor from a urologic standpoint. Please call with questions or concerns. cc: Joey Addison MD [facility] HOSPITALKeyur
[2019-05-16] MEDS: FLOMAX PO SCH (08:51)
[2019-05-16] MEDS: COREG PO SCH ×2 (08:51→20:27)
[2019-05-16] MEDS: HEPARIN SUBQ SCH ×2 (08:51→20:30)
[2019-05-16] MEDS: SANTYL OINT TOP SCH (08:51)
[2019-05-16] MEDS: ISORDIL PO SCH ×3 (08:51→20:27)
[2019-05-16] MEDS: ZYVOX 600 MG/D5W 600 MG/300 ML IVPB IV SCH (11:03)
--- NOTE | 2019-05-16 11:15 | PROGRESS NOTE ---
DATE: 05/16/2019 INTERVAL HISTORY: No acute events overnight. Mr. Campoverde has been receiving dialysis. SUBJECTIVE: He is intubated. He is on propofol. However, he still wakes up and starts becoming fidgety on strong verbal stimuli, and he is still needing high amount of intravenous propofol. VITALS: Temperature of 98.6 degrees, pulse 75, respiratory rate 18, blood pressure 140/70. He is saturating 100% on 30% mechanical ventilation. PHYSICAL EXAMINATION: General: He has endotracheal tube urine catheter. He has a right-sided chest dialysis catheter. Lungs: Air entry bilaterally equal. No wheeze, rhonchi, or crackles. Cardiovascular: S1, S2 normal. No murmur, rub, or gallop. Abdomen: Soft, dull to percussion. No bowel sounds. Extremities: He has lower extremity edema with edema of the scrotum as well. : Input and output suggests he was negative 3.3 liters so far. LABS: Suggestive of WBC of 14,000, hemoglobin 8.4, platelet 333. A pH of 7.39. His BUN is 27, creatinine 2.3, blood glucose 134. He continues to have hypoalbuminemia of 2.7. MICROBIOLOGY: No positive data. IMAGING: Chest x-ray suggests cardiomegaly with pulmonary edema. ASSESSMENT AND PLAN: 1. Status post cardiac arrest on 05/13/2019, thought to be related to aspiration event leading to respiratory failure. Continue mechanical ventilation and intravenous propofol for sedation as per Pulmonology recommendation. He is also on intravenous morphine as needed. Continue pantoprazole for stress ulcer prophylaxis and heparin subcutaneous for deep venous thrombosis prophylaxis. 2. Bilateral lower lobe aspiration pneumonia with Klebsiella pneumoniae. Continue intravenous linezolid, intravenous meropenem as per Infectious Disease recommendations, which also covers his foot wound infection with Enterobacter cloacae. 3. Congestive heart failure with preserved ejection fraction with significant left ventricular hypertrophy. Continue carvedilol, hydralazine, isosorbide as per Cardiology team's recommendation. 4. Acute kidney injury on chronic kidney disease stage IV due to uncontrolled hypertension, dietary and medication noncompliance and uncontrolled diabetes. The patient has been started on dialysis he is making around 700 mL urine in 24 hours. Appreciate Nephrology recommendation. 5. Anemia of chronic disease, status post 4 units of packed red blood cells. Continue intravenous Protonix. His complete blood count appears to be stable now. 6. Poorly-controlled insulin-dependent diabetes mellitus with diabetic neuropathy. Continue sliding scale insulin. 7. Intermittent episodes of agitation with delusion during hospital admission. Psychiatry team had previously evaluated him. He is currently on intravenous propofol. DISPOSITION: I will continue to monitor patient in critical care unit. TIME SPENT: More than 30 minutes of critical care time was spent in taking care of this patient. I will appreciate Pulmonology recommendation about starting him on tube feeds depending on his weaning trial goals. I also discussed with the nurse about providing local wound care to bilateral feet. cc: Srinivas Espinoza MD
[2019-05-16 12:08] LABS: ALLEN TEST YES; BE -1.8 mmoll (-3.0-3.0); BLOOD TYPE ARTERIAL; HCO3-(ACT) 23.5 mmoll (20.0-26.0); METHB 0.9 % (0.0-1.5); O2HB 94.9 % (95.0-99.0); PCO2(98.6) 34 mmHg (35-45); PO2(98.6) 78 mmHg (60-100); SAMPLE BLOOD; SAO2 97.4 % (95.0-100.0); THB 12.7 g/dL (11.5-17.4); pH(98.6) 7.42 (7.35-7.45)
[2019-05-16 12:09] LABS: MODALITY VENTILATOR
--- NOTE | 2019-05-16 13:13 | INFECTIOUS DISEASE PROGRESS NO ---
DATE: 05/16/2019 PRESENT ILLNESS: The patient has bilateral pneumonia and also bilateral infected foot ulcers. MEDICATIONS: This is the 5th day of treatment with meropenem and the third day of treatment with Zyvox. PHYSICAL EXAMINATION: Vital Signs: Temperature is 98.2 degrees, pulse 74, respirations 17, blood pressure 127/71. General: This is a chronically ill-appearing young male. He is intubated and sedated. Head/Eyes/Ears/Nose/Throat: The patient has an orotracheal and a nasogastric tube in place. I did not see any drainage from his nose or ears. Neck: The patient has a dialysis catheter present in the right jugular vein. The catheter site is not bleeding or purulent. The patient's neck was not stiff. Lungs: Clear to auscultation. Cardiovascular: Heart rate is regular. Abdomen: Soft and nontender. Neurologic: The patient did not respond to verbal stimuli. He does not have a tremor. Extremities: The patient has bilateral leg edema, and he also has bilateral plantar ulcers of which they are dry. There is no purulence or necrosis. LAB AND X-RAY: CBC shows a white count of 14,960, hemoglobin 8.4, platelet count is 333,000. Blood gases show a pH of 7.39, a PO2 of 88, pCO2 of 37. Creatinine is 2.3, GFR is 38. Hepatitis panel is nonreactive. Chest x-ray shows pulmonary edema. ASSESSMENT AND PLAN: The patient has pneumonia and infected foot ulcers. The patient's white blood cell count has decreased from 17,760 to 14,960. My plan is to continue with Zyvox and meropenem for the patient's pneumonia and infected plantar ulcers. COMORBIDITIES: Diabetes mellitus, congestive heart failure, and end-stage renal disease. cc: Yasir Scales MD
--- NOTE | 2019-05-16 14:23 | PROVIDER PROGRESS NOTE ---
Progress Note Dr. Ruff Progress Note/Pulmonary and or critical care Subjective: The patient is intubated and has been on weaning trials over 45 minutes. He is lying in bed with no acute distress noted. He underwent SLEDD this morning. No family at the bedside. Input was appreciated from Dr. Espinoza and other teams on the case. Objective: Vital Signs: T 98.1 (no fever in last 24 hours), AZ 87, RR 14, BP 172/85 and SaO2 100% on CPAP trial 30%, 5. I/O -3265 ml Physical Examination: General: Intubated. Lying in bed with no acute distress noted. HEENT: Normocephalic. Trachea midline. ETT in place. Mucosa pink and moist Chest: Mechanically ventilated. Symmetrical excursion. Decreased air entry bilaterally. CVS: Regular rate and rhythm with S1 and S2 appreciated. Abdomen: Soft. Protuberant. Edema. Hypoactive bowel sounds in all 4 quadrants noted. Extremities: Improving BLE and BUE pitting edema 1+. Bilateral great toe diabetic ulcer with dressing on. Neuro: Sedated. Unresponsive to verbal stimuli. Labs and Radiology: Laboratory Results 05/15/19 05/15/19 05/15/19 11:06 15:56 20:35 WBC RBC Hgb Hct MCV MCH MCHC RDW Std Deviation Plt Count MPV PTT (Actin FS) Specimen Type Sample Site pH pCO2 pO2 HCO3 Base Excess Oxyhemoglobin ABG O2 Sat (Calculated) ABG O2 Saturation ABG Carboxyhemoglobin ABG Methemoglobin Rudi Test A-a O2 Difference Total Hemoglobin Lactate Blood Gas Modality Vent Mode Spontaneous Rate FiO2 % Tidal Volume PEEP Pressure Support CPAP Sodium Potassium Chloride Carbon Dioxide Anion Gap BUN Creatinine Estimated GFR/1.73 m2 BUN/Creatinine Ratio Glucose POC Glucose 153 H 150 H 130 H Calculated Osmolality Calcium Phosphorus Total Bilirubin Direct Bilirubin AST ALT Alkaline Phosphatase Total Protein Albumin Globulin Albumin/Globulin Ratio 05/16/19 05/16/19 05/16/19 04:30 04:30 04:30 WBC 14.96 H RBC 2.96 L Hgb 8.4 L Hct 26.4 L MCV 89.2 MCH 28.4 MCHC 31.8 L RDW Std Deviation 19.8 H Plt Count 333 MPV 10.4 PTT (Actin FS) Specimen Type Sample Site pH pCO2 pO2 HCO3 Base Excess Oxyhemoglobin ABG O2 Sat (Calculated) ABG O2 Saturation ABG Carboxyhemoglobin ABG Methemoglobin Rudi Test A-a O2 Difference Total Hemoglobin Lactate Blood Gas Modality Vent Mode Spontaneous Rate FiO2 % Tidal Volume PEEP Pressure Support CPAP Sodium 135 L Potassium 4.6 Chloride 102 Carbon Dioxide 20 L Anion Gap 13 BUN 27 H Creatinine 2.3 H Estimated GFR/1.73 m2 38 BUN/Creatinine Ratio 12 Glucose 134 H POC Glucose Calculated Osmolality 277 Calcium 8.3 L Phosphorus 5.2 H Total Bilirubin 0.23 Direct Bilirubin 0.10 AST 19 ALT 37 Alkaline Phosphatase 285 H Total Protein 5.5 L Albumin 2.4 L 2.7 L Globulin 2.8 Albumin/Globulin Ratio 1.0 05/16/19 05/16/19 05/16/19 04:40 06:10 06:47 WBC RBC Hgb Hct MCV MCH MCHC RDW Std Deviation Plt Count MPV PTT (Actin FS) 35.4 Specimen Type ARTERIAL Sample Site R RADIAL pH 7.39 pCO2 37 pO2 88 HCO3 23.1 Base Excess -2.3 Oxyhemoglobin 95.9 ABG O2 Sat (Calculated) 10.3 L ABG O2 Saturation 98.3 ABG Carboxyhemoglobin 1.30 ABG Methemoglobin 1.1 Rudi Test YES A-a O2 Difference 80.0 Total Hemoglobin 7.5 L Lactate 1.00 Blood Gas Modality VENTILATOR Vent Mode A/C Spontaneous Rate 15 FiO2 % 30.0 Tidal Volume 550 PEEP 5.0 Pressure Support CPAP Sodium Potassium Chloride Carbon Dioxide Anion Gap BUN Creatinine Estimated GFR/1.73 m2 BUN/Creatinine Ratio Glucose POC Glucose 240 H D Calculated Osmolality Calcium Phosphorus Total Bilirubin Direct Bilirubin AST ALT Alkaline Phosphatase Total Protein Albumin Globulin Albumin/Globulin Ratio 05/16/19 05/16/19 10:42 12:00 WBC RBC Hgb Hct MCV MCH MCHC RDW Std Deviation Plt Count MPV PTT (Actin FS) Specimen Type ARTERIAL Sample Site R RADIAL pH 7.42 pCO2 34 L pO2 78 HCO3 23.5 Base Excess -1.8 Oxyhemoglobin 94.9 L ABG O2 Sat (Calculated) 17.0 ABG O2 Saturation 97.4 ABG Carboxyhemoglobin 1.60 ABG Methemoglobin 0.9 Rudi Test YES A-a O2 Difference 93.0 Total Hemoglobin 12.7 Lactate 1.00 Blood Gas Modality VENTILATOR Vent Mode CPAP Spontaneous Rate FiO2 % 30.0 Tidal Volume PEEP Pressure Support 5.00 CPAP 5.0 Sodium Potassium Chloride Carbon Dioxide Anion Gap BUN Creatinine Estimated GFR/1.73 m2 BUN/Creatinine Ratio Glucose POC Glucose 129 H Calculated Osmolality Calcium Phosphorus Total Bilirubin Direct Bilirubin AST ALT Alkaline Phosphatase Total Protein Albumin Globulin Albumin/Globulin Ratio Assessment: Acute respiratory failure. Intubated on 05/13/19. S/P cardiopulmonary arrest on 05/13/19. Pneumonia. Sputum culture on 05/06/19 grew Klebsiella Pneumoniae. CXR today shows cardiomegaly and pulmonary edema. Bilateral infected foot ulcers secondary to Enterobacter Cloacae. Pulmonary edema, cardiomegaly and troponin T elevation with severe left ventricular hypertrophy with severe focal, localized mitral annular calcification measuring 1.2 cm and trace pericardial effusion per Echocardiogram on 05/14/19. CKD stage 4 with severe volume overload, heavy proteinuria, hyperkalemia, and hypoalbuminemia. On SLED per Dr. Oconnor. Normocytic anemia. Stable. S/P RBC transfusion of 4 units since admission. Anion gap metabolic acidosis and metabolic acidosis, compensated with respira tory alkalosis. Improved. Prognosis is guarded. Plan: Continue current treatment and supportive care per admitting and other teams on the case. Start weaning trials on 05/15/19. ABG once one hour after weaning trials start. I will decide extubation or not based on patients clinical response and ABG. If not extubated today, I will start NG tube feeding. We check Ventilator settings and titrate to Patients needs per clinical protocols. We will keep closely monitoring patients clinical response. We titrate Sedation (Diprivan) to the patients needs per clinical protocols. We will keep closely monitoring patients clinical response. Antibiotics, including Meropenem and Zyvox. Bronchodilators. Appropriate DVT and GI prophylaxis Evaluation time in minutes: 33 minutes.
[2019-05-16] MEDS: LIDODERM TOP SCH (14:42)
[2019-05-16] MEDS: TYLENOL PO SCH (14:42)
--- NOTE | 2019-05-16 15:54 | PROVIDER PROGRESS NOTE ---
Progress Note Subjective: intubated and sedated. He is on propofol. Objective: temperature 98.6, pulse 75, respirations 15, blood pressure 141/70, O2 sat 100% on 30% FiO2 mechanical ventilation. General: -[place]azi male lying in bed in no acute distress HEENT: normocephalic, atraumatic, pupils unequal and extremely sluggish. Mucous membranes are moist. OG tube in place to LIS. Neck: Supple, 8 cm JVD appreciated Cardiovascular: S1S2s4, regular rate and rhythm. Systolic murmur. No gallop. Respiratory: improved lung sounds. Coarse anteriorly. Abdomen: soft, protuberance, nontender. Bowel sounds hypoactive. : non inspected, bautista in place with clear urine Extremities: 2+ pitting to BLE. Open wounds to the base of the great toes on both feet. Neurological: intubated and sedated Labs: WBC 14.96, hemoglobin 8.4, hematocrit 26.4, platelet count 333, sodium 135, potassium 4.6, chloride 102, carbon dioxide 20, BUN 27, creatinine 2.3. Intake 1765, output 5030. Impression: Chronic kidney disease stage 5 with recent cardiac arrest. He had a 4L ultrafiltration yesterday with SLED. His BUN and Creatinine is improving daily with current plan of care. We will continue to SLED today with a 2-4 L ultrafiltration. Blood pressure. Stable. Anemia. Low but stable. Fluid volume. Expanded. Attempting SLED again today. Electrolytes and acid base balance. Stable. Nutrition. NPO. Defer to primary. Medication review. No changes.
[2019-05-16] MEDS: ULTRAM PO PRN (18:08)
--- NOTE | 2019-05-16 20:44 | PROGRESS NOTE ---
DATE: 05/16/2019 SUBJECTIVE: Patient extubated earlier today. He is awake and responsive but somewhat confused. He denies any chest discomfort or shortness of breath. He seems somewhat irritable and repeatedly expressed desire to go home as soon as possible. OBJECTIVE: Vital Signs: Blood pressure 158/89. Heart rate 100, oxygen saturation 98%. Neck: Jugular venous distention not appreciated. Chest: Is clear to auscultation bilaterally. Cardiac: Cardiac exam reveals a regular rate and rhythm with soft systolic murmur throughout upper sternal border. No gallop could be appreciated. Extremities: Demonstrate mild to moderate pretibial edema. LABORATORY DATA: Includes a white blood cell count of 14.96, hematocrit 26.4, hemoglobin 8.4, platelet count 333,000. Sodium 135, potassium 4.6, chloride 102, carbon dioxide 20, BUN 27, creatinine 2.3. Glucose 134. Albumin 2.7. IMPRESSION: 1. Status post recent cardiopulmonary arrest. 2. Respiratory failure. Patient improved and now extubated. 3. Possible aspiration. 4. Chronic kidney disease with significant volume overload, improving with hemodialysis. 5. Anemia. 6. Poorly controlled diabetes mellitus, requiring insulin. 7. Bilateral foot wound infections. 8. Medical noncompliance. 9. Hypertensive cardiovascular disease. Recent echocardiography demonstrates severe left ventricular hypertrophy and preserved left ventricular systolic function. Left ventricular diastolic dysfunction very likely. RECOMMENDATIONS: 1. Continue to remove volume with hemodialysis. 2. Conservative cardiovascular management overall for the present. 3. Oral antihypertensive regimen to be resumed. cc: Tre Christopher MD
[2019-05-17] MEDS: TYLENOL PO SCH ×4 (00:43→23:13)
[2019-05-17] MEDS: ZYVOX 600 MG/D5W 600 MG/300 ML IVPB IV SCH ×3 (01:27→23:17)
[2019-05-17] MEDS: APRESOLINE PO SCH ×3 (04:23→20:03)
[2019-05-17] MEDS: ULTRAM PO PRN ×3 (04:27→15:36)
[2019-05-17] MEDS: DUONEB (A & A) INH SCH ×5 (05:46→20:00)
[2019-05-17] MEDS ORDERED: NS 2,000 ML MISC PRN (06:24)
[2019-05-17] MEDS: HUMULIN R SUBQ SCH ×4 (07:00→21:29)
[2019-05-17] MEDS: PROTONIX IV SCH (07:31)
[2019-05-17] MEDS: MERREM 1 GM in NS 50 ML IV SCH ×2 (07:32→18:20)
[2019-05-17] MEDS: LIDODERM TOP SCH (09:03)
[2019-05-17] MEDS: ISORDIL PO SCH ×3 (09:03→20:04)
[2019-05-17] MEDS: HEPARIN SUBQ SCH ×2 (09:03→20:03)
[2019-05-17] MEDS: FLOMAX PO SCH (09:03)
[2019-05-17] MEDS: COREG PO SCH ×2 (09:03→20:04)
[2019-05-17] MEDS: SANTYL OINT TOP SCH (09:04)
[2019-05-17 09:25] LABS: HEMATOCRIT 26.1 % (42.0-52.0); HEMOGLOBIN 8.3 g/dL (14.0-18.0); MCH 28.2 PG (27-31); MCHC 31.8 g/dL (33-37); MCV 88.8 FL (81-99); MPV 9.9 FL (7.4-10.4); RBC 2.94 XMIL (4.7-6.1); RDW 19.2 % (11.5-14.5); WBC 13.88 X1000 (4.8-10.8)
--- NOTE | 2019-05-17 09:44 | Diag Imaging Result Doc PS360 ---
CHEST-1 VIEW - 05/17/2019 INDICATION: SOB COMPARISON: 05/16/2019 FINDINGS: The patient has been extubated. Lung volumes remain good. Stable right-sided dialysis catheter. Stable severe cardiomegaly and severe pulmonary vascular congestion. The left lower lobe atelectasis has resolved. No significant infiltrates. IMPRESSION: Patient extubated. Cardiomegaly and severe pulmonary vascular congestion. Electronically signed by Joseph Lawrence 05/17/2019 9:42 AM
[2019-05-17 09:50] LABS: ALLEN TEST YES; BE -0.1 mmoll (-3.0-3.0); BLOOD TYPE ARTERIAL; HCO3-(ACT) 24.8 mmoll (20.0-26.0); METHB 0.7 % (0.0-1.5); O2(CT) 11.9 mL/dL (15.0-23.0); O2HB 92.3 % (95.0-99.0); PCO2(98.6) 34 mmHg (35-45); PO2(98.6) 59 mmHg (60-100); SAMPLE BLOOD; SAO2 95.2 % (95.0-100.0); THB 9.1 g/dL (11.5-17.4); pH(98.6) 7.45 (7.35-7.45)
[2019-05-17 09:51] LABS: MODALITY ROOM AIR
[2019-05-17 10:16] LABS: ALBUMIN 3.3 g/dL (3.5-5.0); CREATININE 1.8 mg/dL (0.7-1.2); PHOSPHORUS 3.9 mg/dL (2.7-4.5)
--- NOTE | 2019-05-17 13:14 | PROGRESS NOTE ---
DATE: 05/17/2019 INTERVAL HISTORY: Mr. Campoverde was extubated on 05/17/2019. He has been on room air since then. He appears to be confused, and was not entirely cooperative with the nursing staff. In the morning time when I saw him, he is hooked up with the dialysis machine, and he still appears confused and though alert he is not entirely oriented. He has some hallucinations as well. PHYSICAL EXAMINATION: Vital Signs: Temperature of 96.6 degrees, pulse 102, respirations 17, and blood pressure 190/103. On physical examination, he is saturating 98% on room air. HEENT: His oral cavity is moist. Lungs: Air entry bilaterally equal. No wheezing, rhonchi or crackles. S1, S2 normal. No murmur or gallop. Abdomen: Soft. Dull to percussion. Active bowel sounds. His ascites has decreased. Extremities: His lower extremity edema has decreased. His scrotal edema has decreased as well. He is moving all extremities spontaneously. He is in restraints. He could tell me that he came in because of kidney dysfunction, and he was surprised to learn that he and went into cardiac arrest several days ago. Input and output suggests -3.8 L so far today. LABORATORY: [place] [address], hemoglobin 8.3, and platelets 297,000. His ABG suggests PO2 of 59 on room air. No BMP today. MICROBIOLOGY: No new data. ASSESSMENT AND PLAN: 1. Status post cardiac arrest on 05/13/2019, thought to be related to an aspiration event leading to primary respiratory failure. The patient was extubated on 05/17. Appreciate Pulmonology's recommendation. Continue inhaled bronchodilators, heparin subcutaneous for deep venous thrombosis prophylaxis, and pantoprazole for stress ulcer prophylaxis. 2. Bilateral lower lobe aspiration pneumonia with Klebsiella pneumoniae. Continue intravenous linezolid, intravenous meropenem as per ID recommendations, which also covers his bilateral foot wound infection with Enterobacter cloacae. 3. Congestive heart failure with preserved ejection fraction, left ventricular hypertrophy, likely diastolic congestive heart failure leading to volume overload. Continue carvedilol, hydralazine,and isosorbide, which also takes care of his essential hypertension as well. 4. Acute kidney injury on chronic kidney disease stage 4, now with anuria after cardiac arrest. He has been receiving intermittent dialysis. He has been receiving SLED. I appreciate nephrology recommendation, and follow up with BMP on a daily basis. 5. Anemia of chronic disease, status post 4 units of packed red blood cells. Continue intravenous Protonix and CBC appears to be stable. 6. Poorly-controlled insulin-dependent diabetes mellitus with diabetic neuropathy. Continue sliding scale insulin. 7. Intermittent episodes of agitation with delusion and being noncooperative with care. I will start him on nighttime Seroquel. 8. His current confusion could be related to hospital-acquired delirium. I will continue to monitor his mental status. DISPOSITION: Monitor patient inside the hospital. Plan of care discussed with him. All of his questions have been answered. I called patient's sister, and informed her about patient's critical condition. I answered all of her questions. cc: Srinivas Espinoza MD
--- NOTE | 2019-05-17 16:18 | PROVIDER PROGRESS NOTE ---
Progress Note Dr. Ruff Progress Note/Pulmonary and or critical care Subjective: The patient was successfully extubated yesterday. He is restless and confused at this time. He is on two point restraint, but trying to sit up on the bed. He states I am ready to go home. He is on room air with SaO2 on high 90s. Some bleeding noted on the RLE. No family at the bedside. Input was appreciated from Dr. Espinoza and other teams on the case. Objective: Vital Signs: T 96.6 (no fever in last 24 hours), VT 101, RR 12, BP 185/84 and SaO2 96% on room air. I/O -3878 ml Physical Examination: General: Lying in bed on two point restraint with restlessness and confusion. HEENT: Normocephalic. Trachea midline. Mucosa pink and moist Chest: Even and unlabored. Symmetrical excursion. Decreased air entry bilaterally with expiratory wheezing. CVS: Regular rate and rhythm with S1 and S2 appreciated. Abdomen: Soft. Protuberant. Edema. Hypoactive bowel sounds in all 4 quadrants noted. Extremities: Improving BLE and BUE pitting edema 1+. Bleeding noted on RLE. Neuro: Restless and confused. Labs and Radiology: Laboratory Results 05/17/19 05/17/19 05/17/19 08:59 08:59 08:59 WBC 13.88 H RBC 2.94 L Hgb 8.3 L Hct 26.1 L MCV 88.8 MCH 28.2 MCHC 31.8 L RDW Std Deviation 19.2 H Plt Count 297 MPV 9.9 PTT (Actin FS) 37.2 Specimen Type Sample Site pH pCO2 pO2 HCO3 Base Excess Oxyhemoglobin ABG O2 Sat (Calculated) ABG O2 Saturation ABG Carboxyhemoglobin ABG Methemoglobin Rudi Test A-a O2 Difference Total Hemoglobin Lactate Blood Gas Modality FiO2 % Sodium 139 Potassium 4.0 Chloride 101 Carbon Dioxide 22 L Anion Gap 16 BUN 17 Creatinine 1.8 H Estimated GFR/1.73 m2 51 BUN/Creatinine Ratio 9 Glucose 138 H POC Glucose Calculated Osmolality 281 Calcium 9.0 Phosphorus 3.9 Albumin 3.3 L 05/17/19 05/17/19 09:45 10:37 WBC RBC Hgb Hct MCV MCH MCHC RDW Std Deviation Plt Count MPV PTT (Actin FS) Specimen Type ARTERIAL Sample Site R RADIAL pH 7.45 pCO2 34 L pO2 59 L HCO3 24.8 Base Excess -0.1 Oxyhemoglobin 92.3 L ABG O2 Sat (Calculated) 11.9 L ABG O2 Saturation 95.2 ABG Carboxyhemoglobin 2.30 ABG Methemoglobin 0.7 Rudi Test YES A-a O2 Difference 48.0 Total Hemoglobin 9.1 L Lactate 0.90 Blood Gas Modality ROOM AIR FiO2 % 21.0 Sodium Potassium Chloride Carbon Dioxide Anion Gap BUN Creatinine Estimated GFR/1.73 m2 BUN/Creatinine Ratio Glucose POC Glucose 108 H Calculated Osmolality Calcium Phosphorus Albumin Assessment: Acute respiratory failure. Intubated on 05/13/19. Extubated on 05/16/19. Improved. S/P cardiopulmonary arrest on 05/13/19. Pneumonia. Sputum culture on 05/06/19 grew Klebsiella Pneumoniae. CXR this morning shows cardiomegaly and severe pulmonary vascular congestion. Bilateral infected foot ulcers secondary to Enterobacter Cloacae. Pulmonary edema, cardiomegaly and troponin T elevation with severe left ventricular hypertrophy with severe focal, localized mitral annular calcification measuring 1.2 cm and trace pericardial effusion per Echocardiogram on 05/14/19. CKD stage 4 with severe volume overload, heavy proteinuria, hyperkalemia, and hypoalbuminemia. On SLED per Dr. Oconnor. Normocytic anemia. Stable. S/P RBC transfusion of 4 units since admission. Anion gap metabolic acidosis and metabolic acidosis, compensated with respiratory alkalosis. Improved. Prognosis is guarded. Plan: Continue current treatment and supportive care per admitting and other teams on the case. Antibiotics, including Meropenem and Zyvox. Bronchodilators. Appropriate DVT and GI prophylaxis. We will start Haldol 5mg IV prn. If patient starts calming down, we will discontinue restraint. Evaluation time in minutes: 34 minutes.
--- NOTE | 2019-05-17 18:37 | INFECTIOUS DISEASE PROGRESS NO ---
DATE: 05/17/2019 PRESENT ILLNESS: The patient has bilateral pneumonia and bilateral infected foot ulcers. MEDICATIONS: This is day 6 of treatment with meropenem and day 4 of treatment with Zyvox. PHYSICAL EXAMINATION: Vital Signs: Temperature is 96.6 degrees, pulse 102, respirations 17, blood pressure is 190/103. Head, eyes, ears, nose, and throat: The patient today has been extubated. He is talking. He can hear my spoken words and see near objects. He does not have any white patches in his mouth. Patient has a nasogastric tube in place. Neck: The patient has on the right-sided dialysis catheter in place. The site is not bleeding or purulent. Lungs: Clear to auscultation. Cardiovascular: Heart rate is regular. Abdomen: Soft and nontender. Neurologic: The patient is alert. He is talking. He can move his extremities. There is no tremor. Extremities: Patient has bilateral leg edema and bilateral plantar ulcers, all of which are currently dry. There is no necrotic tissue. There is some devitalized tissue, however. LAB AND X-RAY: There is no new lab or x-ray for today. ASSESSMENT AND PLAN: The patient has pneumonia and foot ulcers. My plan is to continue with his antibiotics. COMORBIDITIES: Diabetes mellitus, congestive heart failure, and end-stage renal disease. cc: Yasir Scales MD
--- NOTE | 2019-05-17 20:30 | PROVIDER PROGRESS NOTE ---
Progress Note Subjective: patient voices feeling pressure in his legs and abdomen. He has been irrational and combative with staff. He spoke inappropriately to me as well. Objective: temperature 96.6, pulse 101, respirations 12, blood pressure 185/84, 02 sat 96% on room air. General: -British male lying in bed in no acute distress HEENT: normocephalic, atraumatic, pupils reactive. Mucous membranes are moist. Neck: Supple, 8 cm JVD appreciated Cardiovascular: S1S2s4, regular rate and rhythm. Systolic murmur. No gallop. Respiratory: Clear lung sounds anteriorly. Abdomen: soft, protuberance, nontender. Bowel sounds hypoactive. : non inspected, bautista in place with clear urine Extremities: 2+ pitting to BLE. Open wounds to the base of the great toes on both feet. Neurological: alert, agitated, oriented to person and place. Labs: WBC 13.88, hemoglobin 8.3, hematocrit 26.1, platelet count 297, sodium 139, potassium 4.0, chloride 101, carbon dioxide 22, BUN 17, creatinine 1.8,. Intake 1072, output 4950. Impression: DESIREE overlying CKD3-4 with recent cardiac arrest. He had a 4L ultrafiltration yesterday with SLED. His BUN and Creatinine are at baseline. We will continue to SLED today with a 3K bath and attempt a 4-6L ultrafiltration. Blood pressure. Stable. Anemia. Low but stable. Fluid volume. Expanded but improving. Attempting SLED again today. Electrolytes and acid base balance. Stable. Nutrition. NPO and off the ventilator. Defer to primary. Medication review. Tylenol 1,000mg scheduled q8 hours, seroquel started.
[2019-05-17] MEDS ORDERED: SEROQUEL PO SCH ×2 (21:00)
[2019-05-17] MEDS: HALDOL IV PRN (21:17)
[2019-05-18] MEDS: DUONEB (A & A) INH SCH ×7 (01:11→23:15)
[2019-05-18] MEDS: HALDOL IV PRN ×2 (05:11→12:25)
[2019-05-18] MEDS: APRESOLINE PO SCH ×3 (05:40→20:41)
[2019-05-18] MEDS: MERREM 1 GM in NS 50 ML IV SCH ×2 (05:40→18:25)
[2019-05-18] MEDS: TYLENOL PO SCH ×4 (05:41→20:41)
[2019-05-18] MEDS ORDERED: NS 2,000 ML MISC PRN (05:51)
[2019-05-18 05:55] LABS: BASO# 0.06 X1000 (0.0-0.2); BASO% 0.4 % (0.0-0.8); EOS# 0.19 X1000 (0.0-0.7); EOS% 1.1 % (0.0-10.0); HEMATOCRIT 28.2 % (42.0-52.0); HEMOGLOBIN 8.9 g/dL (14.0-18.0); IMM GRAN# 0.04 X1000 (0.0-0.04); IMM GRAN% 0.2 % (0.0-0.5); LYMPH# 1.24 X1000 (1.2-3.4); LYMPH% 7.5 % (20.5-51.1); MCH 27.7 PG (27-31); MCHC 31.6 g/dL (33-37); MCV 87.9 FL (81-99); MONO# 1.18 X1000 (0.11-0.59); MONO% 7.1 % (1.7-9.3); MPV 10.3 FL (7.4-10.4); NEUT# 13.86 X1000 (1.4-6.5); NEUT% 83.7 % (42.2-75.2); PLT 308 X1000 (130-400); RBC 3.21 XMIL (4.7-6.1); RDW 18.4 % (11.5-14.5); WBC 16.57 X1000 (4.8-10.8)
[2019-05-18 06:22] LABS: CREATININE 2.2 mg/dL (0.7-1.2); POTASSIUM 4.2 mmol/L (3.5-5.1)
[2019-05-18] MEDS: HUMULIN R SUBQ SCH ×4 (06:46→20:04)
--- NOTE | 2019-05-18 06:57 | EKG Report ---
Test Performed on : 05/18/2019 06:34:12 AM Test Reason : Follow up QTc. Thanks Blood Pressure : / mmHG Vent. Rate : 090 BPM Atrial Rate : 090 BPM P-R Int : 150 ms QRS Dur : 082 ms QT Int : 400 ms P-R-T Axes : 077 073 081 degrees QTc Int : 489 ms Normal sinus rhythm. Possible Left atrial enlargement Prolonged QT Abnormal ECG When compared with ECG of 14-MAY-2019 07:01, No significant change was found Confirmed by Fili Lake MD ([id number]) on 05/18/2019 12:17:23 PM
[2019-05-18] MEDS: PROTONIX IV SCH (07:10)
[2019-05-18 07:14] LABS: ALLEN TEST YES; BE -0.6 mmoll (-3.0-3.0); BLOOD TYPE ARTERIAL; HCO3-(ACT) 24.4 mmoll (20.0-26.0); PCO2(98.6) 43 mmHg (35-45); PO2(98.6) 71 mmHg (60-100); SAMPLE BLOOD; pH(98.6) 7.37 (7.35-7.45)
[2019-05-18 07:18] LABS: MODALITY ROOM AIR
--- NOTE | 2019-05-18 07:34 | Diag Imaging Result Doc PS360 ---
EXAM: CHEST-1 VIEW INDICATION: SOB TECHNIQUE: One view COMPARISON: 05/17/2019 FINDINGS: The patient is rotated toward the left. The Vas-Cath is in stable position. There is stable pulmonary venous congestion. No new consolidation is identified. There is stable cardiomegaly. IMPRESSION: Essentially stable chest. Electronically signed by Murphy Stern 05/18/2019 7:32 AM
[2019-05-18] MEDS: COREG PO SCH ×2 (10:58→20:41)
[2019-05-18] MEDS: FLOMAX PO SCH (10:58)
[2019-05-18] MEDS: ISORDIL PO SCH ×3 (10:59→20:41)
[2019-05-18] MEDS: LABETALOL IV PRN ×2 (11:00→21:30)
[2019-05-18] MEDS: HEPARIN SUBQ SCH ×2 (11:02→20:39)
[2019-05-18] MEDS: SANTYL OINT TOP SCH (11:02)
[2019-05-18] MEDS: LIDODERM TOP SCH (11:08)
--- NOTE | 2019-05-18 11:14 | PROGRESS NOTE ---
DATE: 05/18/2019 INTERVAL HISTORY: No acute events overnight. He has had episodes of agitation. SUBJECTIVE: Currently, he is sleepy. He is arousable. OBJECTIVE: Vital Signs: On examination, it does appear he could have obstructive sleep apnea since his oxygen saturation dropped to as low as 84%. His temperature is 98.9 degrees, pulse 85, respiratory rate 11, blood pressure is 190/80, and he is saturating 97% on room air. General: Not in acute distress. HEENT: Oral cavity is moist. I could not see any secretions. Lungs: Air entry bilaterally equal. No wheeze, rhonchi, crackles. Cardiovascular: S1, S2 normal. No murmur or gallop. Abdomen: Soft. Dull to percussion. Active bowel sounds. Extremities: His lower extremity edema has decreased, though not completely gone. His scrotal edema has decreased as well. He is moving all extremities spontaneously. He had to be kept on restraints. He has had 600 mL of urine output yesterday. LABORATORY: [place] [address], hemoglobin 8.9, and platelet 308,000. A pH of 7.37, BUN of 19, creatinine of 2.2, and blood sugar of 123. MICROBIOLOGY: No new data. IMAGING: Chest x-ray in the morning does not have any acute pathology, except pulmonary vascular congestion. ASSESSMENT AND PLAN: 1. Status post cardiac arrest on 05/13 thought to be related to an aspiration event leading to primary respiratory failure. The patient was extubated on 05/17. Continue inhaled bronchodilators, subcutaneous heparin for DVT prophylaxis, and pantoprazole for stress ulcer prophylaxis. 2. Bilateral lower lobe aspiration pneumonia with Klebsiella pneumoniae. Continue bilateral lower lobe aspiration pneumonia with Klebsiella pneumoniae, and bilateral foot wound with Enterobacter cloacae. Continue intravenous linezolid and meropenem as per ID recommendation. 3. Congestive heart failure with preserved ejection fraction, left ventricular hypertrophy leading to volume overload along with chronic kidney disease. Continue carvedilol, hydralazine, and isosorbide. I will add intravenous labetalol as needed to keep systolic blood pressure less than 160 mmHg. 4. Acute kidney injury on chronic kidney disease stage 4 now with oliguria after cardiac arrest. He has been receiving SLED. I appreciate Nephrology's recommendations. 5. Anemia of chronic disease, status post 4 units of packed red blood cells. Continue intravenous Protonix. 6. Other: Continue sliding scale insulin-dependent diabetes mellitus, intravenous haloperidol as needed for agitation. 7. Acute encephalopathy. This could be in the setting of hospital-acquired delirium. I will stop Seroquel and tramadol to prevent excessive drowsiness as during my encounter he was significantly sleepy today. I also decreased the dose of haloperidol. Unfortunately, it is going to be a challenge managing his agitation and sedation. However, considering he has had cardiac arrest, I would minimize sedative medications. 8. Disposition: I will continue to monitor him in ICU. Plan of care discussed with the nursing team. Yesterday, I had a detailed discussion of plan of care about patient's sister, and had answered all of her questions. cc: Srinivas Espinoza MD
[2019-05-18] MEDS: ZYVOX 600 MG/D5W 600 MG/300 ML IVPB IV SCH ×2 (12:14→23:07)
[2019-05-18] MEDS ORDERED: HALDOL IV ONE (14:47)
--- NOTE | 2019-05-18 15:17 | INFECTIOUS DISEASE PROGRESS NO ---
DATE: 05/18/2019 PRESENT ILLNESS: The patient has bilateral pneumonia and bilateral infected foot ulcers. MEDICATIONS: This is day 7 of treatment with meropenem and day 5 of treatment with Zyvox. PHYSICAL EXAMINATION: Vital Signs: Temperature is 99 degrees, pulse 85, respirations 11, blood pressure 192/84. General: This is a chronically ill-appearing young male. He is in no acute distress. Head/eyes/ears/nose/throat: He does not have any drainage coming from his nose or ears. I did not see any white patches in his mouth. Neck: He moves his neck without pain. He does have a right-sided dialysis catheter in place in his neck. Lungs: Clear to auscultation. Cardiovascular: Heart rate is regular. Abdomen: Soft and nontender. Extremities: Both legs have plantar ulcers. They are dry and they have scarring around them. There is no drainage. Neurologic: The patient seems slightly delirious. He talks but it is not in a coherent way. He can move his extremities. There is no tremor. LAB AND X-RAY: Chest x-ray shows pulmonary venous congestion. Creatinine is 2.2. GFR is 40. Blood gases show a pH of 7.37, a PO2 of 71, and a pCO2 of 43. CBC shows a white count of 16,570, hemoglobin 8.9, and platelet count 308,000. ASSESSMENT AND PLAN: The patient has pneumonia and infected plantar foot ulcers. My plan for now is to continue with Zyvox and meropenem. COMORBIDITIES: Diabetes mellitus, congestive heart failure and end-stage renal disease. cc: Yasir Scales MD
--- NOTE | 2019-05-18 17:11 | PULMONOLOGY PROGRESS NOTE ---
DATE: 05/18/2019 SUBJECTIVE: The patient is awake, alert, and conversant. He is agitated that he is not being fed. He is currently on hemodialysis. OBJECTIVE: Vital Signs: Maximum temperature in the last 24 hours 99.2 degrees, blood pressure 163/116, heart rate 88, respiratory rate 12, oxygen saturation 100%. HEENT: Pupils are equal and reactive. Oropharynx appears clear. Neck: Supple. Chest: Reveals faint crackles bilaterally. Cardiac: S1, S2. Abdomen: Soft. Extremities: Reveal diabetic ulcers on the plantar surface of the right great toe and the left lateral surface of the left foot. IMAGING: Chest x-ray reveals cardiomegaly with generous cardiac silhouette. LABORATORY DATA: White blood count 16.6, hemoglobin 8.9, platelet count 308,000. Sodium 140, potassium 4.2, chloride 102, bicarbonate 24, BUN 19, creatinine 2.2, glucose 137. Arterial blood gas reveals a pH 7.37, pCO2 of 43, PO2 of 71. IMPRESSION: A 38-year-old with 1. Acute hypoxemic respiratory failure. 2. Status post cardiopulmonary arrest. 3. Pneumonia. 4. Bilateral lower extremity decubitus ulcers from diabetes. 5. Acute on chronic renal failure, on hemodialysis. DISCUSSION: A 38-year-old with problems outlined above. Clinically, he appears to be improving. PLAN: 1. Continue current antibiotic regimen. 2. Continue bronchial hygiene. 3. Give crackers and water and if tolerated will expand his diet. cc: Salty King MD
--- NOTE | 2019-05-18 18:27 | NEPHROLOGY PROGRESS NOTE ---
DATE: 05/18/2019 SUBJECTIVE: He is off the ventilator, awake, alert, hungry, asking for more food. No shortness of breath. OBJECTIVE: Vital Signs: Blood pressure 163/116, heart rate 88, respirations 12, afebrile, intake. 1.2 L, output 6.4 L, urine output 500 mL. General: No acute distress. Skin: Warm and dry. Neck: Neck veins are not distended. Heart: Regular. No gallops. Lungs: Equal. No crackles. Abdomen: Benign. Extremities: Minimal edema today. IMPRESSION: Chronic kidney disease stage 4 with overlying volume overload related to heart disease, hypertension, profound hypoalbuminemia from nephrotic syndrome. Volume status is much better at this time. I will hold dialysis over the weekend and observe his response. Blood pressure is out of target. His oral home medications are being restarted. We will have to hold off on lisinopril or angiotensin receptor osiris at this time. Continue carvedilol, hydralazine, isosorbide. He has p.r.n. labetalol if required. cc: Victorino Oconnor MD
[2019-05-19] MEDS: TYLENOL PO SCH ×5 (02:11→20:16)
[2019-05-19] MEDS: HALDOL IV PRN ×3 (02:11→21:22)
[2019-05-19] MEDS: ZOFRAN IV PRN ×2 (02:11→21:22)
[2019-05-19] MEDS: DUONEB (A & A) INH SCH ×6 (03:20→23:52)
[2019-05-19] MEDS: APRESOLINE PO SCH ×4 (04:15→20:16)
[2019-05-19 05:54] LABS: BASO# 0.06 X1000 (0.0-0.2); BASO% 0.4 % (0.0-0.8); EOS# 0.19 X1000 (0.0-0.7); EOS% 1.3 % (0.0-10.0); HEMATOCRIT 28.9 % (42.0-52.0); HEMOGLOBIN 8.9 g/dL (14.0-18.0); IMM GRAN# 0.03 X1000 (0.0-0.04); IMM GRAN% 0.2 % (0.0-0.5); LYMPH# 1.23 X1000 (1.2-3.4); LYMPH% 8.2 % (20.5-51.1); MCH 27.2 PG (27-31); MCHC 30.8 g/dL (33-37); MCV 88.4 FL (81-99); MONO# 0.99 X1000 (0.11-0.59); MONO% 6.6 % (1.7-9.3); MPV 10.5 FL (7.4-10.4); NEUT# 12.43 X1000 (1.4-6.5); NEUT% 83.3 % (42.2-75.2); PLT 301 X1000 (130-400); RBC 3.27 XMIL (4.7-6.1); RDW 18.3 % (11.5-14.5); WBC 14.93 X1000 (4.8-10.8)
[2019-05-19] MEDS: PROTONIX IV SCH (06:08)
[2019-05-19] MEDS: MERREM 1 GM in NS 50 ML IV SCH ×2 (06:08→17:46)
[2019-05-19] MEDS: HUMULIN R SUBQ SCH ×4 (06:33→21:23)
[2019-05-19 06:58] LABS: CALCIUM 8.9 mg/dL (8.8-10.2); CREATININE 2.6 mg/dL (0.7-1.2); MAGNESIUM 1.9 mg/dL (1.5-2.7); PHOSPHORUS 5.1 mg/dL (2.7-4.5); POTASSIUM 4.1 mmol/L (3.5-5.1)
--- NOTE | 2019-05-19 07:14 | Diag Imaging Result Doc PS360 ---
EXAM: CHEST-1 VIEW HISTORY: SOB TECHNIQUE: Single view COMPARISON: 05/18/2019 FINDINGS: The heart remains enlarged. Pulmonary edema is less pronounced. Pleural effusions are slightly less prominent. No change in the right jugular line. No consolidation. IMPRESSION: Interval improvement Electronically signed by Malik Davis 05/19/2019 7:12 AM
[2019-05-19] MEDS: HEPARIN SUBQ SCH ×2 (10:06→20:16)
[2019-05-19] MEDS: SANTYL OINT TOP SCH (10:06)
[2019-05-19] MEDS: LIDODERM TOP SCH (10:07)
[2019-05-19] MEDS: FLOMAX PO SCH (10:09)
[2019-05-19] MEDS: ISORDIL PO SCH ×4 (10:10→20:16)
[2019-05-19] MEDS: COREG PO SCH ×2 (10:10→20:16)
--- NOTE | 2019-05-19 10:16 | PROGRESS NOTE ---
DATE: 05/09/2019 INTERVAL HISTORY: Mr. Campoverde was transferred to [facility]. He did have episodes of agitation overnight requiring haloperidol. In the morning time however, he was drowsy and when I saw him he was asleep and did not wake up to engage in clinical encounter. He will open his eyes but lapses back into sleep again. VITALS: Temperature 98 degrees, pulse 73, respiratory 18, blood pressure 168/68. He is saturating 97% on room air. PHYSICAL EXAMINATION: He does appear to have obstructive sleep apnea as he has episodes of apnea. Oral cavity is moist.Lungs: Air entry bilaterally equal. No wheeze, rhonchi, crackles. Cardiovascular: S1, S2 normal. No murmur, rub, or gallop. Abdomen: Soft, dull to percussion, nontender. Active bowel sounds. He has urine catheter. Extremities: He has lower extremity edema and ascites as well as scrotal edema which has improved. Input and output, he underwent a total of 5 L of dialysis yesterday. LABS: Suggestive of persistent leukocytosis, hemoglobin of 8.9, platelet of 301,000. He has a creatinine of 2.6. MICROBIOLOGY: Does not have any positive data. Chest x-ray today morning suggests no interval improvement. ASSESSMENT AND PLAN: 1. Status post cardiac arrest on May 13 thought to be related to an aspiration event in the setting of an aspiration event leading to primary respiratory failure. Status post intubation between May 13 and May 17. Continue inhaled bronchodilators, subcutaneous heparin for DVT prophylaxis and pantoprazole for stress ulcer prophylaxis. 2. Bilateral lower lobe aspiration pneumonia with Klebsiella pneumoniae and bilateral foot wound with Enterobacter cloacae. He has been on intravenous linezolid, intravenous meropenem as per Infectious Disease recommendation. His chest x-ray seems to be clear. Urinalysis and urine culture and blood cultures were negative. I will appreciate Infectious Disease recommendation about down titrating antibiotics. 3. Congestive heart failure with preserved ejection fraction, hypertrophic heart disease with left ventricular hypertrophy and acute kidney injury on chronic kidney dysfunction leading to volume overload and anasarca. He has been receiving intermittent SLED. I will continue carvedilol, hydralazine, isosorbide and as needed intravenous labetalol. 4. Anemia of chronic kidney disease status post 4 units of packed red blood cells. It is currently stable. 5. Others. Continue sliding scale insulin for insulin-dependent diabetes mellitus, intravenous haloperidol as needed for agitation with decreased dose, monitoring of his mental status for his acute encephalopathy which is likely in the setting of delirium in the setting of multiple critical health issues. He does not have any focal deficit. 6. Disposition. I will monitor patient in PVC. Plan of care discussed with the patient's nursing team and their questions have been answered. cc: Srinivas Espinoza MD
[2019-05-19] MEDS: ZYVOX 600 MG/D5W 600 MG/300 ML IVPB IV SCH ×2 (11:20→22:33)
[2019-05-19] MEDS: DITROPAN PO SCH ×3 (11:20→17:47)
--- NOTE | 2019-05-19 14:24 | NEPHROLOGY PROGRESS NOTE ---
DATE: 05/19/2019 SUBJECTIVE: He is asleep on my arrival. He arouses, but no complaints. OBJECTIVE: Vital Signs: Blood pressure 171/79, heart rate 93, respiration 18, afebrile. Intake 1.3 L. Output 5.5 L. General: Generally, in no acute distress. Skin: Warm and dry. Neck: Neck veins are not visible. Trachea is midline. Heart: Regular with a gallop. Lungs: Equal. No crackles. Abdomen: Soft, somewhat distended. Bowel sounds present. Extremities: No edema, clubbing or cyanosis. IMPRESSION: 1. Chronic kidney disease, stage 4. Overlying nephrotic syndrome and volume overload. He is euvolemic or hypovolemic at this time. No dialysis and observe his response. Urine output is adequate at 485 mL over 24 hours. cc: Victorino Oconnor MD
--- NOTE | 2019-05-19 18:39 | PULMONOLOGY PROGRESS NOTE ---
DATE: 05/19/2019 SUBJECTIVE: The patient is awake, alert, and conversant. He is without specific complaints. OBJECTIVE: Blood pressure 161/80, heart rate 92, respiratory rate 18, oxygen saturation 97%. HEENT: Pupils are equal and reactive. Oropharynx appears clear. Neck: Supple. Chest: Good air entry bilaterally. Cardiac: S1, S2. Abdomen: Soft. Extremities: Without edema. DIAGNOSTIC DATA: Chest x-ray reveals decreased effusions with decreased vascular congestion. IMPRESSION: A 38-year-old with: 1. Acute hypoxemic respiratory failure. 2. Status post cardiopulmonary arrest. 3. Resolving pneumonia. 4. Bilateral lower extremity decubitus ulcers from diabetes mellitus. 5. Acute on chronic renal failure. DISCUSSION: A 38-year-old with problems outlined above. He continues to improve. PLAN: 1. Fluid management per Infectious Disease. 2. No additional pulmonary recommendations. Please call with questions. cc: Salty King MD
[2019-05-20] MEDS: TYLENOL PO SCH ×4 (03:00→20:25)
[2019-05-20] MEDS: APRESOLINE PO SCH ×3 (05:16→20:24)
[2019-05-20] MEDS: MERREM 1 GM in NS 50 ML IV SCH ×2 (05:17→06:26)
[2019-05-20] MEDS: DUONEB (A & A) INH SCH ×5 (05:47→20:31)
[2019-05-20] MEDS: HUMULIN R SUBQ SCH ×4 (06:29→21:43)
[2019-05-20] MEDS: PROTONIX IV SCH (06:29)
[2019-05-20 06:50] LABS: BASO# 0.07 X1000 (0.0-0.2); BASO% 0.4 % (0.0-0.8); EOS# 0.27 X1000 (0.0-0.7); EOS% 1.7 % (0.0-10.0); HEMATOCRIT 28.4 % (42.0-52.0); HEMOGLOBIN 8.8 g/dL (14.0-18.0); IMM GRAN# 0.06 X1000 (0.0-0.04); IMM GRAN% 0.4 % (0.0-0.5); LYMPH# 1.27 X1000 (1.2-3.4); LYMPH% 7.9 % (20.5-51.1); MCV 87.1 FL (81-99); MONO# 1.36 X1000 (0.11-0.59); MONO% 8.5 % (1.7-9.3); NEUT# 12.97 X1000 (1.4-6.5); NEUT% 81.1 % (42.2-75.2); PLT 274 X1000 (130-400); RBC 3.26 XMIL (4.7-6.1); RDW 17.7 % (11.5-14.5)
--- NOTE | 2019-05-20 07:13 | Diag Imaging Result Doc PS360 ---
EXAM: CHEST-1 VIEW 05/20/2019 HISTORY: SOB TECHNIQUE: AP portable at 0544 COMMENT: There is a skin fold on the left. There is a nodular opacity over the left lower chest which has not changed since 05/19/2019. Overall there has been no significant change. IMPRESSION: Stable chest. Electronically signed by Jeremy Guaman 05/20/2019 7:11 AM
[2019-05-20 07:21] LABS: ALBUMIN 3.2 g/dL (3.5-5.0); CALCIUM 8.5 mg/dL (8.8-10.2); CALCIUM 8.8 mg/dL (8.8-10.2); CREATININE 3.6 mg/dL (0.7-1.2); CREATININE 3.7 mg/dL (0.7-1.2); PHOSPHORUS 6.4 mg/dL (2.7-4.5); POTASSIUM 4.8 mmol/L (3.5-5.1); POTASSIUM 4.9 mmol/L (3.5-5.1)
[2019-05-20] MEDS: COREG PO SCH ×2 (09:51→20:24)
[2019-05-20] MEDS: HEPARIN SUBQ SCH ×2 (09:51→20:24)
[2019-05-20] MEDS: ISORDIL PO SCH ×3 (09:51→20:25)
[2019-05-20] MEDS: DITROPAN PO SCH ×3 (09:52→18:05)
[2019-05-20] MEDS: LIDODERM TOP SCH (09:53)
[2019-05-20] MEDS: FLOMAX PO SCH (09:53)
[2019-05-20] MEDS: SANTYL OINT TOP SCH (09:53)
[2019-05-20] MEDS: MIRALAX PO SCH (10:23)
[2019-05-20] MEDS: ZYVOX 600 MG/D5W 600 MG/300 ML IVPB IV SCH (10:51)
[2019-05-20] MEDS: HALDOL IV PRN ×2 (11:17→18:52)
--- NOTE | 2019-05-20 11:41 | INFECTIOUS DISEASE PROGRESS NO ---
DATE: 05/20/2019 PRESENT ILLNESS: The patient did have bilateral pneumonia, but his latest x-ray shows decreased pulmonary edema and a stable nodular opacity. He also has infected foot ulcers, but none of them appear to be infected at this time. MEDICATIONS: This is the 9th day of treatment with meropenem and the 7th day of treatment with Zyvox. PHYSICAL EXAMINATION: Vital Signs: Temperature is 97.8 degrees, pulse 90, respirations 18, blood pressure is 176/78. General: This is a chronically ill-appearing young male. He is in no acute distress. Head/eyes/ears/nose/throat: Can hear my spoken words and see near objects. He does not have any white coating of his tongue. Neck: No pain with movement. The patient does have a right neck dialysis catheter in place. Lungs: Clear to auscultation. Cardiovascular: Heart rate is regular. Abdomen: Soft and nontender. Extremities: The patient has bilateral plantar ulcers. They are all dry. They are not tender. Neurologic: The patient is awake. He is able to ambulate. He told me he wants to go home. LAB AND X-RAY: The patient's creatinine is 3.7. GFR is 22. CBC shows a white count of 16,000, hemoglobin is 8.8, and platelet count is 274,000. The patient's chest x-ray shows pulmonary edema, but it is less pronounced, and a stable nodular opacity. ASSESSMENT AND PLAN: The patient does has pneumonia and infected foot ulcers. He very much wants to go home. I am going to stop his Zyvox and meropenem and instead put him on Augmentin and Levaquin. Also, I am going to order blood cultures and a UA and urine culture. COMORBIDITIES: Include diabetes mellitus, congestive heart failure, and end- stage renal disease. cc: MD MARIO ALBERTO Desir
[2019-05-20 11:57] LABS: URINE SOURCE CATH
[2019-05-20] MEDS ORDERED: LEVAQUIN PO SCH (12:00)
[2019-05-20 12:11] LABS: BILIRUBIN URINE NEGATIVE (NEGATIVE); BLOOD URINE LARGE (NEGATIVE); COLOR BROWN; GLUCOSE URINE 500 mg/dL (NEGATIVE); KETONE URINE NEGATIVE (NEGATIVE); LEUKOCYTES URINE MODERATE (NEGATIVE); NITRITE URINE NEGATIVE (NEGATIVE); PROTEIN URINE 600 mg/dL (NEGATIVE); SP GRAVITY URINE 1.022; TURBIDITY URINE TURBID (CLEAR); UR EPITHELIAL CELLS <10 /HPF (<10); URINE BACTERIA NEGATIVE /HPF; URINE RBC TNTC /HPF (<10); URINE WBC TNTC /HPF (<10); UROBILINOGEN URINE 2 mg/dL (NORMAL)
[2019-05-20 12:12] LABS: URINE CASTS NONE SEEN; URINE YEAST NONE SEEN
[2019-05-20] MEDS ORDERED: LANTUS INSULIN SUBQ ONE (13:00)
--- NOTE | 2019-05-20 13:34 | PROGRESS NOTE ---
DATE: 05/20/2019 INTERVAL HISTORY: No acute events overnight. SUBJECTIVE: Mr. Campoverde is eating his breakfast. His father is at bedside. Does not appear to be in any acute distress. He states he wanted to go home, and I discussed with him about his multiple condition. He could tell me the reason why he was admitted in the hospital. He could tell me that someone told him that he went into cardiac arrest. However, he does have intermittent episodes of confusion, and his behavior has been fluctuating. I was informed that yesterday he wanted to take off his restraints. VITALS: Temperature 98.1 degrees, pulse 90, respiratory 14, blood pressure 180/78. He is saturating 100% on room air. PHYSICAL EXAMINATION: General: He is not in any acute distress. HEENT: Oral cavity is moist. Lungs: Air entry bilaterally equal. No wheeze, rhonchi or crackles. Heart: S1, S2 normal. No murmur or gallop. Abdomen: Soft. Tympanic to percussion. He has a urine catheter. Extremities: He has bilateral lower extremity edema and ascites, though ascites and scrotal edema has decreased. Neurologic: He is alert. He could tell me his date, current month and year. LABS: Suggestive of a WBC of 16,000, hemoglobin 8.8, platelet 274,000. His BUN is 36 and creatinine 3.7. His blood glucose has been elevated in the 300s. He also has hyperphosphatemia. Microbiology no positive data. Repeat urine culture has been ordered. He also has pyuria. ASSESSMENT AND PLAN: 1. Status post cardiac arrest on May 13, thought to be related to aspiration event leading to primary respiratory failure, status post intubation between May 13 and May 17. Continue inhaled bronchodilators, subcutaneous heparin for DVT prophylaxis and pantoprazole for stress ulcer prophylaxis. 2. Bilateral lower lobe aspiration pneumonia with Klebsiella pneumoniae, bilateral foot wound with Enterobacter cloacae infection and persistent leukocytosis. I will get urinalysis to rule out catheter associated UTI. Appreciate Infectious Disease recommendations. His antibiotics have been changed to Augmentin and levofloxacin according to Infectious Disease recommendations. 3. Congestive heart failure with preserved ejection fraction, hypertrophic heart disease with left ventricular hypertrophy and acute kidney injury on chronic kidney disease leading to volume overload, ascites and anasarca. He has been receiving intermittent SLED. Continue carvedilol, hydralazine, isosorbide, as needed intravenous labetalol, and I will add amlodipine for his blood pressure management. Continue Gatica catheter for close input, output monitoring. 4. Anemia of chronic kidney disease, status post 4 units of packed red blood cells, currently stable. 5. Continue sliding scale insulin and add long-acting insulin for his insulin-dependent diabetes mellitus. 6. Continue intravenous haloperidol as needed for agitation. His current acute encephalopathy after cardiac arrest is likely in the setting of delirium. He may have sustained some hypoxic brain injury. However, we will have to monitor and assess him further and will evaluate his course accordingly. 7. Disposition: Continue to monitor patient in PVC. Plan of care discussed with the patient and his father at bedside. Their questions have been answered. cc: Srinivas Espinoza MD
[2019-05-20] MEDS ORDERED: NICODERM PATCH TD SCH (15:30)
[2019-05-20] MEDS: AUGMENTIN PO SCH (18:05)
[2019-05-21] MEDS: DUONEB (A & A) INH SCH ×7 (00:17→23:25)
[2019-05-21] MEDS: HALDOL IV PRN (01:25)
[2019-05-21] MEDS: TYLENOL PO SCH ×4 (01:47→20:43)
[2019-05-21] MEDS: APRESOLINE PO SCH ×3 (06:16→20:42)
[2019-05-21] MEDS: AUGMENTIN PO SCH (06:17)
[2019-05-21] MEDS: PROTONIX IV SCH (06:17)
[2019-05-21] MEDS: HUMULIN R SUBQ SCH ×4 (06:17→20:43)
--- NOTE | 2019-05-21 06:50 | Diag Imaging Result Doc PS360 ---
CHEST-1 VIEW - 05/21/2019 INDICATION: SOB COMPARISON: 05/20/2019 FINDINGS: Stable right central line in good position. Stable cardiomegaly. No infiltrates or edema. No pneumothorax or pleural effusion. IMPRESSION: No change from prior. Electronically signed by Joseph Lawrence 05/21/2019 6:48 AM
[2019-05-21 07:03] LABS: BASO# 0.06 X1000 (0.0-0.2); BASO% 0.4 % (0.0-0.8); EOS# 0.38 X1000 (0.0-0.7); EOS% 2.3 % (0.0-10.0); HEMATOCRIT 28.7 % (42.0-52.0); HEMOGLOBIN 9.1 g/dL (14.0-18.0); IMM GRAN# 0.03 X1000 (0.0-0.04); IMM GRAN% 0.2 % (0.0-0.5); LYMPH# 1.24 X1000 (1.2-3.4); LYMPH% 7.4 % (20.5-51.1); MCH 27.2 PG (27-31); MCHC 31.7 g/dL (33-37); MCV 85.7 FL (81-99); MONO# 1.46 X1000 (0.11-0.59); MONO% 8.8 % (1.7-9.3); NEUT# 13.48 X1000 (1.4-6.5); NEUT% 80.9 % (42.2-75.2); PLT 268 X1000 (130-400); RBC 3.35 XMIL (4.7-6.1); RDW 17.2 % (11.5-14.5); WBC 16.65 X1000 (4.8-10.8)
[2019-05-21 07:34] LABS: ALBUMIN 3.3 g/dL (3.5-5.0); CALCIUM 8.4 mg/dL (8.8-10.2); CREATININE 5.1 mg/dL (0.7-1.2); MAGNESIUM 1.8 mg/dL (1.5-2.7); POTASSIUM 5.4 mmol/L (3.5-5.1)
--- NOTE | 2019-05-21 08:15 | INFECTIOUS DISEASE PROGRESS NO ---
DATE: 05/21/2019 PRESENT ILLNESS: The patient has cleared his pneumonia. The most recent chest x-ray, which was done today, shows that the patient has clear lungs. Also, the patient does have foot ulcers, but they are all dry. There is no erythema. They are also not tender. MEDICATIONS: Yesterday I started the patient on Augmentin and Levaquin. PHYSICAL EXAMINATION: Vital Signs: Temperature is 98 degrees, pulse 89, respirations 20, blood pressure 188/85. General: This is a chronically ill-appearing young male. He is in no acute distress. Head/Eyes/Ears/Nose/Throat: He can hear my spoken words and see near objects. He does not have any white patches on his tongue. Neck: The patient on the right side has dialysis catheters in place. The site is not purulent. Lungs: Clear to auscultation. Cardiovascular: Heart rate is regular. Abdomen: Protuberant, but not tender. Extremities: As mentioned above, the patient has plantar ulcers, all of which are dry. They do have some scarring around them. Neurologic: The patient is alert. He is able to ambulate. He does not have any tremors. LAB AND X-RAY: Chest x-ray shows no infiltrates or edema. The patient's CBC shows a white count of 16,650, hemoglobin 9.1, and platelet count 268,000. The creatinine is 5.1. The GFR is 15. Blood and urine cultures were obtained yesterday, the results of which are pending. As mentioned above, the patient's most recent chest x-ray shows no infiltrates or edema. ASSESSMENT AND PLAN: For now, I have stopped Augmentin and Levaquin so the patient now is on no antibiotic, and I am going to wait for the results of the blood cultures and the urine culture obtained yesterday. COMORBIDITIES: Diabetes mellitus, congestive heart failure, and end-stage renal disease. cc: Yasir Scales MD
--- NOTE | 2019-05-21 09:53 | NEPHROLOGY PROGRESS NOTE ---
DATE: 05/21/2019 Date Seen: 05/21/2019 Time Seen: 07 SUBJECTIVE: Mr. Campoverde is resting quietly on the side of the bed. States that he hopes to be going home today. He is awaiting to find out if he will require further hemodialysis or not. OBJECTIVE: Vital Signs: Temperature is 98 degrees, blood pressure 188/85, heart rate 89, respirations 20. He is on room air. Last recorded saturation is 93%. He has had 960 in 300 out to void. LABORATORY DATA: Sodium 132, potassium 5.4, chloride 95, CO2 21, BUN 55, creatinine 5.1, glucose is 305. His anion gap is 16 calcium 8.4, phosphorus 7, albumin 3, magnesium 1.8. White count 16.64, hemoglobin 9.1, hematocrit 28.7, with a platelet count of 268,000. Chest x-ray shows stable chest, clear. Blood cultures and urine cultures are still currently pending. PHYSICAL EXAMINATION: General: This is a 38-year-old male. He is resting quietly in bed. He is in no acute distress. Skin: Warm and dry. HEENT: Normocephalic, atraumatic. Conjunctiva is pale. He has KEON. Mucous membranes are dry. Neck: Supple, trachea midline. He has no evidence of JVD. He has a Vas-Cath to the right IJ. Cardiovascular: Regular rate and rhythm. He does have a systolic murmur. Lungs: Clear to auscultation anteriorly. Equal excursion on room air. Abdomen: Soft, protuberant, nontender. Positive bowel sounds, hypoactive. Genitourinary: Not inspected. Patient has a Gatica in place with clear yellow urine. Extremities: Continues with 1 to 2+ lower extremity edema. Open wounds continue at the base of the great toes on both feet. Neurological: Alert and oriented x3. ASSESSMENT AND PLAN: 1. Acute kidney injury overlying chronic kidney disease stage 4. The patient is post recent cardiac arrest. He has been started on hemodialysis. He was dialyzed four days straight last week. His labs today show that his creatinine has climbed from 3.7 to 5.1 without dialysis in 24 hours. He continues to have a Vas-Cath to the right IJ. He will need a tunneled catheter to facilitate discharge and outpatient care. rg 2. Electrolytes and acid-base balance. These are acceptable with management on dialysis. 3. Anemia. This has been low but stable. 4. Fluid volume overload. This has continued to improve. Breathing has improved. Lower extremity edema has improved. 5. Sepsis. This is followed by Dr. Scales. Chest x-ray is negative this a.m. He has stopped his antibiotics and awaiting the culture results on his urine and blood cultures. I would like to thank you for allowing us to follow with this patient. Dictated by OSMAN Loyd for Victorino Oconnor MD Face to face encounter, data reviewed, discussed with Inessa Malin on 05/21/19. I agree with the above assessment and plan of care. cc: OSMAN Loyd MD [facility]
[2019-05-21] MEDS: COREG PO SCH ×2 (09:57→20:42)
[2019-05-21] MEDS: DITROPAN PO SCH ×3 (09:58→17:18)
[2019-05-21] MEDS: FLOMAX PO SCH (09:59)
[2019-05-21] MEDS: ISORDIL PO SCH ×3 (09:59→20:42)
[2019-05-21] MEDS: LANTUS INSULIN SUBQ SCH (09:59)
[2019-05-21] MEDS: SANTYL OINT TOP SCH (09:59)
[2019-05-21] MEDS: LIDODERM TOP SCH (09:59)
[2019-05-21] MEDS: MIRALAX PO SCH (10:00)
[2019-05-21] MEDS: HEPARIN SUBQ SCH ×2 (10:00→20:43)
[2019-05-21] MEDS ORDERED: KEFZOL 1 GM/D5W 1 GM/50 ML IVPB IV ONE (12:25)
--- NOTE | 2019-05-21 13:34 | GENERAL SURGERY PROGRESS NOTE ---
DATE: 05/21/2019 Mr. Campoverde has had a temporary dialysis catheter placed by Dr. Olivares. He has been undergoing dialysis. He has not recovered his kidney function. I have been asked to place a more permanent catheter so we will plan a tunnel catheter in the operating room hopefully tomorrow the . I have discussed this with him and he agrees. cc: Soy Mathew MD
--- NOTE | 2019-05-21 18:21 | PROGRESS NOTE ---
DATE: 05/21/2019 INTERVAL HISTORY: No acute events overnight. SUBJECTIVE: Mr. Campoverde is feeling better. Denies any complaints. VITALS: Temperature 97.8 degrees, pulse 88, respiratory 16, blood pressure 127/70 saturating 100% on room air. He denies any chest pain, shortness of breath or cough. His urine catheter was removed in the morning time. PHYSICAL EXAMINATION: Not in acute distress. Oral cavity is moist. Air entry bilaterally equal. No wheezing, rhonchi, or crackles. S1 and S1 normal. No murmur or gallop. Abdomen is soft and nontender. Tympanic to percussion in the center and dullness on the flank, and lower quadrants in sitting position. He has bilateral lower extremity edema though his ascites, scrotal edema, and lower extremity edema have decreased. He is alert. He is oriented x3. He has a right-sided neck dialysis catheter. Input and output suggests he had 700 mL of urine output yesterday. LABORATORY: Labs suggestive of persistent leukocytosis, hemoglobin of 9.1, and platelet 268,000. He did have hyperkalemia. Elevated BUN and creatinine, and hyperglycemia. MICROBIOLOGY: No repeat blood cultures have been ordered. Urine culture has not shown any growth. ASSESSMENT AND PLAN: 1. Status post cardiac arrest on 05/13 thought to be related to aspiration event leading to primary respiratory failure status post intubation between 05/13 and 05/17. Continue inhaled bronchodilators, subcutaneous heparin for DVT prophylaxis, and pantoprazole for stress ulcer prophylaxis. 2. Bilateral lower lobe aspiration pneumonia with Klebsiella pneumoniae, and bilateral foot wound with Enterobacter cloacae infection with persistent leukocytosis. He is status post intravenous antibiotics. Repeat urinalysis did not have any growth. Blood culture and labs: His antibiotics have been discontinued. 3. Congestive heart failure with preserved ejection fraction exacerbation, and hypertrophic heart disease with left ventricular hypertrophy. 4. Acute kidney injury on chronic kidney disease leading to volume overload, ascites and anasarca. He also likely experienced acute tubular necrosis after cardiac arrest. He made 7 mL of urine yesterday. He has been receiving intermittent hemodialysis. Continue carvedilol, hydralazine, isosorbide as needed, intravenous labetalol, and amlodipine for his blood pressure management. Surgical Team has been consulted to change his dialysis catheter into tunneled dialysis catheter. 5. Anemia of chronic disease, status post 4 units of packed red blood cells, currently stable. 6. Insulin-dependent diabetes mellitus. Continue current dose of long-acting insulin with sliding scale. 7. Others: Continue haloperidol as needed for agitation. 8. Acute encephalopathy after cardiac arrest, likely in the setting of delirium, which is improving. He has been more cooperative with his care recently than in the past. He has not been using curse words to the care team though he wanders in his room, and does not keep the telemetry cords attached all the time. I explained to him about keeping the telemetry. DISPOSITION: Continue to monitor patient in PVC. Once we get the tunneled dialysis catheter in and he is able to receive dialysis through that, he could be considered for discharge in the next 48 hours or so. Plan of care discussed with Mr. Campoverde. Yesterday. I had a detailed discussion of plan of care with his father at bedside. Their questions have been satisfactorily answered. cc: Srinivas Espinoza MD
[2019-05-22] MEDS: TYLENOL PO SCH ×2 (01:53→08:19)
[2019-05-22] MEDS: DUONEB (A & A) INH SCH ×4 (03:19→15:52)
[2019-05-22] MEDS: APRESOLINE PO SCH (06:02)
[2019-05-22] MEDS ORDERED: TIGHT: 0.2 ML/HR FOR DIALYSIS MISC PRN (06:10)
[2019-05-22] MEDS ORDERED: NS 2,000 ML MISC PRN (06:10)
[2019-05-22] MEDS ORDERED: HEPARIN IV PRN (06:10)
[2019-05-22] MEDS: HUMULIN R SUBQ SCH ×2 (06:31→13:45)
[2019-05-22] MEDS ORDERED: PROTONIX PO SCH (07:00)
[2019-05-22 07:09] LABS: BASO# 0.05 X1000 (0.0-0.2); BASO% 0.3 % (0.0-0.8); EOS# 0.43 X1000 (0.0-0.7); EOS% 2.9 % (0.0-10.0); HEMATOCRIT 28.1 % (42.0-52.0); HEMOGLOBIN 8.9 g/dL (14.0-18.0); IMM GRAN# 0.03 X1000 (0.0-0.04); IMM GRAN% 0.2 % (0.0-0.5); LYMPH% 10.3 % (20.5-51.1); MCHC 31.7 g/dL (33-37); MCV 85.2 FL (81-99); MONO# 1.26 X1000 (0.11-0.59); MONO% 8.6 % (1.7-9.3); MPV 9.7 FL (7.4-10.4); NEUT# 11.31 X1000 (1.4-6.5); NEUT% 77.7 % (42.2-75.2); PLT 271 X1000 (130-400); RDW 17.4 % (11.5-14.5); WBC 14.58 X1000 (4.8-10.8)
[2019-05-22] MEDS ORDERED: XYLOCAINE-MPF 2% ONE (07:47)
[2019-05-22] MEDS ORDERED: DIPRIVAN 1% ONE (07:48)
[2019-05-22 07:52] LABS: ALBUMIN 3.4 g/dL (3.5-5.0); CALCIUM 8.6 mg/dL (8.8-10.2); CREATININE 5.9 mg/dL (0.7-1.2); PHOSPHORUS 7.2 mg/dL (2.7-4.5)
[2019-05-22 08:09] LABS: POTASSIUM 6.5 mmol/L (3.5-5.1)
[2019-05-22] MEDS: HEPARIN SUBQ SCH (08:09)
[2019-05-22] MEDS: DITROPAN PO SCH (08:19)
[2019-05-22] MEDS: FLOMAX PO SCH (08:19)
[2019-05-22] MEDS: COREG PO SCH (08:19)
[2019-05-22] MEDS: LANTUS INSULIN SUBQ SCH (08:20)
[2019-05-22] MEDS: SANTYL OINT TOP SCH (08:20)
[2019-05-22] MEDS: ISORDIL PO SCH (08:20)
[2019-05-22] MEDS: LIDODERM TOP SCH (08:20)
[2019-05-22] MEDS: MIRALAX PO SCH (08:21)
[2019-05-22] MEDS ORDERED: HUMULIN R IV ONE (09:21)
[2019-05-22] MEDS ORDERED: ALBUTEROL 0.5% INH CONC FOR HYPERKALEMIA INH ONE (09:22)
[2019-05-22] MEDS ORDERED: D50W SYRINGE IV ONE (09:28)
--- NOTE | 2019-05-22 10:14 | NEPHROLOGY PROGRESS NOTE ---
DATE: 05/22/2019 DATE AND TIME SEEN: On 05/22/2019 at 0710 hours. SUBJECTIVE: Mr. Campoverde is resting quietly on the side of the bed. He has just returned to his room from smoking a cigarette. He has security outside his room at this time. OBJECTIVE: Vital Signs: Temperature 97.6 degrees, blood pressure 162/82, heart rate 91, respirations 21. He is on room air. Last recorded saturation 100%. He has had 602 input and he has had 0 output to void that has been recorded. LABORATORY DATA: Sodium is 133, potassium 6.5, chloride 95, CO2 of 20, BUN 72, creatinine 5.9, glucose is 280, anion gap 18, calcium 8.6, phosphorus 7.2, albumin 3.4. White count 14.54, hemoglobin 8.9, hematocrit 28.1, with a platelet count of 221,000. PHYSICAL EXAMINATION: General: This is a 38-year-old male who is resting quietly on the side of the bed. He states that his legs are aching him today secondary to swelling. Skin: Warm and dry. HEENT: Normocephalic, atraumatic. Conjunctiva is pale pink. He has KEON. Mucous membranes are dry. Neck: Supple. Trachea midline. No evidence of JVD in the upright position. Vas-Cath remains to the right IJ. Dressing is partially intact. Cardiovascular: Regular rate and rhythm. He has a systolic murmur. Lungs: Clear to auscultation anteriorly. Equal excursion. He is on room air. Abdomen: Soft, protuberant, nontender. Positive bowel sounds. Hypoactive. Genitourinary: Not inspected. Gatica has been removed. He has been voiding on his own without recording his input and output. Neurological: He is alert and oriented x3. Integumentary: Patient has 1 to 2+ lower extremity edema. Open wounds continue at the base of his great toes on both feet. Not inspected. He did not want his socks or shoes off. ASSESSMENT AND PLAN: 1. Acute kidney injury overlying chronic kidney disease stage 4. Patient did not have dialysis yesterday. BUN and creatinine continue to elevate. He has a BUN of 72 with a creatinine of 5.9 today. We have discussed placement of dialysis tunnel catheter with removal of his Vas- Cath to the right internal jugular secondary to preparation for discharge. HD today prior to discharge. 2. Electrolytes. Potassium of 6.5. We will given ampule of D-50 and 10 units of regular insulin with albuterol inhaler per hyperkalemia protocol today in an attempt to get his potassium lowered prior to surgery. 3. Acid-base balance. This is acceptable. 4. Anemia. This is low but stable. 5. Sepsis. Patient continues to be followed by Dr. Scales. Antibiotics were stopped yesterday secondary to awaiting his chest x-ray report, which indicated no infiltrates or edema. No pneumothorax or pleural effusions. I would to thank you for allowing us to follow with this patient. Dictated by OSMAN Loyd for Victorino Oconnor MD Face to face encounter, data reviewed, discussed with Inessa Malin on 05/22/19. I agree with the above assessment and plan of care. cc: OSMAN Loyd MD [facility]
[2019-05-22] MEDS ORDERED: HEPARIN ONE ×3 (10:15→10:19)
[2019-05-22] MEDS ORDERED: NS 250 ML ONE (10:19)
[2019-05-22] MEDS ORDERED: XYLOCAINE 1%/EPI 1:100,000 ONE (10:22)
[2019-05-22] MEDS ORDERED: KEFZOL 1 GM/D5W 1 GM/50 ML IVPB ONE (10:48)
[2019-05-22] MEDS ORDERED: NEO-SYNEPHRINE ONE (10:59)
[2019-05-22] MEDS ORDERED: SODIUM CHLORIDE 0.9% 10 ML ONE (10:59)
[2019-05-22] MEDS ORDERED: VENTOLIN HFA ONE (11:01)
[2019-05-22] MEDS ORDERED: ZOFRAN ONE (11:01)
[2019-05-22] MEDS: D50W SYRINGE IV PRN (11:45)
[2019-05-22] MEDS: PHENERGAN ONE ×2 (11:46→11:50)
--- NOTE | 2019-05-22 11:47 | Diag Imaging Result Doc PS360 ---
EXAM: CHEST-PORTABLE HISTORY: left Hemodialysis cath TECHNIQUE: Single view single view COMPARISON: 05/21/2019 FINDINGS: Interval placement of a left sided catheter. The tip overlies the right atrium. No pneumothorax. No change in the right jugular line. Heart remains enlarged. No pulmonary edema. No pleural effusions identified. IMPRESSION: No postprocedural pneumothorax. Electronically signed by Malik Davis 05/22/2019 11:45 AM
[2019-05-22 12:19] VITALS: BP 183/99
--- NOTE | 2019-05-22 12:20 | OPERATIVE NOTE ---
PROCEDURE DATE: 05/22/2019 PROCEDURE PERFORMED: Placement of left internal jugular vein tunneled dialysis catheter, 28 cm precurved, with ultrasound guidance. SURGEON: Soy Mathew M.D. DAM WORKER: Mami Veras. PREOPERATIVE DIAGNOSIS: Chronic kidney disease 5. POSTOPERATIVE DIAGNOSIS: Chronic kidney disease 5. DESCRIPTION OF PROCEDURE: Satisfactory general anesthesia was achieved. An LMA was used. The left side of the neck and upper anterior chest were prepped and draped in a sterile fashion. We anesthetized the skin on the neck. We imaged the left internal jugular vein, and it was found to be prominent and patent. We made a stab incision, and accessed the internal jugular vein without difficulty, passed the guidewire into the superior vena cava under fluoroscopic guidance. We then tunneled a 28 cm precurved GlidePath tunnel dialysis catheter from subclavicular incision up to the neck incision. We then dilated the tract sequentially. We then passed the dilator and introducer sheath over the guidewire, into the superior vena cava. We removed the dilator and guidewire, and introduced the GlidePath catheter through the sheath, into the superior vena cava to the right atrium. We peeled away the sheath as we introduced it. We were able to aspirate and irrigate easily with Heplock. We then gave the patient strong heparin at 5000 units/mL. We put 2 mL in each lumen. We secured the flange to the skin with 3-0 nylon. We then closed the skin of the neck incision with a 4-0 Polysorb horizontal mattress stitch. Telfa and sterile OpSites were applied. He tolerated it well, and was sent to the recovery room in satisfactory condition. cc: Soy Mathew MD
--- NOTE | 2019-05-22 12:35 | INFECTIOUS DISEASE PROGRESS NO ---
DATE: 05/22/2019 PRESENT ILLNESS: The patient has leukocytosis, but it is decreasing. His blood cultures are negative. The urine culture grew yeast. I think this is asymptomatic and does not require antimicrobial therapy. MEDICATIONS: The patient is on no antimicrobial agent. PHYSICAL EXAMINATION: Vital Signs: Temperature is 98.1 degrees, pulse 90, respirations 16, blood pressure 165/79. General: This is a chronically ill-appearing young male. He is in no acute distress. Head/Eyes/Ears/Nose/Throat: He can hear my spoken words and see near objects. He does not have any white coating on his tongue. Neck: The patient has a dialysis catheter in place. The site is not bleeding or purulent. Lungs: Clear to auscultation. Cardiovascular: Heart rate is regular. Abdomen: Protuberant, but not tender. Extremities: The patient has dry plantar ulcers with some scarring surrounding them. The patient has bilateral leg edema, but no erythema. Neurologic: The patient is alert. He is able to ambulate. He does not have any tremors. LAB AND X-RAY: There is no new radiographic study. The CBC shows a white count is down 14,580, hemoglobin is 8.9, platelet count is 271,000 creatinine is 5.9. GFR is 13. Blood cultures are negative. Urine culture grew yeast. ASSESSMENT AND PLAN: For now, I am not going to start any antimicrobial agents on the patient. Tomorrow I am going to repeat the patient's CBC. The patient's funguria does not require antibiotic treatment at this time. COMORBIDITIES: Diabetes mellitus, congestive heart failure, and end-stage renal disease. cc: Yasir Scales MD
--- NOTE | 2019-05-22 19:10 | INFECTIOUS DISEASE PROGRESS NO ---
DATE: 05/22/2019 ADDENDUM REPORT The patient is off all antibiotics. He has leukocytosis but it is decreasing. At this time, I do not think he has any active infection. The urine did grow yeast, but the patient is asymptomatic from that, and I do not think it requires antimicrobial therapy. The plan is to send the patient home on no antibiotics and I have requested that he come to my office in 1 week at which time he will be examined and we will go ahead and repeat the patient's CBC. cc: Yasir Scales MD MTDD
--- NOTE | 2019-05-22 19:51 | PROVIDER PROGRESS NOTE ---
Progress Note Dr. Ruff Progress Note/Pulmonary and or critical care Subjective: The patient is lying in bed on room air with no acute distress noted. He had placement of left internal jugular vein tunneled dialysis catheter placed this morning by Dr. Mathew. He is on dialysis now. He appears asleep and security is at the bedside. Input was appreciated from Dr. Edwards and other teams on the case. Objective: Vital Signs: T 98.1 (no fever in last 24 hours), IN 90, RR 16, BP 165/79 and SaO2 100% on room air. Physical Examination: General: Lying in bed with no acute distress noted. HEENT: Normocephalic. Trachea midline. Mucosa pink and moist Chest: Even and unlabored. Symmetrical excursion. Clear to auscultation bilaterally. CVS: Regular rate and rhythm with S1 and S2 appreciated. Abdomen: Soft. Protuberant. Ascites. Bowel sounds present in all 4 quadrants. Extremities: BLE trace edema. Great toe plantar ulcer bilaterally. Neuro: Asleep. Labs and Radiology: Laboratory Results 05/21/19 05/22/19 05/22/19 20:30 05:55 05:55 WBC 14.58 H RBC 3.30 L Hgb 8.9 L Hct 28.1 L MCV 85.2 MCH 27.0 MCHC 31.7 L RDW Std Deviation 17.4 H Plt Count 271 MPV 9.7 Immature Gran % (Auto) 0.2 Neut % (Auto) 77.7 H Lymph % (Auto) 10.3 L [place] % (Auto) 8.6 Eos % (Auto) 2.9 Baso % (Auto) 0.3 Immature Gran # (Auto) 0.03 Neut # (Auto) 11.31 H Lymph # (Auto) 1.50 [place] # (Auto) 1.26 H Eos # (Auto) 0.43 Baso # (Auto) 0.05 Sodium 133 L Potassium 6.5 H* D Chloride 95 L Carbon Dioxide 20 L Anion Gap 18 BUN 72 H Creatinine 5.9 H Estimated GFR/1.73 m2 13 BUN/Creatinine Ratio 12 Glucose 280 H POC Glucose 269 H D Calculated Osmolality 298 Calcium 8.6 L Phosphorus 7.2 H Albumin 3.4 L 05/22/19 05/22/19 05/22/19 06:22 11:37 16:03 WBC RBC Hgb Hct MCV MCH MCHC RDW Std Deviation Plt Count MPV Immature Gran % (Auto) Neut % (Auto) Lymph % (Auto) [place] % (Auto) Eos % (Auto) Baso % (Auto) Immature Gran # (Auto) Neut # (Auto) Lymph # (Auto) [place] # (Auto) Eos # (Auto) Baso # (Auto) Sodium Potassium Chloride Carbon Dioxide Anion Gap BUN Creatinine Estimated GFR/1.73 m2 BUN/Creatinine Ratio Glucose POC Glucose 265 H 68 L D 46 L Calculated Osmolality Calcium Phosphorus Albumin Assessment: Acute respiratory failure. Intubated on 05/13/19. Extubated on 05/16/19. Resolved. S/P cardiopulmonary arrest on 05/13/19. Pneumonia. Sputum culture on 05/06/19 grew Klebsiella Pneumoniae. Bilateral infected foot ulcers secondary to Enterobacter Cloacae. Diastolic congestive heart failure. Severe left ventricular hypertrophy with severe focal, localized mitral annular calcification measuring 1.2 cm and trace pericardial effusion per Echocardiogram on 05/14/19. CKD stage 4 with severe volume overload, heavy proteinuria, hyperkalemia, and hypoalbuminemia. On SLED per Dr. Oconnor. A tunnel catheter placement planed today Normocytic anemia. Stable. S/P RBC transfusion of 4 units since admission. Prognosis is guarded. Plan: Continue current treatment and supportive care per admitting and other teams on the case. Antibiotic (Cefazolin). Bronchodilators. Appropriate DVT and GI prophylaxis. Discharge planning per Admitting MD. Evaluation time in minutes: 31 minutes.
--- NOTE | 2019-05-23 12:28 | DISCHARGE SUMMARY ---
ADMISSION DATE: 05/04/2019 DISCHARGE DATE: 05/22/2019 FINAL DISCHARGE DIAGNOSES: 1. Acute hypoxemic respiratory failure status post extubation. 2. Status post cardiac arrest. 3. Sepsis. 4. Aspiration pneumonia secondary to Klebsiella pneumoniae 5. Elevated troponin status post cardiac arrest. 6. Acute kidney injury on chronic kidney disease stage 4 on hemodialysis. 7. Severe volume overload with anasarca in the setting of nephrotic range proteinuria. 8. Severe anemia. 9. Poorly controlled insulin-dependent diabetes mellitus. 10. Bilateral foot wound infection secondary to Enterobacter cloacae. 11. Medical noncompliance. 12. Metabolic acidosis. 13. Metabolic encephalopathy. 14. Behavioral disturbance with severe agitation and aggression. 15. Hypertension. CONSULTATIONS: 1. Nephrology consultation with Dr. Oconnor. 2. Infectious Disease consultation with Dr. Scales. 3. Cardiology consultation with Dr. Christopher. 4. Urology consultation with Dr. Addison. 5. Pulmonary consultation with Dr. Ruff. 6. General Surgery consultation with Dr. Edward. IMAGIN. Portable chest x-ray performed on 05/03/2019, which revealed cardiomegaly and a right lower lobe infiltrate. 2. Echocardiogram performed on 05/04/2019, which revealed an ejection fraction of 50 to 55 percent. Severe aortic insufficiency. Severe pulmonic insufficiency. Severe tricuspid regurgitation. Pulmonary hypertension. 3. Hip and pelvis x-ray performed on 05/07/2019, which revealed no acute abnormality. 4. Lumbar spine x-ray performed on 05/08/2019, which revealed no acute bony injury. 5. Abdomen x-ray performed on 05/11/2019, which revealed mild constipation. 6. Pelvic CT performed on 05/13/2019, which revealed anasarca and ascites. 7. Head CT performed on 05/14/2019, which revealed a negative exam. 8. Chest x-ray performed on 05/15/2019, which revealed bibasilar infiltrates. PROCEDURES: 1. Insertion of an ultrasound-guided Trialysis central venous catheter performed on 05/13/2019. 2. Placement of a left internal jugular vein tunneled dialysis catheter with ultrasound guidance performed on 05/17/2019. HOSPITAL COURSE: Mr. Campoverde is a 38-year-old male with a history of poorly controlled insulin- dependent diabetes mellitus, chronic kidney disease stage IV, hypertension, medical noncompliance, pulmonary hypertension and bilateral foot wounds, who presented to the ER with a chief complaint of shortness of breath, as well as severe lower extremity swelling and scrotal swelling. On admission, the patient was noted to have a white blood cell count of 21,000, a BUN of 81 with a creatinine of 3.4 and an elevated troponin and the proBNP was elevated at 35,000. The initial chest x-ray in the ER revealed in the right lower lobe infiltrate. In light of these findings, the patient was admitted to the Hospitalist Service. Nephrology was consulted, as well as Cardiology for assistance with management. The patient had an echocardiogram done on 05/04/2019, which revealed an ejection fraction of 50 to 55 percent, pulmonary hypertension, severe tricuspid regurgitation and severe aortic insufficiency. The patient was started on diuretic therapy to assist with volume overload. Also, antibiotics were initiated after cultures were obtained. After 5 days, the blood cultures remained negative. However, the sputum culture grew out Klebsiella pneumoniae. Also, the patient had cultures of his feet that ultimately grew out Enterobacter cloacae. Infectious Disease was consulted for assistance with antibiotic management. The patient was treated with IV diuretic therapy and p.o. diuretic therapy for several days with no improvement in the volume overload. The patient continued to complain of shortness of breath and swelling in his scrotum and lower extremities and abdominal distention. Dialysis was discussed with the patient and he stated that he wanted to think about it and talk to his family. Over the course of the hospitalization, the patient was noted to be very agitated and verbally and physically abusive towards medical staff and providers who were taking care of him. The patient was started on p.r.n. Haldol to aid with his agitation and impulsivity. Ultimately, the cultures on the patient's foot grew out Enterobacter cloacae, and the patient's antibiotics were adjusted by Dr. Scales. The patient developed severe scrotal edema, so Urology was consulted for further recommendations. A pelvic CT was done that revealed anasarca and ascites, but no evidence of infection in the scrotum. Over the course of the hospitalization despite diuretic therapy, the patient's urine output dropped off with no improvement in his volume status. On 05/13/2019, the patient was noted to be unresponsive in his room while the nurse was doing dressing change on his feet. A code blue was called and ACLS protocol was initiated. After 15 minutes of resuscitation, the patient was noted to have return of spontaneous circulation and was immediately transferred to the ICU and placed on the ventilator. Pulmonary was consulted and Dr. Oconnor was notified of the patient's cardiac arrest. General Surgery was consulted that same day and blood was initiated to assist with the patient's metabolic derangements and volume issues. Also, Cardiology was reconsulted. A repeat echocardiogram was done that revealed an ejection fraction of 50%, as well as severe left ventricular hypertrophy. A repeat chest x-ray did show that the patient had aspirated. The patient's antibiotics were then adjusted as a result of the aspiration. Pulmonary Medicine was consulted for management of the ventilator. With the initiation of dialysis, the patient's volume overload improved, and the patient improved enough to be extubated. Following extubation, the patient was noted to be agitated again and verbally abusive toward staff. Security was asked to sit outside the patient's room for close monitoring. Slowly over the course of the hospitalization, the patient's pneumonia improved. A repeat chest x-ray was done that showed resolution of the infiltrative process. The patient was then transferred to [facility]. The patient was noted to have normal saturations on room air. It was decided by Dr. Scales to discontinue antibiotics, and order repeat blood cultures. To date, the repeat blood cultures remain negative. The patient's urine culture was noted to have yeast. However, it was not noted to be clinically significant. Despite improvement in the patient's volume status, he did not have recovery of his renal function, and the decision was made to have a tunneled dialysis catheter placed. Dr. Mathew was consulted and the patient underwent tunneled dialysis catheter placement on 05/22/2019. Following the placement of the catheter, the patient underwent dialysis. The patient did well with the dialysis treatments and stated that he felt better. The patient continued to improve clinically and was ultimately cleared for discharge home on 05/22/2019. The patient was counseled about the importance of medication compliance, as well as the proper care for the tunneled dialysis catheter that was placed today. DISCHARGE MEDICATIONS: 1. Lantus 12 units subcutaneous daily. 2. Ditropan 5 mg oral 3 times a day. 3. Flomax 0.4 mg oral daily. 4. Hydralazine 100 mg oral every 8 hours. 5. Lidoderm patch 5% patch topical daily. 6. MiraLAX 17 g oral twice a day. 7. Coreg 12.5 mg oral twice a day. 8. Isosorbide dinitrate 20 mg oral 3 times a day. DISCHARGE DIET: Renal diabetic diet. ACTIVITY: As tolerated. FOLLOWUP INSTRUCTIONS: The patient has been advised to follow up for his routine dialysis sessions 3 times a week as scheduled by Dr. Oconnor at [facility]. The patient was provided with instructions on how to get to the dialysis unit, as well as the date and time that he needs to show up for his sessions. The patient will need to follow up with Dr. Yasir Scales in 1 week. The patient will need to follow up with Dr. Corona in 1 week. cc: MD Jesus Sow MD MTDD
== END 2019-05-22 17:50 | disposition home or self-care (01) | DRG 871 ==
LOC: ED 17:38 → SUATTDRO 05-04 00:26 → 1N 05-04 00:26 → ICU 05-13 13:06 → 2N 05-18 22:02 → 1N 05-22 14:44
PROVIDERS: ATTEND Internal Medicine

== ENCOUNTER 2019-06-05 18:45 | Inpatient (IN) ==
--- NOTE | 2019-06-05 22:02 | Diag Imaging Result Doc PS360 ---
EXAM: CHEST-PORTABLE 06/05/2019 HISTORY: EDEMA,SOB TECHNIQUE: AP portable at 2151 COMMENT: There is cardiomegaly. There is a double-lumen catheter in the left internal jugular with its tip in the right atrium. The heart size is larger than on 05/22/2019. There is hazy opacity in both lung bases consistent with pulmonary edema. This is worse than on the previous study. IMPRESSION: Mild pulmonary edema. Worsened cardiomegaly. Electronically signed by Jeremy Guaman 06/05/2019 10:00 PM
--- NOTE | 2019-06-05 22:29 | PROVIDER DOCUMENTATION ---
This chart was entered by Andie Stephens Scribe, acting as scribe for Soy Mcfarlane MD. HPI-General Adult - General Chief Complaint: Edema Stated Complaint: BLOATING /PAIN Time Seen by Provider: 06/05/19 20:43 Source: patient Allergies/Adverse Reactions: Patient Allergies Allergy/AdvReac Type Severity Reaction Status Date / Time No Known Allergies Allergy Verified 04/29/19 17:17 Home Medications: Home Medication List Medication Instructions Recorded Confirmed Last Taken Type Polyethylene Glycol 3350 [Miralax] 17 gm PO BID #60 powder, packet 04/26/19 04/28/19 Unknown Rx Carvedilol [Coreg] 12.5 mg PO BID #120 tab 05/22/19 Unknown Rx Hydralazine HCl 100 mg PO Q8H #90 tab 05/22/19 Unknown Rx Insulin Glargine,Hum.rec.anlog 12 unit SQ DAILY #4 insuln.pen 05/22/19 Unknown Rx [Lantus Solostar] Isosorbide Dinitrate 20 mg PO TID #90 tab 05/22/19 Unknown Rx Lidocaine 5% Patch [Lidoderm] 1 ea TOP DAILY #30 patch 05/22/19 Unknown Rx Oxybutynin [Ditropan] 5 mg PO TID #90 tab 05/22/19 Unknown Rx Tamsulosin [Flomax] 0.4 mg PO DAILY #30 cap 05/22/19 Unknown Rx - History of Present Illness -Gen Adult Nature of Presenting Problems: pt is a 38 yr old male presenting with increased edema to lower body and increased pain. pt reports he is now compliant with medications and dialysis tx since last discharge, pt dialyzed yesterday and is on a Tuesday rotation, pt reports he was told by his PCP-Dr White-to present to ER for admission. pt denies chest pain, admits increased shortness of breath Location of Pain/Injury: reports: lower body (feet to scrotum) Onset/Duration: reports: gradual Timing: reports: getting worse Context/Activities at Onset: reports: light activity Modifying Factors: improves with: other (dialysis-no improvement) Associated Symptoms: reports: fatigue, shortness of breath, other (edema). denies: back/neck pain, chest pain, fever/chills Similar Symptoms Previously?: Yes Recently seen or treated by another doctor?: Yes Review of Systems - Adult - REVIEW OF SYSTEMS - ADULT Constitutional: reports: fatique. denies: chills, fever Eyes: reports: no symptoms reported Ears, Nose, Mouth & Throat: reports: no symptoms reported Cardiovascular: reports: edema, orthopnea. denies: chest pain, palpitations, syncope Respiratory: reports: no symptoms reported Gastrointestinal: denies: abdominal pain, diarrhea, nausea, vomiting Genitourinary: denies: dysuria, frequency, flank pain, urinary retention Musculoskeletal: reports: frequent leg cramps, muscle aches, muscle weakness. denies: back pain Integumentary: reports: no symptoms reported Neurological: denies: dizziness/vertigo, headache/migraines, loss of balance, numbness, seizure, syncope Psychiatric: reports: no symptoms reported Endocrine: reports: no symptoms reported Hematologic/Lymphatic: reports: no symptoms reported Allergic/Immunologic: reports: no symptoms reported All Other Systems: Reviewed and Negative Past History - Adult - PAST MEDICAL HISTORY-ADULT Review of Records: reports: Nursing Assessment Review, Medications Reviewed, Social history reviewed & non-contributory. Major Childhood Illnesses: reports: denies history Cardiovascular: reports: CAD, CHF, HTN, hyperlipidemia Respiratory: reports: denies history Gastrointestinal: reports: other (gastroparesis) Obstetrical/Gynecological: reports: denies history Genitourinary: reports: kidney disease (stage 4) Musculoskeletal: reports: denies history Neurological: reports: Seizures/Epilepsy Psychiatric: reports: denies history Endocrine/Immune: reports: Diabetes Other Conditions: reports: other (neuropathy) - PRIOR SURGERIES/PROCEDURES Surgical/Procedure History: reports: appendectomy - IMMUNIZATION STATUS Childhood Immunizations: See Nurse Assessment Flu Vaccine: See Nurse Assessment - FAMILY HISTORY Family History: diabetes - SOCIAL HISTORY Smoking: cigarettes Provider spent 3-5 mins advising pt. on dangers of tobacco.: Discussed manners to quit use, and f/u contacts for add'l counseling. Physical Exam-General - PHYSICAL EXAM-ADULT Initial Vital Signs Reviewed: Yes - CONSTITUTIONAL General Appearance: alert, no apparent distress - EYES Eyes: PERRL/EOMI - HEAD, EARS, NOSE, MOUTH & THROAT HENMT: normocephalic/atraumatic, moist mucous membranes, normal ENT inspection - NECK Neck: non-tender, full range of motion, supple, normal inspection - RESPIRATORY Respiratory: chest non-tender, lungs clear, normal breath sounds, no respiratory distress, no accessory muscle use - CARDIOVASCULAR Cardiovascular: normal peripheral pulses, regular rate, rhythm, other (edema noted from toes to scrotum) - GASTROINTESTINAL (ABDOMEN) Abdominal Exam: normal bowel sounds, non tender - LYMPHATIC Lymphatic: no adenopathy - MUSCULOSKELETAL Back Exam: normal inspection Extremity: normal range of motion, swelling, other (edema from toes to scrotum) - SKIN Integumentary: normal color, normal turgor, warm/dry - NEUROLOGIC Neurologic: acute dialysis registered nurse II-XII nml as tested, grossly normal - PSYCHIATRIC Psych/Mental Status: normal mood/affect, normal thought content, normal thought process, oriented x 3 Progress - PLAN OF CARE/RESULTS Progress/Plan/Lab Results: Vital Signs - 8 hr 06/05/19 18:58 Temperature 98.9 F Pulse Rate 105 H Respiratory Rate 19 Blood Pressure 147/81 O2 Sat by Pulse Oximetry 99 Orders Category Date Time Status Cardiac Monitoring DIRECTED Care 06/05/19 20:59 Active Finger Stick Blood Sugar (ED) DIRECTED Care 06/05/19 20:59 Active Saline Loc NOW Care 06/05/19 20:59 Active ACETONE SERUM [CHEM] Stat Lab 06/05/19 20:59 Ordered BLOOD CULTURE [BLDCUL] Stat Lab 06/05/19 20:59 Ordered CBC WITH ELECTRONIC DIFF [HEME] Stat Lab 06/05/19 20:59 Uncollected COMPREHENSIVE METABOLIC PANEL [CHEM] Stat Lab 06/05/19 20:59 Ordered INFLUENZA SCREEN A/B Stat Lab 06/05/19 20:59 Uncollected LACTATE, PLASMA [CHEM] Stat Lab 06/05/19 20:59 Uncollected MAGNESIUM [CHEM] Stat Lab 06/05/19 20:59 Uncollected TROPONIN T HIGH SENSITIVITY Stat Lab 06/05/19 20:59 Uncollected URINALYSIS W/POSS RFLX CULT [URINALYSIS] Stat Lab 06/05/19 21:00 Uncollected VBG [VENOUS BLOOD GAS] [RESP] Stat Lab 06/05/19 21:01 Uncollected EKG [EKG] Stat Ther 06/05/19 20:59 Ordered Result Diagrams: 06/05/19 21:59 - EKG 1 Time of EKG reading by physician:: 21:26 EKG Read and Signed by:: Soy Mcfarlane EKG Interpretation (*Must complete 3 of following elements*): Abnormal (LAE non specific t wave abnormality) Rate: 98 Rhythm: nsr MA Interval: prolonged - XRAY 1 XRAY Study: Chest Impression: Abnormal ( Signed EXAM: CHEST-PORTABLE 06/05/2019 HISTORY: EDEMA,SOB TECHNIQUE: AP portable at 2151 COMMENT: There is cardiomegaly. There is a double-lumen catheter in the left internal jugular with its tip in the right atrium. The heart size is larger than on 05/22/2019. There is hazy opa city in both lung bases consistent with pulmonary edema. This is worse than on the previous study. IMPRESSION: Mild pulmonary edema. Worsened cardiomegaly. Electronically signed by Jeremy Guaman 06/05/2019 10:00 PM 06/05/190 Interpreting Physician: Jeremy Guaman MD Dictated Date/Time: 06/05/192158 cc: Soy Mcfarlane MD; Jesus Corona MD) Comparison with other Films: changes noted (05/22/19) - CONSULTS/PCP/HOSPITALIST Notification #1 *Consult/PCP/Hospitalist*: Dr Arceo Time Discussed: 22:15 Reason/Comments: discussed plan of care for pt admit Consult Disposition: Admit Departure - Departure Date of Disposition Decision: 06/05/19 Time of Disposition Decision: 22:24 DIAGNOSIS: Smoker, ESRD (end stage renal disease) on dialysis CHF (congestive heart failure) Qualifiers: Heart failure type: unspecified Heart failure chronicity: acute on chronic Qualified Code(s): I50.9 - Heart failure, unspecified Fluid overload Qualifiers: Hypervolemia type: other Qualified Code(s): E87.79 - Other fluid overload Edema Qualifiers: Edema type: generalized Qualified Code(s): R60.1 - Generalized edema Disposition: ADMITTED INPATIENT 09 Certified Medical Emergency: Urgent Condition: Good Referrals and Follow-Ups: Jesus Corona MD [Primary Care Provider] - - Critical Care Note This patient required my direct & personal management of CC.: No Attestation - Physician/ DUANE Attestation Patient care was provided by Advanced Practice Provider:: No The physician spent face to face time with patient:: Yes Advanced Practice Provider documentation review:: Supervising physician onsite and consulted in the evaluation and care of this patient. The physician did have a face to face encounter with the patient. This chart was documented by the indicated scribe, (Andie Stephens Scribe) and accurately reflects the services I performed and decisions made by me, Soy Mcfarlane MD, as attested by the provider's signature.
[2019-06-05 22:37] LABS: BASO# 0.05 X1000 (0.0-0.2); BASO% 0.3 % (0.0-0.8); EOS# 0.18 X1000 (0.0-0.7); HEMATOCRIT 24.6 % (42.0-52.0); HEMOGLOBIN 7.7 g/dL (14.0-18.0); IMM GRAN# 0.05 X1000 (0.0-0.04); IMM GRAN% 0.3 % (0.0-0.5); LYMPH# 1.34 X1000 (1.2-3.4); LYMPH% 7.1 % (20.5-51.1); MCH 27.5 PG (27-31); MCHC 31.3 g/dL (33-37); MCV 87.9 FL (81-99); MONO# 1.28 X1000 (0.11-0.59); MONO% 6.8 % (1.7-9.3); MPV 10.1 FL (7.4-10.4); NEUT# 15.93 X1000 (1.4-6.5); NEUT% 84.5 % (42.2-75.2); PLT 536 X1000 (130-400); RDW 18.5 % (11.5-14.5); WBC 18.83 X1000 (4.8-10.8)
[2019-06-05 22:50] LABS: ACETONE SERUM NEGATIVE (NEGATIVE)
[2019-06-05 22:53] LABS: ALLEN TEST YES; BE -5.4 mmoll (-3.0-3.0); BLOOD TYPE ARTERIAL; HCO3-(ACT) 20.6 mmoll (20.0-26.0); METHB 0.5 % (0.0-1.5); O2(CT) 9.2 mL/dL (15.0-23.0); PCO2(98.6) 38 mmHg (35-45); PO2(98.6) 73 mmHg (60-100); SAMPLE BLOOD; SAO2 98.4 % (95.0-100.0); THB 7.2 g/dL (11.5-17.4); pH(98.6) 7.33 (7.35-7.45)
[2019-06-05 22:54] LABS: AGAP 15; ALB/GLOB RATIO 0.9; ALBUMIN 3.3 g/dL (3.5-5.0); ALKALINE PHOSPHATASE 184 U/L (32-122); BUN 38 mg/dL (8-22); CALCIUM 8.5 mg/dL (8.8-10.2); CHLORIDE 106 mmol/L (98-107); COSMO 300; CREATININE 3.7 mg/dL (0.7-1.2); ESTIMATED GFR 22; GLUCOSE 308 mg/dL (70-104); GOT 20 U/L (10-34); GPT 14 U/L (10-44); SODIUM 140 mmol/L (136-145); TCO2 19 mmol/L (25-35); TOTAL BILIRUBIN 0.35 mg/dL (0.20-1.00); TOTAL PROTEIN 7.1 g/dL (6.3-8.3)
[2019-06-05 23:00] LABS: MODALITY ROOM AIR; O2HB 89.5 % (95.0-99.0)
--- NOTE | 2019-06-05 23:41 | EKG Report ---
Test Performed on : 06/05/2019 9:26:05 PM Test Reason : SOB,EDEMA Blood Pressure : / mmHG Vent. Rate : 098 BPM Atrial Rate : 098 BPM P-R Int : 154 ms QRS Dur : 082 ms QT Int : 386 ms P-R-T Axes : 051 029 095 degrees QTc Int : 492 ms Normal sinus rhythm. Left atrial enlargement Nonspecific T wave abnormality Prolonged QT Abnormal ECG When compared with ECG of 18-MAY-2019 06:34, No significant change was found Unconfirmed Result
[2019-06-06] MEDS: APRESOLINE PO SCH ×2 (00:43→12:10)
[2019-06-06 05:12] LABS: HEMOGLOBIN A1C 8.4 % (4.8-6.0)
[2019-06-06] MEDS ORDERED: HUMULIN R SUBQ SCH (07:00)
[2019-06-06] MEDS ORDERED: LEVAQUIN PO SCH (07:30)
[2019-06-06] MEDS ORDERED: NS 2,000 ML MISC PRN (08:02)
[2019-06-06] MEDS ORDERED: HEPARIN IV PRN (08:02)
[2019-06-06] MEDS ORDERED: TIGHT: 0.2 ML/HR FOR DIALYSIS MISC PRN (08:02)
--- NOTE | 2019-06-06 08:27 | HISTORY AND PHYSICAL ---
CHIEF COMPLAINT: Generalized body swelling. 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 The patient presents to the hospital because of generalized swelling. Apparently, he had notified his primary care physician of his condition, and he was told to come to the emergency room. The patient gets hemodialysis 3 times a week. He denies missing any hemodialysis sessions. PAST MEDICAL HISTORY: 1. Diabetes mellitus. 2. Diastolic congestive heart failure. 3. End-stage renal disease. 4. Anemia of chronic disease. 5. Hypertension. 6. Diabetic neuropathy. 7. Diabetic foot ulcers. 8. Medical noncompliance. 9. Gastroparesis. PAST SURGICAL HISTORY: He has had appendectomy, tonsillectomy, finger amputation x2. SOCIAL HISTORY: Smokes cigarettes. No alcohol or drug use. FAMILY HISTORY: Positive for hypertension, as well as diabetes. ALLERGIES: No known drug allergies. MEDICATIONS: His medications include the followin. Polyethylene glycol 17 g twice a day. 2. Coreg 25 mg p.o. twice a day. 3. Hydralazine 100 mg p.o. q. 8 hours. 4. Lantus 12 units subcutaneous daily. 5. Isosorbide dinitrate 20 mg p.o. 3 times a day. 6. Lidocaine patch one topical application. 7. Oxybutynin 5 mg p.o. 3 times a day. 8. Flomax 0.4 mg p.o. daily. REVIEW OF SYSTEMS: Constitutional: No fever. GRAIN BUYER: No headaches. Eyes: He has blurred vision. ENT: No sinus problems. Respiratory: No cough. GI: Has some diarrhea with abdominal pains. : No dysuria. Dermatology: No skin lesions. Hematology: No bleeding problems. Musculoskeletal: No joint pains. Endocrinology: Has diabetes. Psychiatric: No anxiety or depression. No psychiatric problems. Allergy/immunology: No symptoms suggestive of allergic rhinitis. PHYSICAL EXAMINATION: VITAL SIGNS: Vital signs are as follows: Temperature 98.9 degrees, pulse 105, respiratory rate 19, blood pressure 147/81, oxygen saturation 99%. HEENT: Atraumatic, normocephalic. He is anicteric. No oral lesions noted. NECK: No lymphadenopathy or thyromegaly. CARDIOVASCULAR SYSTEM: S1, S2. RESPIRATORY SYSTEM: Has evidence of good air entry bilaterally. ABDOMEN: Soft, vaguely tender to palpation. No masses felt. EXTREMITIES: Has evidence of diabetic ulcers. There is a large ulcer on the plantar aspect of the right grade 2, and also there are ulcers on the lateral aspect of the left foot. CENTRAL NERVOUS SYSTEM: No obvious focal deficits noted. LABORATORY DATA: WBC 18.83, hematocrit is 24.6, with a platelet count of 536. ABG 7.33/38/73./98.4%. Chemistry: Sodium 140, potassium 4.0, chloride is 106, bicarbonate is 19. BUN 38, creatinine 3.7. Troponin 255. IMAGING STUDIES: X-ray of the chest shows evidence of mild pulmonary edema which was not cardiomegaly. ASSESSMENT AND PLAN: 1. End-stage renal disease with volume overload. Nephrology consulted to address the issue of volume overload with hemodialysis. 2. Hypertension. Optimize blood pressure control. 3. Diabetes mellitus. Maintain patient on sliding scale insulin. Monitor blood sugar levels. Check hemoglobin A1c level. 4. Diabetic foot ulcers require local wound care, as well as antibiotics. 5. Anemia of chronic disease. Aware. Follow up on hemoglobin and hematocrit. Transfuse packed red blood cells if needed. We will check iron studies, along with B 12 and folate level. 6. Leukocytosis, probably secondary to infected diabetic foot ulcers. Maintain patient on antibiotics. Follow up on white count. 7. Elevated troponin. Related to impaired renal function. 8. Deep vein thrombosis prophylaxis. Heparin. 9. Gastrointestinal prophylaxis. Proton pump inhibitor. cc: Eloy Arceo MD MTDD
[2019-06-06] MEDS ORDERED: COREG PO SCH (09:00)
[2019-06-06] MEDS ORDERED: DITROPAN PO SCH (09:00)
[2019-06-06] MEDS ORDERED: ISORDIL PO SCH (09:00)
[2019-06-06] MEDS ORDERED: FLOMAX PO SCH (09:00)
[2019-06-06] MEDS ORDERED: LOMOTIL PO ONE (10:43)
[2019-06-06 12:09] VITALS: BP 186/89
[2019-06-06] MEDS ORDERED: CLEOCIN PO SCH (13:00)
--- NOTE | 2019-06-06 16:36 | PROVIDER PROGRESS NOTE ---
Progress Note Chief complaint: I didnt feel good. HPI: Mr. Campoverde is A 38-year-old -[place] male who is known to us with end stage renal disease requiring hemodialysis Tuesday, Tuesday, and Tuesday. He has been frequently admitted over the last few months with fluid volume overload and acute respiratory failure. His last admission being on 05/04 that required mechanical ventilation. He has been coming to our outpatient clinic for his hemodialysis. Staff reports that he rarely stays longer than an hour due to lower extremity cramps and they always have a difficult time contacting him. Our staff was trying to get in touch with him because his last hemoglobin was low and he needed to come in for a PRBC transfusion. He States he called his primary doctor to let him know that he was having general malaise and increased swelling. At this time Dr. Leal instructed him to go to the emergency department. He complains of increased shortness of breath, generalized edema, malaise, and diarrhea. He denies any chest pain, cough, chills or fever, decreased appetite, or urinary complaints. He does still make urine. His last hemodialysis treatment was on Tuesday and he stayed 48 minutes. His creatinine is at his baseline. His hemoglobin is 7.7. Past medical history: end stage renal disease with hemodialysis on Tuesday, Tuesday, and Tuesday, diastolic congestive heart failure, diabetes mellitus type two, hypertension, anemia of chronic disease, diabetic neuropathy, diabetic foot ulcer, medical noncompliance, gastroparesis. Past surgical history: appendectomy, tonsillectomy, finger amputation times two, tunneled catheter placement. Social history: he lives at home. He smokes cigarettes. He denies alcohol or drug use. He has been positive for marijuana in the past. Family history: positive for coronary artery disease and hypertension Allergies: no known Home medications: Coreg, hydralazine, Lantus, isosorbide dinitrate, levof loxacin, lidocaine 5% patch, omeprazole, ditropan, MiraLAX, Flomax. Review of systems: 14 point review of systems complete. All pertinent positives listed above in the HPI. Physical exam: temperature 98.3, pulse 87, respirations 19, blood pressure 186/89, 02 sat 98% on room air. General: -[place] male lying in bed in no acute distress HEENT: normocephalic, atraumatic, pupils equal and reactive. Mucous membranes are moist. Neck: Supple, 8cm JVD appreciated Cardiovascular: S1S2S4, tachycardia rate and rhythm. Gallop appreciated. No murmur. Respiratory: lungs clear to auscultation anteriorly Abdomen: soft, protuberance, nontender. Bowel sounds present. : non inspected Extremities: 2+ pitting to BLE up to thighs. Posterior Right big toe foot ulcer. Neurological: alert and oriented to person, place, and time. Labs: WBC 18.83, hemoglobin 7.7, hematocrit 24.6, platelet count 536, sodium 140, potassium four, chloride 106, carbon dioxide 19, BUN 38, creatinine 3.7, acetone level negative, intake zero, output three voids not measured. Imaging: chest x-ray impression mouth pulmonary edema. Worsened cardiomegaly. Assessment and plan: Chronic kidney disease stage 5D. Patient appears volume expanded. He will receive his routine hemodialysis today in the inpatient setting and anticipate discharge after. He is encouraged to stay his entire treatment time. Blood pressure and fluid volume. Above target. Hemodialysis will help manage this. Anemia. Low, we will transfuse 1 unit of PRBC with his treatment. Electrolytes and acid base balance. Stable. Medication review. He is receiving his home medications.
[2019-06-07] MEDS ORDERED: PRILOSEC PO SCH (07:00)
--- NOTE | 2019-06-07 11:02 | DISCHARGE SUMMARY ---
ADMISSION DATE: 06/05/2019 DISCHARGE DATE: 06/06/2019 DISPOSITION: Home FOLLOWUP: 1. Dr. Oconnor. 2. Dr. Corona CONSULTATION DURING THIS ADMISSION: Nephrology was consulted. Patient was seen by Dr. Doctor Oconnor. INVASIVE PROCEDURES DONE DURING THIS ADMISSION: None. IMAGING STUDIES OF SIGNIFICANCE: Chest x-ray did show mild pulmonary edema, worsening cardiomegaly. ADMISSION DIAGNOSES: 1. End-stage renal disease. 2. Hypertension. 3. Diabetes. 4. Anemia of chronic disease. 5. Leukocytosis. DIAGNOSIS AT THE TIME OF DISCHARGE: 1. Fluid overload secondary to renal secondary to renal failure. 2. Endstage renal disease on hemodialysis. 3. Hypertension. 4. Behavioral disturbances with severe agitation and aggression in previous hospitalizations. 5. Diabetic foot ulcers. 6. Medical noncompliance. 7. Normocytic anemia secondary to anemia of chronic disease related to renal failure. 8. Chronic elevation troponin. 9. Diarrhea. PRESENTING COMPLAINT: Generalized swelling. HISTORY OF PRESENTING COMPLAINT: Mr. Campoverde is a 38-year-old who has multiple comorbidities with frequent hospitalization, was just recently started on hemodialysis. He comes back this time because of fluid overload. Apparently, he has not really been very compliant with the regimen/sessions of dialysis. He went to his primary care doctor who referred him to come to the emergency room because of generalized swelling. HOSPITAL COURSE: Mr. Campoverde was evaluated and sent for dialysis, which he tolerated well. He was also given 1 unit of PRBC transfusion after which he became more stabilized, did not have any more symptoms. Swelling has improved some so we think he is back to his baseline that he can be discharged. We have discussed with the nephrology team and he also okay with him being discharged. Mr. Campoverde did however refer that he was having diarrhea. I saw that in his last discharge he had Cleocin and Levaquin, both of which can potentially put him at risk of C- diff. I asked him to get a stool sample to rule out C- diff before I can get him home. Unfortunately, he said he was not ready to give us any stool sample and that I should forget that he even asked me to write him something for the diarrhea. DISCHARGE TIME: 35 minutes. DISCHARGE MEDICATIONS: 1. Insulin glargine 12 units subcutaneous daily. 2. Oxybutynin. 3. Tamsulosin 0.4 p.o. daily. 4. Hydralazine 100 mg p.o. q. 8. 5. Carvedilol 12.5 b.i.d. 6. Isordil 20 mg 3 times per day. 7. Omeprazole 20 mg p.o. daily. 8. Levofloxacin 250 p.o. Q 48 hours. cc: Joe Monroe MD
== END 2019-06-06 12:32 | disposition home or self-care (01) | DRG 640 ==
LOC: ED 18:45 → EDIPHOLD 23:52 → SUATTDRO 23:52 → EDIPHOLD 06-06 12:33
PROVIDERS: ATTEND Internal Medicine